=== PATIENT | male | born 1950 | race Caucasian/White ===

== ENCOUNTER 2016-07-16 18:17 | Inpatient (IN) | payer MEDICAID, MEDICARE ==
[2016-07-16] MEDS ORDERED: ACETAMINOPHEN TAB 500 MG TAB PO STA (19:22)
[2016-07-16] MEDS ORDERED: IPRATROPIUM-ALBUTEROL 3 ML NEB INHALATION STA ×2 (19:23→22:41)
--- NOTE | 2016-07-16 19:26 | ED ---
General Adult HPI - General Chief complaint: Shortness of Breath Stated complaint: Difficulty Breathing Time Seen by Provider: 07/16/16 19:00 Source: patient, family, RN notes reviewed Mode of arrival: ambulatory Limitations: no limitations - History of Present Illness Initial comments: Patient is a pleasant 65-year-old male presenting to the emergency Department with complaints of cough and difficulty breathing. Onset of symptoms was this morning. Cough is somewhat mild. Patient has palpitations. Patient feels warm. Cough is dry nonproductive. Patient does feel short of breath that has worsened throughout the day. Patient believes he does have a fever. Patient has not taken medication for that. Patient states there may be some swelling of his left leg. Patient does have a history of blood clot and is not currently on any anticoagulation. - Related Data Home Medications Medication Instructions Recorded Confirmed Ipratropium/Albuterol Sulfate 1 puff INHALATION RT-QID PRN 02/26/15 07/16/16 [Combivent Respimat Inhaler] Metoprolol Succinate [Toprol XL] 25 mg PO DAILY 11/12/15 07/16/16 Atorvastatin [Lipitor] 40 tab PO HS 11/17/15 07/16/16 ALPRAZolam [Xanax] 2 mg PO TID 07/16/16 07/16/16 Guaifenesin/Dextromethorphan 10 ml PO BID PRN 07/16/16 07/16/16 [guaiFENesin DM] Ibuprofen [Motrin] 800 mg PO TID PRN 07/16/16 07/16/16 Allergies Allergy/AdvReac Type Severity Reaction Status Date / Time orphenadrine Allergy Unknown Verified 07/16/16 18:47 pregabalin [From Lyrica] Allergy Unknown Verified 07/16/16 18:47 simvastatin Allergy Unknown Verified 07/16/16 18:47 cimetidine [From Tagamet] AdvReac Nausea & Verified 07/16/16 18:47 Vomiting & Diarrhea Sulfa (Sulfonamide AdvReac Nausea & Verified 07/16/16 19:31 Antibiotics) Vomiting Review of Systems ROS Statement: Those systems with pertinent positive or pertinent negative responses have been documented in the HPI. ROS Other: All systems not noted in ROS Statement are negative. Constitutional: Reports: fever, chills Eyes: Denies: eye pain ENT: Reports: congestion. Denies: ear pain, throat pain Respiratory: Reports: cough, dyspnea Cardiovascular: Reports: chest pain (Burning), palpitations Endocrine: Reports: fatigue Gastrointestinal: Denies: abdominal pain Genitourinary: Denies: dysuria Musculoskeletal: Denies: back pain Skin: Denies: rash Neurological: Denies: weakness Past Medical History Past Medical History: Chest Pain / Angina, COPD, Hyperlipidemia, Hypertension History of Any Multi-Drug Resistant Organisms: None Reported Past Surgical History: Back Surgery Past Psychological History: Anxiety, Panic Disorder Smoking Status: Former smoker Past Alcohol Use History: None Reported Past Drug Use History: None Reported General Exam Limitations: no limitations General appearance: alert, in no apparent distress Head exam: Present: atraumatic Eye exam: Present: normal appearance, PERRL ENT exam: Present: normal oropharynx Neck exam: Present: normal inspection Respiratory exam: Present: wheezes Cardiovascular Exam: Present: tachycardia GI/Abdominal exam: Present: soft. Absent: tenderness Extremities exam: Present: calf tenderness (Left-sided, mild) Back exam: Present: normal inspection Neurological exam: Present: alert Psychiatric exam: Present: normal affect, normal mood Skin exam: Absent: rash Course Vital Signs 07/16/16 07/16/16 07/16/16 18:44 19:31 19:44 Temperature 100.0 F H Pulse Rate 118 H 122 H 116 H Respiratory 22 Rate Blood Pressure 150/85 O2 Sat by Pulse 95 Oximetry 07/16/16 07/16/16 20:47 22:29 Temperature 100.7 F H 99.4 F Pulse Rate 118 H 115 H Respiratory 18 20 Rate Blood Pressure 156/76 176/88 O2 Sat by Pulse 94 L 96 Oximetry EKG Findings - EKG Comments: EKG Findings:: Sinus tachycardia 117. Normal intervals. Normal axis. Normal QRS. No acute ST change. Medical Decision Making - Medical Decision Making Patient reexamined and still feels somewhat short of breath. Case was discussed in detail with practitioner Can, who will admit for Dr. Mirtha Fritz. Patient and family updated on results and plan. - Lab Data Result diagrams: 07/16/16 19:15 07/16/16 19:15 Lab Results 07/16/16 07/16/16 07/16/16 Range/Units 19:15 19:15 19:15 WBC 12.9 H (3.8-10.6) k/uL RBC 4.77 (4.30-5.90) m/uL Hgb 14.5 (13.0-17.5) gm/dL Hct 44.4 (39.0-53.0) % MCV 93.2 (80.0-100.0) fL MCH 30.4 (25.0-35.0) pg MCHC 32.7 (31.0-37.0) g/dL RDW 12.6 (11.5-15.5) % Plt Count 284 (150-450) k/uL Neutrophils % 91 % Lymphocytes % 4 % Monocytes % 4 % Eosinophils % 1 % Basophils % 0 % Neutrophils # 11.7 H (1.3-7.7) k/uL Lymphocytes # 0.5 L (1.0-4.8) k/uL Monocytes # 0.5 (0-1.0) k/uL Eosinophils # 0.1 (0-0.7) k/uL Basophils # 0.0 (0-0.2) k/uL PT (9.0-12.0) sec INR (<1.1) APTT (22.0-30.0) sec D-Dimer (<0.60) mg/L FEU Sodium 144 (137-145) mmol/L Potassium 4.6 (3.5-5.1) mmol/L Chloride 106 (98-107) mmol/L Carbon Dioxide 25 (22-30) mmol/L Anion Gap 13 mmol/L BUN 10 (9-20) mg/dL Creatinine 1.00 (0.66-1.25) mg/dL Est GFR (MDRD) Af Amer >60 (>60 ml/min/1.73 sqM) Est GFR (MDRD) Non-Af >60 (>60 ml/min/1.73 sqM) Glucose 106 H (74-99) mg/dL Plasma Lactic Acid Joseph (0.7-2.0) mmol/L Calcium 9.5 (8.4-10.2) mg/dL Total Bilirubin 0.8 (0.2-1.3) mg/dL AST 25 (17-59) U/L ALT 51 (21-72) U/L Alkaline Phosphatase 112 (38-126) U/L Total Creatine Kinase 108 (55-170) U/L CK-MB (CK-2) 1.2 (0.0-2.4) ng/mL CK-MB (CK-2) Rel Index 1.1 Troponin I <0.012 (0.000-0.034) ng/mL Total Protein 7.8 (6.3-8.2) g/dL Albumin 4.5 (3.5-5.0) g/dL Cortisol 25 ug/dL Urine Color Urine Appearance (Clear) Urine pH (5.0-8.0) Ur Specific Anthony (1.001-1.035) Urine Protein (Negative) Urine Glucose (UA) (Negative) Urine Ketones (Negative) Urine Blood (Negative) Urine Nitrate (Negative) Urine Bilirubin (Negative) Urine Urobilinogen (<2.0) mg/dL Ur Leukocyte Esterase (Negative) Influenza Type A RNA (Not Detectd) Influenza Type B (PCR) (Not Detectd) 07/16/16 07/16/16 07/16/16 Range/Units 19:15 19:15 19:15 WBC (3.8-10.6) k/uL RBC (4.30-5.90) m/uL Hgb (13.0-17.5) gm/dL Hct (39.0-53.0) % MCV (80.0-100.0) fL MCH (25.0-35.0) pg MCHC (31.0-37.0) g/dL RDW (11.5-15.5) % Plt Count (150-450) k/uL Neutrophils % % Lymphocytes % % Monocytes % % Eosinophils % % Basophils % % Neutrophils # (1.3-7.7) k/uL Lymphocytes # (1.0-4.8) k/uL Monocytes # (0-1.0) k/uL Eosinophils # (0-0.7) k/uL Basophils # (0-0.2) k/uL PT 10.5 (9.0-12.0) sec INR 1.0 (<1.1) APTT 24.0 (22.0-30.0) sec D-Dimer 0.93 H (<0.60) mg/L FEU Sodium (137-145) mmol/L Potassium (3.5-5.1) mmol/L Chloride (98-107) mmol/L Carbon Dioxide (22-30) mmol/L Anion Gap mmol/L BUN (9-20) mg/dL Creatinine (0.66-1.25) mg/dL Est GFR (MDRD) Af Amer (>60 ml/min/1.73 sqM) Est GFR (MDRD) Non-Af (>60 ml/min/1.73 sqM) Glucose (74-99) mg/dL Plasma Lactic Acid Joseph 1.3 (0.7-2.0) mmol/L Calcium (8.4-10.2) mg/dL Total Bilirubin (0.2-1.3) mg/dL AST (17-59) U/L ALT (21-72) U/L Alkaline Phosphatase (38-126) U/L Total Creatine Kinase (55-170) U/L CK-MB (CK-2) (0.0-2.4) ng/mL CK-MB (CK-2) Rel Index Troponin I (0.000-0.034) ng/mL Total Protein (6.3-8.2) g/dL Albumin (3.5-5.0) g/dL Cortisol ug/dL Urine Color Urine Appearance (Clear) Urine pH (5.0-8.0) Ur Specific Anthony (1.001-1.035) Urine Protein (Negative) Urine Glucose (UA) (Negative) Urine Ketones (Negative) Urine Blood (Negative) Urine Nitrate (Negative) Urine Bilirubin (Negative) Urine Urobilinogen (<2.0) mg/dL Ur Leukocyte Esterase (Negative) Influenza Type A RNA Not Detected (Not Detectd) Influenza Type B (PCR) Not Detected (Not Detectd) 07/16/16 Range/Units 20:43 WBC (3.8-10.6) k/uL RBC (4.30-5.90) m/uL Hgb (13.0-17.5) gm/dL Hct (39.0-53.0) % MCV (80.0-100.0) fL MCH (25.0-35.0) pg MCHC (31.0-37.0) g/dL RDW (11.5-15.5) % Plt Count (150-450) k/uL Neutrophils % % Lymphocytes % % Monocytes % % Eosinophils % % Basophils % % Neutrophils # (1.3-7.7) k/uL Lymphocytes # (1.0-4.8) k/uL Monocytes # (0-1.0) k/uL Eosinophils # (0-0.7) k/uL Basophils # (0-0.2) k/uL PT (9.0-12.0) sec INR (<1.1) APTT (22.0-30.0) sec D-Dimer (<0.60) mg/L FEU Sodium (137-145) mmol/L Potassium (3.5-5.1) mmol/L Chloride (98-107) mmol/L Carbon Dioxide (22-30) mmol/L Anion Gap mmol/L BUN (9-20) mg/dL Creatinine (0.66-1.25) mg/dL Est GFR (MDRD) Af Amer (>60 ml/min/1.73 sqM) Est GFR (MDRD) Non-Af (>60 ml/min/1.73 sqM) Glucose (74-99) mg/dL Plasma Lactic Acid Joseph (0.7-2.0) mmol/L Calcium (8.4-10.2) mg/dL Total Bilirubin (0.2-1.3) mg/dL AST (17-59) U/L ALT (21-72) U/L Alkaline Phosphatase (38-126) U/L Total Creatine Kinase (55-170) U/L CK-MB (CK-2) (0.0-2.4) ng/mL CK-MB (CK-2) Rel Index Troponin I (0.000-0.034) ng/mL Total Protein (6.3-8.2) g/dL Albumin (3.5-5.0) g/dL Cortisol ug/dL Urine Color Yellow Urine Appearance Clear (Clear) Urine pH 5.5 (5.0-8.0) Ur Specific Anthony 1.020 (1.001-1.035) Urine Protein Negative (Negative) Urine Glucose (UA) Negative (Negative) Urine Ketones Negative (Negative) Urine Blood Negative (Negative) Urine Nitrate Negative (Negative) Urine Bilirubin Negative (Negative) Urine Urobilinogen <2.0 (<2.0) mg/dL Ur Leukocyte Esterase Negative (Negative) Influenza Type A RNA (Not Detectd) Influenza Type B (PCR) (Not Detectd) - Radiology Data Radiology results: report reviewed (Ultrasound left leg negative for DVT. CT of the chest shows no definite pulmonary embolism.), image reviewed (Chest x- ray shows no acute process.) Disposition Clinical Impression: Acute exacerbation of chronic obstructive airways disease Disposition: ADMITTED IP TO THIS HOSP
[2016-07-16 19:37] LABS: Basophils % (A) 0 %; CH 31.3; CHCM 33.8; Eosinophils # (A) 0.1 k/uL (0-0.7); Eosinophils % (A) 1 %; HCT 44.4 % (39.0-53.0); HDW 2.57; HGB 14.5 gm/dL (13.0-17.5); Luc # (Auto) 0.09; Luc % (Auto) 1; Lymphocytes # (A) 0.5 k/uL (1.0-4.8); Lymphocytes % (A) 4 %; MCH 30.4 pg (25.0-35.0); MCHC 32.7 g/dL (31.0-37.0); MCV 93.2 fL (80.0-100.0); Monocytes # (A) 0.5 k/uL (0-1.0); Monocytes % (A) 4 %; Neutrophils # (A) 11.7 k/uL (1.3-7.7); Neutrophils % (A) 91 %; RBC 4.77 m/uL (4.30-5.90); RDW 12.6 % (11.5-15.5); WBC 12.9 k/uL (3.8-10.6)
[2016-07-16 19:51] LABS: ALT 51 U/L (21-72); AST 25 U/L (17-59); Alkaline Phosphatase 112 U/L (38-126); Anion Gap 13 mmol/L; Blood Urea Nitrogen 10 mg/dL (9-20); Calcium 9.5 mg/dL (8.4-10.2); Carbon Dioxide 25 mmol/L (22-30); Chloride 106 mmol/L (98-107); Glucose 106 mg/dL (74-99); Non-African American GFR(MDRD) >60 (>60 ml/min/1.73 sqM); Potassium 4.6 mmol/L (3.5-5.1); Sodium 144 mmol/L (137-145); Total Bilirubin 0.8 mg/dL (0.2-1.3); Total Protein 7.8 g/dL (6.3-8.2)
[2016-07-16 20:04] LABS: Creatine Kinase 108 U/L (55-170)
[2016-07-16 20:17] LABS: Creatine Kinase MB 1.2 ng/mL (0.0-2.4); Troponin I <0.012 ng/mL (0.000-0.034)
[2016-07-16 20:19] LABS: Prothrombin Time 10.5 sec (9.0-12.0)
--- NOTE | 2016-07-16 20:41 | US ---
EXAMINATION TYPE: US VENOUS DOPPLER DUPLEX LE LT DATE OF EXAM: 07/16/2016 8:29 PM COMPARISON: Prior in PACS CLINICAL HISTORY: Pain. SOB SIDE PERFORMED: LEFT VESSELS IMAGED: External Iliac Vein (EIV) Common Femoral Vein Deep Femoral Vein Greater Saphenous Vein * Femoral Vein Popliteal Vein Small Saphenous Vein * Proximal Calf Veins (* superficial vessels) IMPRESSION: NEGATIVE FOR DEEP VENOUS THROMBOSIS, LEFT LOWER EXTREMITY.
[2016-07-16 20:53] LABS: Appearance,Urine Clear (Clear); Bilirubin,Urine Negative (Negative); Glucose,Urine (UA) Negative (Negative); Ketones,Urine Negative (Negative); Leukocyte Esterase,Urine Negative (Negative); Nitrite,Urine Negative (Negative); PH, Urine 5.5 (5.0-8.0); Protein,Urine Negative (Negative); UA Billing (MACRO vs. MICRO) CHEM; Urobilinogen,Urine <2.0 mg/dL (<2.0)
[2016-07-16] MEDS ORDERED: RX INFO: IV CONTRAST WAS GIVEN 1 EACH MISC MISCELLANE PRN (21:39)
--- NOTE | 2016-07-16 21:54 | XR ---
EXAMINATION TYPE: XR chest 2V DATE OF EXAM: 07/16/2016 9:34 PM HISTORY: Pain and cough and wheezing with fever TECHNIQUE: Frontal and lateral views of the chest are obtained. FINDINGS: There is no focal air space opacity, pleural effusion, or pneumothorax seen. The cardiac silhouette size is within normal limits. The osseous structures are intact. IMPRESSION: No acute cardiopulmonary process.
--- NOTE | 2016-07-16 22:25 | CT ---
EXAMINATION TYPE: CT angio chest DATE OF EXAM: 07/16/2016 10:09 PM COMPARISON: 08/21/2012 HISTORY: Pt states of chest pain and SOB. Hx of PE. CT DLP: 352.5 mGycm Automated exposure control for dose reduction was used. CONTRAST: CTA scan of the thorax is performed with IV Contrast, patient injected with 80 mL of Omnipaque 350, p ulmonary embolism protocol. . FINDINGS: PULMONARY ARTERIES: There is somewhat limited evaluation of pulmonary arteries and branches due to la ck of adequate contrast bolus. No significant filling defects are noted in the opacified main pulmona ry arteries and central branches to represent acute pulmonary embolism. LUNGS: There is stable 4 mm noncalcified nodule in the right middle lobe of lung anteriorly in the ax ial image 127. There are no active lung infiltrates. Emphysematous changes are present bilaterally. T here is no pleural effusion or pneumothorax seen. The tracheobronchial tree is patent. MEDIASTINUM: The ascending aorta measures 3.2 cm in greatest AP diameter without significant aneurysm or dissection.. Mild atheromatous changes are suggested in the visualized thoracic aorta. There are no greater than 1 cm hilar or mediastinal lymph nodes. No pericardial effusion is seen. OTHER: Multilevel degenerative changes are present in the thoracic spine with mild old compression d eformities in lower thoracic and the upper lumbar vertebrae. Mild fatty infiltration changes of liver are noted in the visualized abdomen. Visualized adrenal glands appear unremarkable. IMPRESSION: 1. NO DEFINITE ACUTE PULMONARY EMBOLISM IS NOTED IN THIS LIMITED EVALUATION. 2. STABLE RIGHT MIDDLE LOBE 4 MM PULMONARY NODULE. 3. EMPHYSEMATOUS CHANGES IN BOTH LUNGS. NO FOCAL LUNG CONSOLIDATION.
[2016-07-16] MEDS ORDERED: IBUPROFEN 600 MG TAB PO STA (22:26)
[2016-07-16] MEDS ORDERED: IBUPROFEN 800 MG TAB PO PRN (22:41)
[2016-07-16] MEDS ORDERED: guaiFENesin-DM 100-10MG/5ML 10 ML CUP PO PRN (22:41)
[2016-07-16] MEDS ORDERED: methylPREDNISolone SOD SUCCI 125 MG/2 ML VIAL IV STA (22:42)
[2016-07-16] MEDS ORDERED: IPRATROPIUM-ALBUTEROL 3 ML NEB INHALATION PRN (22:42)
[2016-07-16] MEDS: CEFDINIR 300 MG CAP PO SCH (23:21)
[2016-07-17] MEDS: ALPRAZolam 0.5 MG TAB PO SCH ×4 (00:11→21:10)
[2016-07-17 02:15] LABS: Creatine Kinase 105 U/L (55-170)
[2016-07-17 02:28] LABS: Creatine Kinase MB 1.6 ng/mL (0.0-2.4); Troponin I <0.012 ng/mL (0.000-0.034)
[2016-07-17] MEDS: methylPREDNISolone SOD SUCCI 125 MG/2 ML VIAL IV SCH ×4 (06:22→23:31)
[2016-07-17 07:51] LABS: Creatine Kinase 102 U/L (55-170)
[2016-07-17 08:03] LABS: Creatine Kinase MB 2.1 ng/mL (0.0-2.4); Troponin I <0.012 ng/mL (0.000-0.034)
[2016-07-17] MEDS: METOPROLOL SUCCINATE (ER) 25 MG TAB.ER.24H PO SCH (08:13)
[2016-07-17] MEDS ORDERED: ALPRAZolam 0.5 MG TAB PO SCH (09:00)
[2016-07-17] MEDS: IPRATROPIUM-ALBUTEROL 3 ML NEB INHALATION SCH ×4 (11:41→20:15)
--- NOTE | 2016-07-17 13:57 | P.CNPUL ---
History of Present Illness Consult date: 07/17/16 Reason for consult: dyspnea, cough, COPD Chief complaint: Shortness of breath History of present illness: Note dated 07/17/2016 This is a 65-year-old unpleasant man who complains of cough and difficulty breathing. Had a bit of an attitude today. Was apparently seen by one of the other lung doctors in the past when he was not happy with. Difficult to get a history from this patient. On trying to change the subject. He comes in with complaints of shortness of breath cough. Not bringing up much phlegm. No fever no chills. Has been feeling well for a couple of days. Very difficult to get the history from him. He continually talks about all the wrong doctors that he's picked in the past. Nonetheless, it appears that his primary problem is a COPD exacerbation and he is heavy smoker. I had Dr. Mckeon call our office and we have not seen him in the office so it must be either Dr. Paz or S/P alfredo that he is referring to. Review of Systems A 12 point review of system is positive for shortness breath chest tightness wheezing cough minimal phlegm production. It appears that he's probably having a COPD exacerbation. Past Medical History Past Medical History: Chest Pain / Angina, COPD, Hyperlipidemia, Hypertension History of Any Multi-Drug Resistant Organisms: None Reported Past Surgical History: Back Surgery Past Anesthesia/Blood Transfusion Reactions: Previous Problems w/ Anesthesia Additional Past Anesthesia/Blood Transfusion Reaction / Comment(s): pt states "trouble coming out of" Past Psychological History: Anxiety, Panic Disorder Smoking Status: Former smoker Past Alcohol Use History: None Reported Past Drug Use History: None Reported - Past Family History Father Family Medical History: CVA/TIA, Deep Vein Thrombosis (DVT) Medications and Allergies Home Medications Medication Instructions Recorded Confirmed Type Ipratropium/Albuterol Sulfate 1 puff INHALATION RT-QID PRN 02/26/15 07/16/16 History [Combivent Respimat Inhaler] Metoprolol Succinate [Toprol XL] 25 mg PO DAILY 11/12/15 07/16/16 History Atorvastatin [Lipitor] 40 tab PO HS 11/17/15 07/16/16 History ALPRAZolam [Xanax] 2 mg PO TID 07/16/16 07/16/16 History Guaifenesin/Dextromethorphan 10 ml PO BID PRN 07/16/16 07/16/16 History [guaiFENesin DM] Ibuprofen [Motrin] 800 mg PO TID PRN 07/16/16 07/16/16 History Allergies Allergy/AdvReac Type Severity Reaction Status Date / Time orphenadrine Allergy Unknown Verified 07/16/16 18:47 pregabalin [From Lyrica] Allergy Unknown Verified 07/16/16 18:47 simvastatin Allergy Unknown Verified 07/16/16 18:47 cimetidine [From Tagamet] AdvReac Nausea & Verified 07/16/16 18:47 Vomiting & Diarrhea Sulfa (Sulfonamide AdvReac Nausea & Verified 07/16/16 19:31 Antibiotics) Vomiting Physical Exam Osteopathic Statement: *. No significant issues noted on an osteopathic structural exam other than those noted in the History and Physical/Consult. Vitals: Vital Signs Temp Pulse Pulse Resp BP BP Pulse Ox 07/17/16 11:59 100 07/17/16 11:42 104 H 07/17/16 07:00 96.5 F L 99 16 159/80 92 L 07/16/16 23:45 98.2 F 121 H 20 120/76 96 07/16/16 23:09 98.1 F 125 H 20 162/89 97 07/16/16 23:00 126/76 07/16/16 22:54 115 H Intake and Output 07/16/16 07/17/16 07/17/16 22:59 06:59 14:59 Intake Total 300 Output Total 500 Balance -200 Intake: Oral 300 Output: Urine 500 Other: Voiding Method Toilet Urinal Weight 69.5 kg No acute distress, oriented 3. The patient has a big attitude. HEENT examination is grossly unremarkable. Mucous membranes are moist. No oral lesions. Neck supple. Full range of motion. No adenopathy. Cardiovascular examination reveals regular rhythm rate. S1-S2 normal. No S3- S4 or murmur. Lungs reveal diminished breath sounds. A few scattered wheezes and rhonchi. Not really impressive examination. No crackles. Abdomen soft Extremities are intact. No edema. Results - Laboratory Findings CBC and BMP: 07/16/16 19:15 07/16/16 19:15 PT/INR, D-dimer PT 10.5 sec (9.0-12.0) 07/16/16 19:15 INR 1.0 (<1.1) 07/16/16 19:15 D-Dimer 0.93 mg/L FEU (<0.60) H 07/16/16 19:15 - Diagnostic Findings Chest x-ray: image reviewed CT scan - chest: image reviewed (X-rays labs and medications are all reviewed.) Assessment and Plan (1) Acute exacerbation of chronic obstructive airways disease Status: Acute Plan: Plan dated 07/17/2016 This is a patient who has a history of heavy tobacco use. The patient likely has underlying COPD. Apparently saw either Dr. Paz or Dr. Huff in the past. Never saw anybody and our office. Anyway we'll make sure the patient's on appropriate medications including short acting beta agonist short acting muscarinic antagonist long-acting beta agonist inhaled corticosteroid systemic corticosteroids and antibiotics. Computed tomography scan showed no evidence of PE. No pneumonia. Additional recommendations suggestions are forthcoming. Time with Patient: Greater than 30
[2016-07-17] MEDS ORDERED: TEMAZEPAM 15 MG CAP PO PRN (14:02)
[2016-07-17] MEDS ORDERED: LORazepam 2 MG/ML SYRINGE IV PRN (14:02)
[2016-07-17] MEDS ORDERED: HYDROcodone/APAP 5-325MG 1 EACH TAB PO PRN (14:02)
--- NOTE | 2016-07-17 16:20 | HP ---
DATE OF ADMISSION: CHIEF COMPLAINT: Shortness of breath. HISTORY OF PRESENT ILLNESS: This 65-year-old gentleman with a past history of chronic obstructive pulmonary disease, hypertension, hyperlipidemia, history of back surgery, history of anxiety, panic disorder being followed by Dr. Shakila Langston in the outpatient setting is complaining of shortness of breath and cough and sputum for the past several days. The patient also complains of cough and fever also. Cough is nonproductive. The patient admitted to [facility]. D-dimer is slightly elevated. Patient had a CAT scan of the chest which showed stable right middle lobe 4 mm pulmonary nodule and emphysematous changes. There is no evidence of any pneumonia. There is no history of any headache, loss of consciousness, seizures, no hemoptysis, hematochezia or melena. PAST MEDICAL HISTORY: Chronic obstructive pulmonary disease, angina, history of hypertension, hyperlipidemia, history of back surgery, history of anxiety, panic disorder. Medications prior to admission include: 1. Toprol-XL 25 mg p.o. daily. 2. Combivent 1 puff q.i.d. p.r.n. 3. Motrin 800 mg t.i.d. p.r.n. 4. Guaifenesin DM 10 mg b.i.d. p.r.n. 5. Lipitor 40 mg q.h.s. 6. Xanax 2 mg p.o. t.i.d. ALLERGIES: LYRICA, SIMVASTATIN TAGAMET, SULFA. FAMILY HISTORY: History of TIA DVT in the family. SOCIAL HISTORY: Previous history of smoking. No history of current smoking or alcohol intake. REVIEW OF SYSTEMS: ENT: No diminished vision. No diminished hearing. CARDIOVASCULAR: No angina. RESPIRATORY: As mentioned earlier. GI: No nausea. : No dysuria. NERVOUS SYSTEM: No numbness or weakness. ALLERGY/IMMUNOLOGY: No asthma or hayfever. MUSCULOSKELETAL: As mentioned earlier. HEMATOLOGY/ONCOLOGY: No history of anemia. ENDOCRINE: No history of diabetes or hypothyroidism. CONSTITUTIONAL: As mentioned earlier. DERMATOLOGY: Negative. RHEUMATOLOGY: Negative. PSYCHIATRY: As mentioned earlier. PHYSICAL EXAMINATION: Alert and oriented x3. Pulse is 99, blood pressure 159/80, respirations 16, temperature 96.5, pulse ox 92% on 2 liters. HEENT: Conjunctivae normal. NECK: No jugular venous distention. CARDIOVASCULAR: S1 and S2. RESPIRATORY: Breath sounds diminished at the bases. A few scattered rhonchi, no crackles. Expiratory wheezing also present. ABDOMEN: Soft, nontender. No mass palpable. LEGS: No edema, no swelling. NERVOUS SYSTEM: Higher function as mentioned. Moves all four limbs. No focal motor deficits. LYMPHATIC: No lymphadenopathy in the neck, axillae or groin. SKIN: No ulcer, rash or bleeding. JOINTS: No active deformity. LABS: WBC 12, hemoglobin is 14.5. D-dimer is 0.93, glucose 106. UA noted. ASSESSMENT: 1. Chronic obstructive pulmonary disease, acute exacerbation, with acute purulent tracheobronchitis. 2. Increased WBC. 3. Increased d-dimer without any evidence of acute pulmonary embolism. 4. Stable right middle lobe 4 mm pulmonary nodule. 5. History of nicotine dependence. 6. History of chronic obstructive pulmonary disease. 7. Hypertension. 8. Hyperlipidemia. 9. History of back surgery. 10. Degenerative joint disease. 11. History of anxiety, panic disorder. 12. FULL CODE. RECOMMENDATIONS AND DISCUSSION: In this 65-year-old gentleman who presented with multiple complex medical issues, we will monitor the patient closely. Will optimize the bronchodilator treatment, empiric antibiotics. Consult Dr. Melgoza. DVT prophylaxis, steroids. Monitor blood sugars closely. Guarded prognosis because of multiple complex medical issues. Further recommendations to follow. See orders for details. Copy of dictation forwarded to Dr. Shakila Langston, who is the primary physician. ANTHONY
[2016-07-17 17:08] LABS: Glucose,Whole Blood 156 mg/dL (75-99)
[2016-07-17] MEDS: INSULIN LISPRO (humaLOG) 300 UNIT/3 ML VIAL SQ SCH ×2 (18:38→21:10)
[2016-07-17] MEDS: SYMBICORT 160-4.5 MCG INHALER INHALATION SCH (20:15)
[2016-07-17] MEDS: ATORVASTATIN 40 MG TAB PO SCH (20:42)
[2016-07-17] MEDS: HEPARIN SODIUM,PORCINE 5,000 UNIT/ML 1 ML VIAL SQ SCH (20:42)
[2016-07-17] MEDS: CEFDINIR 300 MG CAP PO SCH (20:42)
[2016-07-17 21:02] LABS: Glucose,Whole Blood 184 mg/dL (75-99)
[2016-07-18] MEDS: methylPREDNISolone SOD SUCCI 125 MG/2 ML VIAL IV SCH ×2 (06:46→12:20)
[2016-07-18] MEDS: IPRATROPIUM-ALBUTEROL 3 ML NEB INHALATION SCH ×4 (07:12→19:51)
[2016-07-18] MEDS: SYMBICORT 160-4.5 MCG INHALER INHALATION SCH ×2 (07:12→19:51)
[2016-07-18 07:14] LABS: Glucose,Whole Blood 141 mg/dL (75-99)
[2016-07-18] MEDS: ALPRAZolam 0.5 MG TAB PO SCH ×3 (08:33→21:37)
[2016-07-18] MEDS: METOPROLOL SUCCINATE (ER) 25 MG TAB.ER.24H PO SCH (08:33)
[2016-07-18] MEDS: INSULIN LISPRO (humaLOG) 300 UNIT/3 ML VIAL SQ SCH ×4 (08:33→21:37)
[2016-07-18] MEDS: PANTOPRAZOLE 40 MG TABLET PO SCH (08:33)
[2016-07-18] MEDS: HEPARIN SODIUM,PORCINE 5,000 UNIT/ML 1 ML VIAL SQ SCH ×2 (08:33→20:49)
[2016-07-18] MEDS: CEFDINIR 300 MG CAP PO SCH ×2 (08:33→20:49)
[2016-07-18 08:53] LABS: Basophils # (A) 0.1 k/uL (0-0.2); Basophils % (A) 0 %; CH 30.9; CHCM 33.6; Eosinophils % (A) 0 %; HCT 42.3 % (39.0-53.0); HDW 2.54; HGB 13.8 gm/dL (13.0-17.5); Luc # (Auto) 0.14; Luc % (Auto) 1; Lymphocytes # (A) 0.9 k/uL (1.0-4.8); Lymphocytes % (A) 4 %; MCH 30.2 pg (25.0-35.0); MCHC 32.8 g/dL (31.0-37.0); MCV 92.3 fL (80.0-100.0); Mean Platelet Volume 6.9; Monocytes # (A) 0.9 k/uL (0-1.0); Monocytes % (A) 4 %; Neutrophils # (A) 21.6 k/uL (1.3-7.7); Neutrophils % (A) 91 %; RBC 4.58 m/uL (4.30-5.90); RDW 12.8 % (11.5-15.5); WBC 23.6 k/uL (3.8-10.6)
[2016-07-18 09:00] LABS: Anion Gap 15 mmol/L; Blood Urea Nitrogen 23 mg/dL (9-20); Calcium 9.7 mg/dL (8.4-10.2); Carbon Dioxide 25 mmol/L (22-30); Chloride 104 mmol/L (98-107); Glucose 144 mg/dL (74-99); Non-African American GFR(MDRD) >60 (>60 ml/min/1.73 sqM); Sodium 144 mmol/L (137-145)
[2016-07-18 09:08] LABS: Potassium 4.1 mmol/L (3.5-5.1)
[2016-07-18 10:55] LABS: Hemoglobin A1C 5.3 % (4.2-6.1)
[2016-07-18 11:46] LABS: Glucose,Whole Blood 138 mg/dL (75-99)
--- NOTE | 2016-07-18 12:53 | P.PN ---
Subjective Progress note dated 07/18/2016 next This is a 65-year-old male who came in complaining of cough and difficulty breathing. The patient was admitted with a diagnosis of COPD exacerbation secondary to heavy tobacco use. He is feeling better today. Less shortness of breath. The patient is not a particularly good historian. Apparently has seen Dr. Sebastián fuentes in the past. Feeling better. Less short of breath. Less cough. No phlegm production. Objective - Vital Signs Vital signs: Vital Signs Temp 96.7 F L 07/18/16 07:00 Pulse 104 H 07/18/16 11:17 Resp 18 07/18/16 07:00 BP 132/65 07/18/16 07:00 Pulse Ox 94 L 07/18/16 07:00 Intake & Output 07/17/16 07/18/16 07/18/16 18:59 06:59 18:59 Other: Voiding Method Toilet # Voids 3 1 - Exam No acute distress, oriented 3. Not wearing any supplemental oxygen. HEENT examination is grossly unremarkable. Mucous membranes are moist. Supple. Full range of motion. No adenopathy or thyromegaly. Cardiovascular examination reveals regular rhythm rate. S1 and S2 normal. Lungs reveal few scattered mild rhonchi. No wheezes. No significant crackles. Breath sounds are diminished. Abdomen soft bowel sounds are heard. Extremities are intact. - Labs CBC & Chem 7: 07/18/16 07:55 07/18/16 07:55 Labs: Abnormal Lab Results - Last 24 Hours (Table) 07/17/16 07/17/16 07/18/16 Range/Units 17:05 21:00 07:12 WBC (3.8-10.6) k/uL Neutrophils # (1.3-7.7) k/uL Lymphocytes # (1.0-4.8) k/uL BUN (9-20) mg/dL Glucose (74-99) mg/dL POC Glucose (mg/dL) 156 H 184 H 141 H (75-99) mg/dL 07/18/16 07/18/16 07/18/16 Range/Units 07:55 07:55 11:45 WBC 23.6 H (3.8-10.6) k/uL Neutrophils # 21.6 H (1.3-7.7) k/uL Lymphocytes # 0.9 L (1.0-4.8) k/uL BUN 23 H (9-20) mg/dL Glucose 144 H (74-99) mg/dL POC Glucose (mg/dL) 138 H (75-99) mg/dL Assessment and Plan (1) Acute exacerbation of chronic obstructive airways disease Status: Acute Plan: Plan dated 07/17/2016 This is a patient who has a history of heavy tobacco use. The patient likely has underlying COPD. Apparently saw either Dr. Paz or Dr. Huff in the past. Never saw anybody and our office. Anyway we'll make sure the patient's on appropriate medications including short acting beta agonist short acting muscarinic antagonist long-acting beta agonist inhaled corticosteroid systemic corticosteroids and antibiotics. Computed tomography scan showed no evidence of PE. No pneumonia. Additional recommendations suggestions are forthcoming. Plan dated 07/18/2016 The patient will continue on the current regimen of short acting beta agonist, short acting muscarinic antagonist, and inhaled corticosteroids, long-acting long-acting beta agonist, systemic corticosteroids, and antibiotics. Hopefully discharge soon. No discharge conditions are made. We'll continue to follow. Probably should follow-up with Dr. Mckeon and our office. Time with Patient: Less than 30
[2016-07-18] MEDS: methylPREDNISolone SOD SUCCI 40 MG/ML 1 ML VIAL IV SCH ×2 (16:37→23:30)
--- NOTE | 2016-07-18 16:59 | PN ---
DATE OF SERVICE: 07/18/2016 This 65-year-old gentleman who was admitted with COPD acute exacerbation and as well as acute purulent tracheobronchitis improving significantly. No chest pain or palpitations. No fever. Pulmonary is following the patient closely. On exam, alert and oriented x3. Pulse is 111, blood pressure 132/65, respirations 18, temperature 96.7, pulse ox 94% on room. HEENT: Conjunctivae normal. NECK: No jugular venous distention. CARDIOVASCULAR: S1 and S2, muffled. RESPIRATORY: Breath sounds diminished at the bases. Scattered rhonchi and crackles. Expiratory wheezing also present. ABDOMEN: Soft, nontender. LEGS: No edema, no swelling. NERVOUS SYSTEM: No focal deficits. LABS: WBC 23.6 and glucose 144. ASSESSMENT: 1. Chronic obstructive pulmonary disease acute exacerbation with acute purulent tracheobronchitis. 2. Sinus tachycardia. 3. Increased WBC. 4. Increased D-dimer without any evidence of active pulmonary embolism. 5. Stable right middle lobe 4 mm pulmonary nodule. 6. History of nicotine dependence. 7. Chronic obstructive pulmonary disease. 8. Hypertension. 9. Hyperlipidemia. 10. History of back surgery. 11. History of degenerative joint disease. 12. History of anxiety, panic disorder. 13. FULL CODE. RECOMMENDATIONS AND DISCUSSION: This 65-year-old gentleman who presented with multiple medical issues, at this time I recommend to continue current medications, continue symptomatic treatment. Continue with bronchodilators, taper the steroids. Closely follow with Pulmonary. Further recommendations to follow.
[2016-07-18 17:23] LABS: Glucose,Whole Blood 196 mg/dL (75-99)
[2016-07-18] MEDS: ATORVASTATIN 40 MG TAB PO SCH (20:49)
[2016-07-18 20:58] LABS: Glucose,Whole Blood 216 mg/dL (75-99)
[2016-07-19] MEDS: SYMBICORT 160-4.5 MCG INHALER INHALATION SCH (07:10)
[2016-07-19] MEDS: IPRATROPIUM-ALBUTEROL 3 ML NEB INHALATION SCH ×3 (07:10→16:02)
[2016-07-19 07:19] LABS: Glucose,Whole Blood 116 mg/dL (75-99)
[2016-07-19] MEDS: INSULIN LISPRO (humaLOG) 300 UNIT/3 ML VIAL SQ SCH ×2 (07:23→11:52)
[2016-07-19 08:16] LABS: Basophils % (A) 0 %; CH 30.8; CHCM 33.4; Eosinophils % (A) 0 %; HCT 41.2 % (39.0-53.0); HDW 2.58; HGB 13.5 gm/dL (13.0-17.5); Luc # (Auto) 0.17; Luc % (Auto) 1; Lymphocytes # (A) 1.3 k/uL (1.0-4.8); Lymphocytes % (A) 6 %; MCH 30.2 pg (25.0-35.0); MCHC 32.7 g/dL (31.0-37.0); MCV 92.5 fL (80.0-100.0); Monocytes # (A) 0.8 k/uL (0-1.0); Monocytes % (A) 4 %; Neutrophils # (A) 19.6 k/uL (1.3-7.7); Neutrophils % (A) 90 %; RBC 4.45 m/uL (4.30-5.90); RDW 12.8 % (11.5-15.5); WBC 21.9 k/uL (3.8-10.6); WBC (Perox) 22.36
[2016-07-19] MEDS: ALPRAZolam 0.5 MG TAB PO SCH (08:20)
[2016-07-19] MEDS: PANTOPRAZOLE 40 MG TABLET PO SCH (08:20)
[2016-07-19] MEDS: METOPROLOL SUCCINATE (ER) 25 MG TAB.ER.24H PO SCH (08:20)
[2016-07-19] MEDS: methylPREDNISolone SOD SUCCI 40 MG/ML 1 ML VIAL IV SCH (08:20)
[2016-07-19] MEDS: HEPARIN SODIUM,PORCINE 5,000 UNIT/ML 1 ML VIAL SQ SCH (08:20)
[2016-07-19] MEDS: CEFDINIR 300 MG CAP PO SCH (08:20)
[2016-07-19] MEDS ORDERED: INFLUENZA VACCINE (3YR+) 60 MCG/0.5 ML SYRINGE IM ONE (08:21)
[2016-07-19 08:28] LABS: Anion Gap 13 mmol/L; Blood Urea Nitrogen 23 mg/dL (9-20); Calcium 9.5 mg/dL (8.4-10.2); Carbon Dioxide 25 mmol/L (22-30); Chloride 105 mmol/L (98-107); Glucose 116 mg/dL (74-99); Non-African American GFR(MDRD) >60 (>60 ml/min/1.73 sqM); Potassium 4.5 mmol/L (3.5-5.1); Sodium 143 mmol/L (137-145)
[2016-07-19 11:41] LABS: Glucose,Whole Blood 179 mg/dL (75-99)
--- NOTE | 2016-07-19 14:54 | P.PN ---
Subjective Progress note dated 07/18/2016 next This is a 65-year-old male who came in complaining of cough and difficulty breathing. The patient was admitted with a diagnosis of COPD exacerbation secondary to heavy tobacco use. He is feeling better today. Less shortness of breath. The patient is not a particularly good historian. Apparently has seen Dr. Sebastián fuentes in the past. Feeling better. Less short of breath. Less cough. No phlegm production. Progress note dated 07/19/2016 This is a 65-year-old male who came with complaints of shortness of breath difficulty breathing chest tightness and chest congestion. The patient was admitted with a COPD exacerbation. The patient's feeling much better. Would like to be able to be discharged home. Will depend on Dr. Fritz. Used to see Dr. Sebastián fuentes but doesn't want to return. We'll see me in the office. The patient should be discharged on a short course of antibiotics and a prednisone burst and taper as outlined yesterday. He is feeling much better. Objective - Vital Signs Vital signs: Vital Signs Temp 97 F L 07/19/16 07:00 Pulse 96 07/19/16 11:20 Resp 18 07/19/16 07:00 BP 146/81 07/19/16 07:00 Pulse Ox 94 L 07/19/16 07:00 Intake & Output 07/18/16 07/19/16 07/19/16 18:59 06:59 18:59 Intake Total 1750 Balance 1750 Intake: Oral 1750 Other: Voiding Method Toilet # Voids 3 3 3 - Exam No acute distress, oriented 3. Not wearing any supplemental oxygen. HEENT examination is grossly unremarkable. Mucous membranes are moist. Supple. Full range of motion. No adenopathy or thyromegaly. Cardiovascular examination reveals regular rhythm rate. S1 and S2 normal. Lungs reveal few scattered mild rhonchi. No wheezes. No significant crackles. Breath sounds are diminished. Abdomen soft bowel sounds are heard. Extremities are intact. - Labs CBC & Chem 7: 07/19/16 07:30 07/19/16 07:30 Labs: Abnormal Lab Results - Last 24 Hours (Table) 07/18/16 07/18/16 07/19/16 Range/Units 17:21 20:57 07:16 WBC (3.8-10.6) k/uL Neutrophils # (1.3-7.7) k/uL BUN (9-20) mg/dL Glucose (74-99) mg/dL POC Glucose (mg/dL) 196 H 216 H 116 H (75-99) mg/dL 07/19/16 07/19/16 07/19/16 Range/Units 07:30 07:30 11:39 WBC 21.9 H (3.8-10.6) k/uL Neutrophils # 19.6 H (1.3-7.7) k/uL BUN 23 H (9-20) mg/dL Glucose 116 H (74-99) mg/dL POC Glucose (mg/dL) 179 H (75-99) mg/dL Assessment and Plan (1) Acute exacerbation of chronic obstructive airways disease Status: Acute Plan: Plan dated 07/17/2016 This is a patient who has a history of heavy tobacco use. The patient likely has underlying COPD. Apparently saw either Dr. Paz or Dr. Huff in the past. Never saw anybody and our office. Anyway we'll make sure the patient's on appropriate medications including short acting beta agonist short acting muscarinic antagonist long-acting beta agonist inhaled corticosteroid systemic corticosteroids and antibiotics. Computed tomography scan showed no evidence of PE. No pneumonia. Additional recommendations suggestions are forthcoming. Plan dated 07/18/2016 The patient will continue on the current regimen of short acting beta agonist, short acting muscarinic antagonist, and inhaled corticosteroids, long-acting long-acting beta agonist, systemic corticosteroids, and antibiotics. Hopefully discharge soon. No discharge conditions are made. We'll continue to follow. Probably should follow-up with Dr. Mckeon and our office. Plan dated 07/19/2016 The patient's doing well. The patient has my card. We'll make an appointment to see me in the office. The patient will need a 6 minute walk distance and a PFT. Additional recommendations suggestions are forthcoming. I also told the patient to make sure he brings into the office all his medications so we can see what he was on. Time with Patient: Less than 30
[2016-07-19 15:51] VITALS: BP 129/57; RESP 16; TEMP 96.8
[2016-07-19 16:05] VITALS: PULSE 86
--- NOTE | 2016-07-20 13:15 | DS ---
DATE OF ADMISSION: 07/16/2016 DATE OF DISCHARGE: 07/19/2016 FINAL DIAGNOSES: 1. Chronic obstructive pulmonary disease, acute exacerbation, with acute purulent tracheobronchitis. 2. Sinus tachycardia. 3. Increased WBC. 4. Increased d-dimer without any evidence of active pulmonary embolism. 5. Stable right middle lobe 4 mm pulmonary nodule. 6. History of nicotine dependence. 7. Chronic obstructive pulmonary disease. 8. Hypertension. 9. Hyperlipidemia. 10. History of back surgery. 11. History of degenerative joint disease. 12. Anxiety, panic disorder. 13. FULL CODE. DISCHARGE DISPOSITION: Patient will be discharged in stable condition with guarded prognosis. Discharge cleared by Dr. Melgoza. HISTORY OF PRESENT ILLNESS: This 65-year-old gentleman with past medical history of multiple medical problems, is being followed by Dr. Shakila Langston in the outpatient setting, was admitted with COPD acute exacerbation as well as acute purulent tracheobronchitis, treated with bronchodilators and antibiotics. The patient improved significantly. Chest CT was negative for pulmonary embolus. On exam, are stable. CARDIOVASCULAR SYSTEM: S1, S2 normal. Breath sounds diminished in the bases. A few scattered rhonchi and crackles. ABDOMEN: Soft. Nervous system: No focal deficits. DISCHARGE ADVICE AND MEDICATIONS: 1. Diet is cardiac. 2. Activity limited until follow-up. 3. Follow up with Dr. Shakila Langston in 2 to 3 days. 4. Follow with Dr. Melgoza in 2 weeks. 5. Xanax 2 mg p.o. t.i.d. 6. Lipitor 40 mg q.h.s. 7. Symbicort 160/4.5, 2 puffs b.i.d. 8. Omnicef 300 mg p.o. b.i.d. for 4 days. 9. Guaifenesin 10 mL b.i.d. p.r.n. 10. Motrin 800 mg t.i.d. p.r.n. 11. Albuterol Atrovent updrafts q.i.d. and p.r.n. 12. Toprol-XL 25 mg p.o. daily. 13. Prednisone taper that is 40 mg daily for 3 days, 30 for 3 days, 20 for 3 days and 10 for 3 days.
== END 2016-07-19 16:15 | disposition home or self-care (01) | DRG 192 ==
LOC: EC 18:17 → 4MS4W 22:42
PROVIDERS: ADMIT Internal Medicine; ATTEND Internal Medicine
PROC: 3E0234Z Introduction of Serum, Toxoid and Vaccine into Muscle, Percutaneous Approach (ICD-10-PCS; principal; 2016-07-19)
DX: J44.1 Chronic obstructive pulmonary disease with (acute) exacerbation (principal); I10 Essential (primary) hypertension; J20.9 Acute bronchitis, unspecified; J44.0 Chronic obstructive pulmonary disease with (acute) lower respiratory infection; R00.0 Tachycardia, unspecified; D72.829 Elevated white blood cell count, unspecified; R91.1 Solitary pulmonary nodule; R00.2 Palpitations; E78.5 Hyperlipidemia, unspecified; M19.90 Unspecified osteoarthritis, unspecified site; F41.0 Panic disorder [episodic paroxysmal anxiety]; F41.9 Anxiety disorder, unspecified; Z82.3 Family history of stroke; Z82.49 Family history of ischemic heart disease and other diseases of the circulatory system; Z79.1 Long term (current) use of non-steroidal anti-inflammatories (NSAID); Z87.891 Personal history of nicotine dependence; Z23 Encounter for immunization; Z79.899 Other long term (current) drug therapy; Z88.2 Allergy status to sulfonamides; Z88.8 Allergy status to other drugs, medicaments and biological substances
CPT/HCPCS: 36415; 71020; 71275; 80048; 80053; 81003; 82533; 82550; 82553; 83036; 83605; 84484; 85025; 85379; 85610; 85730; 87040; 87086; 87502; 90686; 93005; 94640; 96374; 99285

== ENCOUNTER → 2016-07-23 | Outpatient (CLI) | payer MEDICAID, MEDICARE ==
[2016-07-23 09:44] LABS: Basophils # (A) 0.1 k/uL (0-0.2); Basophils % (A) 0 %; CH 30.4; CHCM 33.6; Eosinophils % (A) 0 %; HCT 43.5 % (39.0-53.0); HDW 2.65; HGB 14.6 gm/dL (13.0-17.5); Luc # (Auto) 0.22; Luc % (Auto) 1; Lymphocytes # (A) 2.2 k/uL (1.0-4.8); Lymphocytes % (A) 13 %; MCH 30.4 pg (25.0-35.0); MCHC 33.5 g/dL (31.0-37.0); MCV 90.8 fL (80.0-100.0); Mean Platelet Volume 7.2; Monocytes # (A) 0.5 k/uL (0-1.0); Monocytes % (A) 3 %; Neutrophils # (A) 13.4 k/uL (1.3-7.7); Neutrophils % (A) 82 %; RBC 4.79 m/uL (4.30-5.90); RDW 12.7 % (11.5-15.5); WBC 16.4 k/uL (3.8-10.6); WBC (Perox) 17.03
[2016-07-23 09:59] LABS: Anion Gap 11 mmol/L; Blood Urea Nitrogen 18 mg/dL (9-20); Calcium 9.7 mg/dL (8.4-10.2); Carbon Dioxide 26 mmol/L (22-30); Chloride 105 mmol/L (98-107); Glucose 145 mg/dL (74-99); Non-African American GFR(MDRD) >60 (>60 ml/min/1.73 sqM); Potassium 3.8 mmol/L (3.5-5.1); Sodium 142 mmol/L (137-145)
== END | disposition home or self-care (01) ==
LOC: LABWHC1 09:11
PROVIDERS: ATTEND Hospitalist
DX: J44.9 Chronic obstructive pulmonary disease, unspecified (principal)
CPT/HCPCS: 36415; 80048; 85025

== ENCOUNTER 2016-10-01 12:30 | Emergency (ER) | payer MEDICAID, MEDICARE ==
[2016-10-01 13:10] VITALS: TEMP 98.7
--- NOTE | 2016-10-01 14:10 | US ---
EXAMINATION TYPE: US venous doppler duplex LE LT DATE OF EXAM: 10/01/2016 1:46 PM COMPARISON: US CLINICAL HISTORY: Pain. Left leg pain x 3 days SIDE PERFORMED: Left TECHNIQUE: The lower extremity deep venous system is examined utilizing real time linear array sonog ismael with graded compression, doppler sonography and color-flow sonography. VESSELS IMAGED: External Iliac Vein (EIV) Common Femoral Vein Deep Femoral Vein Greater Saphenous Vein * Femoral Vein Popliteal Vein Small Saphenous Vein * Proximal Calf Veins (* superficial vessels) Left Leg: Negative for DVT IMPRESSION: No evidence of DVT.
--- NOTE | 2016-10-01 14:12 | ED ---
Extremity Problem HPI - General Chief complaint: Extremity Problem,Nontraumatic Stated complaint: Leg pain-poss blood clot Time Seen by Provider: 10/01/16 13:25 Source: patient, RN notes reviewed Mode of arrival: ambulatory Limitations: no limitations - History of Present Illness Initial comments: 66-year-old male presents emergency Department chief complaint left leg pain. Patient's concerned about possible DVT. Patient states she's had one in the past. He has noticed some discomfort in his leg over the last few days and some mild swelling. Denies any chest pain or shortness of breath. Patient states he has pain that seems to be radiating down his leg. Denies any increase in back pain he has chronic back problems. Patient denies any bowel bladder incontinence or retention. - Related Data Home Medications Medication Instructions Recorded Confirmed Ipratropium/Albuterol Sulfate 1 puff INHALATION RT-QID PRN 02/26/15 10/01/16 [Combivent Respimat Inhaler] Metoprolol Succinate [Toprol XL] 25 mg PO DAILY 11/12/15 10/01/16 Atorvastatin [Lipitor] 40 tab PO HS 11/17/15 10/01/16 ALPRAZolam [Xanax] 2 mg PO TID PRN 07/16/16 10/01/16 Fluocinonide 0.05% Solution 1 applic TOPICAL HS 10/01/16 10/01/16 Ipratropium-Albuterol Nebulize 3 ml INHALATION RT-QID 10/01/16 10/01/16 [Duoneb 0.5 mg-3 mg/3 ml Soln] Loratadine [Claritin] 10 mg PO DAILY 10/01/16 10/01/16 Ranitidine HCl [Zantac] 150 mg PO HS 10/01/16 10/01/16 Previous Rx's Medication Instructions Recorded Budesonide-Formot 160-4.5 Mcg 2 puff INHALATION RT-BID #1 puff 07/19/16 [Symbicort 160-4.5 Mcg Inhaler] Allergies Allergy/AdvReac Type Severity Reaction Status Date / Time orphenadrine Allergy Unknown Verified 07/16/16 18:47 pregabalin [From Lyrica] Allergy Unknown Verified 07/16/16 18:47 simvastatin Allergy Unknown Verified 07/16/16 18:47 cimetidine [From Tagamet] AdvReac Nausea & Verified 07/16/16 18:47 Vomiting & Diarrhea Sulfa (Sulfonamide AdvReac Nausea & Verified 07/16/16 19:31 Antibiotics) Vomiting Review of Systems ROS Statement: Those systems with pertinent positive or pertinent negative responses have been documented in the HPI. ROS Other: All systems not noted in ROS Statement are negative. Past Medical History Past Medical History: Chest Pain / Angina, COPD, Hyperlipidemia, Hypertension History of Any Multi-Drug Resistant Organisms: None Reported Past Surgical History: Back Surgery Past Anesthesia/Blood Transfusion Reactions: Previous Problems w/ Anesthesia Additional Past Anesthesia/Blood Transfusion Reaction / Comment(s): pt states "trouble coming out of" Past Psychological History: Anxiety, Panic Disorder Smoking Status: Former smoker Past Alcohol Use History: None Reported Past Drug Use History: None Reported - Past Family History Father Family Medical History: CVA/TIA, Deep Vein Thrombosis (DVT) General Exam Limitations: no limitations General appearance: alert, in no apparent distress Respiratory exam: Present: normal lung sounds bilaterally. Absent: respiratory distress, wheezes, rales, rhonchi, stridor Cardiovascular Exam: Present: regular rate, normal rhythm, normal heart sounds. Absent: systolic murmur, diastolic murmur, rubs, gallop, clicks Extremities exam: Present: other (Pedal pulses equal bilaterally, minimal swelling +1 on the left tenderness no discoloration) Neurological exam: Present: alert Skin exam: Present: warm, dry Course Vital Signs 10/01/16 13:07 Temperature 98.7 F Pulse Rate 79 Respiratory 20 Rate Blood Pressure 151/80 O2 Sat by Pulse 97 Oximetry Medical Decision Making - Medical Decision Making 66-year-old male presented for left leg swelling, pain. Patient's ultrasound shows no acute DVT. Patient will be discharged this time return parameters were discussed Disposition Clinical Impression: Left leg pain, Left leg swelling Disposition: HOME SELF-CARE Condition: Stable Instructions: Leg Pain (ED) Additional Instructions: Please return to the Emergency Department if symptoms worsen or any other concerns. Time of Disposition: 14:16
[2016-10-01 14:41] VITALS: BP 145/71; PULSE 73; RESP 16
== END 2016-10-01 14:21 | disposition home or self-care (01) ==
LOC: EC 12:30
DX: M79.605 Pain in left leg (principal); M79.89 Other specified soft tissue disorders; I10 Essential (primary) hypertension; E78.5 Hyperlipidemia, unspecified; J44.9 Chronic obstructive pulmonary disease, unspecified; Z87.891 Personal history of nicotine dependence; Z79.52 Long term (current) use of systemic steroids; Z79.899 Other long term (current) drug therapy; Z88.2 Allergy status to sulfonamides; Z88.8 Allergy status to other drugs, medicaments and biological substances; Z86.79 Personal history of other diseases of the circulatory system
CPT/HCPCS: 99283

== ENCOUNTER → 2017-01-15 | Outpatient (CLI) | payer MEDICAID, MEDICARE ==
--- NOTE | 2017-01-16 07:59 | US ---
EXAMINATION TYPE: US soft tissue neck DATE OF EXAM: 01/15/2017 COMPARISON: MRI today CLINICAL HISTORY: R22.1 NECK SWELLING. Right neck swelling at base of neck/shoulder area x years whic h increases and decreases in size and noted after 1994 accident where patient stated fell multiple fl ights of stairs; patient then had neck surgery from injury and c/o right shoulder and neck pain; MRI today At patient's c/o palpable at base of right neck and shoulder an oval non discreet area is measured = 3.5 x 2.7 x 1.3cm. Lymph node is noted medially to area of concern. Lymph node = 0.6 x 0.6 x 0.4cm. IMPRESSION: There is an oval-shaped area that is solid at the base of the neck on the right side that could be an enlarged lymph node. This measures 3.5 x 1.3 cm. No fluid collection seen.
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
== END ==
LOC: RADMRIMAIN 14:49
PROVIDERS: ATTEND Nurse Practitioner Family
DX: M75.101 Unspecified rotator cuff tear or rupture of right shoulder, not specified as traumatic (principal); M65.811 Other synovitis and tenosynovitis, right shoulder; R22.1 Localized swelling, mass and lump, neck
CPT/HCPCS: 76536

== ENCOUNTER 2017-10-14 18:59 | Emergency (ER) | payer MEDICAID, MEDICARE ==
--- NOTE | 2017-10-14 19:10 | ED ---
General Adult HPI - General Stated complaint: fall Time Seen by Provider: 10/14/17 19:02 Source: patient, EMS, RN notes reviewed, old records reviewed - History of Present Illness Initial comments: 67-year-old male presents status post fall from ladder. Patient states he slipped falling onto his right side. He is brought in by EMS who reports approximately 15 foot fall. Patient called EMS himself. He was ambulatory after the fall. He is complaining of neck pain and right hip pain, as well as some right lower abdominal pain. No chest pain or shortness of breath. Patient is not on blood thinners. He does have history of cervical fusion status post fall in the past. No head trauma or loss consciousness. - Related Data Home Medications Medication Instructions Recorded Confirmed Ipratropium/Albuterol Sulfate 1 puff INHALATION RT-QID PRN 02/26/15 10/01/16 [Combivent Respimat Inhaler] Metoprolol Succinate [Toprol XL] 25 mg PO DAILY 11/12/15 10/01/16 Atorvastatin [Lipitor] 40 tab PO HS 11/17/15 10/01/16 ALPRAZolam [Xanax] 2 mg PO TID PRN 07/16/16 10/01/16 Fluocinonide 0.05% Solution 1 applic TOPICAL HS 10/01/16 10/01/16 Ipratropium-Albuterol Nebulize 3 ml INHALATION RT-QID 10/01/16 10/01/16 [Duoneb 0.5 mg-3 mg/3 ml Soln] Loratadine [Claritin] 10 mg PO DAILY 10/01/16 10/01/16 Ranitidine HCl [Zantac] 150 mg PO HS 10/01/16 10/01/16 Previous Rx's Medication Instructions Recorded Budesonide-Formot 160-4.5 Mcg 2 puff INHALATION RT-BID #1 puff 07/19/16 [Symbicort 160-4.5 Mcg Inhaler] HYDROcodone/APAP 5-325MG [Carlyle 1 tab PO Q6HR PRN #12 tab 10/14/17 5-325] Allergies Allergy/AdvReac Type Severity Reaction Status Date / Time orphenadrine Allergy Unknown Verified 07/16/16 18:47 pregabalin [From Lyrica] Allergy Unknown Verified 07/16/16 18:47 simvastatin Allergy Unknown Verified 07/16/16 18:47 cimetidine [From Tagamet] AdvReac Nausea & Verified 07/16/16 18:47 Vomiting & Diarrhea Sulfa (Sulfonamide AdvReac Nausea & Verified 07/16/16 19:31 Antibiotics) Vomiting Review of Systems ROS Statement: Those systems with pertinent positive or pertinent negative responses have been documented in the HPI. ROS Other: All systems not noted in ROS Statement are negative. Past Medical History Past Medical History: Chest Pain / Angina, COPD, Hyperlipidemia, Hypertension History of Any Multi-Drug Resistant Organisms: None Reported Past Surgical History: Back Surgery Past Anesthesia/Blood Transfusion Reactions: Previous Problems w/ Anesthesia Additional Past Anesthesia/Blood Transfusion Reaction / Comment(s): pt states "trouble coming out of" Past Psychological History: Anxiety, Panic Disorder Smoking Status: Former smoker Past Alcohol Use History: None Reported Past Drug Use History: None Reported - Past Family History Father Family Medical History: CVA/TIA, Deep Vein Thrombosis (DVT) General Exam General appearance: alert, in no apparent distress Head exam: Present: atraumatic, normocephalic Eye exam: Present: normal appearance, PERRL, EOMI Neck exam: Present: other (C-collar) Respiratory exam: Present: normal lung sounds bilaterally. Absent: respiratory distress, wheezes Cardiovascular Exam: Present: regular rate, normal rhythm GI/Abdominal exam: Present: soft, tenderness (Tender right lower quadrant). Absent: distended Extremities exam: Present: normal inspection, normal capillary refill. Absent: tenderness, pedal edema, joint swelling, calf tenderness Back exam: Present: CVA tenderness (R). Absent: vertebral tenderness Neurological exam: Present: alert, oriented X3, CN II-XII intact. Absent: motor sensory deficit Psychiatric exam: Present: normal affect, normal mood Skin exam: Present: warm, dry, intact. Absent: cyanosis, diaphoretic Course Vital Signs 10/14/17 19:12 Temperature 98 F Pulse Rate 87 Respiratory 16 Rate Blood Pressure 152/87 O2 Sat by Pulse 98 Oximetry EKG Findings - EKG Comments: EKG Findings:: EKG: Normal sinus rhythm, rate of 76, TX interval 116, QRS duration 80, QTC 425 Medical Decision Making - Medical Decision Making 67-year-old male presents status post fall, off ladder. No external signs of trauma. Full workup is obtained in emergency department including CT the brain which is negative for intracranial hemorrhage, CT cervical spine which is negative for fracture subluxation. CT chest and pelvis negative for any acute intrathoracic or intra-abdominal injuries. Chest x-ray and pelvis x-ray are unremarkable. Laboratory studies reveal normal hemoglobin and are grossly normal overall. Patient is given Toradol in emergency department. He will be prescribed pain medication and will follow-up with his primary care physician. - Lab Data Result diagrams: 10/14/17 19:20 10/14/17 19:20 Lab Results 10/14/17 10/14/17 10/14/17 Range/Units 19:20 19:20 19:20 WBC 11.7 H (3.8-10.6) k/uL RBC 4.66 (4.30-5.90) m/uL Hgb 14.3 (13.0-17.5) gm/dL Hct 42.6 (39.0-53.0) % MCV 91.4 (80.0-100.0) fL MCH 30.7 (25.0-35.0) pg MCHC 33.6 (31.0-37.0) g/dL RDW 13.2 (11.5-15.5) % Plt Count 273 (150-450) k/uL Neutrophils % 65 % Lymphocytes % 22 % Monocytes % 7 % Eosinophils % 2 % Basophils % 1 % Neutrophils # 7.6 (1.3-7.7) k/uL Lymphocytes # 2.6 (1.0-4.8) k/uL Monocytes # 0.8 (0-1.0) k/uL Eosinophils # 0.3 (0-0.7) k/uL Basophils # 0.1 (0-0.2) k/uL PT (9.0-12.0) sec INR (<1.2) APTT (22.0-30.0) sec Sodium 142 (137-145) mmol/L Potassium 4.1 (3.5-5.1) mmol/L Chloride 106 (98-107) mmol/L Carbon Dioxide 23 (22-30) mmol/L Anion Gap 13 mmol/L BUN 15 (9-20) mg/dL Creatinine 0.84 (0.66-1.25) mg/dL Est GFR (CKD-EPI)AfAm >90 (>60 ml/min/1.73 sqM) Est GFR (CKD-EPI)NonAf >90 (>60 ml/min/1.73 sqM) Glucose 101 H (74-99) mg/dL Calcium 9.4 (8.4-10.2) mg/dL Total Bilirubin 0.6 (0.2-1.3) mg/dL AST 28 (17-59) U/L ALT 48 (21-72) U/L Alkaline Phosphatase 102 (38-126) U/L Total Creatine Kinase 103 (55-170) U/L CK-MB (CK-2) 1.0 (0.0-2.4) ng/mL CK-MB (CK-2) Rel Index 1.0 Troponin I <0.012 (0.000-0.034) ng/mL Total Protein 6.8 (6.3-8.2) g/dL Albumin 4.1 (3.5-5.0) g/dL Serum Alcohol <10 mg/dL 10/14/17 Range/Units 19:20 WBC (3.8-10.6) k/uL RBC (4.30-5.90) m/uL Hgb (13.0-17.5) gm/dL Hct (39.0-53.0) % MCV (80.0-100.0) fL MCH (25.0-35.0) pg MCHC (31.0-37.0) g/dL RDW (11.5-15.5) % Plt Count (150-450) k/uL Neutrophils % % Lymphocytes % % Monocytes % % Eosinophils % % Basophils % % Neutrophils # (1.3-7.7) k/uL Lymphocytes # (1.0-4.8) k/uL Monocytes # (0-1.0) k/uL Eosinophils # (0-0.7) k/uL Basophils # (0-0.2) k/uL PT 10.4 (9.0-12.0) sec INR 1.1 (<1.2) APTT 22.8 (22.0-30.0) sec Sodium (137-145) mmol/L Potassium (3.5-5.1) mmol/L Chloride (98-107) mmol/L Carbon Dioxide (22-30) mmol/L Anion Gap mmol/L BUN (9-20) mg/dL Creatinine (0.66-1.25) mg/dL Est GFR (CKD-EPI)AfAm (>60 ml/min/1.73 sqM) Est GFR (CKD-EPI)NonAf (>60 ml/min/1.73 sqM) Glucose (74-99) mg/dL Calcium (8.4-10.2) mg/dL Total Bilirubin (0.2-1.3) mg/dL AST (17-59) U/L ALT (21-72) U/L Alkaline Phosphatase (38-126) U/L Total Creatine Kinase (55-170) U/L CK-MB (CK-2) (0.0-2.4) ng/mL CK-MB (CK-2) Rel Index Troponin I (0.000-0.034) ng/mL Total Protein (6.3-8.2) g/dL Albumin (3.5-5.0) g/dL Serum Alcohol mg/dL Disposition Clinical Impression: Fall Disposition: HOME SELF-CARE Condition: Fair Instructions: Contusion in Adults (ED) Prescriptions: HYDROcodone/APAP 5-325MG [Carlyle 5-325] 1 tab PO Q6HR PRN #12 tab PRN Reason: Pain Is patient prescribed a controlled substance at d/c from ED?: Yes If prescribed controlled substance>3 days was MAPS reviewed?: Yes When asked, does pt state using other controlled substances?: No Referrals: Shakila Langston MD [Primary Care Provider] - 1-2 days Time of Disposition: 20:50
[2017-10-14] MEDS ORDERED: RX INFO: IV CONTRAST WAS GIVEN 1 EACH MISC MISCELLANE PRN (19:16)
[2017-10-14 19:17] VITALS: BP 152/87; PULSE 87; RESP 16; TEMP 98
[2017-10-14 19:35] LABS: Basophils # (A) 0.1 k/uL (0-0.2); Basophils % (A) 1 %; Eosinophils # (A) 0.3 k/uL (0-0.7); Eosinophils % (A) 2 %; HCT 42.6 % (39.0-53.0); HGB 14.3 gm/dL (13.0-17.5); Lymphocytes # (A) 2.6 k/uL (1.0-4.8); Lymphocytes % (A) 22 %; MCH 30.7 pg (25.0-35.0); MCHC 33.6 g/dL (31.0-37.0); MCV 91.4 fL (80.0-100.0); Mean Platelet Volume 6.5; Monocytes # (A) 0.8 k/uL (0-1.0); Monocytes % (A) 7 %; Neutrophils # (A) 7.6 k/uL (1.3-7.7); Neutrophils % (A) 65 %; Platelet Count 273 k/uL (150-450); RBC 4.66 m/uL (4.30-5.90); RDW 13.2 % (11.5-15.5); WBC 11.7 k/uL (3.8-10.6)
[2017-10-14 19:45] LABS: INR 1.1 (<1.2); Partial Thromboplastin Time 22.8 sec (22.0-30.0); Prothrombin Time 10.4 sec (9.0-12.0)
[2017-10-14 19:50] LABS: ALT 48 U/L (21-72); AST 28 U/L (17-59); Albumin 4.1 g/dL (3.5-5.0); Alcohol <10 mg/dL; Alkaline Phosphatase 102 U/L (38-126); Anion Gap 13 mmol/L; Blood Urea Nitrogen 15 mg/dL (9-20); Calcium 9.4 mg/dL (8.4-10.2); Carbon Dioxide 23 mmol/L (22-30); Chloride 106 mmol/L (98-107); Glucose 101 mg/dL (74-99); Potassium 4.1 mmol/L (3.5-5.1); Sodium 142 mmol/L (137-145); Total Bilirubin 0.6 mg/dL (0.2-1.3); Total Protein 6.8 g/dL (6.3-8.2)
[2017-10-14 19:58] LABS: Creatine Kinase 103 U/L (55-170)
--- NOTE | 2017-10-14 20:06 | XR ---
EXAMINATION: XR chest 1V portable DATE AND TIME: 10/14/2017 7:35 PM ORDERING PROVIDER: Rajiv Lynch MD CLINICAL INDICATION: trauma TECHNIQUE: AP portable upright COMPARISON: 07/16/2016 DESCRIPTION: The lungs are clear. The pleural spaces are negative. The cardiac silhouette is not enlarged. The mediastinal and pleural silhouettes are unremarkable. The skeletal structures are intact without focal findings. The soft tissues are unremarkable. IMPRESSION: NO ACUTE PROCESS.
--- NOTE | 2017-10-14 20:08 | XR ---
PROCEDURE: XR pelvis AP view DATE AND TIME: 10/14/2017 7:35 PM REFERRING PHYSICIAN: Rajiv Lynch MD CLINICAL INDICATION: Pain, Trauma TECHNIQUE: Department protocol. 1 view. COMPARISON: None FINDINGS: There is no fracture or malalignment. The soft tissues are unremarkable. IMPRESSION: NO ACUTE PROCESS.
[2017-10-14 20:12] LABS: Troponin I <0.012 ng/mL (0.000-0.034)
--- NOTE | 2017-10-14 20:14 | CT ---
EXAMINATION TYPE: CT brain blaise wo con DATE OF EXAM: 10/14/2017 COMPARISON: 11/12/2015 HISTORY: Fall 15-20 feet from roof. Right sided abdominal pain. No LOC. CT DLP: 1558.1 mGycm Automated exposure control for dose reduction was used. TECHNIQUE: CT scan of the head and cervical spine are performed without contrast. FINDINGS: There is no acute intracranial hemorrhage, mass effect, or midline shift identified. The ventricles and sulci are within normal limits in size. The globes are intact and the visualized sin uses are clear. Cervical spine is visualized in its entirety from C1 through upper thoracic levels and demonstrates s atisfactory alignment without evidence of acute fracture or dislocation. Prevertebral soft tissue ap pears within normal limits. The C1-C2 articulation is unremarkable. IMPRESSION: 1. There is no acute fracture or dislocation evident in the cervical spine. 2. No acute intracranial hemorrhage, mass effect, or midline shift is seen.
--- NOTE | 2017-10-14 20:26 | CT ---
EXAMINATION TYPE: CT ChestAbdPelvis w con DATE OF EXAM: 10/14/2017 COMPARISON: 07/16/2016 HISTORY: Fall 15-20 feet from roof. Right sided abdominal pain. No LOC. CT DLP: 1068 mGycm Automated exposure control for dose reduction was used. CONTRAST: CT scan of the chest, abdomen and pelvis is performed without Oral Contrast and with IV Contrast, pat ient injected with 100 mL of Isovue 300. FINDINGS: AIRWAYS: There is a 1 cm filling defect,likely adherent phlegm. The tracheobronchial tree is otherwis e patent. LUNGS: The lungs are grossly clear, there is no concerning parenchymal mass or nodule identified. T here is no pleural effusion or pneumothorax seen. MEDIASTINUM: There are no greater than 1 cm hilar or mediastinal lymph nodes. No pericardial effusi on is seen. OTHER: No additional significant abnormality is seen. LIVER/GB: No significant abnormality is appreciated. PANCREAS: No significant abnormality is seen. SPLEEN: No significant abnormality is seen. ADRENALS: No significant abnormality is seen. KIDNEYS: No significant abnormality is seen. BOWEL: No significant abnormality is seen. REPRODUCTIVE ORGANS: No gross abnormality seen. LYMPH NODES: No greater than 1 cm abdominal or pelvic lymph nodes are appreciated. OSSEOUS STRUCTURES: No significant abnormality is seen. OTHER: Vasculature is unremarkable. IMPRESSION: No acute osseous fracture, abnormal fluid collection, or evidence of solid organ injury i n the thorax, abdomen, or pelvis.
[2017-10-14] MEDS ORDERED: KETOROLAC 30 MG/ML 1 ML VIAL IVP STA (20:34)
== END 2017-10-14 21:00 | disposition home or self-care (01) ==
LOC: EC 18:59
DX: M54.2 Cervicalgia (principal); R10.30 Lower abdominal pain, unspecified; M25.552 Pain in left hip; J44.9 Chronic obstructive pulmonary disease, unspecified; E78.5 Hyperlipidemia, unspecified; I10 Essential (primary) hypertension; I20.9 Angina pectoris, unspecified; F41.9 Anxiety disorder, unspecified; Z98.1 Arthrodesis status; Z87.891 Personal history of nicotine dependence; Z79.899 Other long term (current) drug therapy; Z88.2 Allergy status to sulfonamides; Z88.8 Allergy status to other drugs, medicaments and biological substances; W11.XXXA Fall on and from ladder, initial encounter; Y93.89 Activity, other specified
CPT/HCPCS: 36415; 93005; 80053; 82550; 82553; 84484; 85025; 85610; 85730; 80320; 72170; 71045; 72125; 70450; 71260; 74177; 99285; 96374; J1885; Q9967

== ENCOUNTER 2017-11-17 18:26 | Emergency (ER) | payer MEDICAID, MEDICARE ==
--- NOTE | 2017-11-17 20:13 | ED ---
General Adult HPI - General Source: patient, RN notes reviewed Mode of arrival: wheelchair Limitations: no limitations <Gary Pugh - Last Filed: 11/17/17 20:53> <Gary Coy - Last Filed: 11/17/17 21:58> - General Chief complaint: Extremity Problem,Nontraumatic Stated complaint: Poss Blood Clot Time Seen by Provider: 11/17/17 20:00 - History of Present Illness Initial comments: This is a 67-year-old male who presents to the emergency department complaining of left calf swelling and tenderness. 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 Patient denies any difficulty breathing shortness of breath or chest pain. Patient stated he notices for the last day or so but the tenderness in the calf is similar to when he had a DVT in the past. Patient denies any recent fever chills. Patient denies any significant erythema. (Gary Pugh) - Related Data Home Medications Medication Instructions Recorded Confirmed Ipratropium/Albuterol Sulfate 1 puff INHALATION RT-QID PRN 02/26/15 10/14/17 [Combivent Respimat Inhaler] Metoprolol Succinate [Toprol XL] 25 mg PO DAILY 11/12/15 10/14/17 Atorvastatin [Lipitor] 40 tab PO HS 11/17/15 10/14/17 ALPRAZolam [Xanax] 2 mg PO TID PRN 07/16/16 10/14/17 Ranitidine HCl [Zantac] 150 mg PO TID PRN 10/01/16 10/14/17 Previous Rx's Medication Instructions Recorded HYDROcodone/APAP 5-325MG [[place] 1 tab PO Q6HR PRN #12 tab 10/14/17 5-325] Allergies Allergy/AdvReac Type Severity Reaction Status Date / Time orphenadrine Allergy Unknown Verified 11/17/17 18:59 pregabalin [From Lyrica] Allergy Unknown Verified 11/17/17 18:59 simvastatin Allergy Unknown Verified 11/17/17 18:59 cimetidine [From Tagamet] AdvReac Nausea & Verified 11/17/17 18:59 Vomiting & Diarrhea Sulfa (Sulfonamide AdvReac Nausea & Verified 11/17/17 18:59 Antibiotics) Vomiting Review of Systems ROS Other: All systems not noted in ROS Statement are negative. <Gary Pguh - Last Filed: 11/17/17 20:53> ROS Other: All systems not noted in ROS Statement are negative. <Gary Coy - Last Filed: 11/17/17 21:58> ROS Statement: Those systems with pertinent positive or pertinent negative responses have been documented in the HPI. Past Medical History Past Medical History: Chest Pain / Angina, COPD, Hyperlipidemia, Hypertension History of Any Multi-Drug Resistant Organisms: None Reported Past Surgical History: Back Surgery Past Anesthesia/Blood Transfusion Reactions: Previous Problems w/ Anesthesia Additional Past Anesthesia/Blood Transfusion Reaction / Comment(s): pt states "trouble coming out of" Past Psychological History: Anxiety, Panic Disorder Smoking Status: Former smoker Past Alcohol Use History: None Reported Past Drug Use History: None Reported - Past Family History Father Family Medical History: CVA/TIA, Deep Vein Thrombosis (DVT) <Gary Pugh - Last Filed: 11/17/17 20:53> General Exam Limitations: no limitations <Gary Pugh - Last Filed: 11/17/17 20:53> <Gary Coy - Last Filed: 11/17/17 21:58> - General Exam Comments Initial Comments: GENERAL: Patient is well-developed and well-nourished. Patient is nontoxic and well- hydrated and is in mild distress. ENT: Neck is soft and supple. No significant lymphadenopathy is noted. Oropharynx is clear. Moist mucous membranes. Neck has full range of motion without eliciting any pain. EYES: The sclera were anicteric and conjunctiva were pink and moist. Extraocular movements were intact and pupils were equal round and reactive to light. Eyelids were unremarkable. SKIN: Skin is clear with no lesions or rashes and otherwise unremarkable. NEUROLOGIC: Patient is alert and oriented x3. Cranial nerves II through XII are grossly intact. Motor and sensory are also intact. Normal speech, volume and content. Symmetrical smile. MUSCULOSKELETAL: Normal extremities with adequate strength and full range of motion. Patient's left calf tenderness LYMPHATICS: No significant lymphadenopathy is noted PSYCHIATRIC: Normal psychiatric evaluation. (Gary Pugh) Course <Gary Pugh - Last Filed: 11/17/17 20:53> <Gary Coy - Last Filed: 11/17/17 21:58> Vital Signs 11/17/17 11/17/17 18:57 21:29 Temperature 97.9 F 98.3 F Pulse Rate 89 88 Respiratory 16 16 Rate Blood Pressure 133/86 131/71 O2 Sat by Pulse 95 97 Oximetry - Reevaluation(s) Reevaluation #1: 11/17/17 21:58 Spoke with patient regarding results, questions answered (Gary Coy) Medical Decision Making - Lab Data Result diagrams: 11/17/17 20:27 11/17/17 20:27 <Gary Pugh - Last Filed: 11/17/17 20:53> - Lab Data Result diagrams: 11/17/17 20:27 11/17/17 20:27 - Radiology Data Radiology results: report reviewed (Ultrasound left lower extremity negative for DVT), image reviewed <Gary Coy - Last Filed: 11/17/17 21:58> - Medical Decision Making Dr. Dr. Coy will be taking over the care of this patient at 9 PM (Gary Pugh) 67-year-old male the ER for evaluation of leg pain and some negative for DVT. Patient can be discharged home (Gary Coy) - Lab Data Lab Results 11/17/17 11/17/17 11/17/17 Range/Units 20:27 20:27 20:27 WBC 13.2 H (3.8-10.6) k/uL RBC 4.62 (4.30-5.90) m/uL Hgb 14.2 (13.0-17.5) gm/dL Hct 41.9 (39.0-53.0) % MCV 90.8 (80.0-100.0) fL MCH 30.8 (25.0-35.0) pg MCHC 33.9 (31.0-37.0) g/dL RDW 13.3 (11.5-15.5) % Plt Count 327 (150-450) k/uL Neutrophils % 68 % Lymphocytes % 22 % Monocytes % 6 % Eosinophils % 2 % Basophils % 0 % Neutrophils # 9.0 H (1.3-7.7) k/uL Lymphocytes # 2.9 (1.0-4.8) k/uL Monocytes # 0.8 (0-1.0) k/uL Eosinophils # 0.2 (0-0.7) k/uL Basophils # 0.0 (0-0.2) k/uL PT 10.2 (9.0-12.0) sec INR 1.0 (<1.2) APTT 22.8 (22.0-30.0) sec Sodium 142 (137-145) mmol/L Potassium 4.0 (3.5-5.1) mmol/L Chloride 104 (98-107) mmol/L Carbon Dioxide 26 (22-30) mmol/L Anion Gap 12 mmol/L BUN 12 (9-20) mg/dL Creatinine 0.90 (0.66-1.25) mg/dL Est GFR (CKD-EPI)AfAm >90 (>60 ml/min/1.73 sqM) Est GFR (CKD-EPI)NonAf 88 (>60 ml/min/1.73 sqM) Glucose 89 (74-99) mg/dL Calcium 9.5 (8.4-10.2) mg/dL Total Bilirubin 0.4 (0.2-1.3) mg/dL AST 20 (17-59) U/L ALT 40 (21-72) U/L Alkaline Phosphatase 97 (38-126) U/L Total Protein 6.9 (6.3-8.2) g/dL Albumin 4.2 (3.5-5.0) g/dL Disposition <Gary Pugh - Last Filed: 11/17/17 20:53> Is patient prescribed a controlled substance at d/c from ED?: No <Gary Coy - Last Filed: 11/17/17 21:58> Clinical Impression: Acute anxiety, Left leg pain, Leg edema Disposition: HOME SELF-CARE Condition: Good Instructions: Leg Edema (ED) Referrals: Shakila Langston MD [Primary Care Provider] - 1-2 days
[2017-11-17 20:40] LABS: Basophils % (A) 0 %; Eosinophils # (A) 0.2 k/uL (0-0.7); Eosinophils % (A) 2 %; HCT 41.9 % (39.0-53.0); HGB 14.2 gm/dL (13.0-17.5); Lymphocytes # (A) 2.9 k/uL (1.0-4.8); Lymphocytes % (A) 22 %; MCH 30.8 pg (25.0-35.0); MCHC 33.9 g/dL (31.0-37.0); MCV 90.8 fL (80.0-100.0); Mean Platelet Volume 6.2; Monocytes # (A) 0.8 k/uL (0-1.0); Monocytes % (A) 6 %; Neutrophils % (A) 68 %; Platelet Count 327 k/uL (150-450); RBC 4.62 m/uL (4.30-5.90); RDW 13.3 % (11.5-15.5); WBC 13.2 k/uL (3.8-10.6)
[2017-11-17 20:49] LABS: ALT 40 U/L (21-72); AST 20 U/L (17-59); Albumin 4.2 g/dL (3.5-5.0); Alkaline Phosphatase 97 U/L (38-126); Anion Gap 12 mmol/L; Blood Urea Nitrogen 12 mg/dL (9-20); Calcium 9.5 mg/dL (8.4-10.2); Carbon Dioxide 26 mmol/L (22-30); Chloride 104 mmol/L (98-107); Glucose 89 mg/dL (74-99); Sodium 142 mmol/L (137-145); Total Bilirubin 0.4 mg/dL (0.2-1.3); Total Protein 6.9 g/dL (6.3-8.2)
[2017-11-17 21:02] LABS: Partial Thromboplastin Time 22.8 sec (22.0-30.0); Prothrombin Time 10.2 sec (9.0-12.0)
[2017-11-17 21:30] VITALS: TEMP 98.3
--- NOTE | 2017-11-17 21:47 | US ---
EXAMINATION TYPE: US venous doppler duplex LE LT DATE OF EXAM: 11/17/2017 9:31 PM COMPARISON: NONE CLINICAL HISTORY: Pain. Lt leg pain SIDE PERFORMED: Left TECHNIQUE: The lower extremity deep venous system is examined utilizing real time linear array sonog ismael with graded compression, doppler sonography and color-flow sonography. VESSELS IMAGED: External Iliac Vein (EIV) Common Femoral Vein Deep Femoral Vein Greater Saphenous Vein * Femoral Vein Popliteal Vein Small Saphenous Vein * Proximal Calf Veins (* superficial vessels) Left Leg: Negative for DVT No evidence of DVT left leg. IMPRESSION: No evidence of deep venous thrombosis in the left leg.
[2017-11-17 22:19] VITALS: BP 139/79; PULSE 87; RESP 18
== END 2017-11-17 22:19 | disposition home or self-care (01) ==
LOC: EC 18:26
DX: F41.9 Anxiety disorder, unspecified (principal); M79.605 Pain in left leg; R60.0 Localized edema; J44.9 Chronic obstructive pulmonary disease, unspecified; E78.5 Hyperlipidemia, unspecified; I10 Essential (primary) hypertension; Z86.718 Personal history of other venous thrombosis and embolism; Z87.891 Personal history of nicotine dependence; Z79.899 Other long term (current) drug therapy; Z88.8 Allergy status to other drugs, medicaments and biological substances; Z88.2 Allergy status to sulfonamides
CPT/HCPCS: 36415; 80053; 85025; 85610; 85730; 99283

== ENCOUNTER 2018-02-08 03:50 | Inpatient (IN) | payer MEDICAID, MEDICARE ==
--- NOTE | 2018-02-08 04:04 | ED ---
General Adult HPI - General Chief complaint: Chest Pain Stated complaint: Chest Pain Time Seen by Provider: 02/08/18 04:00 Source: patient, RN notes reviewed, old records reviewed Mode of arrival: ambulatory Limitations: no limitations - History of Present Illness Initial comments: This is a 67-year-old male the ER for evaluation. Presents today for evaluation regards to chest pain. History of high blood pressure history of anxiety. Patient states she's had pretty severe chest pain started just prior to arrival in the lower large prior to arrival. Increasing anxiety. No diaphoresis no shortness of breath. No modifying factors for symptoms. Chest pain feels like he drank something poisonous. He feels a burning in his throat and burning in his chest, he states the pain is very severe - Related Data Home Medications Medication Instructions Recorded Confirmed Ipratropium/Albuterol Sulfate 1 puff INHALATION RT-QID PRN 02/26/15 10/14/17 [Combivent Respimat Inhaler] Metoprolol Succinate [Toprol XL] 25 mg PO DAILY 11/12/15 10/14/17 Atorvastatin [Lipitor] 40 tab PO HS 11/17/15 10/14/17 ALPRAZolam [Xanax] 2 mg PO TID PRN 07/16/16 10/14/17 Ranitidine HCl [Zantac] 150 mg PO TID PRN 10/01/16 10/14/17 Previous Rx's Medication Instructions Recorded HYDROcodone/APAP 5-325MG [[place] 1 tab PO Q6HR PRN #12 tab 10/14/17 5-325] Allergies Allergy/AdvReac Type Severity Reaction Status Date / Time orphenadrine Allergy Unknown Verified 02/08/18 03:58 pregabalin [From Lyrica] Allergy Unknown Verified 02/08/18 03:58 simvastatin Allergy Unknown Verified 02/08/18 03:58 cimetidine [From Tagamet] AdvReac Nausea & Verified 02/08/18 03:58 Vomiting & Diarrhea Sulfa (Sulfonamide AdvReac Nausea & Verified 02/08/18 03:58 Antibiotics) Vomiting Review of Systems ROS Statement: Those systems with pertinent positive or pertinent negative responses have been documented in the HPI. ROS Other: All systems not noted in ROS Statement are negative. Past Medical History Past Medical History: Chest Pain / Angina, COPD, Hyperlipidemia, Hypertension History of Any Multi-Drug Resistant Organisms: None Reported Past Surgical History: Back Surgery Past Anesthesia/Blood Transfusion Reactions: Previous Problems w/ Anesthesia Additional Past Anesthesia/Blood Transfusion Reaction / Comment(s): pt states "trouble coming out of" Past Psychological History: Anxiety, Panic Disorder Smoking Status: Former smoker Past Alcohol Use History: None Reported Past Drug Use History: None Reported - Past Family History Father Family Medical History: CVA/TIA, Deep Vein Thrombosis (DVT) General Exam Limitations: no limitations General appearance: alert, in no apparent distress Head exam: Present: atraumatic, normocephalic, normal inspection Eye exam: Present: normal appearance, PERRL, EOMI. Absent: scleral icterus, conjunctival injection, periorbital swelling ENT exam: Present: normal exam, mucous membranes moist Neck exam: Present: normal inspection. Absent: tenderness, meningismus, lymphadenopathy Respiratory exam: Present: normal lung sounds bilaterally. Absent: respiratory distress, wheezes, rales, rhonchi, stridor Cardiovascular Exam: Present: regular rate, normal rhythm, normal heart sounds. Absent: systolic murmur, diastolic murmur, rubs, gallop, clicks GI/Abdominal exam: Present: soft, normal bowel sounds. Absent: distended, tenderness, guarding, rebound, rigid Extremities exam: Present: normal inspection, full ROM, normal capillary refill. Absent: tenderness, pedal edema, joint swelling, calf tenderness Back exam: Present: normal inspection Neurological exam: Present: alert, oriented X3, CN II-XII intact Psychiatric exam: Present: normal affect, normal mood Skin exam: Present: warm, dry, intact, normal color. Absent: rash Course Vital Signs 02/08/18 02/08/18 02/08/18 03:54 04:14 04:52 Temperature 98.5 F Pulse Rate 81 75 77 Respiratory 20 20 18 Rate Blood Pressure 199/92 220/105 O2 Sat by Pulse 100 99 Oximetry 02/08/18 02/08/18 05:12 05:25 Temperature Pulse Rate 67 68 Respiratory 18 18 Rate Blood Pressure 193/91 187/95 O2 Sat by Pulse 98 99 Oximetry - Reevaluation(s) Reevaluation #1: 02/08/18 06:08 Patient's blood pressure difficult to control, continuing to give blood pressure medication. Chest pain is improved Reevaluation #2: 02/08/18 06:09 Medical record is reviewed Reevaluation #3: 02/08/18 06:09 Patient spoke with again, CT does have some remote history of heart infection or fluid around his heart EKG Findings - EKG Comments: EKG Findings:: EKG shows sinus rhythm rate of 84, [place] 126, QRS 80, QTC 446. EKG shows normal sinus rhythm rate of 67, [place] 157, QRS 74, QTC 441 Medical Decision Making - Medical Decision Making 67 male the ER for evaluation positive chest pain, hypertensive emergency, elevated troponin, EKG repeated twice with no significant ST elevation. Patient has elevated troponin will be started on heparin anticoagulation will be admitted for cardiology to see - Lab Data Result diagrams: 02/08/18 04:00 02/08/18 04:00 Lab Results 02/08/18 02/08/18 02/08/18 Range/Units 04:00 04:00 04:00 WBC 12.8 H (3.8-10.6) k/uL RBC 4.86 (4.30-5.90) m/uL Hgb 14.2 (13.0-17.5) gm/dL Hct 44.5 (39.0-53.0) % MCV 91.7 (80.0-100.0) fL MCH 29.3 (25.0-35.0) pg MCHC 32.0 (31.0-37.0) g/dL RDW 12.6 (11.5-15.5) % Plt Count 343 (150-450) k/uL Neutrophils % 66 % Lymphocytes % 24 % Monocytes % 6 % Eosinophils % 2 % Basophils % 1 % Neutrophils # 8.4 H (1.3-7.7) k/uL Lymphocytes # 3.1 (1.0-4.8) k/uL Monocytes # 0.8 (0-1.0) k/uL Eosinophils # 0.2 (0-0.7) k/uL Basophils # 0.1 (0-0.2) k/uL PT (9.0-12.0) sec INR (<1.2) APTT (22.0-30.0) sec Sodium 138 (137-145) mmol/L Potassium 4.3 (3.5-5.1) mmol/L Chloride 108 H (98-107) mmol/L Carbon Dioxide 20 L (22-30) mmol/L Anion Gap 10 mmol/L BUN 16 (9-20) mg/dL Creatinine 0.81 (0.66-1.25) mg/dL Est GFR (CKD-EPI)AfAm >90 (>60 ml/min/1.73 sqM) Est GFR (CKD-EPI)NonAf >90 (>60 ml/min/1.73 sqM) Glucose 101 H (74-99) mg/dL Calcium 9.8 (8.4-10.2) mg/dL Magnesium 2.1 (1.6-2.3) mg/dL Total Bilirubin 0.7 (0.2-1.3) mg/dL AST 35 (17-59) U/L ALT 46 (21-72) U/L Alkaline Phosphatase 94 (38-126) U/L Total Creatine Kinase 143 (55-170) U/L CK-MB (CK-2) 7.8 H (0.0-2.4) ng/mL CK-MB (CK-2) Rel Index 5.5 Troponin I 1.020 H* (0.000-0.034) ng/mL Total Protein 7.3 (6.3-8.2) g/dL Albumin 4.2 (3.5-5.0) g/dL Lipase 101 (23-300) U/L Serum Alcohol <10 mg/dL 02/08/18 Range/Units 04:00 WBC (3.8-10.6) k/uL RBC (4.30-5.90) m/uL Hgb (13.0-17.5) gm/dL Hct (39.0-53.0) % MCV (80.0-100.0) fL MCH (25.0-35.0) pg MCHC (31.0-37.0) g/dL RDW (11.5-15.5) % Plt Count (150-450) k/uL Neutrophils % % Lymphocytes % % Monocytes % % Eosinophils % % Basophils % % Neutrophils # (1.3-7.7) k/uL Lymphocytes # (1.0-4.8) k/uL Monocytes # (0-1.0) k/uL Eosinophils # (0-0.7) k/uL Basophils # (0-0.2) k/uL PT 10.4 (9.0-12.0) sec INR 1.1 (<1.2) APTT 24.0 (22.0-30.0) sec Sodium (137-145) mmol/L Potassium (3.5-5.1) mmol/L Chloride (98-107) mmol/L Carbon Dioxide (22-30) mmol/L Anion Gap mmol/L BUN (9-20) mg/dL Creatinine (0.66-1.25) mg/dL Est GFR (CKD-EPI)AfAm (>60 ml/min/1.73 sqM) Est GFR (CKD-EPI)NonAf (>60 ml/min/1.73 sqM) Glucose (74-99) mg/dL Calcium (8.4-10.2) mg/dL Magnesium (1.6-2.3) mg/dL Total Bilirubin (0.2-1.3) mg/dL AST (17-59) U/L ALT (21-72) U/L Alkaline Phosphatase (38-126) U/L Total Creatine Kinase (55-170) U/L CK-MB (CK-2) (0.0-2.4) ng/mL CK-MB (CK-2) Rel Index Troponin I (0.000-0.034) ng/mL Total Protein (6.3-8.2) g/dL Albumin (3.5-5.0) g/dL Lipase (23-300) U/L Serum Alcohol mg/dL - Radiology Data Radiology results: report reviewed (CTA chest abdomen pelvis negative for acute disease), image reviewed Critical Care Time Critical Care Time: Yes Total Critical Care Time: 31 Disposition Clinical Impression: NSTEMI (non-ST elevated myocardial infarction), Chest pain, Hypertensive emergency Disposition: ADMITTED IP TO THIS HOSP Condition: Serious Is patient prescribed a controlled substance at d/c from ED?: No Referrals: Shakila Langston MD [Primary Care Provider] - 1-2 days
[2018-02-08] MEDS ORDERED: LABETALOL 5 MG/ML VIAL MDV IVP STA ×3 (04:13→06:17)
[2018-02-08] MEDS ORDERED: MORPHINE SULFATE 4 MG/ML SYRINGE IVP STA (04:18)
[2018-02-08 04:57] LABS: Basophils # (A) 0.1 k/uL (0-0.2); Basophils % (A) 1 %; Eosinophils # (A) 0.2 k/uL (0-0.7); Eosinophils % (A) 2 %; HCT 44.5 % (39.0-53.0); HGB 14.2 gm/dL (13.0-17.5); Lymphocytes # (A) 3.1 k/uL (1.0-4.8); Lymphocytes % (A) 24 %; MCH 29.3 pg (25.0-35.0); MCV 91.7 fL (80.0-100.0); Mean Platelet Volume 6.6; Monocytes # (A) 0.8 k/uL (0-1.0); Monocytes % (A) 6 %; Neutrophils # (A) 8.4 k/uL (1.3-7.7); Neutrophils % (A) 66 %; Platelet Count 343 k/uL (150-450); RBC 4.86 m/uL (4.30-5.90); RDW 12.6 % (11.5-15.5); WBC 12.8 k/uL (3.8-10.6)
[2018-02-08 05:02] LABS: INR 1.1 (<1.2); Prothrombin Time 10.4 sec (9.0-12.0)
--- NOTE | 2018-02-08 05:06 | CT ---
EXAMINATION TYPE: CT angio chest DATE OF EXAM: 02/08/2018 4:56 AM COMPARISON: 07/16/2016 HISTORY: Chest pain CT DLP: 396.00 mGycm Automated exposure control for dose reduction was used. CONTRAST: CTA scan of the thorax is performed with IV Contrast, patient injected with 100 mL mL of Isovue 370, pulmonary embolism protocol. There are 3-D post processed images.. FINDINGS: There is bullous emphysema at the lung apices. There is no evidence of a pulmonary mass. There is min imal interstitial density at the posterior lung bases. Heart size is normal. There is no pericardial effusion. I see no filling defects in the pulmonary arteries. There is no mediastinal adenopathy. Thoracic aort a is intact without evidence of aneurysm or dissection. There is spurring in the thoracic spine. Ther e is a stable 4 mm noncalcified nodule in the right middle lobe. IMPRESSION: NO EVIDENCE OF PULMONARY EMBOLISM. EMPHYSEMA. NO CHANGE COMPARED TO OLD EXAM.
--- NOTE | 2018-02-08 05:09 | CT ---
EXAMINATION TYPE: CT abdomen pelvis w con DATE OF EXAM: 02/08/2018 COMPARISON: 10/14/2017 HISTORY: Chest pain CT DLP: 1343.40 mGycm Automated exposure control for dose reduction was used. TECHNIQUE: Helical acquisition of images was performed from the lung bases through the pelvis. CONTRAST: Performed without Oral Contrast and with IV Contrast, patient injected with 100 mL mL of Isovue 370. FINDINGS: Lung bases are clear. There is no pleural effusion. Heart size is normal. Liver spleen pancreas gallb ladder appear normal. Bile ducts are not dilated. There is no adrenal mass. Kidneys show satisfactory contrast opacification. There is no hydronephrosi s. There is no retroperitoneal adenopathy. There is no ascites. Bladder distends smoothly. There is n o pelvic mass. I see no intestinal wall thickening. There are no dilated loops. Appendix appears norm al. There is no sign of pneumoperitoneum. Lumbar spine is intact. IMPRESSION: NEGATIVE CT SCAN OF THE ABDOMEN AND PELVIS. NO ADVERSE CHANGE COMPARED TO OLD EXAM.
[2018-02-08 05:23] LABS: ALT 46 U/L (21-72); AST 35 U/L (17-59); Albumin 4.2 g/dL (3.5-5.0); Alcohol <10 mg/dL; Alkaline Phosphatase 94 U/L (38-126); Anion Gap 10 mmol/L; Blood Urea Nitrogen 16 mg/dL (9-20); Calcium 9.8 mg/dL (8.4-10.2); Carbon Dioxide 20 mmol/L (22-30); Chloride 108 mmol/L (98-107); Glucose 101 mg/dL (74-99); Lipase 101 U/L (23-300); Magnesium 2.1 mg/dL (1.6-2.3); Potassium 4.3 mmol/L (3.5-5.1); Sodium 138 mmol/L (137-145); Total Bilirubin 0.7 mg/dL (0.2-1.3); Total Protein 7.3 g/dL (6.3-8.2)
[2018-02-08 05:48] LABS: Creatine Kinase MB 7.8 ng/mL (0.0-2.4)
[2018-02-08 05:53] LABS: Troponin I 1.02 ng/mL (0.000-0.034)
[2018-02-08] MEDS ORDERED: ASPIRIN 81 MG PO STA (06:03)
[2018-02-08] MEDS ORDERED: HEPARIN SODIUM,PORCINE 5,000 UNIT/ML 1 ML VIAL IV PRN (06:03)
[2018-02-08] MEDS ORDERED: MORPHINE SULFATE 4 MG/ML SYRINGE IV PRN (06:03)
[2018-02-08] MEDS ORDERED: HEPARIN SODIUM,PORCINE 5,000 UNIT/ML 1 ML VIAL IV ONE (06:03)
[2018-02-08] MEDS ORDERED: HEPARIN SOD,PORK IN 0.45% NACL 25,000 UNIT in 0.45% NACL 1 500ML.BAG IV SCH (06:15)
[2018-02-08] MEDS: NITROGLYCERIN SL TABS 0.4 MG TAB SUBLINGUAL PRN ×2 (06:41→06:47)
[2018-02-08] MEDS: NITROGLYCERIN-D5W PMX 50 MG in DEXTROSE/WATER 1 250ML.BAG IV SCH (06:43)
[2018-02-08] MEDS ORDERED: fentaNYL (PF) 50 MCG/ML 2 ML AMP ONE (07:17)
[2018-02-08] MEDS ORDERED: MIDAZOLAM 2 MG/2 ML VIAL ONE (07:17)
[2018-02-08] MEDS ORDERED: LIDOCAINE 1% INJ 10MG/ML (20 ML MDV) ONE ×2 (07:19→08:05)
[2018-02-08] MEDS ORDERED: MIDAZOLAM 2 MG/2 ML VIAL IVP ONE (07:20)
[2018-02-08] MEDS ORDERED: LIDOCAINE 1% INJ 10MG/ML (20 ML MDV) SQ ONE (07:20)
[2018-02-08] MEDS ORDERED: fentaNYL (PF) 50 MCG/ML 2 ML AMP IVP ONE (07:25)
[2018-02-08] MEDS ORDERED: IV FLUID CONTINUATION 1,000 ML IV ONE (07:27)
[2018-02-08] MEDS ORDERED: IOPAMIDOL-370 50ML BTL INJ ONE (07:38)
[2018-02-08] MEDS ORDERED: HEPARIN SODIUM 1,000 UN/ML (10ML VL) ONE (07:58)
[2018-02-08] MEDS ORDERED: HEPARIN SODIUM 1,000 UN/ML (10ML VL) IV ONE ×2 (08:07→09:02)
[2018-02-08] MEDS ORDERED: IOPAMIDOL-370 125ML BTL INJ ONE (08:13)
[2018-02-08] MEDS ORDERED: SODIUM CHLORIDE 0.9% 500 ML IV ONE (08:14)
[2018-02-08] MEDS ORDERED: NITROGLYCERIN 1000MCG/10ML SYRINGE INTRAARTER ONE ×3 (08:17→08:51)
--- NOTE | 2018-02-08 08:51 | CC ---
CARDIAC CATHETERIZATION REPORT Mr. Duarte is a 67-year-old gentleman came to the emergency room with a complaint of moderate to severe chest discomfort. The pain was in the substernal area. Pain was associated with some nausea and also diarrhea. EKG showed some J-point elevation in the lateral leads. The patient's initial blood pressure was elevated. He underwent a CT scan of the chest. There was no evidence of pulmonary embolism or dissection. The patient's initial troponin then came back to 1.0. We were called to see the patient in the emergency room. Because of the persistent chest pain and abnormal troponin, the patient was taken to the cardiac catheterization lab urgently. PROCEDURE: The right groin was prepped and draped in the usual manner and the skin was infiltrated with 2% Xylocaine. The right femoral artery was entered using Seldinger technique and #6-Swiss sheath was placed in. Selective coronary angiography was then performed in multiple projections and the left ventricular pressures were obtained. HEMODYNAMICS: Left ventricular end-diastolic pressure is 8 to 10 mmHg prior to angiography. Left ventriculography was performed in 30-degree MARTIN projection which shows evidence of apical hypokinesia. SELECTIVE CORONARY ANGIOGRAPHY: Left main coronary artery is normal and patent. LAD is a good caliber blood vessel and mid LAD has about 50% stenosis, which is smooth and narrowing. Circumflex coronary artery gives rise to good-sized obtuse marginal branch is normal. Right coronary artery has minimal irregularity in its distal portion. FINAL IMPRESSION: This study shows a 50% stenosis in the mid left anterior descending artery. Right coronary artery has minimal irregularity. RECOMMENDATIONS: The films were reviewed with Dr. Lea Huff. We will proceed with the FFR to assess hemodynamic significance. MMODL / IJN: [id number] /
[2018-02-08] MEDS ORDERED: TICAGRELOR 90 MG TAB ONE ×2 (08:52)
[2018-02-08] MEDS ORDERED: TICAGRELOR 90 MG TAB PO ONE (08:53)
[2018-02-08] MEDS ORDERED: IOPAMIDOL-370 100ML BTL INJ ONE (08:53)
[2018-02-08] MEDS ORDERED: ADENOSINE 90 MG in SODIUM CHLORIDE 0.9% 60 ML IVP ONE (08:54)
[2018-02-08] MEDS ORDERED: METOPROLOL TARTRATE 50 MG TAB PO SCH (09:00)
[2018-02-08] MEDS ORDERED: NITROGLYCERIN SL TABS 0.4 MG TAB SUBLINGUAL PRN (09:14)
[2018-02-08] MEDS ORDERED: ATROPINE SULFATE 0.1 MG/ML 10ML SYRINGE IV PRN (09:14)
[2018-02-08] MEDS ORDERED: RX INFO: IV CONTRAST WAS GIVEN 1 EACH MISC MISCELLANE PRN (09:14)
[2018-02-08] MEDS ORDERED: ZOLPIDEM 5 MG TAB PO PRN (09:14)
[2018-02-08 09:24] LABS: Glucose,Whole Blood 99 mg/dL (75-99)
--- NOTE | 2018-02-08 09:45 | PTCA ---
PERCUTANEOUSTRANS CORORONARY ANGIOGRAPHY DATE OF SERVICE: 02/08/2018. PROCEDURES: 1. Fractional flow reserve assessment of mid LAD 60% lesion. 2. PTCA and stenting of mid LAD with a drug-eluting stent. PERFORMED BY: Dr. Kaela Huff. Moderate conscious sedation time was 54 minutes. Patient was administered Versed and Benadryl and his oxygen saturation, hemodynamics and EKG were monitored closely. CLINICAL INFORMATION: Mr. Christian Duarte presented to the hospital with chest pain, had borderline EKG changes and mild troponin elevation. Dr. Judy Lucas evaluated the patient, performed coronary angiography which revealed a 60% mid LAD lesion in a calcified segment after a tortuous area. He was advised FFR and PCI if indicated and I proceeded to perform the procedure expeditiously. PROCEDURE NOTE: The existing 6-Iranian introducer in the right femoral artery was used to perform the procedure. I used a standard left Zain guide catheter to cannulate left coronary artery. A Verratta FFR wire was advanced and positioned distally after checking the pressures in the aorta and normalizing the pressures in the aorta. I performed an IFR which was 0.89. I then performed a FFR with _Adenosine infusion as per protocol and the FFR was 0.78. Based on this, he was advised intervention of the complex mid LAD lesion which was in a calcified segment and tortuous. Patient was administered 5000 units of heparin and his ACT was about 285. Repeat ACT at the end of the procedure also was in the same 285 range. Patient received 180 mg of Brilinta. I used the same wire and tried to advance a 2.5 caliber 12 mm balloon , but I had difficulty because of tortuosity. I then left the FFR wire and alongside it , advanced a long Whisper wire. With the two-wire combination, I was able to pre- dilate the lesion with a 2.5 caliber 12 mm Trek balloon at 8 atmospheres and I then went back and advanced with some difficulty an 18 mm long 2.75 caliber Xience stent and this was deployed at 12 atmospheres. Patient had chest pain and precordial ST-segment elevation. Excellent angiographic result was achieved. Post procedure, I took multiple angiograms and noted that there was an area of questionable haziness beyond the stented segment, but in multiple views, it looked very stable and therefore I did not pursue any additional intervention. Technically, this was difficult to rewire the area also. Both wires were taken out. After appropriate wait, angiograms revealed that the result was excellent. The patient was asymptomatic. EKG was normal. The sheath was then taken out and an Angio-Seal device was placed for hemostasis. He was sent to the room in a stable condition. Results were discussed with the patient and I spoke to the by telephone. Excellent angiographic result without complication was achieved. MARY / RUSSELL: [id number] / ANTHONY
[2018-02-08 09:52] VITALS: BMI 28.4
[2018-02-08 10:44] LABS: Creatine Kinase MB 32.2 ng/mL (0.0-2.4)
[2018-02-08] MEDS: ATORVASTATIN 80 MG TAB PO SCH (10:45)
[2018-02-08] MEDS: SODIUM CHLORIDE 0.9% 1,000 ML IV SCH ×2 (10:45→19:53)
[2018-02-08] MEDS: MAG HYDROX/AL HYDROX/SIMETH 30 ML CUP PO PRN (10:45)
[2018-02-08 10:52] LABS: Troponin I 4.13 ng/mL (0.000-0.034)
--- NOTE | 2018-02-08 12:18 | ECHOF ---
Referral Reason:Ant NSTEMI MEASUREMENTS -------- HEIGHT: 180.3 cm WEIGHT: 86.2 kg BP: 119/74 IVSd: 0.9 cm (0.6 - 1.1) LVIDd: 4.0 cm (3.9 - 5.3) LVPWd: 0.9 cm (0.6 - 1.1) IVSs: 1.2 cm LVIDs: 2.4 cm LVPWs: 1.2 cm LAESV Index (A-L): 12.92 ml/m Ao Diam: 3.6 cm (2.0 - 3.7) AV Cusp: 1.4 cm (1.5 - 2.6) LA Diam: 2.4 cm (2.7 - 3.8) MV E Zhang: 0.62 m/s MV DecT: 427 ms MV A Zhang: 0.89 m/s MV E/A Ratio: 0.70 RAP: 5.00 mmHg RVSP: 20.19 mmHg FINDINGS -------- Sinus rhythm. This was a technically difficult study with suboptimal views. The left ventricular size is normal. Left ventricular wall thickness is normal. Overall left vent ricular systolic function is low-normal with, an EF between 50 - 55 %. The right ventricle is normal in size and function. Normal LA size by volume 22+/-6 ml/m2. The right atrium is normal in size. 3 ml of Lumason was utilized for enhancement of images. Aortic valve is trileaflet and is mildly thickened. There is no evidence of aortic regurgitation. There is no evidence of aortic stenosis. The mitral valve leaflets are mildly thickened. There is trace to mild mitral regurgitation. Trace tricuspid regurgitation present. Right ventricular systolic pressure is normal at < 35 mmHg. There is no evidence of pulmonary hypertension. The pulmonic valve was not well visualized. The aortic root size is normal. IVC Not well visulized. There is no pericardial effusion. CONCLUSIONS -------- 1. Sinus rhythm. 2. This was a technically difficult study with suboptimal views. 3. The left ventricular size is normal. 4. Left ventricular wall thickness is normal. 5. Overall left ventricular systolic function is low-normal with, an EF between 50 - 55 %. 6. Normal LA size by volume 22+/-6 ml/m2. 7. 3 ml of Lumason was utilized for enhancement of images. 8. Aortic valve is trileaflet and is mildly thickened. 9. The mitral valve leaflets are mildly thickened. 10. There is trace to mild mitral regurgitation. 11. Trace tricuspid regurgitation present. 12. Right ventricular systolic pressure is normal at < 35 mmHg. 13. There is no evidence of pulmonary hypertension. 14. The pulmonic valve was not well visualized. 15. The aortic root size is normal. 16. IVC Not well visulized. 17. There is no pericardial effusion. [place]: Davian Cummins RDCS
[2018-02-08] MEDS ORDERED: ALPRAZolam 0.5 MG TAB PO PRN (14:39)
[2018-02-08] MEDS ORDERED: ALPRAZolam 0.5 MG TAB PO STA (15:22)
[2018-02-08] MEDS ORDERED: LISINOPRIL 10 MG TAB PO STA (15:45)
--- NOTE | 2018-02-08 15:54 | CONS ---
CONSULTATION Mr. Duarte is a 67-year-old gentleman who was seen in the emergency room for the complaint of chest pain. The patient's medical records as well as old charts reviewed. The patient came to the emergency room around 4 o'clock in the morning with a persistent moderate to severe chest discomfort. Patient gives that it was a burning in character, did not radiate to the arm, neck or jaw. It was not associated with any shortness of breath. The patient's blood pressure was elevated. Initial EKG showed some J-point elevation in the lateral leads. The patient had a CT scan of the chest which was done which was negative for PE or dissection. The 1st troponin was 1.0 and so we were requested to see the patient in consultation. The patient continued to have good chest discomfort. Because of the abnormal troponin and persistent chest pain suggestive of non ST-segment elevation myocardial infarction, patient was recommended to have urgent cardiac catheterization. The patient gives a history that he has BP. He has been seen in the emergency room several times and has a multiple times chest CT and venous duplex study were done, but no definite evidence of pulmonary embolism. The patient has a history of hyperlipidemia. Patient also has a history of anxiety and panic disorder. HOME MEDICATIONS: Include Toprol-XL once a day, Lipitor 40 mg daily, Zantac 150 mg daily, and [place]. PAST MEDICAL HISTORY: Includes history of back surgery, history of cervical neck surgery from the fall, multiple CT scan in the past which does not show any definite evidence of pulmonary embolism. SOCIAL HISTORY: Patient is a former smoker. Patient also has used marijuana in the past. PHYSICAL EXAMINATION: At present reveals a 67-year-old gentleman. In the emergency room, patient initial blood pressure was 220/105 mmHg. Blood pressure now is 110/80 mmHg. Head and HEENT examination is negative. Neck is supple. There is no increase in jugular venous pressure. Both the carotid pulses are felt. There is no bruit. Chest is symmetrical. Heart the PMI is not felt. First and second heart sounds are heard. There is no evidence of any murmur. Lungs are clinically clear to auscultation and percussion. Abdomen is soft. Liver and spleen are not enlarged. Bowel sounds are heard. Extremities: Peripheral pulses are 1+. EKG shows a is J-point elevation in the anterior lateral leads. First troponin is 1.0. Creatinine is normal. FINAL IMPRESSION: This patient has presented with severe chest pain. The patient has an elevated troponin. The CT scan is negative for PE or dissection. In view of the persistent chest discomfort, patient is advised urgent cardiac catheterization. The patient was fully explained the procedure, risk, and he understands well and he wants to proceed with it. Thank you for the consultation. MARY / RUSSELL: [id number] /
[2018-02-08] MEDS ORDERED: LEVOFLOXACIN 750MG-D5W PMX 750 MG in DEXTROSE/WATER 1 150ML.BAG IVPB SCH (16:15)
[2018-02-08 17:23] LABS: Troponin I 10.8 ng/mL (0.000-0.034)
[2018-02-08] MEDS ORDERED: METOPROLOL TARTRATE 50 MG TAB PO STA (18:24)
--- NOTE | 2018-02-08 20:53 | P.HPIM ---
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 pt she pain was sever , central , non radiationg ,feeling like heaviness and achy . pt with elevated corey , CT of the chest is negative for PE. pt was found to have STEMI, pt has been evaluated by oil well service operator helper by the time a saw him in the ICU, s /p stenting of mid LAD . pt also states he has h/o of right shoulder pain , and that he is been evaluated by his pcp with x-ray showing bone spurs and that he is been transfered to orthopedic office anyway as per pt. pt is with non dyspnea , no change in urine or bowel habits , and no fever. Review of Systems REVIEW OF SYSTEMS: CONSTITUTIONAL: No fever, no malaise, no fatigue. HEENT: No recent visual problems or hearing problems. Denied any sore throat. CARDIOVASCULAR: No orthopnea, PND, no palpitations, no syncope. PULMONARY: No shortness of breath, no cough, no hemoptysis. GASTROINTESTINAL: No diarrhea, no nausea, no vomiting, no abdominal pain. Normoactive bowel sounds. NEUROLOGICAL: No headaches, no weakness, no numbness. HEMATOLOGICAL: Denies any bleeding or petechiae. GENITOURINARY: Denies any burning micturition, frequency, or urgency. MUSCULOSKELETAL/RHEUMATOLOGICAL: Denies any joint pain, swelling, or any muscle pain. ENDOCRINE: Denies any polyuria or polydipsia. 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 History of Any Multi-Drug Resistant Organisms: None Reported Past Surgical History: Back Surgery Additional Past Surgical History / Comment(s): neck, double hernia repair Past Anesthesia/Blood Transfusion Reactions: Previous Problems w/ Anesthesia Additional Past Anesthesia/Blood Transfusion Reaction / Comment(s): pt states "trouble coming out of" Past Psychological History: Anxiety, Panic Disorder Smoking Status: Former smoker Past Alcohol Use History: None Reported Additional Past Alcohol Use History / Comment(s): last drink 12-14 years ago Past Drug Use History: Marijuana Additional Drug Use History / Comment(s): last used marijuana >30 years ago - Past Family History Father Family Medical History: CVA/TIA, Deep Vein Thrombosis (DVT) Additional Family Medical History / Comment(s): DVT wrist Mother Family Medical History: Dementia Additional Family Medical History / Comment(s): dementia when she was 90 Sister(s) Family Medical History: Cancer Additional Family Medical History / Comment(s): 1) Breast CA passed at 58 years old. 2) passed when she was 59 years old with questinable CA Brother(s) Additional Family Medical History / Comment(s): passed when he was 60 years old due to heart issues Medications and Allergies Home Medications Medication Instructions Recorded Confirmed Type Ipratropium/Albuterol Sulfate 1 puff INHALATION RT-QID PRN 02/26/15 02/08/18 History [Combivent Respimat Inhaler] Metoprolol Succinate [Toprol XL] 25 mg PO DAILY 11/12/15 02/08/18 History Atorvastatin [Lipitor] 40 tab PO HS 11/17/15 02/08/18 History ALPRAZolam [Xanax] 2 mg PO TID PRN 07/16/16 02/08/18 History Ranitidine HCl [Zantac] 150 mg PO TID PRN 10/01/16 02/08/18 History Albuterol Nebulized [Ventolin 2.5 mg INHALATION RT-Q4H PRN 02/08/18 02/08/18 History Nebulized] Ibuprofen [Motrin] 800 mg PO TID PRN 02/08/18 02/08/18 History Allergies Allergy/AdvReac Type Severity Reaction Status Date / Time orphenadrine Allergy Unknown Verified 02/08/18 07:14 pregabalin [From Lyrica] Allergy Unknown Verified 02/08/18 07:14 simvastatin Allergy Unknown Verified 02/08/18 07:14 cimetidine [From Tagamet] AdvReac Nausea & Verified 02/08/18 07:14 Vomiting & Diarrhea Sulfa (Sulfonamide AdvReac Nausea & Verified 02/08/18 07:14 Antibiotics) Vomiting Physical Exam Vitals: Vital Signs Temp Pulse Resp BP Pulse Ox 02/08/18 20:00 98.5 F 79 17 156/77 96 02/08/18 19:00 82 13 158/73 96 02/08/18 18:15 87 18 183/86 98 02/08/18 18:00 85 18 180/86 98 02/08/18 17:45 83 16 167/81 98 02/08/18 17:30 77 18 172/86 97 02/08/18 17:15 76 31 H 162/91 98 02/08/18 17:00 74 18 164/87 98 02/08/18 16:30 73 18 168/86 96 02/08/18 16:15 69 11 L 154/87 98 02/08/18 16:00 97.8 F 83 15 172/81 98 02/08/18 15:45 73 16 168/77 97 02/08/18 15:30 72 16 183/79 98 02/08/18 15:15 74 19 168/82 97 02/08/18 15:00 72 15 168/80 97 02/08/18 14:45 76 23 168/87 98 02/08/18 14:30 70 11 L 145/81 98 02/08/18 14:00 77 16 166/71 98 02/08/18 13:30 78 16 146/83 96 02/08/18 13:15 78 16 141/81 97 02/08/18 13:00 71 10 L 151/76 98 02/08/18 12:30 76 24 143/72 97 02/08/18 12:15 67 26 H 129/71 98 02/08/18 12:00 74 15 130/74 96 02/08/18 11:45 70 17 136/74 95 02/08/18 11:30 68 12 139/79 97 02/08/18 11:15 78 16 123/69 97 02/08/18 11:00 70 15 133/65 96 02/08/18 10:45 72 21 138/71 96 02/08/18 10:30 78 19 121/72 97 02/08/18 10:15 78 20 126/73 97 02/08/18 10:00 75 22 119/74 97 02/08/18 09:45 77 13 140/70 97 02/08/18 09:30 97.6 F 75 25 H 133/72 96 02/08/18 09:22 83 02/08/18 06:53 65 18 107/58 98 09/11/18 06:48 66 18 115/62 100 02/08/18 06:44 68 18 144/90 97 02/08/18 06:42 65 18 153/87 98 02/08/18 06:28 98.4 F 70 18 155/81 98 02/08/18 05:25 68 18 187/95 99 02/08/18 05:12 67 18 193/91 98 02/08/18 04:52 77 18 220/105 99 02/08/18 04:14 75 20 02/08/18 03:54 98.5 F 81 20 199/92 100 Intake and Output 02/08/18 02/08/18 02/08/18 06:59 14:59 22:59 Intake Total 745.5 525 Output Total 300 200 Balance 445.5 325 Intake: IV 420.5 Intake, IV Titration 225 525 Amount Sodium Chloride 0.9% 1, 225 525 000 ml @ 75 mls/hr IV . [id number] REKHA Rx#:[id number] Oral 100 Output: Urine 300 200 Other: # Voids 1 1 Weight 92.6 kg 92.6 kg Physical exam GENERAL: The patient is alert and oriented x3, not in any acute distress. Well developed, well nourished. HEENT: Pupils are round and equally reacting to light. EOMI. No scleral icterus. No conjunctival pallor. Normocephalic, atraumatic. No pharyngeal erythema. No thyromegaly. CARDIOVASCULAR: S1 and S2 present. No murmurs, rubs, or gallops. PULMONARY: Chest is clear to auscultation, no wheezing or crackles. ABDOMEN: Soft, nontender, nondistended, normoactive bowel sounds. No palpable organomegaly. MUSCULOSKELETAL: No joint swelling or deformity. EXTREMITIES: No cyanosis, clubbing, or pedal edema. NEUROLOGICAL: Gross neurological examination did not reveal any focal deficits. SKIN: No rashes. Results CBC & Chem 7: 02/08/18 04:00 02/08/18 04:00 Labs: Abnormal Lab Results - Last 24 Hours (Table) 02/08/18 02/08/18 02/08/18 Range/Units 04:00 04:00 04:00 WBC 12.8 H (3.8-10.6) k/uL Neutrophils # 8.4 H (1.3-7.7) k/uL Chloride 108 H (98-107) mmol/L Carbon Dioxide 20 L (22-30) mmol/L Glucose 101 H (74-99) mg/dL Total Creatine Kinase (55-170) U/L CK-MB (CK-2) 7.8 H (0.0-2.4) ng/mL Troponin I 1.020 H* (0.000-0.034) ng/mL 02/08/18 02/08/18 Range/Units 09:48 15:59 WBC (3.8-10.6) k/uL Neutrophils # (1.3-7.7) k/uL Chloride (98-107) mmol/L Carbon Dioxide (22-30) mmol/L Glucose (74-99) mg/dL Total Creatine Kinase 433 H 578 H (55-170) U/L CK-MB (CK-2) 32.2 H 39.0 H (0.0-2.4) ng/mL Troponin I 4.130 H* 10.800 H* (0.000-0.034) ng/mL Thrombosis Risk Factor Assmnt - Choose All That Apply Each Factor Represents 1 point: Obesity (BMI >25) Each Risk Factor Represents 2 Points: Age 61-74 years Each Risk Factor Represents 3 Points: History of DVT/PE Thrombosis Risk Factor Assessment Total Risk Factor Score: 6 Thrombosis Risk Factor Assessment Level: High Risk Assessment and Plan Assessment: STEMI status post cardiac cath wih LAD stenting with drug eluding stent mild leukocytosis , mostly reactive chronic right shoulder pain Plan: pt is presting with myocardial infarction , pt is status post mid LAD stent placement. continue with same treatmetn , continue with symptotmatic treatment. resume home medication. pain managment . cardiology team are following the patient closely. c.w aspirin and brilinta , DVT and GI prophylaxis. further recommendation is based upon clinical progress of the patient. DVT prophylaxis : subcutaneous heparin GI prophylaxis: protonix PT/OT:pending prognosis is guarded
[2018-02-08] MEDS ORDERED: METOPROLOL TARTRATE 25 MG TAB PO SCH (21:00)
[2018-02-08] MEDS: ALPRAZolam 1 MG TAB PO PRN (21:53)
[2018-02-08] MEDS: HEPARIN SODIUM,PORCINE 5,000 UNIT/ML 1 ML VIAL SQ SCH (21:55)
[2018-02-09] MEDS: NITROGLYCERIN-D5W PMX 50 MG in DEXTROSE/WATER 1 250ML.BAG IV SCH (05:09)
[2018-02-09 05:12] LABS: Basophils % (A) 0 %; Eosinophils # (A) 0.2 k/uL (0-0.7); Eosinophils % (A) 2 %; HCT 41.2 % (39.0-53.0); HGB 13.2 gm/dL (13.0-17.5); Lymphocytes % (A) 19 %; MCH 29.9 pg (25.0-35.0); MCV 93.6 fL (80.0-100.0); Mean Platelet Volume 5.9; Monocytes # (A) 0.8 k/uL (0-1.0); Monocytes % (A) 7 %; Neutrophils # (A) 7.5 k/uL (1.3-7.7); Neutrophils % (A) 70 %; Platelet Count 285 k/uL (150-450); RDW 12.7 % (11.5-15.5); WBC 10.8 k/uL (3.8-10.6)
[2018-02-09 05:30] LABS: Anion Gap 6 mmol/L; Blood Urea Nitrogen 8 mg/dL (9-20); Carbon Dioxide 25 mmol/L (22-30); Chloride 108 mmol/L (98-107); Cholesterol 106 mg/dL (<200); Glucose 106 mg/dL (74-99); HDL Cholesterol 39 mg/dL (40-60); LDL Cholesterol,Calculated 49 mg/dL (0-99); Potassium 3.8 mmol/L (3.5-5.1); Sodium 139 mmol/L (137-145); Triglycerides 90 mg/dL (<150)
[2018-02-09] MEDS: METOPROLOL TARTRATE 50 MG TAB PO SCH ×2 (08:07→20:04)
[2018-02-09] MEDS: LISINOPRIL 20 MG TAB PO SCH (08:08)
[2018-02-09] MEDS: PANTOPRAZOLE 40 MG TABLET PO SCH (08:08)
[2018-02-09] MEDS: ALPRAZolam 1 MG TAB PO PRN ×2 (08:08→20:04)
[2018-02-09] MEDS: TICAGRELOR 90 MG TAB PO SCH ×2 (08:08→20:04)
[2018-02-09] MEDS: ASPIRIN 81 MG PO SCH (08:08)
[2018-02-09] MEDS: HEPARIN SODIUM,PORCINE 5,000 UNIT/ML 1 ML VIAL SQ SCH ×2 (08:08→20:03)
[2018-02-09] MEDS: ATORVASTATIN 80 MG TAB PO SCH (08:08)
[2018-02-09] MEDS ORDERED: ASPIRIN 325 MG TAB PO SCH (09:00)
[2018-02-09] MEDS ORDERED: LISINOPRIL 10 MG TAB PO SCH (09:00)
[2018-02-09 11:29] LABS: Glucose,Whole Blood 107 mg/dL (75-99)
--- NOTE | 2018-02-09 12:06 | P.PN ---
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 pt she pain was sever , central , non radiationg ,feeling like heaviness and achy . pt with elevated corey , CT of the chest is negative for PE. pt was found to have STEMI, pt has been evaluated by translator deaf by the time a saw him in the ICU, s /p stenting of mid LAD . pt also states he has h/o of right shoulder pain , and that he is been evaluated by his pcp with x-ray showing bone spurs and that he is been transfered to orthopedic office anyway as per pt. pt is with non dyspnea , no change in urine or bowel habits , and no fever. 02/09/2018 Patient is feeling better as patient denies chest pain or dyspnea. No dizziness. Patient was found walking in the hallway using his cane. Vitas looks stable. Leukocytosis is improving and his WBC is 10.8 K currently. Objective - Vital Signs Vital signs: Vital Signs Temp 98.2 F 02/09/18 08:00 Pulse 85 02/09/18 07:00 Resp 18 02/09/18 08:00 BP 156/75 02/09/18 08:30 Pulse Ox 96 02/09/18 08:30 Intake & Output 02/08/18 02/09/18 02/09/18 18:59 06:59 18:59 Intake Total 1195.5 825 705 Output Total 300 1080 Balance 895.5 -255 705 Weight 92.6 kg 90 kg Intake: IV 420.5 750 225 Sodium Chloride 0.9% 1, 750 225 000 ml @ 75 mls/hr IV . [id number] REKHA Rx#:[id number] Intake, IV Titration 675 75 Amount Sodium Chloride 0.9% 1, 675 75 000 ml @ 75 mls/hr IV . [id number] REKHA Rx#:[id number] Oral 100 480 Output: Urine 300 1080 Other: Voiding Method Toilet Urinal # Voids 1 1 1 # Bowel Movements 1 - Exam GENERAL: The patient is alert and oriented x3, not in any acute distress. Well developed, well nourished. HEENT: Pupils are round and equally reacting to light. EOMI. No scleral icterus. No conjunctival pallor. Normocephalic, atraumatic. No pharyngeal erythema. No thyromegaly. CARDIOVASCULAR: S1 and S2 present. No murmurs, rubs, or gallops. PULMONARY: Chest is clear to auscultation, no wheezing or crackles. ABDOMEN: Soft, nontender, nondistended, normoactive bowel sounds. No palpable organomegaly. MUSCULOSKELETAL: No joint swelling or deformity. EXTREMITIES: No cyanosis, clubbing, or pedal edema. NEUROLOGICAL: Gross neurological examination did not reveal any focal deficits. SKIN: No rashes. - Labs CBC & Chem 7: 02/09/18 04:27 02/09/18 04:27 Labs: Abnormal Lab Results - Last 24 Hours (Table) 02/08/18 02/09/18 02/09/18 Range/Units 15:59 04:27 04:27 WBC 10.8 H (3.8-10.6) k/uL Chloride 108 H (98-107) mmol/L BUN 8 L (9-20) mg/dL Glucose 106 H (74-99) mg/dL POC Glucose (mg/dL) (75-99) mg/dL Total Creatine Kinase 578 H (55-170) U/L CK-MB (CK-2) 39.0 H (0.0-2.4) ng/mL Troponin I 10.800 H* (0.000-0.034) ng/mL HDL Cholesterol 39 L (40-60) mg/dL 02/09/18 Range/Units 11:15 WBC (3.8-10.6) k/uL Chloride (98-107) mmol/L BUN (9-20) mg/dL Glucose (74-99) mg/dL POC Glucose (mg/dL) 107 H (75-99) mg/dL Total Creatine Kinase (55-170) U/L CK-MB (CK-2) (0.0-2.4) ng/mL Troponin I (0.000-0.034) ng/mL HDL Cholesterol (40-60) mg/dL Assessment and Plan Assessment: STEMI status post cardiac cath wih LAD stenting with drug eluding stent mild leukocytosis , mostly reactive chronic right shoulder pain Plan: pt is presting with myocardial infarction , pt is status post mid LAD stent placement. continue with same treatmetn , continue with symptotmatic treatment. resume home medication. pain managment . cardiology team are following the patient closely. c.w aspirin and brilinta , DVT and GI prophylaxis. further recommendation is based upon clinical progress of the patient. DVT prophylaxis : subcutaneous heparin GI prophylaxis: protonix PT/OT:pending prognosis is guarded
--- NOTE | 2018-02-09 12:55 | PN ---
PROGRESS NOTE This patient underwent stenting of LAD performed by me yesterday, had a non-ST elevation TX. He is doing better this morning. Right groin is clean and dry. Vitals are stable. S1, S2 heard normally. Lungs are clear. Abdomen and lower extremity exam unchanged. Plan is to continue current medications, increase activity and move him to telemetry and then make further recommendations. MMODL / IJN: [id number] /
[2018-02-09] MEDS ORDERED: MORPHINE ORAL SOLN 10 MG/5 ML CUP PO PRN (15:35)
[2018-02-09 16:35] LABS: Glucose,Whole Blood 105 mg/dL (75-99)
[2018-02-09 20:35] LABS: Glucose,Whole Blood 115 mg/dL (75-99)
[2018-02-10] MEDS: MAG HYDROX/AL HYDROX/SIMETH 30 ML CUP PO PRN (05:22)
[2018-02-10] MEDS: ALPRAZolam 1 MG TAB PO PRN (05:22)
[2018-02-10 05:29] VITALS: RESP 18
[2018-02-10 06:01] LABS: Glucose,Whole Blood 106 mg/dL (75-99)
[2018-02-10] MEDS: NITROGLYCERIN-D5W PMX 50 MG in DEXTROSE/WATER 1 250ML.BAG IV SCH (06:26)
[2018-02-10] MEDS: PANTOPRAZOLE 40 MG TABLET PO SCH (06:37)
[2018-02-10 06:55] LABS: Basophils % (A) 0 %; Eosinophils # (A) 0.2 k/uL (0-0.7); Eosinophils % (A) 2 %; HGB 13.2 gm/dL (13.0-17.5); Lymphocytes # (A) 1.6 k/uL (1.0-4.8); Lymphocytes % (A) 14 %; MCH 29.2 pg (25.0-35.0); MCHC 31.5 g/dL (31.0-37.0); MCV 92.8 fL (80.0-100.0); Mean Platelet Volume 5.9; Monocytes # (A) 0.7 k/uL (0-1.0); Monocytes % (A) 6 %; Neutrophils % (A) 77 %; Platelet Count 298 k/uL (150-450); RBC 4.52 m/uL (4.30-5.90); RDW 12.7 % (11.5-15.5); WBC 11.7 k/uL (3.8-10.6)
[2018-02-10] MEDS: HEPARIN SODIUM,PORCINE 5,000 UNIT/ML 1 ML VIAL SQ SCH (08:08)
[2018-02-10] MEDS: METOPROLOL TARTRATE 50 MG TAB PO SCH (08:09)
[2018-02-10] MEDS: ASPIRIN 81 MG PO SCH (08:09)
[2018-02-10] MEDS: LISINOPRIL 20 MG TAB PO SCH (08:10)
[2018-02-10] MEDS: TICAGRELOR 90 MG TAB PO SCH (08:10)
[2018-02-10] MEDS: ATORVASTATIN 80 MG TAB PO SCH (08:10)
[2018-02-10 11:24] LABS: Glucose,Whole Blood 98 mg/dL (75-99)
[2018-02-10 13:05] VITALS: BP 167/79; PULSE 80; TEMP 98.1
--- NOTE | 2018-02-10 18:38 | PN ---
PROGRESS NOTE This is a 67-year-old gentleman with [id number] GA. He underwent stenting of mid LAD after positive FFR. He is doing well. His right groin is clean and dry. He has no chest pain, shortness of breath or palpitation. EKG and labs are good. Plan is to increase activity and discharge him on dual antiplatelet therapy and his other medications. He will see Dr. Judy Lucas in one week. Discharge instructions regarding activity, diet and medications were given. MMODL / IJN: [id number] /
--- NOTE | 2018-02-10 20:30 | P.DS ---
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 pt comes with chest pain which was severe , central , non radiationg ,feeling like heaviness and achy . pt with elevated corey , CT of the chest is negative for PE. pt was found to have STEMI, pt underwent cardiac cath , s/p stenting of mid LAD. pt showed interval improvement, he feels better and on the day of discharge pt denies chest pain or dyspnea. pt still has mild leukocytosis which was stable and is mostly reactive (WBC: 12.8k,10.8k,11.7k), pt is with no fever , no resp or urinary s/s or complaints. no rash , no change in bowel and urine habits. pt informed and instructed to f/u with his pcp to recheck labs, and he verbalized understanding and acceptance. pt has 4 mm pul nodules which is stable from previous CT scans. I discused the case with the cardiology team and they cleared the pt for discharge pt also states he has h/o of right shoulder pain , and that he is been evaluated by his pcp with x-ray showing bone spurs and that he is been referred to orthopedic office by his pcp, and that he is going to have surgery as outpt Pt was instructed about the problems and management plan and Pt verbalized understanding and acceptance Pt is found stable and can be discharged to the community but needs follow up as outpt pt agreed with all appointments and their timing and state is going to f/u with them GENERAL: The patient is alert and oriented x3, not in any acute distress. Well developed, well nourished. HEENT: Pupils are round and equally reacting to light. EOMI. No scleral icterus. No conjunctival pallor. Normocephalic, atraumatic. No pharyngeal erythema. No thyromegaly. CARDIOVASCULAR: S1 and S2 present. No murmurs, rubs, or gallops. PULMONARY: Chest is clear to auscultation, no wheezing or crackles. ABDOMEN: Soft, nontender, nondistended, normoactive bowel sounds. No palpable organomegaly. MUSCULOSKELETAL: No joint swelling or deformity. EXTREMITIES: No cyanosis, clubbing, or pedal edema. NEUROLOGICAL: Gross neurological examination did not reveal any focal deficits. SKIN: No rashes. time spent more than 35 min Patient Condition at Discharge: Serious Plan - Discharge Summary Discharge Rx Participant: No New Discharge Prescriptions: New Aspirin 81 mg PO DAILY #30 chew Atorvastatin [Lipitor] 80 mg PO DAILY #30 tab Lisinopril [Zestril] 20 mg PO BID #60 tab Metoprolol Tartrate [Lopressor] 50 mg PO BID #60 tab Nitroglycerin Sl Tabs [Nitrostat] 0.4 mg SUBLINGUAL Q5M PRN #25 tab PRN Reason: Chest Pain Ticagrelor [Brilinta] 90 mg PO BID #60 tab Continue Ipratropium/Albuterol Sulfate [Combivent Respimat Inhaler] 1 puff INHALATION RT-QID PRN PRN Reason: Shortness Of Breath ALPRAZolam [Xanax] 2 mg PO TID PRN PRN Reason: Anxiety Ranitidine HCl [Zantac] 150 mg PO TID PRN PRN Reason: Heartburn Albuterol Nebulized [Ventolin Nebulized] 2.5 mg INHALATION RT-Q4H PRN PRN Reason: Shortness Of Breath Discontinued Metoprolol Succinate [Toprol XL] 25 mg PO DAILY Atorvastatin [Lipitor] 40 tab PO HS Ibuprofen [Motrin] 800 mg PO TID PRN PRN Reason: Pain Discharge Medication List Ipratropium/Albuterol Sulfate [Combivent Respimat Inhaler] 1 puff INHALATION RT- QID PRN 02/26/15 [History] ALPRAZolam [Xanax] 2 mg PO TID PRN 07/16/16 [History] Ranitidine HCl [Zantac] 150 mg PO TID PRN 10/01/16 [History] Albuterol Nebulized [Ventolin Nebulized] 2.5 mg INHALATION RT-Q4H PRN 02/08/18 [ History] Aspirin 81 mg PO DAILY #30 chew 02/10/18 [Rx] Atorvastatin [Lipitor] 80 mg PO DAILY #30 tab 02/10/18 [Rx] Lisinopril [Zestril] 20 mg PO BID #60 tab 02/10/18 [Rx] Metoprolol Tartrate [Lopressor] 50 mg PO BID #60 tab 02/10/18 [Rx] Nitroglycerin Sl Tabs [Nitrostat] 0.4 mg SUBLINGUAL Q5M PRN #25 tab 02/10/18 [Rx ] Ticagrelor [Brilinta] 90 mg PO BID #60 tab 02/10/18 [Rx] Follow up Appointment(s)/Referral(s): Shakila Langston MD [Primary Care Provider] - 1-2 days (we recommend to check your blood test with your doctor including your CBC (complete blood count ) abd BMP (basic metabolic panel)) Deepika Lucas MD [STAFF PHYSICIAN] - 02/17/18 4:45 pm () Patient Instructions/Handouts: *Surgery [facility] - After Heart Catheterization - [place] Instructions, Left Heart Catheterization (DC), Heart Healthy Diet (DC) Activity/Diet/Wound Care/Special Instructions: Cardiac diet Activity is limited till you see your doctor Discharge Disposition: HOME SELF-CARE
[2018-02-10] MEDS ORDERED: INSULIN DETEMIR 100 UNIT/ML 10 ML VIAL SQ SCH (21:00)
[2018-02-10] MEDS ORDERED: LISINOPRIL 20 MG TAB PO SCH (21:00)
== END 2018-02-10 14:48 | disposition home or self-care (01) | DRG 247 ==
LOC: EC 03:50 → 6ICU 06:07 → 6SEL 02-09 08:58
PROVIDERS: ADMIT Hospitalist; ATTEND Hospitalist
PROC: B2151ZZ Fluoroscopy of Left Heart using Low Osmolar Contrast (ICD-10-PCS; principal; 2018-02-08 07:15)
PROC: 4A023N7 Measurement of Cardiac Sampling and Pressure, Left Heart, Percutaneous Approach (ICD-10-PCS; principal; 2018-02-08 07:15)
PROC: B2111ZZ Fluoroscopy of Multiple Coronary Arteries using Low Osmolar Contrast (ICD-10-PCS; principal; 2018-02-08 07:15)
PROC: 027034Z Dilation of Coronary Artery, One Artery with Drug-eluting Intraluminal Device, Percutaneous Approach (ICD-10-PCS; 2018-02-08 07:15)
DX: I21.4 Non-ST elevation (NSTEMI) myocardial infarction (principal); I16.1 Hypertensive emergency; D72.829 Elevated white blood cell count, unspecified; E78.5 Hyperlipidemia, unspecified; F41.0 Panic disorder [episodic paroxysmal anxiety]; G89.29 Other chronic pain; M25.511 Pain in right shoulder; I10 Essential (primary) hypertension; I25.10 Atherosclerotic heart disease of native coronary artery without angina pectoris; J44.9 Chronic obstructive pulmonary disease, unspecified; Z79.899 Other long term (current) drug therapy; Z80.3 Family history of malignant neoplasm of breast; Z86.711 Personal history of pulmonary embolism; Z87.891 Personal history of nicotine dependence; Z95.5 Presence of coronary angioplasty implant and graft; Z88.2 Allergy status to sulfonamides; Z88.8 Allergy status to other drugs, medicaments and biological substances
CPT/HCPCS: 36415; 71275; 74177; 80048; 80053; 80061; 80320; 82550; 82553; 83690; 83735; 84484; 85025; 85610; 85730; 93005; 93306; 93458; 93571; 96374; 96375; 96376; 99291

== ENCOUNTER 2018-03-05 09:31 | Emergency (ER) | payer MEDICAID, MEDICARE ==
[2018-03-05 09:36] VITALS: BP 131/63; PULSE 82; RESP 20; TEMP 98.1
--- NOTE | 2018-03-05 10:13 | ED ---
General Adult HPI - General Chief complaint: Recheck/Abnormal Lab/Rx Stated complaint: Bruises all over body Time Seen by Provider: 03/05/18 09:47 Source: patient, RN notes reviewed, old records reviewed Mode of arrival: ambulatory Limitations: no limitations - History of Present Illness Initial comments: Patient 67-year-old male presents emergency room today with a chief complaint of bruising. Patient states that he was recently admitted to the hospital had a cardiac cath. He states he was on heparin shots. He states the bruises to his abdomen have cleared up. He does have some bruises to his forearms and back with right arm there is noticed. Patient states that he does not remember doing anything to cause these bruising but was concerned thought he should have it checked. He states is currently not on a blood thinner other than a baby aspirin. Patient denies any other complaints or symptoms. Patient denies any recent fever, chills, shortness of breath, chest pain, back pain, abdominal pain , nausea or vomiting, numbness or tingling, headaches or visual changes, or any other complaints. - Related Data Home Medications Medication Instructions Recorded Confirmed Ipratropium/Albuterol Sulfate 1 puff INHALATION RT-QID PRN 02/26/15 02/08/18 [Combivent Respimat Inhaler] ALPRAZolam [Xanax] 2 mg PO TID PRN 07/16/16 02/08/18 Ranitidine HCl [Zantac] 150 mg PO TID PRN 10/01/16 02/08/18 Albuterol Nebulized [Ventolin 2.5 mg INHALATION RT-Q4H PRN 02/08/18 02/08/18 Nebulized] Previous Rx's Medication Instructions Recorded Aspirin 81 mg PO DAILY #30 chew 02/10/18 Atorvastatin [Lipitor] 80 mg PO DAILY #30 tab 02/10/18 Lisinopril [Zestril] 20 mg PO BID #60 tab 02/10/18 Metoprolol Tartrate [Lopressor] 50 mg PO BID #60 tab 02/10/18 Nitroglycerin Sl Tabs [Nitrostat] 0.4 mg SUBLINGUAL Q5M PRN #25 tab 02/10/18 Ticagrelor [Brilinta] 90 mg PO BID #60 tab 02/10/18 Allergies Allergy/AdvReac Type Severity Reaction Status Date / Time orphenadrine Allergy Unknown Verified 03/05/18 09:35 pregabalin [From Lyrica] Allergy Unknown Verified 03/05/18 09:35 simvastatin Allergy Unknown Verified 03/05/18 09:35 cimetidine [From Tagamet] AdvReac Nausea & Verified 03/05/18 09:35 Vomiting & Diarrhea Sulfa (Sulfonamide AdvReac Nausea & Verified 03/05/18 09:35 Antibiotics) Vomiting Review of Systems ROS Statement: Those systems with pertinent positive or pertinent negative responses have been documented in the HPI. ROS Other: All systems not noted in ROS Statement are negative. 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 History of Any Multi-Drug Resistant Organisms: None Reported Past Surgical History: Back Surgery Additional Past Surgical History / Comment(s): neck, double hernia repair Past Anesthesia/Blood Transfusion Reactions: Previous Problems w/ Anesthesia Additional Past Anesthesia/Blood Transfusion Reaction / Comment(s): pt states "trouble coming out of" Past Psychological History: Anxiety, Panic Disorder Smoking Status: Former smoker Past Alcohol Use History: None Reported Past Drug Use History: Marijuana - Past Family History Father Family Medical History: CVA/TIA, Deep Vein Thrombosis (DVT) Additional Family Medical History / Comment(s): DVT wrist Mother Family Medical History: Dementia Additional Family Medical History / Comment(s): dementia when she was 90 Sister(s) Family Medical History: Cancer Additional Family Medical History / Comment(s): 1) Breast CA passed at 58 years old. 2) passed when she was 59 years old with questinable CA Brother(s) Additional Family Medical History / Comment(s): passed when he was 60 years old due to heart issues General Exam - General Exam Comments Initial Comments: General: The patient is awake and alert, in no distress, and does not appear acutely ill. Eye: Pupils are equal, round and reactive to light. Extra-ocular movements are intact. No nystagmus. There is normal conjunctiva bilaterally. No signs of icterus. Ears, nose, mouth and throat: There are moist mucous membranes and no oral lesions. Neck: The neck is supple, there is no tenderness or JVD. Cardiovascular: There is a regular rate and rhythm. No murmur, rub or gallop is appreciated. Respiratory: Lungs are clear to auscultation, respirations are non-labored, breath sounds are equal. No wheezes, stridor, rales, or rhonchi. Musculoskeletal: Normal ROM, no tenderness. Sensation intact. Strength 5/5. Pulses equal bilaterally 2+. Neurological: A&O x 3. CN II-XII intact, There are no obvious motor or sensory deficits. Coordination appears grossly intact. Speech is normal. Skin: Patient does have some old bruises to the forearms that are brown in color. He does have a purple bruise to the back of the right forearm bruise to the right lateral rib area that is also performed. Psychiatric: Cooperative, appropriate mood & affect, normal judgment. Limitations: no limitations Course Vital Signs 03/05/18 09:34 Temperature 98.1 F Pulse Rate 82 Respiratory 20 Rate Blood Pressure 131/63 O2 Sat by Pulse 96 Oximetry Medical Decision Making - Medical Decision Making Patient reexamined at this time shows no signs of distress he is resting comfortably. Patient's labs been reviewed are unremarkable. He currently is on Bilinta. 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 Advised return for any other concerns. - Lab Data Result diagrams: 03/05/18 10:00 03/05/18 10:00 Lab Results 03/05/18 03/05/18 03/05/18 Range/Units 10:00 10:00 10:00 WBC 7.8 (3.8-10.6) k/uL RBC 4.22 L (4.30-5.90) m/uL Hgb 12.6 L (13.0-17.5) gm/dL Hct 38.4 L (39.0-53.0) % MCV 91.0 (80.0-100.0) fL MCH 29.9 (25.0-35.0) pg MCHC 32.9 (31.0-37.0) g/dL RDW 12.7 (11.5-15.5) % Plt Count 295 (150-450) k/uL Neutrophils % 66 % Lymphocytes % 22 % Monocytes % 6 % Eosinophils % 3 % Basophils % 1 % Neutrophils # 5.2 (1.3-7.7) k/uL Lymphocytes # 1.7 (1.0-4.8) k/uL Monocytes # 0.5 (0-1.0) k/uL Eosinophils # 0.2 (0-0.7) k/uL Basophils # 0.0 (0-0.2) k/uL PT 10.3 (9.0-12.0) sec INR 1.1 (<1.2) APTT 22.8 (22.0-30.0) sec Sodium 142 (137-145) mmol/L Potassium 4.2 (3.5-5.1) mmol/L Chloride 110 H (98-107) mmol/L Carbon Dioxide 25 (22-30) mmol/L Anion Gap 7 mmol/L BUN 13 (9-20) mg/dL Creatinine 0.91 (0.66-1.25) mg/dL Est GFR (CKD-EPI)AfAm >90 (>60 ml/min/1.73 sqM) Est GFR (CKD-EPI)NonAf 87 (>60 ml/min/1.73 sqM) Glucose 99 (74-99) mg/dL Calcium 9.2 (8.4-10.2) mg/dL Total Bilirubin 0.4 (0.2-1.3) mg/dL AST 24 (17-59) U/L ALT 37 (21-72) U/L Alkaline Phosphatase 72 (38-126) U/L Total Protein 6.4 (6.3-8.2) g/dL Albumin 3.6 (3.5-5.0) g/dL Disposition Clinical Impression: Bruises easily Disposition: HOME SELF-CARE Condition: Good Instructions: Contusion in Adults (ED) Additional Instructions: Please continue prescribed medications. Please follow-up with production line worker/ family doctor in the next 2 days of symptoms have not improved. Please return to emergency room if the symptoms increase or worsen or for any other concerns. Is patient prescribed a controlled substance at d/c from ED?: No Referrals: None,Stated [Primary Care Provider] - 1-2 days Time of Disposition: 11:00
[2018-03-05 10:20] LABS: Basophils % (A) 1 %; Eosinophils # (A) 0.2 k/uL (0-0.7); Eosinophils % (A) 3 %; HCT 38.4 % (39.0-53.0); HGB 12.6 gm/dL (13.0-17.5); Lymphocytes # (A) 1.7 k/uL (1.0-4.8); Lymphocytes % (A) 22 %; MCH 29.9 pg (25.0-35.0); MCHC 32.9 g/dL (31.0-37.0); Mean Platelet Volume 6.4; Monocytes # (A) 0.5 k/uL (0-1.0); Monocytes % (A) 6 %; Neutrophils # (A) 5.2 k/uL (1.3-7.7); Neutrophils % (A) 66 %; Platelet Count 295 k/uL (150-450); RBC 4.22 m/uL (4.30-5.90); RDW 12.7 % (11.5-15.5); WBC 7.8 k/uL (3.8-10.6)
[2018-03-05 10:31] LABS: ALT 37 U/L (21-72); AST 24 U/L (17-59); Albumin 3.6 g/dL (3.5-5.0); Alkaline Phosphatase 72 U/L (38-126); Anion Gap 7 mmol/L; Blood Urea Nitrogen 13 mg/dL (9-20); Calcium 9.2 mg/dL (8.4-10.2); Carbon Dioxide 25 mmol/L (22-30); Chloride 110 mmol/L (98-107); Glucose 99 mg/dL (74-99); Potassium 4.2 mmol/L (3.5-5.1); Sodium 142 mmol/L (137-145); Total Bilirubin 0.4 mg/dL (0.2-1.3); Total Protein 6.4 g/dL (6.3-8.2)
[2018-03-05 10:37] LABS: INR 1.1 (<1.2); Partial Thromboplastin Time 22.8 sec (22.0-30.0); Prothrombin Time 10.3 sec (9.0-12.0)
== END 2018-03-05 11:10 | disposition home or self-care (01) ==
LOC: EC 09:31
DX: R23.8 Other skin changes (principal); F41.0 Panic disorder [episodic paroxysmal anxiety]; J44.9 Chronic obstructive pulmonary disease, unspecified; I10 Essential (primary) hypertension; Z79.51 Long term (current) use of inhaled steroids; Z79.899 Other long term (current) drug therapy; Z88.2 Allergy status to sulfonamides; Z88.8 Allergy status to other drugs, medicaments and biological substances; Z87.891 Personal history of nicotine dependence; Z86.718 Personal history of other venous thrombosis and embolism; Z86.711 Personal history of pulmonary embolism; Z95.5 Presence of coronary angioplasty implant and graft
CPT/HCPCS: 36415; 80053; 85025; 85610; 85730; 99283

== ENCOUNTER → 2018-04-08 | Outpatient (CLI) | payer MEDICAID, MEDICARE ==
[2018-04-08 12:11] LABS: Basophils % (A) 0 %; Eosinophils # (A) 0.1 k/uL (0-0.7); Eosinophils % (A) 2 %; HCT 40.5 % (39.0-53.0); HGB 13.6 gm/dL (13.0-17.5); Lymphocytes # (A) 1.6 k/uL (1.0-4.8); Lymphocytes % (A) 19 %; MCH 30.8 pg (25.0-35.0); MCHC 33.5 g/dL (31.0-37.0); MCV 91.9 fL (80.0-100.0); Mean Platelet Volume 6.2; Monocytes # (A) 0.5 k/uL (0-1.0); Monocytes % (A) 6 %; Neutrophils % (A) 71 %; Platelet Count 303 k/uL (150-450); RBC 4.41 m/uL (4.30-5.90); WBC 8.5 k/uL (3.8-10.6)
[2018-04-08 19:08] LABS: Albumin 4.1 g/dL (3.80-4.90); Albumin/Globulin Ratio 1.95 (1.20-2.10); Globulin 2.1 g/dL (2.1-3.7); LDL Cholesterol,Calculated 71.4 mg/dL (0.0-131.0); Potassium 4.2 mmol/L (3.5-5.5); Total Bilirubin 0.8 mg/dL (0.2-1.2); Total Protein 6.2 g/dL (6.2-8.2); VLDL Calculation 15.6 mg/dL (5.00-40.00)
[2018-04-08 22:43] LABS: Hemoglobin A1C 5.4 % (4.0-6.0)
== END ==
LOC: LABWHC1 11:00
PROVIDERS: ATTEND Family Medicine
DX: E78.5 Hyperlipidemia, unspecified (principal); Z11.59 Encounter for screening for other viral diseases
CPT/HCPCS: 36415; 80053; 80061; 82550; 83036; 85025; 86803

== ENCOUNTER 2018-04-22 02:18 | Emergency (ER) | payer MEDICAID, MEDICARE ==
--- NOTE | 2018-04-22 03:08 | ED ---
General Adult HPI - General Chief complaint: Recheck/Abnormal Lab/Rx Stated complaint: Confusion, Vision Changes Time Seen by Provider: 04/22/18 02:51 Source: patient, family Mode of arrival: ambulatory Limitations: no limitations - History of Present Illness Initial comments: Patient's a 67-year-old man here with his to be evaluated for a number symptoms that have been occurring over the past week, since he was taken off of Xanax which is been on for years now. The patient had complained of seeing occasional flashing lights. He also had described hearing voices in the house and his states that he would occasionally be attempting to talk people who were not there. He has not had fevers or chills. No chest pain or dyspnea. No vomiting or diarrhea. The symptoms seem to be more severe when medications were stopped may have improved over the past day or 2. -: days(s) Location: eyes Consistency: intermittent Improves with: none Worsens with: none Associated Symptoms: confusion, other Treatments Prior to Arrival: none - Related Data Home Medications Medication Instructions Recorded Confirmed Ipratropium/Albuterol Sulfate 1 puff INHALATION RT-QID PRN 02/26/15 04/22/18 [Combivent Respimat Inhaler] Ranitidine HCl [Zantac] 150 mg PO TID PRN 10/01/16 04/22/18 Albuterol Nebulized [Ventolin 2.5 mg INHALATION RT-Q4H PRN 02/08/18 04/22/18 Nebulized] Previous Rx's Medication Instructions Recorded Aspirin 81 mg PO DAILY #30 chew 02/10/18 Atorvastatin [Lipitor] 80 mg PO DAILY #30 tab 02/10/18 Lisinopril [Zestril] 20 mg PO BID #60 tab 02/10/18 Metoprolol Tartrate [Lopressor] 50 mg PO BID #60 tab 02/10/18 Nitroglycerin Sl Tabs [Nitrostat] 0.4 mg SUBLINGUAL Q5M PRN #25 tab 02/10/18 Ticagrelor [Brilinta] 90 mg PO BID #60 tab 02/10/18 Allergies Allergy/AdvReac Type Severity Reaction Status Date / Time orphenadrine Allergy Unknown Verified 04/22/18 02:37 pregabalin [From Lyrica] Allergy Unknown Verified 04/22/18 02:37 simvastatin Allergy Unknown Verified 04/22/18 02:37 cimetidine [From Tagamet] AdvReac Nausea & Verified 04/22/18 02:37 Vomiting & Diarrhea Sulfa (Sulfonamide AdvReac Nausea & Verified 04/22/18 02:37 Antibiotics) Vomiting Review of Systems ROS Statement: Those systems with pertinent positive or pertinent negative responses have been documented in the HPI. ROS Other: All systems not noted in ROS Statement are negative. Constitutional: Denies: fever, chills, weakness Eyes: Reports: vision change Respiratory: Denies: cough, dyspnea Cardiovascular: Denies: chest pain, palpitations Gastrointestinal: Denies: abdominal pain, nausea, vomiting Genitourinary: Denies: dysuria, hematuria Skin: Denies: rash Neurological: Denies: headache, weakness, numbness Psychiatric: Reports: anxiety, auditory hallucinations, visual hallucinations. 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 History of Any Multi-Drug Resistant Organisms: None Reported Past Surgical History: Back Surgery Additional Past Surgical History / Comment(s): neck, double hernia repair Past Anesthesia/Blood Transfusion Reactions: Previous Problems w/ Anesthesia Additional Past Anesthesia/Blood Transfusion Reaction / Comment(s): pt states "trouble coming out of" Past Psychological History: Anxiety, Panic Disorder Smoking Status: Former smoker Past Alcohol Use History: None Reported Past Drug Use History: Marijuana - Past Family History Father Family Medical History: CVA/TIA, Deep Vein Thrombosis (DVT) Additional Family Medical History / Comment(s): DVT wrist Mother Family Medical History: Dementia Additional Family Medical History / Comment(s): dementia when she was 90 Sister(s) Family Medical History: Cancer Additional Family Medical History / Comment(s): 1) Breast CA passed at 58 years old. 2) passed when she was 59 years old with questinable CA Brother(s) Additional Family Medical History / Comment(s): passed when he was 60 years old due to heart issues General Exam Limitations: no limitations General appearance: alert, in no apparent distress Head exam: Present: atraumatic, normocephalic Eye exam: Present: normal appearance. Absent: scleral icterus, conjunctival injection ENT exam: Present: normal oropharynx Neck exam: Present: normal inspection, full ROM Respiratory exam: Present: normal lung sounds bilaterally. Absent: respiratory distress, wheezes, rales, rhonchi, stridor Cardiovascular Exam: Present: regular rate, normal rhythm, normal heart sounds. Absent: systolic murmur, diastolic murmur, rubs, gallop GI/Abdominal exam: Present: soft. Absent: distended, tenderness, guarding, rebound Extremities exam: Present: normal inspection, normal capillary refill Neurological exam: Present: alert, oriented X3, CN II-XII intact. Absent: motor sensory deficit Psychiatric exam: Present: normal affect, anxious. Absent: homicidal ideation, suicidal ideation Skin exam: Present: warm, dry, intact, normal color. Absent: rash Course Vital Signs 04/22/18 04/22/18 04/22/18 02:31 03:30 04:00 Temperature 98.7 F 98.4 F Pulse Rate 88 76 73 Respiratory 20 23 16 Rate Blood Pressure 156/77 160/87 160/87 O2 Sat by Pulse 97 99 99 Oximetry EKG Findings - EKG Results: EKG: interpreted by ERMD, sinus rhythm (Rate approximate 74 bpm), normal axis, normal QRS, normal ST/T, no acute changes Medical Decision Making - Medical Decision Making Patient is 67-year-old man with a constellation of symptoms after stopping long- term Xanax use. Discussed that some of these symptoms are probably related to withdrawal, and some may be underlying anxiety. I at this point the patient is not suicidal or homicidal and is not require a psychiatric admission. The symptoms have somewhat improved and recommended further cessation. I addition there may be a component of dementia developing. All these discussed with the patient's partner and they will follow-up for further care - Lab Data Result diagrams: 04/22/18 02:50 04/22/18 02:50 Lab Results 04/22/18 04/22/18 04/22/18 Range/Units 02:50 02:50 02:50 WBC 13.9 H (3.8-10.6) k/uL RBC 4.66 (4.30-5.90) m/uL Hgb 13.9 (13.0-17.5) gm/dL Hct 42.9 (39.0-53.0) % MCV 92.1 (80.0-100.0) fL MCH 29.9 (25.0-35.0) pg MCHC 32.5 (31.0-37.0) g/dL RDW 13.3 (11.5-15.5) % Plt Count 378 (150-450) k/uL Neutrophils % 68 % Lymphocytes % 22 % Monocytes % 7 % Eosinophils % 0 % Basophils % 1 % Neutrophils # 9.4 H (1.3-7.7) k/uL Lymphocytes # 3.1 (1.0-4.8) k/uL Monocytes # 0.9 (0-1.0) k/uL Eosinophils # 0.1 (0-0.7) k/uL Basophils # 0.1 (0-0.2) k/uL PT (9.0-12.0) sec INR (<1.2) APTT (22.0-30.0) sec Sodium 142 (137-145) mmol/L Potassium 3.2 L (3.5-5.1) mmol/L Chloride 109 H (98-107) mmol/L Carbon Dioxide 21 L (22-30) mmol/L Anion Gap 12 mmol/L BUN 25 H (9-20) mg/dL Creatinine 1.22 (0.66-1.25) mg/dL Est GFR (CKD-EPI)AfAm 71 (>60 ml/min/1.73 sqM) Est GFR (CKD-EPI)NonAf 61 (>60 ml/min/1.73 sqM) Glucose 123 H (74-99) mg/dL Calcium 10.1 (8.4-10.2) mg/dL Magnesium 2.0 (1.6-2.3) mg/dL Total Bilirubin 1.2 (0.2-1.3) mg/dL AST 25 (17-59) U/L ALT 51 (21-72) U/L Alkaline Phosphatase 99 (38-126) U/L Total Creatine Kinase 173 H (55-170) U/L CK-MB (CK-2) 1.2 (0.0-2.4) ng/mL CK-MB (CK-2) Rel Index 0.7 Troponin I <0.012 (0.000-0.034) ng/mL Total Protein 7.4 (6.3-8.2) g/dL Albumin 4.2 (3.5-5.0) g/dL 04/22/18 Range/Units 02:50 WBC (3.8-10.6) k/uL RBC (4.30-5.90) m/uL Hgb (13.0-17.5) gm/dL Hct (39.0-53.0) % MCV (80.0-100.0) fL MCH (25.0-35.0) pg MCHC (31.0-37.0) g/dL RDW (11.5-15.5) % Plt Count (150-450) k/uL Neutrophils % % Lymphocytes % % Monocytes % % Eosinophils % % Basophils % % Neutrophils # (1.3-7.7) k/uL Lymphocytes # (1.0-4.8) k/uL Monocytes # (0-1.0) k/uL Eosinophils # (0-0.7) k/uL Basophils # (0-0.2) k/uL PT 11.3 (9.0-12.0) sec INR 1.2 H (<1.2) APTT 22.0 (22.0-30.0) sec Sodium (137-145) mmol/L Potassium (3.5-5.1) mmol/L Chloride (98-107) mmol/L Carbon Dioxide (22-30) mmol/L Anion Gap mmol/L BUN (9-20) mg/dL Creatinine (0.66-1.25) mg/dL Est GFR (CKD-EPI)AfAm (>60 ml/min/1.73 sqM) Est GFR (CKD-EPI)NonAf (>60 ml/min/1.73 sqM) Glucose (74-99) mg/dL Calcium (8.4-10.2) mg/dL Magnesium (1.6-2.3) mg/dL Total Bilirubin (0.2-1.3) mg/dL AST (17-59) U/L ALT (21-72) U/L Alkaline Phosphatase (38-126) U/L Total Creatine Kinase (55-170) U/L CK-MB (CK-2) (0.0-2.4) ng/mL CK-MB (CK-2) Rel Index Troponin I (0.000-0.034) ng/mL Total Protein (6.3-8.2) g/dL Albumin (3.5-5.0) g/dL Disposition Clinical Impression: Chest pain, Hypokalemia, Mental status alteration Disposition: HOME SELF-CARE Condition: Good Instructions: Chest Pain (ED), Altered Mental Status (ED) Is patient prescribed a controlled substance at d/c from ED?: No Referrals: Ron Mcfarlane MD [Primary Care Provider] - 1-2 days
[2018-04-22 03:16] LABS: Basophils # (A) 0.1 k/uL (0-0.2); Basophils % (A) 1 %; Eosinophils # (A) 0.1 k/uL (0-0.7); Eosinophils % (A) 0 %; HCT 42.9 % (39.0-53.0); HGB 13.9 gm/dL (13.0-17.5); Lymphocytes # (A) 3.1 k/uL (1.0-4.8); Lymphocytes % (A) 22 %; MCH 29.9 pg (25.0-35.0); MCHC 32.5 g/dL (31.0-37.0); MCV 92.1 fL (80.0-100.0); Mean Platelet Volume 6.1; Monocytes # (A) 0.9 k/uL (0-1.0); Monocytes % (A) 7 %; Neutrophils # (A) 9.4 k/uL (1.3-7.7); Neutrophils % (A) 68 %; Platelet Count 378 k/uL (150-450); RBC 4.66 m/uL (4.30-5.90); RDW 13.3 % (11.5-15.5); WBC 13.9 k/uL (3.8-10.6)
[2018-04-22 03:27] LABS: Albumin 4.2 g/dL (3.5-5.0); Calcium 10.1 mg/dL (8.4-10.2); Potassium 3.2 mmol/L (3.5-5.1); Total Bilirubin 1.2 mg/dL (0.2-1.3); Total Protein 7.4 g/dL (6.3-8.2)
[2018-04-22 03:33] LABS: INR 1.2 (<1.2); Prothrombin Time 11.3 sec (9.0-12.0)
[2018-04-22 03:41] VITALS: BP 160/87
[2018-04-22 03:41] LABS: Creatine Kinase 173 U/L (55-170)
--- NOTE | 2018-04-22 03:48 | XR ---
EXAMINATION TYPE: XR chest 1V portable DATE OF EXAM: 04/22/2018 COMPARISON: 10/14/2017 HISTORY: Confusion TECHNIQUE: Single frontal view of the chest is obtained. FINDINGS: There is no heart failure nor confluent pneumonic infiltrate. Costophrenic angles are erica r. Bony thorax is intact. There are no hilar masses. Heart size is normal. IMPRESSION: No active cardiopulmonary disease. Normal heart. No change.
[2018-04-22 03:54] LABS: Creatine Kinase MB 1.2 ng/mL (0.0-2.4); Troponin I <0.012 ng/mL (0.000-0.034)
[2018-04-22 04:28] VITALS: PULSE 73; RESP 16; TEMP 98.4
--- NOTE | 2018-04-25 00:21 | CDI ---
Documentation Clarification OP Dear Dr. Minesh Ken Please do addendum to ED report for missing HPI and Physical examination. Thank you, [facility] A[facility] If you have any questions, please contact [employer] at [phone] [facility]
== END 2018-04-22 04:34 | disposition home or self-care (01) ==
LOC: EC 02:18
DX: E87.6 Hypokalemia (principal); R41.82 Altered mental status, unspecified; R07.9 Chest pain, unspecified; J44.9 Chronic obstructive pulmonary disease, unspecified; Z87.891 Personal history of nicotine dependence; Z88.8 Allergy status to other drugs, medicaments and biological substances; Z88.2 Allergy status to sulfonamides
CPT/HCPCS: 36415; 71045; 80053; 82550; 82553; 83735; 84484; 85025; 85610; 85730; 93005; 99285

== ENCOUNTER 2018-11-09 14:35 | Emergency (ER) | payer MEDICAID, MEDICARE ==
[2018-11-09 14:54] VITALS: RESP 18; TEMP 98.2
[2018-11-09] MEDS ORDERED: SODIUM CHLORIDE 0.9% 500 ML 500 ML IV STA (15:40)
[2018-11-09] MEDS ORDERED: HYDROmorphone 1 MG/ML 1 ML SYRINGE IVP STA (15:40)
--- NOTE | 2018-11-09 15:54 | ED ---
General Adult HPI - General Chief complaint: Abdominal Pain Stated complaint: blood in urine Time Seen by Provider: 11/09/18 14:50 Source: patient, RN notes reviewed Mode of arrival: ambulatory Limitations: no limitations - History of Present Illness Initial comments: This is a 68-year-old male with past history significant for an FL back in January. Patient states since that time when they put a stent in place he has had groin pain radiating to his back abdominal pain and hematuria ever since then. Patient states he couldn't take the pain anymore so he finally came into the emergency department. Patient states he has been in this kind of pain ever since the procedure. Patient is under the impression he had a stent placed in his groin. Patient states she did not have a stent put in his heart. Patient denies any vomiting or diarrhea. Patient denies any fever chills. Patient denies any chest pain palpitations difficulty breathing or shortness of breath per patient denies any lightheadedness or dizziness. Patient denies any headach e patient denies any numbness or weakness. - Related Data Home Medications Medication Instructions Recorded Confirmed Ipratropium/Albuterol Sulfate 1 puff INHALATION RT-QID PRN 02/26/15 11/09/18 [Combivent Respimat Inhaler] Albuterol Nebulized [Ventolin 2.5 mg INHALATION RT-Q4H PRN 02/08/18 11/09/18 Nebulized] Previous Rx's Medication Instructions Recorded Aspirin 81 mg PO DAILY #30 chew 02/10/18 Ketorolac [Toradol] 10 mg PO Q6HR #15 tab 11/09/18 Allergies Allergy/AdvReac Type Severity Reaction Status Date / Time orphenadrine Allergy Unknown Verified 11/09/18 16:12 pregabalin [From Lyrica] Allergy Unknown Verified 11/09/18 16:12 simvastatin Allergy Unknown Verified 11/09/18 16:12 cimetidine [From Tagamet] AdvReac Nausea & Verified 11/09/18 16:12 Vomiting & Diarrhea Sulfa (Sulfonamide AdvReac Nausea & Verified 11/09/18 16:12 Antibiotics) Vomiting Review of Systems ROS Statement: Those systems with pertinent positive or pertinent negative responses have been documented in the HPI. ROS Other: All systems not noted in ROS Statement are negative. 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 History of Any Multi-Drug Resistant Organisms: None Reported Past Surgical History: Back Surgery Additional Past Surgical History / Comment(s): neck, double hernia repair Past Anesthesia/Blood Transfusion Reactions: Previous Problems w/ Anesthesia Additional Past Anesthesia/Blood Transfusion Reaction / Comment(s): pt states "trouble coming out of" Past Psychological History: Anxiety, Panic Disorder Smoking Status: Former smoker Past Alcohol Use History: None Reported Past Drug Use History: None Reported, Marijuana - Past Family History Father Family Medical History: CVA/TIA, Deep Vein Thrombosis (DVT) Additional Family Medical History / Comment(s): DVT wrist Mother Family Medical History: Dementia Additional Family Medical History / Comment(s): dementia when she was 90 Sister(s) Family Medical History: Cancer Additional Family Medical History / Comment(s): 1) Breast CA passed at 58 years old. 2) passed when she was 59 years old with questinable CA Brother(s) Additional Family Medical History / Comment(s): passed when he was 60 years old due to heart issues General Exam - General Exam Comments Initial Comments: GENERAL: Patient is well-developed and well-nourished. Patient is nontoxic and well- hydrated and is in moderate distress. ENT: Neck is soft and supple. No significant lymphadenopathy is noted. Oropharynx is clear. Moist mucous membranes. EYES: The sclera were anicteric and conjunctiva were pink and moist. Extraocular movements were intact and pupils were equal round and reactive to light. Eyelids were unremarkable. PULMONARY: Unlabored respirations. Good breath sounds bilaterally. No audible rales rhonchi or wheezing was noted. CARDIOVASCULAR: There is a regular rate and rhythm without any murmurs gallops or rubs. GENITALIA Patient's testicles are not swollen or tender to palpation. Patient's scrotum is normal. ABDOMEN: Patient has rebound tenderness right lower quadrant. Patient also has tenderness in the right inguinal canal however he does have good femoral pulses. SKIN: Skin is clear with no lesions or rashes and otherwise unremarkable. NEUROLOGIC: Patient is alert and oriented x3. Cranial nerves II through XII are grossly intact. Motor and sensory are also intact. Normal speech, volume and content. Symmetrical smile. MUSCULOSKELETAL: Normal extremities with adequate strength and full range of motion. LYMPHATICS: No significant lymphadenopathy is noted PSYCHIATRIC: Normal psychiatric evaluation. Limitations: no limitations Course Vital Signs 11/09/18 11/09/18 11/09/18 14:50 16:30 18:23 Temperature 98.2 F Pulse Rate 51 L 91 80 Respiratory 18 18 18 Rate Blood Pressure 160/92 195/98 175/72 O2 Sat by Pulse 97 92 L 100 Oximetry Medical Decision Making - Medical Decision Making EKG shows normal sinus rhythm at 88 bpm TX interval is on a 2378 QT interval 380 QTC is 459 per patient's EKG shows no ST segment elevation or depression no T-wa ve abnormalities are noted Computed tomography scan of the abdomen and pelvis shows a 1.4 x 0.6 centimeters stone at the uteropelvic junction on the right. There is some mild hydronephrosis. I spoke with Dr. Magnus Agudelo wanted to call the office tomorrow to make an appointment. Patient's pain is much improved since the Dilaudid. - Lab Data Result diagrams: 11/09/18 15:47 11/09/18 15:47 Lab Results 11/09/18 11/09/18 11/09/18 Range/Units 15:47 15:47 15:47 WBC 13.5 H (3.8-10.6) k/uL RBC 5.07 (4.30-5.90) m/uL Hgb 14.9 (13.0-17.5) gm/dL Hct 45.7 (39.0-53.0) % MCV 90.1 (80.0-100.0) fL MCH 29.4 (25.0-35.0) pg MCHC 32.6 (31.0-37.0) g/dL RDW 12.3 (11.5-15.5) % Plt Count 404 (150-450) k/uL Neutrophils % 69 % Lymphocytes % 20 % Monocytes % 6 % Eosinophils % 1 % Basophils % 0 % Neutrophils # 9.3 H (1.3-7.7) k/uL Lymphocytes # 2.8 (1.0-4.8) k/uL Monocytes # 0.8 (0-1.0) k/uL Eosinophils # 0.2 (0-0.7) k/uL Basophils # 0.1 (0-0.2) k/uL Sodium 140 (137-145) mmol/L Potassium 4.1 (3.5-5.1) mmol/L Chloride 107 (98-107) mmol/L Carbon Dioxide 24 (22-30) mmol/L Anion Gap 9 mmol/L BUN 17 (9-20) mg/dL Creatinine 1.08 (0.66-1.25) mg/dL Est GFR (CKD-EPI)AfAm 81 (>60 ml/min/1.73 sqM) Est GFR (CKD-EPI)NonAf 70 (>60 ml/min/1.73 sqM) Glucose 98 (74-99) mg/dL Plasma Lactic Acid Joseph 1.4 (0.7-2.0) mmol/L Calcium 9.8 (8.4-10.2) mg/dL Total Bilirubin 0.7 (0.2-1.3) mg/dL AST 27 (17-59) U/L ALT 37 (21-72) U/L Alkaline Phosphatase 119 (38-126) U/L Total Protein 7.9 (6.3-8.2) g/dL Albumin 4.7 (3.5-5.0) g/dL Amylase 56 (30-110) U/L Lipase 97 (23-300) U/L Urine Color Urine Appearance (Clear) Urine pH (5.0-8.0) Ur Specific [place] (1.001-1.035) Urine Protein (Negative) Urine Glucose (UA) (Negative) Urine Ketones (Negative) Urine Blood (Negative) Urine Nitrite (Negative) Urine Bilirubin (Negative) Urine Urobilinogen (<2.0) mg/dL Ur Leukocyte Esterase (Negative) Urine RBC (0-5) /hpf Ur Squamous Epith Cells (0-4) /hpf Calcium Oxalate Crystal (None) /hpf Urine Mucus (None) /hpf Urine Yeast (Budding) (None) /hpf 11/09/18 Range/Units 15:47 WBC (3.8-10.6) k/uL RBC (4.30-5.90) m/uL Hgb (13.0-17.5) gm/dL Hct (39.0-53.0) % MCV (80.0-100.0) fL MCH (25.0-35.0) pg MCHC (31.0-37.0) g/dL RDW (11.5-15.5) % Plt Count (150-450) k/uL Neutrophils % % Lymphocytes % % Monocytes % % Eosinophils % % Basophils % % Neutrophils # (1.3-7.7) k/uL Lymphocytes # (1.0-4.8) k/uL Monocytes # (0-1.0) k/uL Eosinophils # (0-0.7) k/uL Basophils # (0-0.2) k/uL Sodium (137-145) mmol/L Potassium (3.5-5.1) mmol/L Chloride (98-107) mmol/L Carbon Dioxide (22-30) mmol/L Anion Gap mmol/L BUN (9-20) mg/dL Creatinine (0.66-1.25) mg/dL Est GFR (CKD-EPI)AfAm (>60 ml/min/1.73 sqM) Est GFR (CKD-EPI)NonAf (>60 ml/min/1.73 sqM) Glucose (74-99) mg/dL Plasma Lactic Acid Joseph (0.7-2.0) mmol/L Calcium (8.4-10.2) mg/dL Total Bilirubin (0.2-1.3) mg/dL AST (17-59) U/L ALT (21-72) U/L Alkaline Phosphatase (38-126) U/L Total Protein (6.3-8.2) g/dL Albumin (3.5-5.0) g/dL Amylase (30-110) U/L Lipase (23-300) U/L Urine Color Red Urine Appearance Cloudy (Clear) Urine pH 5.5 (5.0-8.0) Ur Specific [place] 1.027 (1.001-1.035) Urine Protein 2+ H (Negative) Urine Glucose (UA) Negative (Negative) Urine Ketones Trace H (Negative) Urine Blood Large H (Negative) Urine Nitrite Negative (Negative) Urine Bilirubin Negative (Negative) Urine Urobilinogen <2.0 (<2.0) mg/dL Ur Leukocyte Esterase Trace H (Negative) Urine RBC >182 H (0-5) /hpf Ur Squamous Epith Cells 2 (0-4) /hpf Calcium Oxalate Crystal Many H (None) /hpf Urine Mucus Many H (None) /hpf Urine Yeast (Budding) Many H (None) /hpf Disposition Clinical Impression: Kidney stone Disposition: HOME SELF-CARE Condition: Good Prescriptions: Ketorolac [Toradol] 10 mg PO Q6HR #15 tab Is patient prescribed a controlled substance at d/c from ED?: No Referrals: Po Agudelo MD [STAFF PHYSICIAN] - 1-2 days Time of Disposition: 18:35
[2018-11-09 16:03] LABS: Basophils # (A) 0.1 k/uL (0-0.2); Basophils % (A) 0 %; Eosinophils # (A) 0.2 k/uL (0-0.7); Eosinophils % (A) 1 %; HCT 45.7 % (39.0-53.0); HGB 14.9 gm/dL (13.0-17.5); Lymphocytes # (A) 2.8 k/uL (1.0-4.8); Lymphocytes % (A) 20 %; MCH 29.4 pg (25.0-35.0); MCHC 32.6 g/dL (31.0-37.0); MCV 90.1 fL (80.0-100.0); Mean Platelet Volume 6.1; Monocytes # (A) 0.8 k/uL (0-1.0); Monocytes % (A) 6 %; Neutrophils # (A) 9.3 k/uL (1.3-7.7); Neutrophils % (A) 69 %; Platelet Count 404 k/uL (150-450); RBC 5.07 m/uL (4.30-5.90); RDW 12.3 % (11.5-15.5); WBC 13.5 k/uL (3.8-10.6)
[2018-11-09 16:09] LABS: Albumin 4.7 g/dL (3.5-5.0); Calcium 9.8 mg/dL (8.4-10.2); Potassium 4.1 mmol/L (3.5-5.1); Total Bilirubin 0.7 mg/dL (0.2-1.3); Total Protein 7.9 g/dL (6.3-8.2)
--- NOTE | 2018-11-09 16:44 | CT ---
EXAMINATION TYPE: CT abdomen pelvis wo con DATE OF EXAM: 11/09/2018 COMPARISON: CT 02/08/2018 HISTORY: Hematuria and right groin pain. CT DLP: 515.6 mGycm Automated exposure control for dose reduction was used. TECHNIQUE: Helical acquisition of images was performed from the lung bases through the pelvis. FINDINGS: Within the limitations of noncontrast CT the following observations are made. LUNG BASES: No significant abnormality is appreciated. LIVER/GB: No significant abnormality is appreciated. PANCREAS: No significant abnormality is seen. SPLEEN: No significant abnormality is seen. ADRENALS: No significant abnormality is seen. KIDNEYS, URETERS AND BLADDER: There is right-sided mild hydronephrosis down to the right ureteropelvi c junction where there is a 12 x 6 mm calcification. There is also mild perirenal space edematous ret iculation surrounding the extrarenal pelvis, as well as the proximal right ureter. No ureteral calcif ications. The urinary bladder is collapsed at the time of CT imaging and unremarkable otherwise. The left ureter has normal appearance as is the left upper collecting system and left kidney. FREE AIR: No free air is visualized RETROPERITONEAL ADENOPATHY: None visualized REPRODUCTIVE ORGANS: No significant abnormality is seen URINARY BLADDER: No significant abnormality is seen. PELVIC ADENOPATHY: None visualized. OSSEOUS STRUCTURES: No significant abnormality is seen. BOWEL: No significant abnormality is seen. 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 The appendix has normal appearance. IMPRESSION: MILD OBSTRUCTIVE UROPATHY ON THE RIGHT, SECONDARY TO RIGHT UPJ CALCIFICATION.
[2018-11-09 17:10] LABS: Appearance,Urine Cloudy (Clear); Bilirubin,Urine Negative (Negative); Blood,Urine Large (Negative); Budding Yeast,Urine Many /hpf; Calcium Oxalate Crystals,Urine Many /hpf; Color,Urine Red; Glucose,Urine (UA) Negative (Negative); Ketones,Urine Trace (Negative); Leukocyte Esterase,Urine Trace (Negative); Mucus,Urine Many /hpf; Nitrite,Urine Negative (Negative); PH, Urine 5.5 (5.0-8.0); Protein,Urine 2+ (Negative); RBC,Urine >182 /hpf (0-5); Specific Gravity,Urine 1.027 (1.001-1.035); Squamous Epithelial Cell,Urine 2 /hpf (0-4); Urobilinogen,Urine <2.0 mg/dL (<2.0)
[2018-11-09] MEDS ORDERED: KETOROLAC 60 MG/2 ML VIAL IVP STA (18:35)
[2018-11-09] MEDS ORDERED: LORazepam 2 MG/ML INJ IV STA (18:46)
[2018-11-09 19:21] VITALS: BP 168/70; PULSE 78
== END 2018-11-09 19:20 | disposition home or self-care (01) ==
LOC: EC 14:35
DX: N13.2 Hydronephrosis with renal and ureteral calculous obstruction (principal); J44.9 Chronic obstructive pulmonary disease, unspecified; Z86.718 Personal history of other venous thrombosis and embolism; Z87.891 Personal history of nicotine dependence; Z88.2 Allergy status to sulfonamides; Z88.8 Allergy status to other drugs, medicaments and biological substances
CPT/HCPCS: 36415; 93005; 80053; 82150; 83605; 83690; 85025; 81001; 74176; 99284; 96374; 96375 ×2; 96361 ×2; J2060; J1885; J1170

== ENCOUNTER → 2018-11-10 | Outpatient (CLI) | payer MEDICAID, MEDICARE ==
--- NOTE | 2018-11-10 15:58 | XR ---
EXAMINATION TYPE: XR KUB DATE OF EXAM: 11/10/2018 3:50 PM CLINICAL HISTORY: Right flank pain and gross hematuria TECHNIQUE: Two Upright KUB images of the abdomen are obtained. COMPARISON: CT from yesterday. FINDINGS: There is likely stable 6 mm calculus right UPJ at superior L4 level less well seen on x-ray versus CT due to patient's body habitus and overlying fecal debris. Overall nonobstructive bowel gas pattern. Lung bases are clear. Left-sided pelvic phleboliths are red emonstrated. IMPRESSION: As above.
== END | disposition home or self-care (01) ==
LOC: RADXRMAIN 15:31
PROVIDERS: ATTEND Urology
DX: N20.0 Calculus of kidney (principal)
CPT/HCPCS: 74018

== ENCOUNTER 2018-11-14 09:00 | Day surgery (SDC) | payer MEDICAID, MEDICARE ==
[2018-11-11 11:37] VITALS: BMI 25.7
--- NOTE | 2018-11-11 12:55 | P.GSHP ---
History of Present Illness H&P Date: 11/11/18 Chief Complaint: Right renal calculus The patient is a 68-year-old male with a history of calcium oxalate urolithiasis who originally developed gross hematuria several months ago. He was seen by me on 10/28/2018 and a urinalysis at that time continued to show microscopic hemat uria. CT scan of the abdomen and pelvis with IV contrast on 02/08/2018 was reported as showing no abnormality of the kidneys or ureters. Cystoscopy was scheduled for further evaluation. The patient developed severe right flank and right lower quadrant pain on 11/09/2018. He was seen in the [facility] ER and a CT scan of the abdomen and pelvis without IV contrast identified 6 x 8 mm calculus in the region of the right ureteropelvic junction with secondary right hydronephrosis. In retrospect a 2-3 mm calculus was noted in the mid to lower pole of the right kidney on the CT scan performed in 01/2018. The patient continues to have right flank pain. Treatment options the patient has elected to proceed with ESWL. The patient has a history of urolithiasis which dates back over 25 years. He had previously undergone left ESWL in 2007. He does not have a history of recurrent urinary tract infections and has no significant symptoms of bladder outlet obstruction. 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 closed head injury, not currently on BP med., no recent chest pain or discomfort, kidney stones Last Myocardial Infarction Date:: unknown History of Any Multi-Drug Resistant Organisms: None Reported Past Surgical History: Back Surgery, Heart Catheterization With Stent, Hernia R epair Additional Past Surgical History / Comment(s): neck surg., double hernia repair Past Anesthesia/Blood Transfusion Reactions: No Reported Reaction Additional Past Anesthesia/Blood Transfusion Reaction / Comment(s): reports no issues waking from anesthesia Date of Last Stent Placement:: 2017 Smoking Status: Former smoker - Past Family History Father Family Medical History: CVA/TIA, Deep Vein Thrombosis (DVT) Additional Family Medical History / Comment(s): DVT wrist Mother Family Medical History: Dementia Additional Family Medical History / Comment(s): dementia when she was 90 Sister(s) Family Medical History: Cancer Additional Family Medical History / Comment(s): 1) Breast CA passed at 58 years old. 2) passed when she was 59 years old with questinable CA Brother(s) Additional Family Medical History / Comment(s): passed when he was 60 years old due to heart issues Medications and Allergies Home Medications Medication Instructions Recorded Confirmed Type Ipratropium/Albuterol Sulfate 1 puff INHALATION RT-QID PRN 02/26/15 11/11/18 History [Combivent Respimat Inhaler] Aspirin 81 mg PO DAILY #30 chew 02/10/18 11/11/18 Rx Ketorolac [Toradol] 10 mg PO Q6HR PRN 11/11/18 11/11/18 History Allergies Allergy/AdvReac Type Severity Reaction Status Date / Time orphenadrine Allergy Unknown Verified 11/11/18 10:14 pregabalin [From Lyrica] Allergy Unknown Verified 11/11/18 10:14 simvastatin Allergy Unknown Verified 11/11/18 10:14 cimetidine [From Tagamet] AdvReac Nausea & Verified 11/11/18 10:14 Vomiting & Diarrhea Sulfa (Sulfonamide AdvReac Nausea & Verified 11/11/18 10:14 Antibiotics) Vomiting Surgical - Exam - General well developed, well nourished, moderate pain - ENT no hearing loss - Neck no masses, no bruits, no lymphadectomy - Respiratory normal respiratory effort, clear to auscultation - Cardiovascular Rhythm: regular Abnormal Heart Sounds: no systolic murmur, no diastolic murmur - Abdomen Abdomen: tender (RUQ and right flank) Hernia: none - Genitourinary normal penis with no external lesions, testicles non-tender Assessment and Plan Assessment: The patient will go ESWL under intravenous sedation performed by . He is aware of the risks which include anesthesia, hematuria, perinephric or intrarenal bleeding which could require transfusion, inability to fragment the calculus and ureteral obstruction secondary to a calculus fragment.,The patient will go ESWL under intravenous sedation performed by . He is aware of the risks which include anesthesia, hematuria, perinephric or intrarenal bleeding which could require transfusion, inability to fragment the calculus and ureteral obstruction secondary to a calculus fragment., (1) Renal calculus, right Status: Acute Code(s): N20.0 - CALCULUS OF KIDNEY SNOMED Code(s): 71999896
[~2018-11-14 09:00] MED LIST: LACTATED RINGERS 1,000 ML IV SCH; Pre Op ABX Message 1 EACH MISC MISCELLANE ONE
--- NOTE | 2018-11-14 09:27 | XR ---
EXAMINATION TYPE: XR KUB DATE OF EXAM: 11/14/2018 CLINICAL DATA: 68-year-old male right-sided kidney stones, [facility] COMPARISON: 11/10/2018 FINDINGS: Nonobstructive bowel gas pattern. No significant stool burden. Phleboliths in the left pelvis. An elongated 1.5 x 0.5 cm calculus mid right abdomen as seen previously. IMPRESSION: A 1.5 x 0.5 cm right UPJ calculus remains.
[2018-11-14] MEDS ORDERED: LIDOCAINE 1% INJ 10MG/ML (20 ML MDV) ONE (10:56)
[2018-11-14] MEDS ORDERED: FUROSEMIDE 10 MG/ML 2 ML VIAL ONE (10:56)
[2018-11-14] MEDS ORDERED: AMINO ACID 5%-D25W 1,000 ML BAG IV ONE (10:56)
[2018-11-14] MEDS ORDERED: MIDAZOLAM 2 MG/2 ML VIAL ONE (10:56)
[2018-11-14] MEDS ORDERED: ONDANSETRON 4 MG/2 ML VIAL ONE (10:56)
[2018-11-14] MEDS ORDERED: PROPOFOL 10 MG/ML 20 ML VIAL IV ONE (10:56)
[2018-11-14] MEDS ORDERED: SUCCINYLCHOLINE CHLORIDE 100 MG/5 ML SYR IV ONE (10:56)
--- NOTE | 2018-11-14 11:46 | P.OP ---
Date of Procedure: 11/14/18 Preoperative Diagnosis: Right UPJ calculus Postoperative Diagnosis: Same Procedure(s) Performed: Right extracorporal shockwave lithotripsy (ESWL) Anesthesia: ALISA Surgeon: Keon eVlarde Estimated Blood Loss (ml): 0 IV fluids (ml): 600 Pathology: none sent Condition: stable Disposition: PACU Indications for Procedure: The patient is a 68-year-old male with a history of calcium oxalate urolithiasis who originally developed gross hematuria several months ago. He was seen on 10/28/2018 and a urinalysis at that time continued to show microscopic hematuria. CT scan of the abdomen and pelvis with IV contrast on 02/08/2018 was reported as showing no abnormality of the kidneys or ureters. Cystoscopy was scheduled for further evaluation. The patient developed severe right flank and right lower quadrant pain on 11/09/2018. He was seen in the [facility] ER and a CT scan of the abdomen and pelvis without IV contrast identified a 6 x 8 mm calculus in the region of the right ureteropelvic junction with secondary right hydronephrosis. He continues to experience right flank pain and has elected to undergo ESWL. Operative Findings: No obvious fragmentation. Description of Procedure: The patient was taken to the operating room and placed on the Dornier Compact Delta II lithotripter in the supine position. The calculus was seen on biplanar fluoroscopy. Lasix 10 mg was given intravenously. Once the patient was properly positioned and sedated, lithotripsy was performed. The energy level was gradually increased per protocol, to an energy level of 5. After 200 shocks were administered, a 2 minute pause was instituted per protocol. A total of 2500 shocks were given at a rate of 80 shocks per minute. Fluoroscopy was utilized at a minimum to ensure proper positioning and determine the treatment status. The appearance of the calculus failed to change, suggesting fragmentation had not occurred. The patient tolerated the procedure well was taken to the recovery room in stable condition. Instructions were given to strain the urine, and the patient will follow-up within one week.
[2018-11-14 12:05] VITALS: TEMP 97
[2018-11-14 12:27] VITALS: RESP 16
[2018-11-14] MEDS ORDERED: HYDROcodone/APAP 7.5-325MG 1 EACH TAB PO ONE (12:48)
[2018-11-14 12:52] VITALS: BP 162/88; PULSE 82
== END 2018-11-14 13:18 | disposition home or self-care (01) ==
LOC: ORWHC2ENDO 09:00
PROVIDERS: ATTEND Urology
DX: N13.2 Hydronephrosis with renal and ureteral calculous obstruction (principal); I25.10 Atherosclerotic heart disease of native coronary artery without angina pectoris; E78.5 Hyperlipidemia, unspecified; J44.9 Chronic obstructive pulmonary disease, unspecified; F41.0 Panic disorder [episodic paroxysmal anxiety]; Z95.5 Presence of coronary angioplasty implant and graft; Z79.82 Long term (current) use of aspirin; Z79.899 Other long term (current) drug therapy; Z98.1 Arthrodesis status; Z98.890 Other specified postprocedural states; Z87.442 Personal history of urinary calculi; Z87.891 Personal history of nicotine dependence; Z86.711 Personal history of pulmonary embolism; Z86.718 Personal history of other venous thrombosis and embolism; I25.2 Old myocardial infarction; Z80.3 Family history of malignant neoplasm of breast; Z83.2 Family history of diseases of the blood and blood-forming organs and certain disorders involving the immune mechanism; Z82.3 Family history of stroke; Z81.8 Family history of other mental and behavioral disorders; Z82.49 Family history of ischemic heart disease and other diseases of the circulatory system; Z88.2 Allergy status to sulfonamides; Z88.8 Allergy status to other drugs, medicaments and biological substances
CPT/HCPCS: 74018; 50590; J2250; J1940; J2405; J2001; J0330; J2704

== ENCOUNTER → 2018-11-19 | Outpatient (CLI) | payer MEDICAID, MEDICARE ==
--- NOTE | 2018-11-19 07:42 | XR ---
EXAMINATION TYPE: XR abdomen 1V , 2 VIEWS DATE OF EXAM ORDERED: 11/19/2018 HISTORY: RIGHT RENAL CALCULUS. COMPARISON: Previous study dated 11/14/2018. FINDINGS: The lung bases are clear. Within the abdomen, the abdominal gas pattern is within normal limits. There is no evidence of obstru ction or free air. Questionable calculus at the level of the transverse process at L4 remains in plac e, unchanged in appearance. No other unusual calcifications are seen. IMPRESSION: STABLE RIGHT-SIDED CALCULUS SHOWN ON RECENT CT SCAN TO REPRESENT A RIGHT URETERIC CALCULUS HAS NOT SH OWN SIGNIFICANT PROGRESSION SINCE THE PREVIOUS STUDY.
== END | disposition home or self-care (01) ==
LOC: RADXRMAIN 06:52
PROVIDERS: ATTEND Urology
DX: N20.0 Calculus of kidney (principal)
CPT/HCPCS: 74018

== ENCOUNTER 2018-12-05 23:21 | Emergency (ER) | payer MEDICAID, MEDICARE ==
[2018-12-05 23:26] VITALS: BP 192/77; PULSE 80; RESP 18; TEMP 98.1
--- NOTE | 2018-12-06 00:36 | ED ---
Chest Pain HPI - General Chief Complaint: Chest Pain Stated Complaint: Chest Pain Time Seen by Provider: 12/06/18 00:31 Source: patient Mode of arrival: ambulatory Limitations: no limitations - History of Present Illness MD Complaint: chest pain -: hour(s) Onset: during rest Pain Location: substernal Pain Radiation: none Quality: tightness Consistency: now resolved Improves With: nothing Worsens With: nothing Treatments Prior to Arrival: none - Related Data Home Medications Medication Instructions Recorded Confirmed Ipratropium/Albuterol Sulfate 1 puff INHALATION RT-QID PRN 02/26/15 11/14/18 [Combivent Respimat Inhaler] Ketorolac [Toradol] 10 mg PO Q6HR PRN 11/11/18 11/14/18 Previous Rx's Medication Instructions Recorded Aspirin 81 mg PO DAILY #30 chew 02/10/18 Hydrocodone/Acetaminophen [[place] 1 - 2 each PO Q4HR PRN #10 tab 11/14/18 5-325] Allergies Allergy/AdvReac Type Severity Reaction Status Date / Time orphenadrine Allergy Unknown Verified 11/14/18 09:42 pregabalin [From Lyrica] Allergy Unknown Verified 11/14/18 09:42 simvastatin Allergy Unknown Verified 11/14/18 09:42 cimetidine [From Tagamet] AdvReac Nausea & Verified 11/14/18 09:42 Vomiting & Diarrhea Sulfa (Sulfonamide AdvReac Nausea & Verified 11/14/18 09:42 Antibiotics) Vomiting Review of Systems ROS Statement: Those systems with pertinent positive or pertinent negative responses have been documented in the HPI. ROS Other: All systems not noted in ROS Statement are negative. Constitutional: Denies: fever, chills Respiratory: Denies: cough, dyspnea Cardiovascular: Reports: chest pain. Denies: palpitations, orthopnea, edema, syncope Gastrointestinal: Denies: abdominal pain, nausea, vomiting Genitourinary: Denies: dysuria, hematuria Musculoskeletal: Denies: back pain Skin: Denies: rash Neurological: Denies: headache, weakness, numbness EKG Findings - EKG Results: EKG: interpreted by LAUREN REEDER, sinus rhythm (Rate 80 bpm), normal axis, normal QRS, normal ST/T, no acute changes Past Medical History Past Medical History: Chest Pain / Angina, COPD, Deep Vein Thrombosis (DVT), Hyperlipidemia, Hypertension, Myocardial Infarction ([place]), Pulmonary Embolus ([place]) Additional Past Medical History / Comment(s): left knee DVT; 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 closed head injury, not currently on BP med., no recent chest pain or discomfort, kidney stones Last Myocardial Infarction Date:: unknown History of Any Multi-Drug Resistant Organisms: None Reported Past Surgical History: Back Surgery, Heart Catheterization With Stent, Hernia Repair Additional Past Surgical History / Comment(s): neck surg., double hernia repair Past Anesthesia/Blood Transfusion Reactions: No Reported Reaction Additional Past Anesthesia/Blood Transfusion Reaction / Comment(s): reports no issues waking from anesthesia Date of Last Stent Placement:: 2017 Past Psychological History: Anxiety, Panic Disorder, PTSD Smoking Status: Former smoker Past Alcohol Use History: None Reported Past Drug Use History: None Reported - Past Family History Father Family Medical History: CVA/TIA, Deep Vein Thrombosis (DVT) Additional Family Medical History / Comment(s): DVT wrist Mother Family Medical History: Dementia Additional Family Medical History / Comment(s): dementia when she was 90 Sister(s) Family Medical History: Cancer Additional Family Medical History / Comment(s): 1) Breast CA passed at 58 years old. 2) passed when she was 59 years old with questinable CA Brother(s) Additional Family Medical History / Comment(s): passed when he was 60 years old due to heart issues General Exam Limitations: no limitations General appearance: alert, in no apparent distress Head exam: Present: atraumatic, normocephalic Eye exam: Present: normal appearance. Absent: scleral icterus, conjunctival injection ENT exam: Present: normal oropharynx Neck exam: Present: normal inspection Respiratory exam: Present: normal lung sounds bilaterally. Absent: respiratory distress, wheezes, rales, rhonchi, stridor, chest wall tenderness Cardiovascular Exam: Present: regular rate, normal rhythm, normal heart sounds. Absent: systolic murmur, diastolic murmur, rubs, gallop GI/Abdominal exam: Present: soft. Absent: distended, tenderness, guarding, rebound, mass Extremities exam: Present: normal inspection, normal capillary refill. Absent: pedal edema, calf tenderness Back exam: Present: normal inspection. Absent: CVA tenderness (R), CVA tenderness (L) Neurological exam: Present: alert Skin exam: Present: warm, dry, intact, normal color. Absent: rash Course Vital Signs 12/05/18 23:22 Temperature 98.1 F Pulse Rate 80 Respiratory 18 Rate Blood Pressure 192/77 O2 Sat by Pulse 99 Oximetry Chest Pain MDM - [facility] Patient's 68-year-old man with chest pain. His initial workup is negative and I had explained that I wanted to keep him in the hospital for serial cardiac enzymes, telemetry monitoring and cardiology evaluation, the patient states that he is feeling much better and wants to go. He does agree to follow-up with his physician and also the data systems analyst. He will return should any symptoms recur. He understands that it is not possible to rule out a cardiac etiology and that disability or may result from leaving early. Disposition Clinical Impression: Chest pain Disposition: Left Against Medical Advice Condition: Undetermined Is patient prescribed a controlled substance at d/c from ED?: No Referrals: Shakila Langston MD [Primary Care Provider] - 1-2 days
[2018-12-06 01:07] LABS: Basophils # (A) 0.1 k/uL (0-0.2); Basophils % (A) 1 %; Eosinophils # (A) 0.3 k/uL (0-0.7); Eosinophils % (A) 3 %; HCT 42.3 % (39.0-53.0); HGB 13.7 gm/dL (13.0-17.5); Lymphocytes # (A) 3.6 k/uL (1.0-4.8); Lymphocytes % (A) 36 %; MCHC 32.3 g/dL (31.0-37.0); MCV 89.7 fL (80.0-100.0); Mean Platelet Volume 6.3; Monocytes # (A) 0.7 k/uL (0-1.0); Monocytes % (A) 7 %; Neutrophils # (A) 4.9 k/uL (1.3-7.7); Neutrophils % (A) 49 %; Platelet Count 325 k/uL (150-450); RBC 4.72 m/uL (4.30-5.90); RDW 12.5 % (11.5-15.5); WBC 9.9 k/uL (3.8-10.6)
--- NOTE | 2018-12-06 01:18 | XR ---
EXAM: XR Chest, 2 Views CLINICAL HISTORY: Chest Pain TECHNIQUE: Frontal and lateral views of the chest. COMPARISON: 04/22/2018 FINDINGS: Lungs: Stable bilateral pulmonary hyperinflation. No consolidation. Pleural space: Unremarkable. No pneumothorax. Heart: Unremarkable. No cardiomegaly. Mediastinum: Unremarkable. Bones/joints: No acute osseous abnormality. IMPRESSION: No acute cardiopulmonary process.
[2018-12-06 01:20] LABS: Partial Thromboplastin Time 26.9 sec (22.0-30.0); Prothrombin Time 10.6 sec (9.0-12.0)
[2018-12-06 01:21] LABS: ALT 26 U/L (21-72); AST 22 U/L (17-59); African American GFR (CKD) >90 (>60 ml/min/1.73 sqM); Alkaline Phosphatase 82 U/L (38-126); Amylase 56 U/L (30-110); Anion Gap 8 mmol/L; Blood Urea Nitrogen 18 mg/dL (9-20); Calcium 9.4 mg/dL (8.4-10.2); Carbon Dioxide 25 mmol/L (22-30); Chloride 107 mmol/L (98-107); Glucose 118 mg/dL (74-99); Lipase 147 U/L (23-300); Magnesium 2.1 mg/dL (1.6-2.3); Sodium 140 mmol/L (137-145); Total Bilirubin 0.3 mg/dL (0.2-1.3); Total Protein 6.9 g/dL (6.3-8.2)
[2018-12-06 01:25] LABS: D-Dimer 0.62 mg/L FEU (<0.60)
== END 2018-12-06 04:30 | disposition left against medical advice (07) ==
LOC: EC 23:21
DX: R07.2 Precordial pain (principal); I25.2 Old myocardial infarction; J44.9 Chronic obstructive pulmonary disease, unspecified; Z95.5 Presence of coronary angioplasty implant and graft; Z87.891 Personal history of nicotine dependence; Z86.711 Personal history of pulmonary embolism; Z82.49 Family history of ischemic heart disease and other diseases of the circulatory system; Z88.8 Allergy status to other drugs, medicaments and biological substances; Z88.2 Allergy status to sulfonamides
CPT/HCPCS: 36415; 71046; 80053; 82150; 83690; 83735; 83880; 84484; 85025; 85379; 85610; 85730; 93005; 99285

== ENCOUNTER → 2018-12-29 | Outpatient (CLI) | payer MEDICAID, MEDICARE ==
--- NOTE | 2018-12-29 08:39 | XR ---
EXAMINATION TYPE: XR abdomen 1V DATE OF EXAM: 12/29/2018 7:44 AM CLINICAL HISTORY: Right ureteral calculus, ureteral calculus TECHNIQUE: Single supine KUB image of the abdomen is obtained. COMPARISON: 11/19/2018. FINDINGS: The previously seen right ureteral calculus measuring 9 mm is unchanged in position althoug h appears obliquely oriented now projecting to measure 1.2 cm. No additional abnormal calculi in the abdomen. Phleboliths within the left hemipelvis. Mottled stool within the nondilated bowel on the abd omen. No gross evidence of pneumoperitoneum. Mild to moderate degenerative changes of the spine and h ips. Lung bases are well aerated.. IMPRESSION: Stable position of a right proximal ureteral calculus now projecting obliquely measuring up to 1.2 cm .
--- NOTE | 2018-12-29 08:41 | CT ---
EXAMINATION TYPE: CT angio chest DATE OF EXAM: 12/29/2018 8:30 AM COMPARISON: 10/14/2017, 02/08 18 HISTORY: Personal hx other specified conditions CT DLP: 423 mGycm Automated exposure control for dose reduction was used. CONTRAST: CTA scan of the thorax is performed without and with IV Contrast, patient injected with 100 ml mL of Isovue 370, pulmonary embolism protocol. . FINDINGS: LUNGS: The lungs are grossly clear. There is a stable nodule right upper lobe anterior segment measur ing 3 mm. Emphysematous changes are stable. There is no pleural effusion or pneumothorax seen. The t racheobronchial tree is patent. MEDIASTINUM: Coronary artery calcification noted. Artifact mildly limits assessment of the right pulm onary system. Grossly no filling defect identified. Aorta of normal caliber no evidence of aneurysm o r dissection. Mild atherosclerotic changes OTHER: Hypertrophic and degenerative change of the spine IMPRESSION: 1. COPD with stable appearing right upper lobe pulmonary nodule. 2. Coronary artery atherosclerotic changes correlate clinically.
== END | disposition home or self-care (01) ==
LOC: RADCTMAIN 07:02
PROVIDERS: ATTEND Nurse Practitioner Family
DX: Z01.818 Encounter for other preprocedural examination (principal); N20.1 Calculus of ureter; Z87.898 Personal history of other specified conditions
CPT/HCPCS: 82565; 84520; 74018; 71275; 36415; Q9967

== ENCOUNTER → 2019-01-18 | Outpatient (CLI) | payer MEDICAID, MEDICARE ==
--- NOTE | 2019-01-18 16:01 | US ---
EXAMINATION TYPE: US kidneys/renal and bladder DATE OF EXAM: 01/18/2019 COMPARISON: CT 2019 CLINICAL HISTORY: N20.1 Calculus of ureter, R93.4 hx of hydonephrosi. EXAM MEASUREMENTS: Right Kidney: 11.3x 4.6 x 5.6 cm Left Kidney: 11.0 x 5.0 x 4.4 cm Post Void Residual Volume: 15 mL Right Kidney: small cysts 0.6 x 0.6 x0.8 cm 0.9 x 0.5 x 0.8 cm prominent renal pelvis Left Kidney: lower pole calculi 0.6 x 0.5 x 0.5 cm no hydro seen Bladder: wnl Bilateral Jets seen: Yes Normal Post Void Residual: Yes IMPRESSION: 1. Left renal stone without hydronephrosis. 2. Cysts on the right kidney
== END | disposition home or self-care (01) ==
LOC: RADUSWWP 15:00
PROVIDERS: ATTEND Urology
DX: N20.0 Calculus of kidney (principal); N28.1 Cyst of kidney, acquired; Z88.8 Allergy status to other drugs, medicaments and biological substances; Z88.2 Allergy status to sulfonamides
CPT/HCPCS: 76770

== ENCOUNTER 2019-09-07 16:46 | Inpatient (IN) | payer MEDICAID, MEDICARE ==
[2019-09-07] MEDS ORDERED: SODIUM CHLORIDE 0.9% 500 ML 500 ML IV STA (17:23)
[2019-09-07] MEDS ORDERED: LABETALOL 5 MG/ML VIAL MDV IVP STA ×2 (17:26→18:46)
[2019-09-07 17:42] LABS: Basophils # (A) 0.1 k/uL (0-0.2); Basophils % (A) 0 %; Eosinophils # (A) 0.2 k/uL (0-0.7); Eosinophils % (A) 1 %; HCT 44.4 % (39.0-53.0); HGB 15.1 gm/dL (13.0-17.5); Lymphocytes % (A) 12 %; MCV 88.2 fL (80.0-100.0); Mean Platelet Volume 6.6; Monocytes # (A) 0.7 k/uL (0-1.0); Monocytes % (A) 4 %; Neutrophils # (A) 13.4 k/uL (1.3-7.7); Neutrophils % (A) 80 %; Platelet Count 398 k/uL (150-450); RBC 5.03 m/uL (4.30-5.90); RDW 12.1 % (11.5-15.5); WBC 16.6 k/uL (3.8-10.6)
[2019-09-07 17:56] LABS: ALT 50 U/L (4-49); AST 123 U/L (17-59); African American GFR (CKD) >90 (>60 ml/min/1.73 sqM); Albumin 4.5 g/dL (3.5-5.0); Alkaline Phosphatase 107 U/L (38-126); Anion Gap 5 mmol/L; Blood Urea Nitrogen 13 mg/dL (9-20); Calcium 9.6 mg/dL (8.4-10.2); Carbon Dioxide 23 mmol/L (22-30); Chloride 106 mmol/L (98-107); Glucose 114 mg/dL (74-99); Magnesium 2.1 mg/dL (1.6-2.3); Non-African American GFR(CKD) 82 (>60 ml/min/1.73 sqM); Potassium 4.5 mmol/L (3.5-5.1); Sodium 134 mmol/L (137-145); Total Bilirubin 0.6 mg/dL (0.2-1.3)
[2019-09-07 18:01] LABS: INR 0.9 (<1.2); Partial Thromboplastin Time 24.5 sec (22.0-30.0); Prothrombin Time 9.7 sec (9.0-12.0)
[2019-09-07] MEDS ORDERED: MORPHINE SULFATE 4 MG/ML SYRINGE IV STA (18:26)
[2019-09-07] MEDS ORDERED: NITROGLYCERIN SL TABS 0.4 MG TAB SUBLINGUAL STA ×2 (18:27→19:48)
--- NOTE | 2019-09-07 18:38 | XR ---
EXAMINATION TYPE: XR chest 2V DATE OF EXAM: 09/07/2019 COMPARISON: 12/06/2018 HISTORY: Sternal chest pain radiating to the patient's back and jaw as well as shoulders with intermi ttent shortness of breath TECHNIQUE: Frontal and lateral views of the chest are obtained. FINDINGS: Interstitial lung markings are slightly more pronounced in comparison to the prior. Cardio mediastinal silhouette is similar in size. No new focal consolidation, pleural effusion or pneumothor ax. Slight flattening of the diaphragms on the lateral view suggests underlying COPD. Mild multilevel degenerative change of the thoracic spine. IMPRESSION: Interstitial lung markings are slightly more pronounced on the current exam than the gino or. Considerations are from bronchitis, reactive airway disease or atypical pneumonia. Interstitial f luid overload is less likely.
--- NOTE | 2019-09-07 19:00 | CT ---
EXAMINATION TYPE: CT angio thor/abd pel aorta DATE OF EXAM: 09/07/2019 COMPARISON: 11/09/2018 HISTORY: Mid chest pain. CT DLP: 1646.4 mGycm. Automated Exposure Control for Dose Reduction was Utilized. CONTRAST: CT scan of the thorax, abdomen and pelvis is performed with IV Contrast, patient injected with 100 mL of Isovue 370. 3-D imaging of the vasculature of the chest, abdomen, and pelvis was performed at a [employer] workstation and submitted for review. No oral contrast was utilized during the examination li miting evaluation of the hollow viscera. FINDINGS: LUNGS: Mild to moderate emphysematous changes of the lung apices. The lungs are grossly clear, there is no concerning parenchymal mass or nodule identified. There is no pleural effusion or pneumothora x seen. The tracheobronchial tree is patent. MEDIASTINUM: There are no greater than 1 cm hilar or mediastinal lymph nodes. No pericardial effusi on is seen. At least moderate coronary artery calcifications are present. Aneurysmal root is upper l imits of normal size measuring 3.8 cm. Ascending thoracic aorta is within normal limits measuring 3.2 cm and descending thoracic aorta is also within normal limits of size. OTHER: Unenhanced images demonstrate no evidence of intramural hematoma. Enhanced images demonstrate no evidence of thoracic or abdominal aortic dissection nor aneurysm. Celiac axis, SMA, renal ostia, a nd MIGDALIA are patent. LIVER/GB: Hepatic parenchyma is diffusely hypoattenuated in comparison to that of the spleen, most co mmonly seen in hepatic steatosis. This finding limits evaluation for hepatic masses. Arterial phase e nhancement also limits evaluation for hepatic masses. No intrahepatic biliary ductal dilatation. No c holelithiasis. PANCREAS: No significant abnormality is seen. SPLEEN: No significant abnormality is seen. ADRENALS: No significant abnormality is seen. KIDNEYS: There is a punctate left renal calculus that is nonobstructing in the left superior pole z[place] suring approximately 2 mm. There is severe right hydronephrosis secondary to 2 adjacent right distal ureteral calculi together measuring 0.6 x 1.1 cm located approximately 4 cm from the right ureteroves icular junction. BOWEL: Appendix is within normal limits of size, retrocecal, and air-filled. LYMPH NODES: No greater than 1cm abdominal or pelvic lymph nodes are appreciated. OSSEOUS STRUCTURES: Multilevel degenerative disc disease is seen of the spine with very mild compress ion deformities of T12 and L1 that are age stable from 11/09/2018. IMPRESSION: 1. Obstructing right distal ureteral calculi located approximately 4 cm from the ureterovesicular norris ction creating severe right hydroureteronephrosis. Together these calculi measures 0.6 x 1.1 cm. Nathaniel tional nonobstructing punctate left renal calculus. 2. Moderate coronary artery calcifications, marker of coronary artery disease. 3. No evidence of abdominal or thoracic intramural hematoma or dissection. Upper limits of normal siz e of the aortic root approaching criteria for aneurysmal dilatation. 4. Hepatic steatosis. 5. Emphysematous changes of the lungs.
[2019-09-07] MEDS ORDERED: ASPIRIN 81 MG PO STA (19:02)
[2019-09-07] MEDS ORDERED: HEPARIN SODIUM,PORCINE 5,000 UNIT/ML 1 ML VIAL IV PRN (19:06)
[2019-09-07] MEDS ORDERED: HEPARIN SODIUM,PORCINE 5,000 UNIT/ML 1 ML VIAL IV ONE (19:06)
[2019-09-07] MEDS ORDERED: HEPARIN SOD,PORK IN 0.45% NACL 25,000 UNIT in 0.45% NACL 1 250ML.BAG IV SCH (19:15)
--- NOTE | 2019-09-07 19:57 | ED ---
General Adult HPI - General Chief complaint: Recheck/Abnormal Lab/Rx Stated complaint: Chest and back pain Time Seen by Provider: 09/07/19 16:57 Source: patient, RN notes reviewed, old records reviewed Mode of arrival: wheelchair Limitations: physical limitation - History of Present Illness Initial comments: 69-year-old male patient past history significant for NSTEMI with stent placement in 2007, recurrent renal calculi, prior provoked DVT and PE presents to ED for chief complaint of chest pain as well as back pain. Patient reports that yesterday he had approximately one hour of substernal chest pain which resolved. He reports he went to sleep at approximately 1 AM and woke up at 3 PM. Patient states that he was woken up at 3 PM shortly after he began to experience a sharp tearing chest pain radiating to the back. Patient also complains of pain in his lower back. Patient reports that he has had nausea. Denies any diaphoresis. Systemic: Pt denies fatigue, fever/chills, rash. Pt denies weakness, night sweats, weight loss. Neuro: Pt denies headache, visual disturbances, syncope or pre-syncope. HEENT: Pt denies ocular discharge or irritation, otalgia, rhinorrhea, pharyngitis or notable lymphadenopathy. Cardiopulmonary: Pt denies SOB, heart palpitations, dyspnea on exertion. Abdominal/GI: Pt denies abdominal pain, n/v/d. : Pt denies dysuria, burning w/ urination, frequency/urgency. Denies new onset urinary or bowel incontinence. MSK: Pt denies myalgia, loss of strength or function in extremities. Neuro: Pt denies new onset weakness, paresthesias. - Related Data Home Medications Medication Instructions Recorded Confirmed Ipratropium/Albuterol Sulfate 1 puff INHALATION RT-TID PRN 02/26/15 09/07/19 [Combivent Respimat Inhaler] Albuterol Nebulized [Ventolin 2.5 mg INHALATION RT-TID PRN 09/07/19 09/07/19 Nebulized] Aspirin 81 mg PO DAILY@0700 09/07/19 09/07/19 Carvedilol [Coreg] 3.125 mg PO BID@0700,1900 09/07/19 09/07/19 Nitroglycerin Sl Tabs [Nitrostat] 0.4 mg SUBLINGUAL Q5M PRN 09/07/19 09/07/19 Prazosin [Minipress] 1 mg PO HS PRN 09/07/19 09/07/19 Allergies Allergy/AdvReac Type Severity Reaction Status Date / Time orphenadrine Allergy Unknown Verified 09/07/19 17:57 pregabalin [From Lyrica] Allergy Unknown Verified 09/07/19 17:57 simvastatin Allergy Unknown Verified 09/07/19 17:57 cimetidine [From Tagamet] AdvReac Nausea & Verified 09/07/19 17:57 Vomiting & Diarrhea clonazepam [From Klonopin] AdvReac Hallucinati Verified 09/07/19 19:30 ons Sulfa (Sulfonamide AdvReac Nausea & Verified 09/07/19 17:57 Antibiotics) Vomiting Review of Systems ROS Statement: Those systems with pertinent positive or pertinent negative responses have been documented in the HPI. ROS Other: All systems not noted in ROS Statement are negative. 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 closed head injury, kidney stones Last Myocardial Infarction Date:: unknown History of Any Multi-Drug Resistant Organisms: None Reported Past Surgical History: Back Surgery, Heart Catheterization With Stent, Hernia Repair Additional Past Surgical History / Comment(s): neck surg., double hernia repair Past Anesthesia/Blood Transfusion Reactions: No Reported Reaction Additional Past Anesthesia/Blood Transfusion Reaction / Comment(s): reports no issues waking from anesthesia Date of Last Stent Placement:: 2017 Past Psychological History: Anxiety, Panic Disorder, PTSD Smoking Status: Former smoker Past Alcohol Use History: None Reported Past Drug Use History: None Reported - Past Family History Father Family Medical History: CVA/TIA, Deep Vein Thrombosis (DVT) Additional Family Medical History / Comment(s): DVT wrist Mother Family Medical History: Dementia Additional Family Medical History / Comment(s): dementia when she was 90 Sister(s) Family Medical History: Cancer Additional Family Medical History / Comment(s): 1) Breast CA passed at 58 years old. 2) passed when she was 59 years old with questinable CA Brother(s) Additional Family Medical History / Comment(s): passed when he was 60 years old due to heart issues General Exam - General Exam Comments Initial Comments: Constitutional: NAD, AOX3, Pt has pleasant affect. HEENT: NC/AT, trachea midline, neck supple, no lymphadenopathy. Posterior pharynx non erythematous, without exudates. External ears appear normal, without discharge. Mucous membranes moist. Eyes PERRLA, EOM intact. There is no scleral icterus. No pallor noted. Cardiopulmonary: RRR, no murmurs, rubs or gallops, no JVD noted. Lungs CTAB in anterior and posterior dejesus. No peripheral edema. Abdominal exam: Abdomen soft and non-distended. Abdomen non-tender to palpation in all 4 quadrants. Bowel sounds active in LLQ. No hepatosplenomegaly. No ecchymosis Neuro: CN II-XII grossly intact. No nuchal rigidity. No raccon eyes, no higuera sign, no hemotympanum. No cervical spinal tenderness. MSK: No posterior calf tenderness bilaterally, homans sign negative bilaterally. Posterior tibialis and radial pulse +2 bilaterally. Sensation intact in upper and lower extremities. Full active ROM in upper and lower extremities, 5/5 stregnth. Limitations: physical limitation Course Vital Signs 09/07/19 09/07/19 09/07/19 16:52 17:14 17:30 Temperature 98.7 F Pulse Rate 94 83 Respiratory 18 18 20 Rate Blood Pressure 220/120 196/98 O2 Sat by Pulse 95 Oximetry 09/07/19 09/07/19 19:01 19:45 Temperature 98.2 F Pulse Rate 85 Respiratory 20 18 Rate Blood Pressure 187/105 184/104 O2 Sat by Pulse 97 Oximetry Medical Decision Making - Medical Decision Making 69-year-old male patient past history significant for NSTEMI with stent placement in 2007, recurrent renal calculi, prior provoked DVT and PE presents to ED for chief complaint of chest pain as well as back pain. Patient reports that yesterday he had approximately one hour of substernal chest pain which resolved. He reports he went to sleep at approximately 1 AM and woke up at 3 PM. Patient states that he was woken up at 3 PM shortly after he began to experience a sharp tearing chest pain radiating to the back. Patient also complains of pain in his lower back. Patient reports that he has had nausea. Denies any diaphoresis. Patient's vital signs did display hypertension. Patient was initiated on antihypertensives. There was significant clinical concern for aortic pathology therefore patient was sent for CTA, heparin and aspirin were held. EKG did display borderline ST depressions in V2, V3 however no acute ST elevations. Serial EKGs were performed which did not display any significant change. Laboratory investigations were significant for a troponin elevation at 7.9. CTA displayed obstruction right distal ureteral calculi creating severe right hydroureteronephrosis. Coronary artery calcifications. No evidence of abdominal or thoracic hematoma or dissection. Emphysematous changes of the lungs. Mild compression fractures noted. Patient was heparinized after results from CTA. Denies any CI to anticoagulation. Will be admitted for cardiac evaluation, serial troponins, urology evaluation. A CK was added, this was elevated, she denies any recent significant physical exertion, prolonged periods of immobilization. Dr. Andrade Mcwilliams accepts case, multiple attempts to page cardiology were not returned. Case discussed in depth and pt seen by Dr. Quinn. - Lab Data Result diagrams: 09/07/19 17:25 09/07/19 17:25 Lab Results 09/07/19 09/07/19 09/07/19 Range/Units 17:25 17:25 17:25 WBC 16.6 H (3.8-10.6) k/uL RBC 5.03 (4.30-5.90) m/uL Hgb 15.1 (13.0-17.5) gm/dL Hct 44.4 (39.0-53.0) % MCV 88.2 (80.0-100.0) fL MCH 30.0 (25.0-35.0) pg MCHC 34.0 (31.0-37.0) g/dL RDW 12.1 (11.5-15.5) % Plt Count 398 (150-450) k/uL Neutrophils % 80 % Lymphocytes % 12 % Monocytes % 4 % Eosinophils % 1 % Basophils % 0 % Neutrophils # 13.4 H (1.3-7.7) k/uL Lymphocytes # 2.0 (1.0-4.8) k/uL Monocytes # 0.7 (0-1.0) k/uL Eosinophils # 0.2 (0-0.7) k/uL Basophils # 0.1 (0-0.2) k/uL PT 9.7 (9.0-12.0) sec INR 0.9 (<1.2) APTT 24.5 (22.0-30.0) sec Sodium 134 L (137-145) mmol/L Potassium 4.5 (3.5-5.1) mmol/L Chloride 106 (98-107) mmol/L Carbon Dioxide 23 (22-30) mmol/L Anion Gap 5 mmol/L BUN 13 (9-20) mg/dL Creatinine 0.95 (0.66-1.25) mg/dL Est GFR (CKD-EPI)AfAm >90 (>60 ml/min/1.73 sqM) Est GFR (CKD-EPI)NonAf 82 (>60 ml/min/1.73 sqM) Glucose 114 H (74-99) mg/dL Calcium 9.6 (8.4-10.2) mg/dL Magnesium 2.1 (1.6-2.3) mg/dL Total Bilirubin 0.6 (0.2-1.3) mg/dL AST 123 H (17-59) U/L ALT 50 H (4-49) U/L Alkaline Phosphatase 107 (38-126) U/L Creatine Kinase (55-170) U/L Troponin I (0.000-0.034) ng/mL NT-Pro-B Natriuret Pep pg/mL Total Protein 8.0 (6.3-8.2) g/dL Albumin 4.5 (3.5-5.0) g/dL Urine Color Urine Appearance (Clear) Urine pH (5.0-8.0) Ur Specific [place] (1.001-1.035) Urine Protein (Negative) Urine Glucose (UA) (Negative) Urine Ketones (Negative) Urine Blood (Negative) Urine Nitrite (Negative) Urine Bilirubin (Negative) Urine Urobilinogen (<2.0) mg/dL Ur Leukocyte Esterase (Negative) Urine RBC (0-5) /hpf Urine WBC (0-5) /hpf Urine Mucus (None) /hpf 09/07/19 09/07/19 09/07/19 Range/Units 17:25 17:25 17:25 WBC (3.8-10.6) k/uL RBC (4.30-5.90) m/uL Hgb (13.0-17.5) gm/dL Hct (39.0-53.0) % MCV (80.0-100.0) fL MCH (25.0-35.0) pg MCHC (31.0-37.0) g/dL RDW (11.5-15.5) % Plt Count (150-450) k/uL Neutrophils % % Lymphocytes % % Monocytes % % Eosinophils % % Basophils % % Neutrophils # (1.3-7.7) k/uL Lymphocytes # (1.0-4.8) k/uL Monocytes # (0-1.0) k/uL Eosinophils # (0-0.7) k/uL Basophils # (0-0.2) k/uL PT (9.0-12.0) sec INR (<1.2) APTT (22.0-30.0) sec Sodium (137-145) mmol/L Potassium (3.5-5.1) mmol/L Chloride (98-107) mmol/L Carbon Dioxide (22-30) mmol/L Anion Gap mmol/L BUN (9-20) mg/dL Creatinine (0.66-1.25) mg/dL Est GFR (CKD-EPI)AfAm (>60 ml/min/1.73 sqM) Est GFR (CKD-EPI)NonAf (>60 ml/min/1.73 sqM) Glucose (74-99) mg/dL Calcium (8.4-10.2) mg/dL Magnesium (1.6-2.3) mg/dL Total Bilirubin (0.2-1.3) mg/dL AST (17-59) U/L ALT (4-49) U/L Alkaline Phosphatase (38-126) U/L Creatine Kinase 1133 H* (55-170) U/L Troponin I 7.900 H* (0.000-0.034) ng/mL NT-Pro-B Natriuret Pep 806 pg/mL Total Protein (6.3-8.2) g/dL Albumin (3.5-5.0) g/dL Urine Color Urine Appearance (Clear) Urine pH (5.0-8.0) Ur Specific [place] (1.001-1.035) Urine Protein (Negative) Urine Glucose (UA) (Negative) Urine Ketones (Negative) Urine Blood (Negative) Urine Nitrite (Negative) Urine Bilirubin (Negative) Urine Urobilinogen (<2.0) mg/dL Ur Leukocyte Esterase (Negative) Urine RBC (0-5) /hpf Urine WBC (0-5) /hpf Urine Mucus (None) /hpf 09/07/19 Range/Units 19:30 WBC (3.8-10.6) k/uL RBC (4.30-5.90) m/uL Hgb (13.0-17.5) gm/dL Hct (39.0-53.0) % MCV (80.0-100.0) fL MCH (25.0-35.0) pg MCHC (31.0-37.0) g/dL RDW (11.5-15.5) % Plt Count (150-450) k/uL Neutrophils % % Lymphocytes % % Monocytes % % Eosinophils % % Basophils % % Neutrophils # (1.3-7.7) k/uL Lymphocytes # (1.0-4.8) k/uL Monocytes # (0-1.0) k/uL Eosinophils # (0-0.7) k/uL Basophils # (0-0.2) k/uL PT (9.0-12.0) sec INR (<1.2) APTT (22.0-30.0) sec Sodium (137-145) mmol/L Potassium (3.5-5.1) mmol/L Chloride (98-107) mmol/L Carbon Dioxide (22-30) mmol/L Anion Gap mmol/L BUN (9-20) mg/dL Creatinine (0.66-1.25) mg/dL Est GFR (CKD-EPI)AfAm (>60 ml/min/1.73 sqM) Est GFR (CKD-EPI)NonAf (>60 ml/min/1.73 sqM) Glucose (74-99) mg/dL Calcium (8.4-10.2) mg/dL Magnesium (1.6-2.3) mg/dL Total Bilirubin (0.2-1.3) mg/dL AST (17-59) U/L ALT (4-49) U/L Alkaline Phosphatase (38-126) U/L Creatine Kinase (55-170) U/L Troponin I (0.000-0.034) ng/mL NT-Pro-B Natriuret Pep pg/mL Total Protein (6.3-8.2) g/dL Albumin (3.5-5.0) g/dL Urine Color Light Yellow Urine Appearance Clear (Clear) Urine pH 6.5 (5.0-8.0) Ur Specific [place] 1.035 (1.001-1.035) Urine Protein Negative (Negative) Urine Glucose (UA) Negative (Negative) Urine Ketones Negative (Negative) Urine Blood Trace H (Negative) Urine Nitrite Negative (Negative) Urine Bilirubin Negative (Negative) Urine Urobilinogen <2.0 (<2.0) mg/dL Ur Leukocyte Esterase Negative (Negative) Urine RBC 2 (0-5) /hpf Urine WBC 3 (0-5) /hpf Urine Mucus Rare H (None) /hpf - EKG Data -: EKG Interpreted by Me (and Dr. Quinn. ) EKG Comments: 1) Ventricular rate 89, Pr interval 120, QRS 88, QT/QTC 360/440. Normal sensory rhythm, ST abnormality. Borderline ST depressions noted in V2 V3. No other ischemic changes are noted. 2) ventricular rate 85,. And for 128, QRS 78, QT/QTC 354/421. On sensory normal, possible anteroseptal infarct age undetermined. No STelevations or depressions noted.This was a posterior EKG. 3) ventricular rate 80, pO2 1:30, QRS 92, QT/QTC 384/442. Normal strength rhythm, no significant ST elevations or depressions are noted. Prior borderline ST depressions in V2 V3 now Improved. Disposition Clinical Impression: NSTEMI (non-ST elevated myocardial infarction), Ureteral calculi, Hydronephrosis, Rhabdomyolysis Disposition: ADMITTED IP TO THIS HOSP Condition: Serious Is patient prescribed a controlled substance at d/c from ED?: No Referrals: Shakila Langston MD [Primary Care Provider] - 1-2 days
[2019-09-07 20:08] LABS: Appearance,Urine Clear (Clear); Bilirubin,Urine Negative (Negative); Blood,Urine Trace (Negative); Color,Urine Light Yellow; Glucose,Urine (UA) Negative (Negative); Ketones,Urine Negative (Negative); Leukocyte Esterase,Urine Negative (Negative); Mucus,Urine Rare /hpf; Nitrite,Urine Negative (Negative); PH, Urine 6.5 (5.0-8.0); Protein,Urine Negative (Negative); RBC,Urine 2 /hpf (0-5); Specific Gravity,Urine 1.035 (1.001-1.035); Urobilinogen,Urine <2.0 mg/dL (<2.0); WBC,Urine 3 /hpf (0-5)
[2019-09-07] MEDS ORDERED: SODIUM CHLORIDE 0.9% 2,000 ML IV ONE (20:08)
[2019-09-07] MEDS ORDERED: SODIUM CHLORIDE 0.9% 1,000 ML IV ONE (20:17)
[2019-09-07] MEDS ORDERED: HYDROmorphone 1 MG/ML 1 ML SYRINGE IM PRN (20:22)
[2019-09-07] MEDS: SODIUM CHLORIDE 0.9% 1,000 ML IV SCH (23:28)
[2019-09-08] MEDS: NITROGLYCERIN SL TABS 0.4 MG TAB SUBLINGUAL PRN ×2 (04:10→04:29)
[2019-09-08] MEDS ORDERED: MORPHINE SULFATE 4 MG/ML SYRINGE ONE (04:22)
[2019-09-08 04:34] LABS: Glucose,Whole Blood 127 mg/dL (75-99)
[2019-09-08] MEDS ORDERED: MORPHINE SULFATE 2 MG/ML SYRINGE IM STA (04:40)
[2019-09-08] MEDS: SODIUM CHLORIDE 0.9% 1,000 ML IV SCH ×4 (04:42→21:23)
[2019-09-08 04:57] LABS: Basophils # (A) 0.1 k/uL (0-0.2); Basophils % (A) 0 %; Eosinophils % (A) 0 %; HCT 38.8 % (39.0-53.0); HGB 12.5 gm/dL (13.0-17.5); Lymphocytes # (A) 1.8 k/uL (1.0-4.8); Lymphocytes % (A) 11 %; MCH 29.3 pg (25.0-35.0); MCHC 32.3 g/dL (31.0-37.0); MCV 90.9 fL (80.0-100.0); Mean Platelet Volume 6.7; Monocytes % (A) 7 %; Neutrophils # (A) 12.7 k/uL (1.3-7.7); Neutrophils % (A) 80 %; Platelet Count 310 k/uL (150-450); RBC 4.26 m/uL (4.30-5.90); RDW 12.4 % (11.5-15.5); WBC 15.9 k/uL (3.8-10.6)
[2019-09-08] MEDS ORDERED: LIDOCAINE 1% INJ 10MG/ML (20 ML MDV) ONE (05:01)
[2019-09-08 05:06] LABS: Cholesterol 195 mg/dL (<200); HDL Cholesterol 45 mg/dL (40-60); LDL Cholesterol,Calculated 130 mg/dL (0-99); Triglycerides 101 mg/dL (<150)
[2019-09-08 05:10] LABS: Creatine Kinase 1430 U/L (55-170)
[2019-09-08] MEDS ORDERED: IV FLUID CONTINUATION 900 ML IV ONE ×2 (05:15)
[2019-09-08] MEDS ORDERED: MIDAZOLAM 2 MG/2 ML VIAL IVP ONE (05:26)
[2019-09-08] MEDS ORDERED: LIDOCAINE 1% INJ 10MG/ML (20 ML MDV) SQ ONE (05:27)
[2019-09-08] MEDS ORDERED: fentaNYL (PF) 50 MCG/ML 2 ML AMP ONE (05:29)
[2019-09-08] MEDS ORDERED: fentaNYL (PF) 50 MCG/ML 2 ML AMP IVP ONE (05:30)
[2019-09-08] MEDS ORDERED: BIVALIRUDIN BOLUS 250 MG/50 ML IV ONE (05:37)
[2019-09-08] MEDS ORDERED: CLOPIDOGREL 75 MG TAB PO ONE ×2 (05:38→05:43)
[2019-09-08] MEDS ORDERED: BIVALIRUDIN 250 MG in SODIUM CHLORIDE 0.9% 50 ML IV ONE (05:38)
[2019-09-08] MEDS ORDERED: CLOPIDOGREL 75 MG TAB ONE (05:40)
[2019-09-08] MEDS: NITROGLYCERIN 1000MCG/10ML SYRINGE INTRACORON ONE ×2 (05:46→05:59)
[2019-09-08] MEDS ORDERED: niCARdipine 25 MG/10 ML VIAL ONE (05:46)
[2019-09-08] MEDS ORDERED: HYDROmorphone 1 MG/ML 1 ML SYRINGE ONE (06:02)
[2019-09-08] MEDS ORDERED: HYDROmorphone 1 MG/ML 1 ML SYRINGE IVP ONE (06:03)
[2019-09-08] MEDS ORDERED: ONDANSETRON 4 MG/2 ML VIAL ONE (06:03)
[2019-09-08] MEDS ORDERED: ONDANSETRON 4 MG/2 ML VIAL IVP ONE (06:05)
[2019-09-08] MEDS ORDERED: IOPAMIDOL-370 125ML BTL INJ ONE (06:07)
[2019-09-08] MEDS ORDERED: ATROPINE SULFATE 0.1 MG/ML 10ML SYRINGE IV PRN (06:17)
[2019-09-08] MEDS ORDERED: NITROGLYCERIN SL TABS 0.4 MG TAB SUBLINGUAL PRN (06:17)
[2019-09-08] MEDS ORDERED: RX INFO: IV CONTRAST WAS GIVEN 1 EACH MISC MISCELLANE PRN (06:17)
[2019-09-08] MEDS ORDERED: ZOLPIDEM 5 MG TAB PO PRN (06:17)
[2019-09-08] MEDS ORDERED: MAG HYDROX/AL HYDROX/SIMETH 30 ML CUP PO PRN (06:17)
--- NOTE | 2019-09-08 06:23 | P.CRDCN ---
History of Present Illness Consult date: 09/08/19 Chief complaint: Chest pain History of present illness: This is a very pleasant 69-year-old gentleman who is not sure if he is following up with any flatcar whacker at this point, with known coronary artery disease and prior stenting of the LAD in 2007, hypertension, and dyslipidemia, presented to the emergency room complaining of chest discomfort. He was in his usual state of health yesterday when he woke up from sleep last night around 3:00 in the morning complaining of chest discomfort. He described the discomfort as a pressure across the chest without any radiation to the arms or neck or shoulders and without any associated symptoms. The first set of troponin came in to be abnormal consistent was acute non-ST patient myocardial infarction. The EKG did not show any significant ST or T-wave abnormalities. Because he continues to have ongoing chest discomfort with decided to pursue with a heart catheterization. The patient underwent a heart catheterization which revealed patent stent in the mid LAD was occluded first obtuse marginal branch of the left circumflex. He underwent successful stenting of the first obtuse marginal branch using a drug-eluting stent with an excellent angiographic results and without any complications from a right groin approach. By the end of the procedure he was chest pain-free. 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 closed head injury, kidney stones Last Myocardial Infarction Date:: unknown History of Any Multi-Drug Resistant Organisms: None Reported Past Surgical History: Back Surgery, Heart Catheterization With Stent, Hernia Repair Additional Past Surgical History / Comment(s): neck surg., double hernia repair Past Anesthesia/Blood Transfusion Reactions: No Reported Reaction Additional Past Anesthesia/Blood Transfusion Reaction / Comment(s): reports no issues waking from anesthesia Date of Last Stent Placement:: 2017 Past Psychological History: Anxiety, Panic Disorder, PTSD Smoking Status: Former smoker Past Alcohol Use History: None Reported Past Drug Use History: None Reported - Past Family History Father Family Medical History: CVA/TIA, Deep Vein Thrombosis (DVT) Additional Family Medical History / Comment(s): DVT wrist Mother Family Medical History: Dementia Additional Family Medical History / Comment(s): dementia when she was 90 Sister(s) Family Medical History: Cancer Additional Family Medical History / Comment(s): 1) Breast CA passed at 58 years old. 2) passed when she was 59 years old with questinable CA Brother(s) Additional Family Medical History / Comment(s): passed when he was 60 years old due to heart issues Medications and Allergies Home Medications Medication Instructions Recorded Confirmed Type Ipratropium/Albuterol Sulfate 1 puff INHALATION RT-TID PRN 02/26/15 09/07/19 History [Combivent Respimat Inhaler] Albuterol Nebulized [Ventolin 2.5 mg INHALATION RT-TID PRN 09/07/19 09/07/19 History Nebulized] Aspirin 81 mg PO DAILY@0700 09/07/19 09/07/19 History Carvedilol [Coreg] 3.125 mg PO BID@0700,1900 09/07/19 09/07/19 History Nitroglycerin Sl Tabs [Nitrostat] 0.4 mg SUBLINGUAL Q5M PRN 09/07/19 09/07/19 History Prazosin [Minipress] 1 mg PO HS PRN 09/07/19 09/07/19 History Allergies Allergy/AdvReac Type Severity Reaction Status Date / Time orphenadrine Allergy Unknown Verified 09/07/19 17:57 pregabalin [From Lyrica] Allergy Unknown Verified 09/07/19 17:57 simvastatin Allergy Unknown Verified 09/07/19 17:57 cimetidine [From Tagamet] AdvReac Nausea & Verified 09/07/19 17:57 Vomiting & Diarrhea clonazepam [From Klonopin] AdvReac Hallucinati Verified 09/07/19 19:30 ons Sulfa (Sulfonamide AdvReac Nausea & Verified 09/07/19 17:57 Antibiotics) Vomiting Physical Exam Vitals: Vital Signs Temp Pulse Resp BP BP Pulse Ox 09/08/19 04:00 18 156/80 98 09/08/19 00:00 18 142/86 94 L 09/07/19 21:07 98.1 F 61 18 144/72 96 09/07/19 20:50 98.2 F 18 135/88 97 09/07/19 20:20 98.6 F 76 18 132/85 96 09/07/19 20:18 97 09/07/19 19:45 98.2 F 85 18 184/104 97 09/07/19 19:01 20 187/105 09/07/19 17:30 83 20 196/98 09/07/19 17:14 18 09/07/19 16:52 98.7 F 94 18 220/120 95 Intake and Output 09/07/19 09/07/19 09/08/19 14:59 22:59 06:59 Intake Total 2800 406.7 Output Total 800 Balance 2800 -393.3 Intake: IV 406.7 Amount of Fluid Infused ( 800 ml) Intake, IV Titration 2000 Amount Sodium Chloride 0.9% 2, 2000 000 ml @ 999 mls/hr IV . Q2H1M ONE Rx#:[id number] Output: Urine 800 Other: # Voids 2 2 Weight 91.626 kg - Constitutional General appearance: no acute distress - Respiratory Respiratory: bilateral: CTA - Cardiovascular Rhythm: regular Heart sounds: normal: S1, S2 Abnormal Heart Sounds: systolic murmur Results 09/08/19 04:30 09/07/19 17:25 Cardiac Enzymes 09/07/19 09/07/19 09/07/19 Range/Units 17:25 17:25 23:08 AST 123 H (17-59) U/L Troponin I 7.900 H* 14.900 H* (0.000-0.034) ng/mL 09/08/19 Range/Units 04:37 AST (17-59) U/L Troponin I 19.900 H* (0.000-0.034) ng/mL Coagulation 09/07/19 09/08/19 Range/Units 17:25 01:02 PT 9.7 (9.0-12.0) sec APTT 24.5 53.6 H (22.0-30.0) sec Lipids 09/08/19 Range/Units 04:39 Triglycerides 101 (<150) mg/dL Cholesterol 195 (<200) mg/dL HDL Cholesterol 45 (40-60) mg/dL CBC 09/07/19 09/08/19 Range/Units 17:25 04:30 WBC 16.6 H 15.9 H (3.8-10.6) k/uL RBC 5.03 4.26 L (4.30-5.90) m/uL Hgb 15.1 12.5 L (13.0-17.5) gm/dL Hct 44.4 38.8 L (39.0-53.0) % Plt Count 398 310 (150-450) k/uL Comprehensive Metabolic Panel 09/07/19 Range/Units 17:25 Sodium 134 L (137-145) mmol/L Potassium 4.5 (3.5-5.1) mmol/L Chloride 106 (98-107) mmol/L Carbon Dioxide 23 (22-30) mmol/L BUN 13 (9-20) mg/dL Creatinine 0.95 (0.66-1.25) mg/dL Glucose 114 H (74-99) mg/dL Calcium 9.6 (8.4-10.2) mg/dL AST 123 H (17-59) U/L ALT 50 H (4-49) U/L Alkaline Phosphatase 107 (38-126) U/L Total Protein 8.0 (6.3-8.2) g/dL Albumin 4.5 (3.5-5.0) g/dL Current Medications Generic Name Dose Route Start Last Admin Trade Name Freq PRN Reason Stop Dose Admin Aspirin 325 mg 09/08/19 09:00 Aspirin PO DAILY [facility] Heparin Sodium (Porcine) 0 unit 09/07/19 19:06 Heparin IV PER PROTOCOL PRN Low PTT Protocol Hydromorphone HCl 1 mg 09/07/19 20:22 09/07/19 22:54 Dilaudid IM 1 mg Q4HR PRN Administration Pain Heparin Sodium/Sodium Chloride 250 mls @ 9.987 mls/hr 09/07/19 19:15 09/07/19 20:18 25,000 unit/ Sodium Chloride IV 10.9 units/kg/hr .Q24H REKHA 9.987 mls/hr Administration Protocol 10.9 UNITS/KG/HR Sodium Chloride 1,000 mls @ 150 mls/hr 09/07/19 20:15 09/08/19 04:42 Saline 0.9% IV 150 mls/hr .Q6H40M REKHA Administration Nitroglycerin 0.4 mg 09/07/19 20:18 09/08/19 04:29 Nitrostat SUBLINGUAL 0.4 mg Q5M PRN Administration Chest Pain Intake and Output 09/07/19 09/07/19 09/08/19 14:59 22:59 06:59 Intake Total 2800 406.7 Output Total 800 Balance 2800 -393.3 Intake: IV 406.7 Amount of Fluid Infused ( 800 ml) Intake, IV Titration 2000 Amount Sodium Chloride 0.9% 2, 2000 000 ml @ 999 mls/hr IV . Q2H1M ONE Rx#:[id number] Output: Urine 800 Other: # Voids 2 2 Weight 91.626 kg Patient Weight 09/08/19 06:59 Weight 91.626 kg 09/08/19 04:30 09/07/19 17:25 Assessment and Plan Assessment: Assessment #1 acute non-ST deviation myocardial infarction #2 known CAD and prior stenting of the LAD #3 hypertension #4 dyslipidemia Plan #1 dual antiplatelet therapy along with high intensity statin #2 anti-ischemic medication including beta solo as well as ABISAI inhibitor #3 an echocardiogram to establish LV function #4 follow-up with the patient Thank you for allowing us participate in his care
[2019-09-08] MEDS ORDERED: SODIUM CHLORIDE 0.9% 1,000 ML IV SCH (06:30)
--- NOTE | 2019-09-08 06:31 | P.PCN ---
Date of Procedure: 09/08/19 Operative Findings: CARDIAC CATHETERIZATION AND PERCUTANEOUS CORONARY INTERVENTION PERFORMING PHYSICIAN: Wicho العراقي MD, [facility] PROCEDURE PERFORMED: 1. Selective right and left coronary angiogram 2. Successful stenting of OM1 of the LCx using 2.0 x 15 mm Wimberley DELISA which was postdilated using 2.75 mm balloon with an excellent angiographic results and reduction of stenosis from 100% to 0%. 3. Left heart catheterization INDICATION: This is a very pleasant 69-year-old gentleman with CAD and prior stenting of the LAD in 2007 as well as hypertension and dyslipidemia presented to the emergency room complaining of chest discomfort and ruled in for acute non-ST deviation myocardial infarction. Because of ongoing chest discomfort, the decision was made to work percutaneous coronary intervention COMPLICATION: None APPROACH: Right common femoral artery LEVEL OF SEDATION: Moderate with sedation length of 42 minutes PROCEDURE DESCRIPTION: After obtaining an informed consent, the patient was brought to cardiac cheesemaking laborer. Local anesthesia was performed using lidocaine subcutaneously. The right common femoral artery was cannulated using Seldinger technique, the guidewire passed easily, following that we advanced a 6 Tristanian sheath dilator assembly, the wire and dilator were removed and sheath was flushed. Selective right and left coronary angiogram using a 6-Tristanian JR4 and JL catheters. After that I did intervene on the LCx. Following that we did left heart catheterization using 6-Tristanian pigtail catheter. The procedure was completed there was no complication. SELECTIVE CORONARY ANGIOGRAM: The right coronary artery: Large-caliber vessel and dominant vessel. The proximal RCA appeared to be angiographically normal. The mid RCA has intermediate lesion appeared to be in the range of 50%. The RCA distally is angiographically normal and bifurcates into PDA and PLV branches both appeared to be angiographically normal Left main: Angiographically normal. Bifurcates into LCx and LAD The left circumflex: Large caliber vessel and nondominant vessel. The proximal LCx appeared to have mild disease only. The mid LCx is angiographically normal and gives rises into the first OM branch which is a large caliber vessel which seems to be 100% o ccluded. Second OM branch is a medium caliber vessel was mild disease only. The circumflex continue as a small-caliber vessel in the AV groove The left anterior descending artery: Is a large caliber vessel. The proximal LAD appeared to have mild disease only. The mid LAD is a stented and the stent is patent. The LAD distally appears to be angiographically normal. The LAD does reach the apex. The LAD gives rises into the first and second diagonal branches. The first diagonal branch appeared to be angiographically normal and the second diagonal branch which is small caliber vessel has ostial disease appears to be in the range of 60-70%. HEMODYNAMICS: The LVEDP was 22 mmHg without significant gradient across aortic valve PCI OF THE LCX: Anticoagulation was initiated using Angiomax. Subsequently I did engage the left main using an XB 35 guide. I did across acute total occlusion of OM1 using a whisper wire. After that I did PTCA below- knee using 20 by 12 mm balloon. I attempted advancing 2.75 x 18 mm Xience DELISA but the stent won't cross the proximal LCx. The stent won't cross in spite of using fortino wire which was a run-through wire. I attempted advancing the stent over the fortino wire and that was unsuccessful. At that point I decided to use Wimberley stent where I was able to advance 20 by 15 mm stent where the stent was positioned under fluoroscopy guidance and deployed under 20 roseanna for 20 seconds. I postdilated the stent using 2.75 x 15 mm balloon which was inflated under 18 roseanna for 20 seconds. The final angiogram showed an excellent angiographic results. The procedure was completed without any complication CONCLUSION: 1. Intermediate disease involving the mid RCA 2. Occluded OM1 of the left circumflex. I performed successful stenting of OM1. 3. Patent stent in the mid LAD 4. Elevated LVEDP POSTPROCEDURE MANAGEMENT: 1. Dual antiplatelet therapy 2. Risk factors modifications 3. Follow-up with the patient
[2019-09-08] MEDS ORDERED: LISINOPRIL 10 MG TAB PO SCH ×2 (09:00→21:00)
[2019-09-08] MEDS ORDERED: ASPIRIN 325 MG TAB PO SCH ×2 (09:00)
--- NOTE | 2019-09-08 09:02 | PN ---
PROGRESS NOTE Mr. Duarte is a 69-year-old gentleman came in with a non-ST elevation [place]. Continued to have chest pain. Early this morning, he was taken to the prosthetics lab technician, underwent stenting of circumflex marginal. His LAD that was stented in 2018 appears to be widely patent. He is doing well post procedure. Right groin is clean and dry. Vitals are stable. No JVD. S1, S2 heard normally. Lungs are clear. Abdomen and lower extremity exam unchanged. Plan is to decrease the aspirin to 81 mg daily. Obtain echocardiogram today and if he does well, hopefully discharge in the next 48 hours. MMODL / IJN: [id number] /
[2019-09-08] MEDS: ASPIRIN 81 MG PO SCH (09:07)
[2019-09-08] MEDS: METOPROLOL TARTRATE 25 MG TAB PO SCH ×2 (09:07→21:23)
--- NOTE | 2019-09-08 10:00 | ECHOF ---
Referral Reason:nstemi MEASUREMENTS -------- HEIGHT: 180.3 cm WEIGHT: 91.6 kg BP: 125/69 RVIDd: 2.6 cm (< 3.3) IVSd: 1.3 cm (0.6 - 1.1) LVIDd: 4.3 cm (3.9 - 5.3) LVPWd: 1.2 cm (0.6 - 1.1) IVSs: 2.0 cm LVIDs: 3.0 cm LVPWs: 1.9 cm LA Diam: 3.5 cm (2.7 - 3.8) LAESV Index (A-L): 23.17 ml/m Ao Diam: 3.9 cm (2.0 - 3.7) AV Cusp: 2.4 cm (1.5 - 2.6) MV EXCURSION: 21.171 mm (> 18.000) MV EF SLOPE: 97 mm/s (70 - 150) EPSS: 0.7 cm MV E Zhang: 0.90 m/s MV DecT: 204 ms MV A Zhang: 1.02 m/s MV E/A Ratio: 0.88 RAP: 5.00 mmHg RVSP: 33.58 mmHg FINDINGS -------- Sinus rhythm. This was a technically difficult study with suboptimal views. The left ventricular size is normal. There is mild concentric left ventricular hypertrophy. Overa ll left ventricular systolic function is low-normal with, an EF between 50 - 55 %. Basal lateral LV wall motion is hypokinetic. Mid lateral LV wall motion is hypokinetic. Apical anterior LV wall motion is hypokinetic. The right ventricle is normal in size. Normal LA size by volume 22+/-6 ml/m2. The right atrial size is normal. 5.0mg of Lumason was utilized for enhancement of images Interatrial and interventricular septum intact. The aortic valve is trileaflet, and appears structurally normal. No aortic stenosis or regurgitation. The mitral valve is normal. There is trace to mild mitral regurgitation. Mild tricuspid regurgitation present. Right ventricular systolic pressure is normal at < 35 mmHg. The right ventricular systolic pressure, as measured by Doppler, is 33.58mmHg. There is no pulmonic regurgitation present. The aortic root is dilated measuring 3.9cm. Normal inferior vena cava with normal inspiratory collapse consistent with estimated right atrial pre ssure of 5 mmHg. There is no pericardial effusion. CONCLUSIONS -------- 1. This was a technically difficult study with suboptimal views. 2. There is mild concentric left ventricular hypertrophy. 3. Overall left ventricular systolic function is low-normal with, an EF between 50 - 55 %. 4. Basal lateral LV wall motion is hypokinetic. 5. Mid lateral LV wall motion is hypokinetic. 6. Apical anterior LV wall motion is hypokinetic. 7. Normal LA size by volume 22+/-6 ml/m2. 8. 5.0mg of Lumason was utilized for enhancement of images 9. The aortic valve is trileaflet, and appears structurally normal. No aortic stenosis or regurgitati on. 10. There is trace to mild mitral regurgitation. 11. Mild tricuspid regurgitation present. 12. The aortic root is dilated measuring 3.9cm. [employer]: Corinne Boyd RDCS
[2019-09-08 11:02] VITALS: BMI 27.9
--- NOTE | 2019-09-08 11:46 | P.HPIM ---
History of Present Illness Patient was a 69-year-old the male with known history of coronary artery disease with stenting to LAD in 2007 came in with complaints of chest discomfort woke up from the sleep patient that discomfort as pressure-like sensation radiating to the left arm and neck with associated diaphoresis and denied any shortness of breath nonpleuritic in nature. Patient is found to have highly elevated troponin without any significant ST-T wave changes patient underwent cardiac catheterization and stenting of obtuse marginal branch of LEFT circumflex. Patient denied any fever chills nausea vomiting abdominal pain. Patient is found to have nephrolithiasis with nonobstructive stone on the right side with significant hydronephrosis I reviewed the previous charts patient appears to have this finding in the previous CAT scan. Urology was consulted. Patient appears to have some pulmonary edema on the x- ray although patient had normal ejection fraction computed tomography scan is not the showing any pulmonary edema. Patient had mild hematuria no signs or symptoms of urinary tract infection patient doesn't have any fever patient den ied any cough at this time. Review of Systems I REVIEW OF SYSTEMS: CONSTITUTIONAL: No fever, no malaise, no fatigue. HEENT: No recent visual problems or hearing problems. Denied any sore throat. CARDIOVASCULAR: As mentioned in HPI PULMONARY: No shortness of breath, no cough, no hemoptysis. GASTROINTESTINAL: No diarrhea, no nausea, no vomiting, no abdominal pain. NEUROLOGICAL: No headaches, no weakness, no numbness. HEMATOLOGICAL: Denies any bleeding or petechiae. GENITOURINARY: Denies any burning micturition, frequency, or urgency. MUSCULOSKELETAL/RHEUMATOLOGICAL: Denies any joint pain, swelling, or any muscle pain. ENDOCRINE: Denies any polyuria or polydipsia. The rest of the 14-point review of systems is negative. 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 closed head injury, kidney stones Last Myocardial Infarction Date:: unknown History of Any Multi-Drug Resistant Organisms: None Reported Past Surgical History: Back Surgery, Heart Catheterization With Stent, Hernia Repair Additional Past Surgical History / Comment(s): neck surg., double hernia repair Past Anesthesia/Blood Transfusion Reactions: No Reported Reaction Additional Past Anesthesia/Blood Transfusion Reaction / Comment(s): reports no issues waking from anesthesia Date of Last Stent Placement:: 2017 Past Psychological History: Anxiety, Panic Disorder, PTSD Smoking Status: Former smoker Past Alcohol Use History: None Reported Past Drug Use History: None Reported - Past Family History Father Family Medical History: CVA/TIA, Deep Vein Thrombosis (DVT) Additional Family Medical History / Comment(s): DVT wrist Mother Family Medical History: Dementia Additional Family Medical History / Comment(s): dementia when she was 90 Sister(s) Family Medical History: Cancer Additional Family Medical History / Comment(s): 1) Breast CA passed at 58 years old. 2) passed when she was 59 years old with questinable CA Brother(s) Additional Family Medical History / Comment(s): passed when he was 60 years old due to heart issues Medications and Allergies Home Medications Medication Instructions Recorded Confirmed Type Ipratropium/Albuterol Sulfate 1 puff INHALATION RT-TID PRN 02/26/15 09/07/19 History [Combivent Respimat Inhaler] Albuterol Nebulized [Ventolin 2.5 mg INHALATION RT-TID PRN 09/07/19 09/07/19 History Nebulized] Aspirin 81 mg PO DAILY@0700 09/07/19 09/07/19 History Carvedilol [Coreg] 3.125 mg PO BID@0700,1900 09/07/19 09/07/19 History Nitroglycerin Sl Tabs [Nitrostat] 0.4 mg SUBLINGUAL Q5M PRN 09/07/19 09/07/19 History Prazosin [Minipress] 1 mg PO HS PRN 09/07/19 09/07/19 History Allergies Allergy/AdvReac Type Severity Reaction Status Date / Time orphenadrine Allergy Unknown Verified 09/07/19 17:57 pregabalin [From Lyrica] Allergy Unknown Verified 09/07/19 17:57 simvastatin Allergy Unknown Verified 09/07/19 17:57 cimetidine [From Tagamet] AdvReac Nausea & Verified 09/07/19 17:57 Vomiting & Diarrhea clonazepam [From Klonopin] AdvReac Hallucinati Verified 09/07/19 19:30 ons Sulfa (Sulfonamide AdvReac Nausea & Verified 09/07/19 17:57 Antibiotics) Vomiting Physical Exam Vitals: Vital Signs Temp Pulse Resp BP BP Pulse Ox 09/08/19 06:46 16 125/69 97 09/08/19 06:32 98.1 F 16 136/69 95 09/08/19 04:00 18 156/80 98 09/08/19 00:00 18 142/86 94 L 09/07/19 21:07 98.1 F 61 18 144/72 96 09/07/19 20:50 98.2 F 18 135/88 97 09/07/19 20:20 98.6 F 76 18 132/85 96 09/07/19 20:18 97 09/07/19 19:45 98.2 F 85 18 184/104 97 09/07/19 19:01 20 187/105 09/07/19 17:30 83 20 196/98 09/07/19 17:14 18 09/07/19 16:52 98.7 F 94 18 220/120 95 Intake and Output 09/07/19 09/08/19 09/08/19 22:59 06:59 14:59 Intake Total 2800 406.7 Output Total 800 Balance 2800 -393.3 Intake: IV 406.7 Amount of Fluid Infused ( 800 ml) Intake, IV Titration 2000 Amount Sodium Chloride 0.9% 2, 2000 000 ml @ 999 mls/hr IV . Q2H1M ONE Rx#:[id number] Output: Urine 800 Other: # Voids 2 2 Weight 91.626 kg 91 kg 91 kg PHYSICAL EXAMINATION: GENERAL: The patient is alert and oriented x3, not in any acute distress. Well developed, well nourished. HEENT: Pupils are round and equally reacting to light. EOMI. No scleral icterus. No conjunctival pallor. Normocephalic, atraumatic. No pharyngeal erythema. No thyromegaly. CARDIOVASCULAR: S1 and S2 present. No murmurs, rubs, or gallops. PULMONARY: Chest is clear to auscultation, no wheezing or crackles. ABDOMEN: Soft, nontender, nondistended, normoactive bowel sounds. No palpable organomegaly. MUSCULOSKELETAL: No joint swelling or deformity. EXTREMITIES: No cyanosis, clubbing, or pedal edema. NEUROLOGICAL: Gross neurological examination did not reveal any focal deficits. SKIN: No rashes. Results CBC & Chem 7: 09/08/19 04:30 09/07/19 17:25 Labs: Abnormal Lab Results - Last 24 Hours (Table) 09/07/19 09/07/19 09/07/19 Range/Units 17:25 17:25 17:25 WBC 16.6 H (3.8-10.6) k/uL RBC (4.30-5.90) m/uL Hgb (13.0-17.5) gm/dL Hct (39.0-53.0) % Neutrophils # 13.4 H (1.3-7.7) k/uL APTT (22.0-30.0) sec Sodium 134 L (137-145) mmol/L Glucose 114 H (74-99) mg/dL POC Glucose (mg/dL) (75-99) mg/dL AST 123 H (17-59) U/L ALT 50 H (4-49) U/L Creatine Kinase (55-170) U/L Troponin I 7.900 H* (0.000-0.034) ng/mL LDL Cholesterol, Calc (0-99) mg/dL Urine Blood (Negative) Urine Mucus (None) /hpf 09/07/19 09/07/19 09/07/19 Range/Units 17:25 19:30 23:08 WBC (3.8-10.6) k/uL RBC (4.30-5.90) m/uL Hgb (13.0-17.5) gm/dL Hct (39.0-53.0) % Neutrophils # (1.3-7.7) k/uL APTT (22.0-30.0) sec Sodium (137-145) mmol/L Glucose (74-99) mg/dL POC Glucose (mg/dL) (75-99) mg/dL AST (17-59) U/L ALT (4-49) U/L Creatine Kinase 1133 H* (55-170) U/L Troponin I 14.900 H* (0.000-0.034) ng/mL LDL Cholesterol, Calc (0-99) mg/dL Urine Blood Trace H (Negative) Urine Mucus Rare H (None) /hpf 09/08/19 09/08/19 09/08/19 Range/Units 01:02 04:30 04:33 WBC 15.9 H (3.8-10.6) k/uL RBC 4.26 L (4.30-5.90) m/uL Hgb 12.5 L (13.0-17.5) gm/dL Hct 38.8 L (39.0-53.0) % Neutrophils # 12.7 H (1.3-7.7) k/uL APTT 53.6 H (22.0-30.0) sec Sodium (137-145) mmol/L Glucose (74-99) mg/dL POC Glucose (mg/dL) 127 H (75-99) mg/dL AST (17-59) U/L ALT (4-49) U/L Creatine Kinase (55-170) U/L Troponin I (0.000-0.034) ng/mL LDL Cholesterol, Calc (0-99) mg/dL Urine Blood (Negative) Urine Mucus (None) /hpf 09/08/19 09/08/19 Range/Units 04:37 04:39 WBC (3.8-10.6) k/uL RBC (4.30-5.90) m/uL Hgb (13.0-17.5) gm/dL Hct (39.0-53.0) % Neutrophils # (1.3-7.7) k/uL APTT (22.0-30.0) sec Sodium (137-145) mmol/L Glucose (74-99) mg/dL POC Glucose (mg/dL) (75-99) mg/dL AST (17-59) U/L ALT (4-49) U/L Creatine Kinase 1430 H* (55-170) U/L Troponin I 19.900 H* (0.000-0.034) ng/mL LDL Cholesterol, Calc 130 H (0-99) mg/dL Urine Blood (Negative) Urine Mucus (None) /hpf Thrombosis Risk Factor Assmnt - Choose All That Apply Each Factor Represents 1 point: Acute [place] Other Risk Factors: Yes Each Risk Factor Represents 2 Points: Age 61-74 years Each Risk Factor Represents 3 Points: History of DVT/PE Other congenital or acquired thrombophilia - If yes, enter type in comment: No Thrombosis Risk Factor Assessment Total Risk Factor Score: 6 Thrombosis Risk Factor Assessment Level: High Risk Assessment and Plan Plan: -Acute non-ST elevation myocardial infarction: Patient encouraged Physician and stenting as mentioned above and patient is a Antiplatelet therapy beta solo and the lisinopril along with statin. Patient had normal ejection fraction no clinical evidence of heart failure. -Hyponatremia appears to have hypovolemic hyponatremia, patient is on IV fluids post cardiac catheterization Will repeat basic metabolic profile of expecting sodium did improve by tomorrow -Incidental finding of right-sided hydronephrosis which appears to be chronic with the obstructive nephrolithiasis patient had nephrolithiasis in the past as well requesting this obstruction which is severe I'm consulting the urology. -Hyperlipidemia -History of DVT and PE in the past: Presently not on any anticoagulation -Hypertension -COPD without any acute exacerbation patient quit smoking in 2029 -PTSD and anxiety disorder patient will be resumed on his home regimen
--- NOTE | 2019-09-08 13:26 | P.GSCN ---
History of Present Illness Consult date: 09/08/19 Reason for Consult: Right hydronephrosis from ureteral calculi. History of present illness: The patient is a 69-year-old male admitted through the emergency room yesterday evening for evaluation of chest pain related to an acute myocardial infarction. The pain had started in the afternoon and was also associated with some back pain. There was concern in regard to the potential of a ruptured aneurysm and for that reason a CT scan of the chest, abdomen and pelvis was obtained. No aneurysm was seen but there was evidence of moderate right hydroureteronephrosis secondary to distal right ureteral calculi. Since the patient was admitted he has undergone emergency cardiac catheterization with angioplasty and placement of a drug eluting stent. He denies any abdominal pain. Prior to being admitted he denied any gross hematuria but late this morning noted some rust-colored urine. The patient is well known to me and had undergone ESWL treatment of a 6 x 8 mm calculus located at the right ureteropelvic junction performed by Dr. Velarde on 11/14/2018. Following the procedure the patient passed sand but nothing larger. KUB on 11/20/2019 identified an area of calculus fragments in the right ureter at the L3-L4 region. A follow-up KUB on 12/29 showed no significant change. Renal ultrasound on 01/18 showed no right hydronephrosis and the patient elected for further observation. He says that he never actually passed any calculus fr agments. He denied any abdominal or flank pain since his ESWL procedure. The patient has a history of calcium oxalate urolithiasis and had previously undergone ESWL treatment of a left renal calculus in 2007. He does not have a history of recurrent urinary tract infections or gross hematuria. 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 closed head injury, kidney stones Last Myocardial Infarction Date:: unknown History of Any Multi-Drug Resistant Organisms: None Reported Past Surgical History: Back Surgery, Heart Catheterization With Stent, Hernia Repair Additional Past Surgical History / Comment(s): neck surg., double hernia repair, Left and right ESWL Past Anesthesia/Blood Transfusion Reactions: No Reported Reaction Additional Past Anesthesia/Blood Transfusion Reaction / Comm: reports no issues waking from anesthesia Date of Last Stent Placement:: 2017 Past Psychological History: Anxiety, Panic Disorder, PTSD Smoking Status: Former smoker Past Alcohol Use History: None Reported Past Drug Use History: None Reported - Past Family History Father Family Medical History: CVA/TIA, Deep Vein Thrombosis (DVT) Additional Family Medical History / Comment(s): DVT wrist Mother Family Medical History: Dementia Additional Family Medical History / Comment(s): dementia when she was 90 Sister(s) Family Medical History: Cancer Additional Family Medical History / Comment(s): 1) Breast CA passed at 58 years old. 2) passed when she was 59 years old with questinable CA Brother(s) Additional Family Medical History / Comment(s): passed when he was 60 years old due to heart issues Medications and Allergies Home Medications Medication Instructions Recorded Confirmed Type Ipratropium/Albuterol Sulfate 1 puff INHALATION RT-TID PRN 02/26/15 09/07/19 History [Combivent Respimat Inhaler] Albuterol Nebulized [Ventolin 2.5 mg INHALATION RT-TID PRN 09/07/19 09/07/19 History Nebulized] Aspirin 81 mg PO DAILY@0700 09/07/19 09/07/19 History Carvedilol [Coreg] 3.125 mg PO BID@0700,1900 09/07/19 09/07/19 History Nitroglycerin Sl Tabs [Nitrostat] 0.4 mg SUBLINGUAL Q5M PRN 09/07/19 09/07/19 History Prazosin [Minipress] 1 mg PO HS PRN 09/07/19 09/07/19 History Allergies Allergy/AdvReac Type Severity Reaction Status Date / Time orphenadrine Allergy Unknown Verified 09/07/19 17:57 pregabalin [From Lyrica] Allergy Unknown Verified 09/07/19 17:57 simvastatin Allergy Unknown Verified 09/07/19 17:57 cimetidine [From Tagamet] AdvReac Nausea & Verified 09/07/19 17:57 Vomiting & Diarrhea clonazepam [From Klonopin] AdvReac Hallucinati Verified 09/07/19 19:30 ons Sulfa (Sulfonamide AdvReac Nausea & Verified 09/07/19 17:57 Antibiotics) Vomiting Surgical - Exam Vital Signs Temp Pulse Resp BP Pulse Ox 98.7 F 94 18 220/120 95 09/07/19 16:52 09/07/19 16:52 09/07/19 16:52 09/07/19 16:52 09/07/19 16:52 - General well developed, well nourished, no distress, obese - ENT no hearing loss - Neck no masses, no lymphadectomy - Respiratory normal respiratory effort - Abdomen Abdomen: soft, non tender, no organomegaly Hernia: none - Genitourinary normal penis with no external lesions, testicles non-tender Results - Labs 09/08/19 04:30 09/07/19 17:25 Abnormal Lab Results - Last 24 Hours (Table) 09/07/19 09/07/19 09/07/19 Range/Units 17:25 17:25 17:25 WBC 16.6 H (3.8-10.6) k/uL RBC (4.30-5.90) m/uL Hgb (13.0-17.5) gm/dL Hct (39.0-53.0) % Neutrophils # 13.4 H (1.3-7.7) k/uL APTT (22.0-30.0) sec Sodium 134 L (137-145) mmol/L Glucose 114 H (74-99) mg/dL POC Glucose (mg/dL) (75-99) mg/dL AST 123 H (17-59) U/L ALT 50 H (4-49) U/L Creatine Kinase (55-170) U/L Troponin I 7.900 H* (0.000-0.034) ng/mL LDL Cholesterol, Calc (0-99) mg/dL Urine Blood (Negative) Urine Mucus (None) /hpf 09/07/19 09/07/19 09/07/19 Range/Units 17:25 19:30 23:08 WBC (3.8-10.6) k/uL RBC (4.30-5.90) m/uL Hgb (13.0-17.5) gm/dL Hct (39.0-53.0) % Neutrophils # (1.3-7.7) k/uL APTT (22.0-30.0) sec Sodium (137-145) mmol/L Glucose (74-99) mg/dL POC Glucose (mg/dL) (75-99) mg/dL AST (17-59) U/L ALT (4-49) U/L Creatine Kinase 1133 H* (55-170) U/L Troponin I 14.900 H* (0.000-0.034) ng/mL LDL Cholesterol, Calc (0-99) mg/dL Urine Blood Trace H (Negative) Urine Mucus Rare H (None) /hpf 09/08/19 09/08/19 09/08/19 Range/Units 01:02 04:30 04:33 WBC 15.9 H (3.8-10.6) k/uL RBC 4.26 L (4.30-5.90) m/uL Hgb 12.5 L (13.0-17.5) gm/dL Hct 38.8 L (39.0-53.0) % Neutrophils # 12.7 H (1.3-7.7) k/uL APTT 53.6 H (22.0-30.0) sec Sodium (137-145) mmol/L Glucose (74-99) mg/dL POC Glucose (mg/dL) 127 H (75-99) mg/dL AST (17-59) U/L ALT (4-49) U/L Creatine Kinase (55-170) U/L Troponin I (0.000-0.034) ng/mL LDL Cholesterol, Calc (0-99) mg/dL Urine Blood (Negative) Urine Mucus (None) /hpf 09/08/19 09/08/19 Range/Units 04:37 04:39 WBC (3.8-10.6) k/uL RBC (4.30-5.90) m/uL Hgb (13.0-17.5) gm/dL Hct (39.0-53.0) % Neutrophils # (1.3-7.7) k/uL APTT (22.0-30.0) sec Sodium (137-145) mmol/L Glucose (74-99) mg/dL POC Glucose (mg/dL) (75-99) mg/dL AST (17-59) U/L ALT (4-49) U/L Creatine Kinase 1430 H* (55-170) U/L Troponin I 19.900 H* (0.000-0.034) ng/mL LDL Cholesterol, Calc 130 H (0-99) mg/dL Urine Blood (Negative) Urine Mucus (None) /hpf Diabetes panel 09/07/19 09/08/19 Range/Units 17:25 04:39 Sodium 134 L (137-145) mmol/L Potassium 4.5 (3.5-5.1) mmol/L Chloride 106 (98-107) mmol/L Carbon Dioxide 23 (22-30) mmol/L BUN 13 (9-20) mg/dL Creatinine 0.95 (0.66-1.25) mg/dL Glucose 114 H (74-99) mg/dL Calcium 9.6 (8.4-10.2) mg/dL AST 123 H (17-59) U/L ALT 50 H (4-49) U/L Alkaline Phosphatase 107 (38-126) U/L Total Protein 8.0 (6.3-8.2) g/dL Albumin 4.5 (3.5-5.0) g/dL Triglycerides 101 (<150) mg/dL HDL Cholesterol 45 (40-60) mg/dL Calcium panel 09/07/19 Range/Units 17:25 Calcium 9.6 (8.4-10.2) mg/dL Albumin 4.5 (3.5-5.0) g/dL Pituitary panel 09/07/19 Range/Units 17:25 Sodium 134 L (137-145) mmol/L Potassium 4.5 (3.5-5.1) mmol/L Chloride 106 (98-107) mmol/L Carbon Dioxide 23 (22-30) mmol/L BUN 13 (9-20) mg/dL Creatinine 0.95 (0.66-1.25) mg/dL Glucose 114 H (74-99) mg/dL Calcium 9.6 (8.4-10.2) mg/dL Adrenal panel 09/07/19 Range/Units 17:25 Sodium 134 L (137-145) mmol/L Potassium 4.5 (3.5-5.1) mmol/L Chloride 106 (98-107) mmol/L Carbon Dioxide 23 (22-30) mmol/L BUN 13 (9-20) mg/dL Creatinine 0.95 (0.66-1.25) mg/dL Glucose 114 H (74-99) mg/dL Calcium 9.6 (8.4-10.2) mg/dL Total Bilirubin 0.6 (0.2-1.3) mg/dL AST 123 H (17-59) U/L ALT 50 H (4-49) U/L Alkaline Phosphatase 107 (38-126) U/L Total Protein 8.0 (6.3-8.2) g/dL Albumin 4.5 (3.5-5.0) g/dL Assessment and Plan (1) Hydronephrosis with obstructing calculus Narrative/Plan: I personally reviewed the patient's CT scan. He appears to have moderate right hydroureteronephrosis secondary to a group of calculus fragments 3-4 mm in helena meter located at approximately the level of the sacrococcygeal junction. His renal function is normal, he has no evidence of infection and is comfortable. In view of this, further observation is reasonable, especially in view of his recent myocardial infarct. Right ureteroscopy with lithotripsy will need to be considered if the calculus fragments have not passed within another month or two. At this time there is no need for any urgent urologic intervention. The patient can follow up with me in the office in 3 or 4 weeks. He has some minimal gross hematuria which is most likely related to his use of heparin and anti platelet agents. Current Visit: Yes Status: Acute Code(s): N13.2 - HYDRONEPHROSIS WITH RENAL AND URETERAL CALCULOUS OBSTRUCTION SNOMED Code(s): 57710094
[2019-09-08] MEDS ORDERED: ATORVASTATIN 80 MG TAB PO SCH ×2 (21:00)
[2019-09-08] MEDS ORDERED: ATORVASTATIN 40 MG TAB PO SCH (21:00)
[2019-09-09 02:21] VITALS: RESP 18
[2019-09-09] MEDS: CLOPIDOGREL 75 MG TAB PO SCH ×2 (05:15→05:56)
[2019-09-09 07:31] LABS: Basophils # (A) 0.1 k/uL (0-0.2); Basophils % (A) 0 %; Eosinophils # (A) 0.1 k/uL (0-0.7); Eosinophils % (A) 1 %; HCT 38.2 % (39.0-53.0); HGB 12.4 gm/dL (13.0-17.5); Lymphocytes # (A) 1.7 k/uL (1.0-4.8); Lymphocytes % (A) 12 %; MCH 29.6 pg (25.0-35.0); MCHC 32.4 g/dL (31.0-37.0); MCV 91.3 fL (80.0-100.0); Mean Platelet Volume 6.8; Monocytes # (A) 1.3 k/uL (0-1.0); Monocytes % (A) 9 %; Neutrophils # (A) 10.4 k/uL (1.3-7.7); Neutrophils % (A) 74 %; Platelet Count 278 k/uL (150-450); RBC 4.18 m/uL (4.30-5.90); RDW 12.2 % (11.5-15.5); WBC 14.2 k/uL (3.8-10.6)
[2019-09-09 07:46] LABS: African American GFR (CKD) >90 (>60 ml/min/1.73 sqM); Anion Gap 6 mmol/L; Blood Urea Nitrogen 11 mg/dL (9-20); Calcium 8.7 mg/dL (8.4-10.2); Carbon Dioxide 27 mmol/L (22-30); Chloride 103 mmol/L (98-107); Glucose 106 mg/dL (74-99); Non-African American GFR(CKD) 82 (>60 ml/min/1.73 sqM); Potassium 3.9 mmol/L (3.5-5.1); Sodium 136 mmol/L (137-145)
[2019-09-09] MEDS: SODIUM CHLORIDE 0.9% 1,000 ML IV SCH (08:38)
[2019-09-09] MEDS: ASPIRIN 81 MG PO SCH (08:43)
[2019-09-09] MEDS: METOPROLOL TARTRATE 25 MG TAB PO SCH (08:43)
[2019-09-09 09:21] VITALS: BP 150/89; PULSE 101; TEMP 98.5
--- NOTE | 2019-09-09 09:40 | P.PN ---
Subjective This is a pleasant 69-year-old male currently being treated for a non- ST elevated myocardial infarction status post successful PCI of the OM. He is seen and examined resting comfortably sitting up in bed in no acute distress. He has no symptoms of chest pain, shortness of breath, dizziness or palpitations. Blood pressure is 136/68 heart rate is 88 afebrile maintaining oxygen saturation on room air. Laboratory data reviewed, WBC 14.2, hemoglobin 12.4, platelets 278, sodium 136, potassium 3.9, creatinine 0.95. Currently maintained on aspirin 81 mg daily, atorvastatin 40 mg daily, Plavix 75 mg daily, lisinopril 10 mg daily, Lopressor 25 mg twice a day. GENERAL: Well-appearing, well-nourished and in no acute distress. NECK: Supple without JVD or thyromegaly. LUNGS: Breath sounds clear to auscultation bilaterally. Respiration equal and unlabored. No wheezes, rales or rhonchi. HEART: Regular rate and rhythm without murmurs, rubs or gallops. S1 and S2 heard. EXTREMITIES: Normal range of motion, no edema. No clubbing or cyanosis. Peripheral pulses intact. ASSESSMENT Non-ST elevated myocardial infarction status post successful PCI Rhabdomyolysis Leukocytosis Hypertension Dyslipidemia PLAN Stable on current medical regimen. No exertional chest discomfort. Advised to increase activity and possible discharge this afternoon is he is feeling good. Follow up with Dr. العراقي in the office and discharge medications sent to his pharmacy. Nurse Practitioner note has been reviewed, I agree with a documented findings and plan of care. Patient was seen and examined. Objective - Vital Signs Vital signs: Vital Signs Temp 98.5 F 09/09/19 09:17 Pulse 101 H 09/09/19 09:17 Resp 18 09/09/19 09:17 BP 150/89 09/09/19 09:17 Pulse Ox 98 09/09/19 09:17 Intake & Output 09/08/19 09/09/19 09/09/19 18:59 06:59 18:59 Intake Total 1150 1240 Output Total 1600 200 Balance -450 1040 Weight 91 kg 92.7 kg Intake: Intake, IV Titration 900 800 Amount Sodium Chloride 0.9% 1, 900 800 000 ml @ 75 mls/hr IV . [id number] [facility] Rx#:[id number] Oral 250 440 Output: Urine 1600 200 Other: # Voids 1 450 - Labs CBC & Chem 7: 09/09/19 06:35 09/09/19 06:35 Labs: Abnormal Lab Results - Last 24 Hours (Table) 09/09/19 09/09/19 Range/Units 06:35 06:35 WBC 14.2 H (3.8-10.6) k/uL RBC 4.18 L (4.30-5.90) m/uL Hgb 12.4 L (13.0-17.5) gm/dL Hct 38.2 L (39.0-53.0) % Neutrophils # 10.4 H (1.3-7.7) k/uL Monocytes # 1.3 H (0-1.0) k/uL Sodium 136 L (137-145) mmol/L Glucose 106 H (74-99) mg/dL
--- NOTE | 2019-09-09 21:34 | P.DS ---
Providers Date of admission: 09/07/19 20:37 Expected date of discharge: 09/09/19 Attending physician: Darius Fritz Consults: 09/07/19 20:18 Consult Physician Stat Consulting Provider: Po Agudelo Consult Reason/Comments: NSTEMI, rhabdomyolysis, obstructal calculi Do you want consulting provider notified?: Yes Consult Physician Urgent Consulting Provider: Zelalem Kern Consult Reason/Comments: NSTEMI, rhabdomyolysis, obstructal calculi Do you want consulting provider notified?: Yes 09/08/19 06:17 Consult Physician Routine Consulting Provider: [facility] Consult Reason/Comments: Post Interventional patient Do you want consulting provider notified?: Already Contacted Primary care physician: [facility] Course: Mr. Duarte is a 69-year-old male with a past medical history of COPD, DVT, hyperlipidemia, hypertension, coronary artery disease with stenting to LAD in 2007 came to the hospital with a chief complaint of chest discomfort. Patient was found to have elevated troponins without any ST or T wave changes. Cardiology was consulted and patient underwent cardiac catheterization and stenting of obtuse marginal branch of left circumflex. As the patient was found to have nephrolithiasis with nonobstructive stone on the right side with significant hydronephrosis urology has been consulted. Urology recommended outpatient follow-up for right ureteroscopy with lithotripsy, if the calculus fragments have not passed within another month or 2. So he has been cleared by urology. Cardiology evaluated the patient this morning and he was cleared for discharge today. Patient has been anxiously waiting to go home when I went to evaluate him this afternoon. He denies having any complaints and he said that he is eager to go home. Patient denied having any chest pain or difficulty in breathing. No cough or palpitations. No complaints of lower extremity swelling. GENERAL: Well-appearing, well-nourished and eager to go home and pacing in the room NECK: Supple without JVD or thyromegaly. LUNGS: Breath sounds clear to auscultation bilaterally. Respiration equal and unlabored. No wheezes, rales or rhonchi. HEART: Regular rate and rhythm without murmurs, rubs or gallops. S1 and S2 heard. EXTREMITIES: Normal range of motion, no edema. No clubbing or cyanosis. Peripheral pulses intact. DISCHARGE DIAGNOSIS Acute non-ST elevation IL Status post stenting of obtuse marginal branch of left circumflex Hyponatremia-probably hypovolemic-resolved Incidental finding of right-sided hydronephrosis due to chronic obstructive nephrolithiasis History of DVT and PE in the past presently not on anticoagulation Hypertension PTSD COPD without acute exacerbation Former smoker PLAN: Patient was extensively counseled on continuing his dual antiplatelet therapy. Also discussed with him the discharge medications in detail. He is advised to follow-up with his PCP Dr. Mckenzie Fritz in 1 to 2 weeks. He is given a follow-up appointment with cardiology Dr. Rucker. Patient is being discharged home in a stable condition. More than 35 minutes spent with the discharge of the patient. Patient Condition at Discharge: Fair Plan - Discharge Summary Discharge Rx Participant: Yes New Discharge Prescriptions: New Atorvastatin [Lipitor] 40 mg PO HS #90 tab Metoprolol Tartrate [Lopressor] 25 mg PO BID #180 tab Clopidogrel [Plavix] 75 mg PO DAILY #90 tab Lisinopril [Zestril] 10 mg PO HS #90 tab Continue Ipratropium/Albuterol Sulfate [Combivent Respimat Inhaler] 1 puff INHALATION RT-TID PRN PRN Reason: Shortness Of Breath Albuterol Nebulized [Ventolin Nebulized] 2.5 mg INHALATION RT-TID PRN PRN Reason: Shortness Of Breath Aspirin 81 mg PO DAILY@0700 Discontinued Nitroglycerin Sl Tabs [Nitrostat] 0.4 mg SUBLINGUAL Q5M PRN PRN Reason: Chest Pain Prazosin [Minipress] 1 mg PO HS PRN PRN Reason: SLEEP Carvedilol [Coreg] 3.125 mg PO BID@0700,1900 Discharge Medication List Ipratropium/Albuterol Sulfate [Combivent Respimat Inhaler] 1 puff INHALATION RT- TID PRN 02/26/15 [History] Albuterol Nebulized [Ventolin Nebulized] 2.5 mg INHALATION RT-TID PRN 09/07/19 [History] Aspirin 81 mg PO DAILY@0700 09/07/19 [History] Atorvastatin [Lipitor] 40 mg PO HS #90 tab 09/09/19 [Rx] Clopidogrel [Plavix] 75 mg PO DAILY #90 tab 09/09/19 [Rx] Lisinopril [Zestril] 10 mg PO HS #90 tab 09/09/19 [Rx] Metoprolol Tartrate [Lopressor] 25 mg PO BID #180 tab 09/09/19 [Rx] Follow up Appointment(s)/Referral(s): [facility]DI[facility],Cardiac [NON-STAFF] - Wicho العراقي MD [STAFF PHYSICIAN] - 09/15/19 2:15 pm Shakila Langston MD [Primary Care Provider] - 1-2 days Patient Instructions/Handouts: *Surgery [facility] - After Heart Catheterization - [employer] Instructions, Heart Healthy Diet (DC), Heart Catheterization (DC) Discharge Disposition: HOME SELF-CARE
== END 2019-09-09 15:17 | disposition home or self-care (01) | DRG 247 ==
LOC: EC 16:46 → 3SCARD 20:37
PROVIDERS: ADMIT Hospitalist; ATTEND Hospitalist
DX: I21.4 Non-ST elevation (NSTEMI) myocardial infarction (principal); E87.1 Hypo-osmolality and hyponatremia; J81.1 Chronic pulmonary edema; M62.82 Rhabdomyolysis; N13.2 Hydronephrosis with renal and ureteral calculous obstruction; D72.829 Elevated white blood cell count, unspecified; E78.5 Hyperlipidemia, unspecified; E86.1 Hypovolemia; F41.0 Panic disorder [episodic paroxysmal anxiety]; F43.10 Post-traumatic stress disorder, unspecified; I10 Essential (primary) hypertension; I25.10 Atherosclerotic heart disease of native coronary artery without angina pectoris; I25.2 Old myocardial infarction; J44.9 Chronic obstructive pulmonary disease, unspecified; Z79.02 Long term (current) use of antithrombotics/antiplatelets; Z79.82 Long term (current) use of aspirin; Z79.899 Other long term (current) drug therapy; Z80.3 Family history of malignant neoplasm of breast; Z86.711 Personal history of pulmonary embolism; Z86.718 Personal history of other venous thrombosis and embolism; Z87.442 Personal history of urinary calculi; Z87.891 Personal history of nicotine dependence; Z88.2 Allergy status to sulfonamides; Z88.8 Allergy status to other drugs, medicaments and biological substances; Z87.820 Personal history of traumatic brain injury; Z82.49 Family history of ischemic heart disease and other diseases of the circulatory system; Z82.0 Family history of epilepsy and other diseases of the nervous system
CPT/HCPCS: 36415; 71046; 71275; 74174; 80048; 80053; 80061; 81001; 82550; 83735; 83880; 84484; 85025; 85610; 85730; 93005; 93306; 93458; 96361; 96365; 96375; 96376; 99285

== ENCOUNTER 2019-11-16 15:02 | Inpatient (IN) | payer MEDICAID, MEDICARE ==
[2019-11-16] MEDS ORDERED: ASPIRIN 81 MG PO STA (15:43)
[2019-11-16] MEDS ORDERED: LORazepam 2 MG/ML INJ IV STA (15:43)
[2019-11-16] MEDS ORDERED: NITROGLYCERIN OINT 1 INCH/GM PACKET TOPICAL STA (15:43)
[2019-11-16] MEDS ORDERED: SODIUM CHLORIDE 0.9% 500 ML 500 ML IV STA (15:43)
[2019-11-16 15:55] LABS: Basophils # (A) 0.1 k/uL (0-0.2); Basophils % (A) 1 %; Eosinophils # (A) 0.2 k/uL (0-0.7); Eosinophils % (A) 1 %; HCT 40.9 % (39.0-53.0); HGB 13.3 gm/dL (13.0-17.5); Lymphocytes # (A) 2.5 k/uL (1.0-4.8); Lymphocytes % (A) 23 %; MCHC 32.5 g/dL (31.0-37.0); MCV 89.4 fL (80.0-100.0); Mean Platelet Volume 6.5; Monocytes # (A) 0.5 k/uL (0-1.0); Monocytes % (A) 5 %; Neutrophils # (A) 7.5 k/uL (1.3-7.7); Neutrophils % (A) 68 %; Platelet Count 288 k/uL (150-450); RBC 4.57 m/uL (4.30-5.90); RDW 13.2 % (11.5-15.5)
[2019-11-16 16:04] LABS: ALT 26 U/L (4-49); AST 26 U/L (17-59); African American GFR (CKD) >90 (>60 ml/min/1.73 sqM); Alkaline Phosphatase 106 U/L (38-126); Anion Gap 5 mmol/L; Blood Urea Nitrogen 15 mg/dL (9-20); Calcium 9.5 mg/dL (8.4-10.2); Carbon Dioxide 25 mmol/L (22-30); Chloride 108 mmol/L (98-107); Glucose 128 mg/dL (74-99); Non-African American GFR(CKD) 82 (>60 ml/min/1.73 sqM); Potassium 4.2 mmol/L (3.5-5.1); Sodium 138 mmol/L (137-145); Total Bilirubin 0.6 mg/dL (0.2-1.3); Total Protein 7.3 g/dL (6.3-8.2)
[2019-11-16 16:05] LABS: Partial Thromboplastin Time 23.6 sec (22.0-30.0); Prothrombin Time 10.3 sec (9.0-12.0)
--- NOTE | 2019-11-16 16:07 | XR ---
EXAMINATION TYPE: XR chest 2V DATE OF EXAM: 11/16/2019 COMPARISON: 09/07/2019 HISTORY: 69-year-old male with chest pain TECHNIQUE: AP and lateral views FINDINGS: Heart upper limits of normal in size. Aorta and pulmonary vasculature within normal limits. Mild inte rstitial prominence is unchanged. No consolidation or pleural effusion. IMPRESSION: Chronic changes, possible bronchitis or chronic asthma. Correlate for possible underlying COPD. Other ore[place], no acute cardiopulmonary process.
[2019-11-16] MEDS ORDERED: HEPARIN SOD,PORK IN 0.45% NACL 25,000 UNIT in 0.45% NACL 1 250ML.BAG IV SCH (16:30)
[2019-11-16] MEDS ORDERED: HEPARIN SODIUM,PORCINE 5,000 UNIT/ML 1 ML VIAL IV ONE (16:30)
[2019-11-16] MEDS ORDERED: NITROGLYCERIN SL TABS 0.4 MG TAB SUBLINGUAL PRN (16:58)
--- NOTE | 2019-11-16 16:58 | ED ---
General Adult HPI - General Chief complaint: Chest Pain Stated complaint: Chest pain Time Seen by Provider: 11/16/19 15:05 Source: patient, RN notes reviewed, old records reviewed Mode of arrival: wheelchair Limitations: no limitations - History of Present Illness Initial comments: This is a 69-year-old male who presents emergency Department with a past medical history significant for coronary artery disease with a stent. Patient comes in today because started racing chest pain last night he described it as pressure and it also made him short of breath today the symptoms are getting worse so he decided come the emergency department. Patient denies any radiation of pain. Patient states she was little bit nauseous at the time. Patient denies any abdominal pain. Patient denies any lightheadedness or dizziness. Patient states the chest pressure is a little less than it was earlier today but is still there. Patient denies any swelling to legs or calf tenderness. Patient denies any recent fever chills or cough - Related Data Home Medications Medication Instructions Recorded Confirmed Ipratropium/Albuterol Sulfate 1 puff INHALATION RT-TID PRN 02/26/15 09/07/19 [Combivent Respimat Inhaler] Albuterol Nebulized [Ventolin 2.5 mg INHALATION RT-TID PRN 09/07/19 09/07/19 Nebulized] Aspirin 81 mg PO DAILY@0700 09/07/19 09/07/19 Previous Rx's Medication Instructions Recorded Atorvastatin [Lipitor] 40 mg PO HS #90 tab 09/09/19 Clopidogrel [Plavix] 75 mg PO DAILY #90 tab 09/09/19 Lisinopril [Zestril] 10 mg PO HS #90 tab 09/09/19 Metoprolol Tartrate [Lopressor] 25 mg PO BID #180 tab 09/09/19 Allergies Allergy/AdvReac Type Severity Reaction Status Date / Time orphenadrine Allergy Unknown Verified 11/16/19 15:12 pregabalin [From Lyrica] Allergy Unknown Verified 11/16/19 15:12 simvastatin Allergy Unknown Verified 11/16/19 15:12 cimetidine [From Tagamet] AdvReac Nausea & Verified 11/16/19 15:12 Vomiting & Diarrhea clonazepam [From Klonopin] AdvReac Hallucinati Verified 11/16/19 15:12 ons Sulfa (Sulfonamide AdvReac Nausea & Verified 11/16/19 15:12 Antibiotics) Vomiting Review of Systems ROS Statement: Those systems with pertinent positive or pertinent negative responses have been documented in the HPI. ROS Other: All systems not noted in ROS Statement are negative. 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 closed head injury, kidney stones Last Myocardial Infarction Date:: unknown History of Any Multi-Drug Resistant Organisms: None Reported Past Surgical History: Back Surgery, Heart Catheterization With Stent, Hernia Repair Additional Past Surgical History / Comment(s): neck surg., double hernia repair, Left and right ESWL Past Anesthesia/Blood Transfusion Reactions: No Reported Reaction Additional Past Anesthesia/Blood Transfusion Reaction / Comment(s): reports no issues waking from anesthesia Date of Last Stent Placement:: 2017 Past Psychological History: Anxiety, Panic Disorder, PTSD Smoking Status: Former smoker Past Alcohol Use History: None Reported Past Drug Use History: None Reported - Past Family History Father Family Medical History: CVA/TIA, Deep Vein Thrombosis (DVT) Additional Family Medical History / Comment(s): DVT wrist Mother Family Medical History: Dementia Additional Family Medical History / Comment(s): dementia when she was 90 Sister(s) Family Medical History: Cancer Additional Family Medical History / Comment(s): 1) Breast CA passed at 58 years old. 2) passed when she was 59 years old with questinable CA Brother(s) Additional Family Medical History / Comment(s): passed when he was 60 years old due to heart issues General Exam - General Exam Comments Initial Comments: GENERAL: Patient is well-developed and well-nourished. Patient is nontoxic and well- hydrated and is in mild distress. ENT: Neck is soft and supple. No significant lymphadenopathy is noted. Oropharynx is clear. Moist mucous membranes. Neck has full range of motion without eliciting any pain. EYES: The sclera were anicteric and conjunctiva were pink and moist. Extraocular movements were intact and pupils were equal round and reactive to light. Eyelids were unremarkable. PULMONARY: Unlabored respirations. Good breath sounds bilaterally. No audible rales rhonchi or wheezing was noted. CARDIOVASCULAR: There is a regular rate and rhythm without any murmurs gallops or rubs. ABDOMEN: Soft and nontender with normal bowel sounds. SKIN: Skin is clear with no lesions or rashes and otherwise unremarkable. NEUROLOGIC: Patient is alert and oriented x3. Cranial nerves II through XII are grossly intact. Motor and sensory are also intact. Normal speech, volume and content. Symmetrical smile. MUSCULOSKELETAL: Normal extremities with adequate strength and full range of motion. No lower extremity swelling or edema. No calf tenderness. LYMPHATICS: No significant lymphadenopathy is noted PSYCHIATRIC: Normal psychiatric evaluation. Patient is mildly anxious Limitations: no limitations Course Vital Signs 11/16/19 11/16/19 15:07 16:55 Temperature 98.2 F Pulse Rate 87 92 Respiratory 18 18 Rate Blood Pressure 159/78 144/79 O2 Sat by Pulse 97 97 Oximetry Medical Decision Making - Medical Decision Making Chest x-ray shows no acute abnormality. EKG shows normal sinus rhythm at 83 bpm UT interval 124 QRS 86 QT interval 370 QTC is 444. Patient's EKG shows no ST segment elevation or depression. Patient had unstable angina/started the patient on heparin. I spoke with because he agreed to admit the patient admitted the patient wrote admitting orders. I continue the aspirin and Nitropaste and heparin on the floor - Lab Data Result diagrams: 11/16/19 15:33 11/16/19 15:33 Lab Results 11/16/19 11/16/19 11/16/19 Range/Units 15:33 15:33 15:33 WBC 11.0 H (3.8-10.6) k/uL RBC 4.57 (4.30-5.90) m/uL Hgb 13.3 (13.0-17.5) gm/dL Hct 40.9 (39.0-53.0) % MCV 89.4 (80.0-100.0) fL MCH 29.0 (25.0-35.0) pg MCHC 32.5 (31.0-37.0) g/dL RDW 13.2 (11.5-15.5) % Plt Count 288 (150-450) k/uL Neutrophils % 68 % Lymphocytes % 23 % Monocytes % 5 % Eosinophils % 1 % Basophils % 1 % Neutrophils # 7.5 (1.3-7.7) k/uL Lymphocytes # 2.5 (1.0-4.8) k/uL Monocytes # 0.5 (0-1.0) k/uL Eosinophils # 0.2 (0-0.7) k/uL Basophils # 0.1 (0-0.2) k/uL PT 10.3 (9.0-12.0) sec INR 1.0 (<1.2) APTT 23.6 (22.0-30.0) sec Sodium 138 (137-145) mmol/L Potassium 4.2 (3.5-5.1) mmol/L Chloride 108 H (98-107) mmol/L Carbon Dioxide 25 (22-30) mmol/L Anion Gap 5 mmol/L BUN 15 (9-20) mg/dL Creatinine 0.95 (0.66-1.25) mg/dL Est GFR (CKD-EPI)AfAm >90 (>60 ml/min/1.73 sqM) Est GFR (CKD-EPI)NonAf 82 (>60 ml/min/1.73 sqM) Glucose 128 H (74-99) mg/dL Calcium 9.5 (8.4-10.2) mg/dL Magnesium 2.0 (1.6-2.3) mg/dL Total Bilirubin 0.6 (0.2-1.3) mg/dL AST 26 (17-59) U/L ALT 26 (4-49) U/L Alkaline Phosphatase 106 (38-126) U/L Troponin I (0.000-0.034) ng/mL Total Protein 7.3 (6.3-8.2) g/dL Albumin 4.0 (3.5-5.0) g/dL 11/16/19 Range/Units 15:33 WBC (3.8-10.6) k/uL RBC (4.30-5.90) m/uL Hgb (13.0-17.5) gm/dL Hct (39.0-53.0) % MCV (80.0-100.0) fL MCH (25.0-35.0) pg MCHC (31.0-37.0) g/dL RDW (11.5-15.5) % Plt Count (150-450) k/uL Neutrophils % % Lymphocytes % % Monocytes % % Eosinophils % % Basophils % % Neutrophils # (1.3-7.7) k/uL Lymphocytes # (1.0-4.8) k/uL Monocytes # (0-1.0) k/uL Eosinophils # (0-0.7) k/uL Basophils # (0-0.2) k/uL PT (9.0-12.0) sec INR (<1.2) APTT (22.0-30.0) sec Sodium (137-145) mmol/L Potassium (3.5-5.1) mmol/L Chloride (98-107) mmol/L Carbon Dioxide (22-30) mmol/L Anion Gap mmol/L BUN (9-20) mg/dL Creatinine (0.66-1.25) mg/dL Est GFR (CKD-EPI)AfAm (>60 ml/min/1.73 sqM) Est GFR (CKD-EPI)NonAf (>60 ml/min/1.73 sqM) Glucose (74-99) mg/dL Calcium (8.4-10.2) mg/dL Magnesium (1.6-2.3) mg/dL Total Bilirubin (0.2-1.3) mg/dL AST (17-59) U/L ALT (4-49) U/L Alkaline Phosphatase (38-126) U/L Troponin I <0.012 (0.000-0.034) ng/mL Total Protein (6.3-8.2) g/dL Albumin (3.5-5.0) g/dL Critical Care Time Critical Care Time: Yes Total Critical Care Time: 35 Disposition Clinical Impression: Unstable angina pectoris Disposition: ADMITTED IP TO THIS HOSP Referrals: Shakila Langston MD [Primary Care Provider] - 1-2 days Time of Disposition: 16:58
[2019-11-17] MEDS ORDERED: HEPARIN SODIUM,PORCINE 5,000 UNIT/ML 1 ML VIAL IV STA (00:29)
[2019-11-17] MEDS: NITROGLYCERIN OINT 1 INCH/GM PACKET TOPICAL SCH ×3 (00:56→12:44)
[2019-11-17] MEDS ORDERED: LORazepam 2 MG/ML INJ IV STA (03:01)
[2019-11-17] MEDS ORDERED: ALBUTEROL NEBULIZED 2.5 MG/3 ML INHALATION PRN (08:31)
[2019-11-17] MEDS ORDERED: IPRATROPIUM-ALBUTEROL 3 ML NEB INHALATION PRN (08:31)
[2019-11-17] MEDS ORDERED: NITROGLYCERIN SL TABS 0.4 MG TAB SUBLINGUAL PRN (08:31)
[2019-11-17] MEDS ORDERED: PANTOPRAZOLE 40 MG/10 ML VIAL IVP SCH (09:00)
[2019-11-17] MEDS ORDERED: ASPIRIN 325 MG TAB PO SCH (09:00)
--- NOTE | 2019-11-17 09:16 | P.HPIM ---
History of Present Illness Patient presents 69-year-old of male with history of coronary artery disease and stent in the past came in with complaints chest pain pressure-like sensation lasted for a few minutes nonradiating and retrosternalas her nausea lighthe adedness or dizziness. He just pain is nonpleuritic not associated with food no cough. Chest x-ray did not show any significant abnormality. Patient believes his chest pain is secondary to anxiety from PTSD patient is a [place] . Review of Systems REVIEW OF SYSTEMS: CONSTITUTIONAL: No fever, no malaise, no fatigue. HEENT: No recent visual problems or hearing problems. Denied any sore throat. CARDIOVASCULAR: No orthopnea, PND, no palpitations, no syncope. PULMONARY: No shortness of breath, no cough, no hemoptysis. GASTROINTESTINAL: No diarrhea, no nausea, no vomiting, no abdominal pain. NEUROLOGICAL: No headaches, no weakness, no numbness. HEMATOLOGICAL: Denies any bleeding or petechiae. GENITOURINARY: Denies any burning micturition, frequency, or urgency. MUSCULOSKELETAL/RHEUMATOLOGICAL: Denies any joint pain, swelling, or any muscle pain. ENDOCRINE: Denies any polyuria or polydipsia. The rest of the 14-point review of systems is negative. 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 closed head injury, kidney stones Last Myocardial Infarction Date:: 2017 History of Any Multi-Drug Resistant Organisms: None Reported Past Surgical History: Back Surgery, Heart Catheterization With Stent, Hernia Repair Additional Past Surgical History / Comment(s): neck surg., double hernia repair, Left and right ESWL. first stent placed 2017 second stent placed 2019 Past Anesthesia/Blood Transfusion Reactions: No Reported Reaction Additional Past Anesthesia/Blood Transfusion Reaction / Comment(s): reports no issues waking from anesthesia Date of Last Stent Placement:: 2017 Past Psychological History: Anxiety, Panic Disorder, PTSD Additional Psychological History / Comment(s): frequent severe panic attacks, was in [place], PTSD Smoking Status: Former smoker Past Alcohol Use History: None Reported Additional Past Alcohol Use History / Comment(s): last drink 12-14 years ago, quit smoking years ago Past Drug Use History: Marijuana Additional Drug Use History / Comment(s): occassional medical marijuana use - Past Family History Father Family Medical History: CVA/TIA, Deep Vein Thrombosis (DVT) Additional Family Medical History / Comment(s): DVT wrist Mother Family Medical History: Dementia Additional Family Medical History / Comment(s): dementia when she was 90 Sister(s) Family Medical History: Cancer Additional Family Medical History / Comment(s): 1) Breast CA passed at 58 years old. 2) passed when she was 59 years old with questinable CA Brother(s) Additional Family Medical History / Comment(s): passed when he was 60 years old due to heart issues Medications and Allergies Home Medications Medication Instructions Recorded Confirmed Type Ipratropium/Albuterol Sulfate 1 puff INHALATION RT-TID PRN 02/26/15 11/16/19 History [Combivent Respimat Inhaler] Albuterol Nebulized [Ventolin 2.5 mg INHALATION RT-Q8H PRN 09/07/19 11/16/19 History Nebulized] Aspirin 81 mg PO DAILY@0700 09/07/19 11/16/19 History Atorvastatin [Lipitor] 40 mg PO DAILY@189911/16/19 11/16/19 History Clopidogrel [Plavix] 75 mg PO DAILY@0700 11/16/19 11/16/19 History Lisinopril [Zestril] 10 mg PO DAILY@189911/16/19 11/16/19 History Metoprolol Tartrate [Lopressor] 25 mg PO BID@0700,189911/16/19 11/16/19 History Nitroglycerin Sl Tabs [Nitrostat] 0.4 mg SUBLINGUAL Q5M PRN 11/16/19 11/16/19 History Omeprazole [PriLOSEC] 40 mg PO SULMA-JENNIFERFST #14 capsule. 11/17/19 Rx Allergies Allergy/AdvReac Type Severity Reaction Status Date / Time orphenadrine Allergy Unknown Verified 11/16/19 17:51 pregabalin [From Lyrica] Allergy Unknown Verified 11/16/19 17:51 simvastatin Allergy Unknown Verified 11/16/19 17:51 cimetidine [From Tagamet] AdvReac Nausea & Verified 11/16/19 17:51 Vomiting & Diarrhea clonazepam [From Klonopin] AdvReac Hallucinati Verified 11/16/19 17:51 ons Sulfa (Sulfonamide AdvReac Nausea & Verified 11/16/19 17:51 Antibiotics) Vomiting Physical Exam Vitals: Vital Signs Temp Pulse Pulse Resp BP BP Pulse Ox 11/17/19 05:10 98.4 F 83 95 H 111/77 96 11/17/19 03:38 97.6 F 94 16 106/53 81 L 11/17/19 00:00 16 11/16/19 19:54 98.4 F 93 16 149/87 97 11/16/19 18:35 96.6 F L 96 14 139/72 97 11/16/19 17:41 97.9 F 90 18 133/88 97 11/16/19 16:58 97 11/16/19 16:55 92 18 144/79 97 11/16/19 15:07 98.2 F 87 18 159/78 97 Intake and Output 11/16/19 11/17/19 11/17/19 22:59 06:59 14:59 Intake Total 76.667 Balance 76.667 Intake: Intake, IV Titration 76.667 Amount Heparin Sod,Pork in 0.45% 76.667 NaCl 25,000 unit In 0.45 % NaCl 1 250ml.bag @ 10. 754 UNITS/KG/HR 10 mls/hr IV .Q24H [facility] Rx#: [id number] Other: Voiding Method Toilet Toilet # Voids 1 # Bowel Movements 3 Weight 92.986 kg 92.2 kg PHYSICAL EXAMINATION: GENERAL: The patient is alert and oriented x3, not in any acute distress. Well developed, well nourished. HEENT: Pupils are round and equally reacting to light. EOMI. No scleral icterus. No conjunctival pallor. Normocephalic, atraumatic. No pharyngeal erythema. No thyromegaly. CARDIOVASCULAR: S1 and S2 present. No murmurs, rubs, or gallops. PULMONARY: Chest is clear to auscultation, no wheezing or crackles. ABDOMEN: Soft, nontender, nondistended, normoactive bowel sounds. No palpable organomegaly. MUSCULOSKELETAL: No joint swelling or deformity. EXTREMITIES: No cyanosis, clubbing, or pedal edema. NEUROLOGICAL: Gross neurological examination did not reveal any focal deficits. SKIN: No rashes. Results CBC & Chem 7: 11/16/19 15:33 11/16/19 15:33 Labs: Abnormal Lab Results - Last 24 Hours (Table) 11/16/19 11/16/19 11/16/19 Range/Units 15:33 15:33 23:14 WBC 11.0 H (3.8-10.6) k/uL APTT 39.6 H (22.0-30.0) sec Chloride 108 H (98-107) mmol/L Glucose 128 H (74-99) mg/dL 11/17/19 Range/Units 07:56 WBC (3.8-10.6) k/uL APTT 80.6 H (22.0-30.0) sec Chloride (98-107) mmol/L Glucose (74-99) mg/dL Thrombosis Risk Factor Assmnt - Choose All That Apply Any of the Below Risk Factors Present?: Yes Each Factor Represents 1 point: Swollen legs (current) Other Risk Factors: Yes Each Risk Factor Represents 2 Points: Age 61-74 years Each Risk Factor Represents 3 Points: History of DVT/PE Other congenital or acquired thrombophilia - If yes, enter type in comment: No Thrombosis Risk Factor Assessment Total Risk Factor Score: 6 Thrombosis Risk Factor Assessment Level: High Risk Assessment and Plan Plan: -Chest pain ruled out acute coronary syndromes patient just pain is atypical, November valid by cardiology and probably will have a stress test if that's negative and if cleared by cardiology will be discharged later in the day. -History of coronary artery disease with stents in the past. -Look acidosis reactive without any evidence of infection. -History of DVT in the past not on anti-correlation at this time Hyperlipidemia -COPD without any acute exacerbation patient presently is is not a smoker -PTSD and anxiety disorder.
[2019-11-17 09:38] LABS: Cholesterol 130 mg/dL (<200); HDL Cholesterol 40 mg/dL (40-60); LDL Cholesterol,Calculated 67 mg/dL (0-99); Triglycerides 116 mg/dL (<150)
[2019-11-17 13:04] VITALS: BP 147/78; PULSE 78; RESP 20; TEMP 97.7
--- NOTE | 2019-11-17 15:45 | P.CRDCN ---
History of Present Illness Consult date: 11/17/19 History of present illness: This is a 69-year-old gentleman with history of ischemic heart disease with stent placement of the LAD in 2007, and stent placement of the OM branch of circumflex , August of this year. Patient is now admitted to the hospital with complaints of some anxiety and chest discomfort. The pain was in the middle of the chest and nonpleuritic in nature. Last only a few minutes. Has been stable since admission. Cardiac enzymes and EKGs are negative. At this point patient seemed to be clinically stable. He is already scheduled to have stress test as an outpatient. Patient is advised to keep the appointment for stress test and follow up with Dr. Rucker. 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 closed head injury, kidney stones Last Myocardial Infarction Date:: 2017 History of Any Multi-Drug Resistant Organisms: None Reported Past Surgical History: Back Surgery, Heart Catheterization With Stent, Hernia Repair Additional Past Surgical History / Comment(s): neck surg., double hernia repair, Left and right ESWL. first stent placed 2017 second stent placed 2019 Past Anesthesia/Blood Transfusion Reactions: No Reported Reaction Additional Past Anesthesia/Blood Transfusion Reaction / Comment(s): reports no issues waking from anesthesia Date of Last Stent Placement:: 2017 Past Psychological History: Anxiety, Panic Disorder, PTSD Additional Psychological History / Comment(s): frequent severe panic attacks, was in [place], PTSD Smoking Status: Former smoker Past Alcohol Use History: None Reported Additional Past Alcohol Use History / Comment(s): last drink 12-14 years ago, quit smoking years ago Past Drug Use History: Marijuana Additional Drug Use History / Comment(s): occassional medical marijuana use - Past Family History Father Family Medical History: CVA/TIA, Deep Vein Thrombosis (DVT) Additional Family Medical History / Comment(s): DVT wrist Mother Family Medical History: Dementia Additional Family Medical History / Comment(s): dementia when she was 90 Sister(s) Family Medical History: Cancer Additional Family Medical History / Comment(s): 1) Breast CA passed at 58 years old. 2) passed when she was 59 years old with questinable CA Brother(s) Additional Family Medical History / Comment(s): passed when he was 60 years old due to heart issues Medications and Allergies Home Medications Medication Instructions Recorded Confirmed Type Ipratropium/Albuterol Sulfate 1 puff INHALATION RT-TID PRN 02/26/15 11/16/19 History [Combivent Respimat Inhaler] Albuterol Nebulized [Ventolin 2.5 mg INHALATION RT-Q8H PRN 09/07/19 11/16/19 History Nebulized] Aspirin 81 mg PO DAILY@0709/07/19 11/16/19 History Atorvastatin [Lipitor] 40 mg PO DAILY@189911/16/19 11/16/19 History Clopidogrel [Plavix] 75 mg PO DAILY@0711/16/19 11/16/19 History Lisinopril [Zestril] 10 mg PO DAILY@189911/16/19 11/16/19 History Metoprolol Tartrate [Lopressor] 25 mg PO BID@0700,189911/16/19 11/16/19 History Nitroglycerin Sl Tabs [Nitrostat] 0.4 mg SUBLINGUAL Q5M PRN 11/16/19 11/16/19 History Omeprazole [PriLOSEC] 40 mg PO AC-BRKFST #14 capsule. 11/17/19 Rx Allergies Allergy/AdvReac Type Severity Reaction Status Date / Time orphenadrine Allergy Unknown Verified 11/16/19 17:51 pregabalin [From Lyrica] Allergy Unknown Verified 11/16/19 17:51 simvastatin Allergy Unknown Verified 11/16/19 17:51 cimetidine [From Tagamet] AdvReac Nausea & Verified 11/16/19 17:51 Vomiting & Diarrhea clonazepam [From Klonopin] AdvReac Hallucinati Verified 11/16/19 17:51 ons Sulfa (Sulfonamide AdvReac Nausea & Verified 11/16/19 17:51 Antibiotics) Vomiting Physical Exam Vitals: Vital Signs Temp Pulse Pulse Resp BP BP Pulse Ox 11/17/19 12:00 97.7 F 78 20 147/78 98 11/17/19 08:00 98.1 F 67 18 129/69 11/17/19 05:10 98.4 F 83 95 H 111/77 96 11/17/19 03:38 97.6 F 94 16 106/53 81 L 11/17/19 00:00 16 11/16/19 19:54 98.4 F 93 16 149/87 97 11/16/19 18:35 96.6 F L 96 14 139/72 97 11/16/19 17:41 97.9 F 90 18 133/88 97 11/16/19 16:58 97 11/16/19 16:55 92 18 144/79 97 Intake and Output 11/17/19 11/17/19 11/17/19 06:59 14:59 22:59 Intake Total 76.667 Balance 76.667 Intake: Intake, IV Titration 76.667 Amount Heparin Sod,Pork in 0.45% 76.667 NaCl 25,000 unit In 0.45 % NaCl 1 250ml.bag @ 10. 754 UNITS/KG/HR 10 mls/hr IV .Q24H [facility] Rx#: [id number] Other: Voiding Method Toilet Toilet # Voids 1 Weight 92.2 kg GENERAL EXAM: Patient is alert and oriented and doesn't appear to be in any acute distress HEENT: Normocephalic. Normal reaction of pupils, equal size, normal range of extraocular motion. No erythema or exudates in the throat. NECK: No masses, no nuchal rigidity. CHEST: No chest wall deformity. LUNGS: Equal air entry with no crackles or wheeze. HEART: S1 and S2 normal with no audible mumurs or gallops. Regular rhythm, fe morals equal on both sides.. ABDOMEN: No hepatosplenomegaly, normal bowel sounds, no guarding or rigidity. SKIN: No rashes CENTRAL NERVOUS SYSTEM: No focal deficits. EXTREMITIES: No cyanosis, clubbing or edema. Results 11/16/19 15:33 11/16/19 15:33 Cardiac Enzymes 11/16/19 11/16/19 11/16/19 Range/Units 15:33 15:33 21:51 AST 26 (17-59) U/L Troponin I <0.012 0.019 (0.000-0.034) ng/mL 11/17/19 Range/Units 03:46 AST (17-59) U/L Troponin I 0.023 (0.000-0.034) ng/mL Coagulation 11/16/19 11/16/19 11/17/19 Range/Units 15:33 23:14 07:56 PT 10.3 (9.0-12.0) sec APTT 23.6 39.6 H 80.6 H (22.0-30.0) sec Lipids 11/17/19 Range/Units 07:56 Triglycerides 116 (<150) mg/dL Cholesterol 130 (<200) mg/dL HDL Cholesterol 40 (40-60) mg/dL CBC 11/16/19 Range/Units 15:33 WBC 11.0 H (3.8-10.6) k/uL RBC 4.57 (4.30-5.90) m/uL Hgb 13.3 (13.0-17.5) gm/dL Hct 40.9 (39.0-53.0) % Plt Count 288 (150-450) k/uL Comprehensive Metabolic Panel 11/16/19 Range/Units 15:33 Sodium 138 (137-145) mmol/L Potassium 4.2 (3.5-5.1) mmol/L Chloride 108 H (98-107) mmol/L Carbon Dioxide 25 (22-30) mmol/L BUN 15 (9-20) mg/dL Creatinine 0.95 (0.66-1.25) mg/dL Glucose 128 H (74-99) mg/dL Calcium 9.5 (8.4-10.2) mg/dL AST 26 (17-59) U/L ALT 26 (4-49) U/L Alkaline Phosphatase 106 (38-126) U/L Total Protein 7.3 (6.3-8.2) g/dL Albumin 4.0 (3.5-5.0) g/dL Intake and Output 11/17/19 11/17/19 11/17/19 06:59 14:59 22:59 Intake Total 76.667 Balance 76.667 Intake: Intake, IV Titration 76.667 Amount Heparin Sod,Pork in 0.45% 76.667 NaCl 25,000 unit In 0.45 % NaCl 1 250ml.bag @ 10. 754 UNITS/KG/HR 10 mls/hr IV .Q24H [facility] Rx#: [id number] Other: Voiding Method Toilet Toilet # Voids 1 Weight 92.2 kg Patient Weight 11/18/19 06:59 Weight 92.2 kg 11/16/19 15:33 11/16/19 15:33 EKG Interpretations (text) Sinus rhythm without acute changes Assessment and Plan (1) History of coronary artery disease Status: Acute Code(s): Z86.79 - PERSONAL HISTORY OF OTHER DISEASES OF THE CIRCULATORY SYSTEM SNOMED Code(s): 474782391 (2) Acute anxiety Status: Acute Code(s): F41.9 - ANXIETY DISORDER, UNSPECIFIED SNOMED Code(s): 61256307 (3) Chest pain Status: Acute Code(s): R07.9 - CHEST PAIN, UNSPECIFIED SNOMED Code(s): 80117323 Plan: Patient has been stable. His cardiac enzymes are negative. EKG did not reveal any acute changes. Patient is being discharged home. He is scheduled to have a stress test and follow up with Dr. Rucker
[2019-11-17] MEDS ORDERED: LISINOPRIL 10 MG TAB PO SCH (19:00)
[2019-11-17] MEDS ORDERED: METOPROLOL TARTRATE 25 MG TAB PO SCH (19:00)
[2019-11-17] MEDS ORDERED: ATORVASTATIN 40 MG TAB PO SCH (19:00)
[2019-11-18] MEDS ORDERED: ASPIRIN 81 MG PO SCH (07:00)
[2019-11-18] MEDS ORDERED: CLOPIDOGREL 75 MG TAB PO SCH (07:00)
== END 2019-11-17 14:44 | disposition home or self-care (01) | DRG 313 ==
LOC: EC 15:02 → 1SOBS 16:58 → OBSVTOIN 16:58
PROVIDERS: ADMIT Internal Medicine; ATTEND Internal Medicine
DX: R07.89 Other chest pain (principal); E87.2 Acidosis; J44.9 Chronic obstructive pulmonary disease, unspecified; F06.4 Anxiety disorder due to known physiological condition; F41.0 Panic disorder [episodic paroxysmal anxiety]; F43.10 Post-traumatic stress disorder, unspecified; I10 Essential (primary) hypertension; E78.5 Hyperlipidemia, unspecified; I25.10 Atherosclerotic heart disease of native coronary artery without angina pectoris; Z79.899 Other long term (current) drug therapy; Z79.82 Long term (current) use of aspirin; Z79.02 Long term (current) use of antithrombotics/antiplatelets; Z11.59 Encounter for screening for other viral diseases; Z88.2 Allergy status to sulfonamides; Z88.8 Allergy status to other drugs, medicaments and biological substances; Z95.5 Presence of coronary angioplasty implant and graft; Z98.890 Other specified postprocedural states; Z86.718 Personal history of other venous thrombosis and embolism; Z86.711 Personal history of pulmonary embolism; Z80.3 Family history of malignant neoplasm of breast; Z87.442 Personal history of urinary calculi; Z87.891 Personal history of nicotine dependence; I25.2 Old myocardial infarction; Z82.3 Family history of stroke; Z82.49 Family history of ischemic heart disease and other diseases of the circulatory system; Z81.8 Family history of other mental and behavioral disorders
CPT/HCPCS: 36415; 71046; 80053; 80061; 83735; 84484; 85025; 85610; 85730; 93005; 96361; 96365; 96375; 96376; 99291

== ENCOUNTER 2020-08-05 16:46 | Emergency (ER) | payer MEDICAID, MEDICARE ==
[2020-08-05] MEDS ORDERED: KETOROLAC 15 MG/ML 1 ML VIAL IVP STA ×2 (17:44→23:16)
[2020-08-05 18:29] LABS: Albumin 4.6 g/dL (3.5-5.0); Calcium 9.5 mg/dL (8.4-10.2); Total Bilirubin 1.2 mg/dL (0.2-1.3)
[2020-08-05 18:38] LABS: Potassium 5.3 mmol/L (3.5-5.1)
[2020-08-05 19:05] LABS: Basophils # (A) 0.1 k/uL (0-0.2); Basophils % (A) 0 %; Eosinophils # (A) 0.2 k/uL (0-0.7); Eosinophils % (A) 1 %; HGB 14.1 gm/dL (13.0-17.5); Lymphocytes # (A) 1.5 k/uL (1.0-4.8); Lymphocytes % (A) 11 %; MCH 30.1 pg (25.0-35.0); MCHC 33.4 g/dL (31.0-37.0); MCV 90.1 fL (80.0-100.0); Mean Platelet Volume 6.3; Monocytes # (A) 0.7 k/uL (0-1.0); Monocytes % (A) 5 %; Neutrophils # (A) 11.6 k/uL (1.3-7.7); Neutrophils % (A) 82 %; Platelet Count 311 k/uL (150-450); RBC 4.67 m/uL (4.30-5.90); RDW 12.6 % (11.5-15.5); WBC 14.1 k/uL (3.8-10.6)
--- NOTE | 2020-08-05 19:08 | CT ---
EXAMINATION TYPE: CT abdomen pelvis wo con DATE OF EXAM: 08/05/2020 COMPARISON: Correlation made with CT scan of the abdomen and pelvis from 09/07/2019. HISTORY: Right flank pain. History of stones. CT DLP: 766.2 mGycm Automated exposure control for dose reduction was used. TECHNIQUE: Helical acquisition of images was performed from the lung bases through the pelvis. FINDINGS: LUNG BASES: 5 mm nodule is seen in the right middle lobe and is unchanged compared to prior examinati on. LIVER/GB: No significant abnormality is appreciated. PANCREAS: No significant abnormality is seen. SPLEEN: No significant abnormality is seen. ADRENALS: No significant abnormality is seen. KIDNEYS: There is moderate right-sided hydronephrosis with presence of a obstructive stone in the dis georgina right ureter measuring 7 mm. No additional stones are seen in the kidneys on either side. No hydr onephrosis on the left. No stones are seen in the bladder. Pyelonephritis is in the differential. FREE AIR: No free air is visualized RETROPERITONEAL ADENOPATHY: None visualized REPRODUCTIVE ORGANS: No significant abnormality is seen URINARY BLADDER: No significant abnormality is seen. PELVIC ADENOPATHY: None visualized. OSSEOUS STRUCTURES: No significant abnormality is seen. BOWEL: No significant abnormality is seen. OTHER: There is no abdominal aortic aneurysm. Mild accessory calcification seen involving the large a rteries of the abdomen. IMPRESSION: 5 mm nodule seen in the right middle lobe and unchanged compared to CT scan from 09/07/2019 . Follow-up CT scan of the chest in 1 year is recommended. 7 mm obstructive stone in the distal right ureter causing moderate right-sided hydronephrosis and pos sible pyelonephritis.
[2020-08-05] MEDS ORDERED: HYDROmorphone 0.5 MG/0.5 ML SYRINGE IVP STA ×2 (19:30→21:04)
--- NOTE | 2020-08-05 19:30 | ED ---
Abdominal Pain HPI - General Chief Complaint: Abdominal Pain Stated Complaint: possible kidney stones Time Seen by Provider: 08/05/20 17:37 Source: patient Mode of arrival: ambulatory Limitations: no limitations - History of Present Illness Initial Comments: 69-year-old male presenting today for chief complaint of right flank pain. Patient states he has history of kidney stones and states that about 1 hour prior to arrival he had sudden onset of pain he states he knew was a kidney stone I could not tolerate it he states induced nausea as well as vomiting. Patient states that the pain was so severe he came to the ER right away. He denies fevers, denies upper abdominal pain, dyspnea, he denies redness or stools he denies constipation or diarrhea. Remaining review of systems negative upon arrival patient appears uncomfortable - Related Data Home Medications Medication Instructions Recorded Confirmed Ipratropium/Albuterol Sulfate 1 puff INHALATION RT-QID PRN 02/26/15 08/05/20 [Combivent Respimat Inhaler] Albuterol Nebulized [Ventolin 2.5 mg INHALATION RT-Q8H PRN 09/07/19 08/05/20 Nebulized] Atorvastatin [Lipitor] 40 mg PO DAILY@1700 11/16/19 08/05/20 Clopidogrel [Plavix] 75 mg PO DAILY@0700 11/16/19 08/05/20 Metoprolol Tartrate [Lopressor] 25 mg PO BID@0700,1900 11/16/19 08/05/20 lisinopriL [Zestril] 10 mg PO DAILY@1900 11/16/19 08/05/20 Cholecalciferol [Vitamin D3 (25 25 mcg PO DAILY 08/05/20 08/05/20 Mcg = 1000 Iu)] Ibuprofen [Motrin Ib] 400 mg PO Q8H 08/05/20 08/05/20 Multivitamins, Thera [Multivitamin 1 tab PO DAILY 08/05/20 08/05/20 (formulary)] Previous Rx's Medication Instructions Recorded Cephalexin [Keflex] 500 mg PO Q6HR 7 Days #28 cap 08/05/20 Allergies Allergy/AdvReac Type Severity Reaction Status Date / Time orphenadrine Allergy Unknown Verified 08/05/20 23:20 pregabalin [From Lyrica] Allergy Unknown Verified 03/08/21 23:20 simvastatin Allergy Unknown Verified 08/05/20 23:20 cimetidine [From Tagamet] AdvReac Nausea & Verified 08/05/20 23:20 Vomiting & Diarrhea clonazepam [From Klonopin] AdvReac Hallucinati Verified 08/05/20 23:20 ons Sulfa (Sulfonamide AdvReac Nausea & Verified 08/05/20 23:20 Antibiotics) Vomiting Review of Systems ROS Statement: Those systems with pertinent positive or pertinent negative responses have been documented in the HPI. ROS Other: All systems not noted in ROS Statement are negative. 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 closed head injury, kidney stones Last Myocardial Infarction Date:: 2017 History of Any Multi-Drug Resistant Organisms: None Reported Past Surgical History: Back Surgery, Heart Catheterization With Stent, Hernia Repair Additional Past Surgical History / Comment(s): neck surg., double hernia repair, Left and right ESWL. first stent placed 2017 second stent placed 2019 Past Anesthesia/Blood Transfusion Reactions: No Reported Reaction Additional Past Anesthesia/Blood Transfusion Reaction / Comment(s): reports no issues waking from anesthesia Date of Last Stent Placement:: 2017 Past Psychological History: Anxiety, Panic Disorder, PTSD Smoking Status: Never smoker Past Alcohol Use History: Occasional Past Drug Use History: Marijuana - Past Family History Father Family Medical History: CVA/TIA, Deep Vein Thrombosis (DVT) Additional Family Medical History / Comment(s): DVT wrist Mother Family Medical History: Dementia Additional Family Medical History / Comment(s): dementia when she was 90 Sister(s) Family Medical History: Cancer Additional Family Medical History / Comment(s): 1) Breast CA passed at 58 years old. 2) passed when she was 59 years old with questinable CA Brother(s) Additional Family Medical History / Comment(s): passed when he was 60 years old due to heart issues General Exam - General Exam Comments Initial Comments: General: The patient is awake and alert, in no distress, appear uncomfortable butjoking around and in good spirits. Eye: Pupils are equal, round and reactive to light, extra-ocular movements are intact. No nystagmus. There is normal conjunctiva bilaterally. No signs of icterus. Cardiovascular: There is a regular rate and rhythm. No murmur, rub or gallop is appreciated. Respiratory: Lungs are clear to auscultation, respirations are non-labored, breath sounds are equal. No wheezes, stridor, rales, or rhonchi. Gastrointestinal: Soft, non-distended, non-tender abdomen without masses or organomegaly noted. There is no rebound or guarding present. No CVA tenderness. Musculoskeletal: Normal ROM, no tenderness. Strength 5/5. Sensation intact. Radial and DP pulses equal bilaterally 2+. Neurological: A&O x 3. CN II-XII intact, There are no obvious motor or sensory deficits. Coordination appears grossly intact. Speech is normal. Skin: Skin is warm and dry and no rashes or lesions are noted. Psychiatric: Cooperative, appropriate mood & affect, normal judgment. Limitations: no limitations Course Vital Signs 08/05/20 08/05/20 16:47 23:33 Temperature 98.1 F 97.9 F Pulse Rate 83 78 Respiratory 18 16 Rate Blood Pressure 162/80 156/78 O2 Sat by Pulse 97 98 Oximetry Medical Decision Making - Medical Decision Making Mild leukocytosis felt to most likely reactive secondary to pain. Patient bridger es any fevers chills, malaise or constitutional symptoms symptoms began today. Patient has strong history of kidney stones. Patient throughout visit felt stone go into penis there was time where patient was retaingin and unable to urinate. Patient passed stone, urine grossly blood. patient states he has a slight ache in his back but feeling better. patient will be placed on abx and is to f/u with urology he is to return for fevers. Patient is agreeable to this car eplan and discharge-- as is attending Itz her who evaluated the patient. patient was passing urine at time of dc (large amount in bathroom after stone passed). - Lab Data Result diagrams: 08/05/20 18:57 08/05/20 18:04 Lab Results 08/05/20 08/05/20 Range/Units 18:04 18:57 WBC 14.1 H (3.8-10.6) k/uL RBC 4.67 (4.30-5.90) m/uL Hgb 14.1 (13.0-17.5) gm/dL Hct 42.0 (39.0-53.0) % MCV 90.1 (80.0-100.0) fL MCH 30.1 (25.0-35.0) pg MCHC 33.4 (31.0-37.0) g/dL RDW 12.6 (11.5-15.5) % Plt Count 311 (150-450) k/uL MPV 6.3 Neutrophils % 82 % Lymphocytes % 11 % Monocytes % 5 % Eosinophils % 1 % Basophils % 0 % Neutrophils # 11.6 H (1.3-7.7) k/uL Lymphocytes # 1.5 (1.0-4.8) k/uL Monocytes # 0.7 (0-1.0) k/uL Eosinophils # 0.2 (0-0.7) k/uL Basophils # 0.1 (0-0.2) k/uL Sodium 136 L (137-145) mmol/L Potassium 5.3 H (3.5-5.1) mmol/L Chloride 108 H (98-107) mmol/L Carbon Dioxide 20 L (22-30) mmol/L Anion Gap 8 mmol/L BUN 16 (9-20) mg/dL Creatinine 1.04 (0.66-1.25) mg/dL Est GFR (CKD-EPI)AfAm 85 (>60 ml/min/1.73 sqM) Est GFR (CKD-EPI)NonAf 73 (>60 ml/min/1.73 sqM) Glucose 117 H (74-99) mg/dL Calcium 9.5 (8.4-10.2) mg/dL Total Bilirubin 1.2 (0.2-1.3) mg/dL AST 51 (17-59) U/L ALT 54 H (4-49) U/L Alkaline Phosphatase 98 (38-126) U/L Total Protein 8.0 (6.3-8.2) g/dL Albumin 4.6 (3.5-5.0) g/dL Amylase 57 (30-110) U/L Lipase 116 (23-300) U/L Disposition Clinical Impression: Lung nodule, Urolithiasis Disposition: HOME SELF-CARE Condition: Good Instructions (If sedation given, give patient instructions): Kidney Stones (ED) Additional Instructions: Please use medication as discussed. Please follow-up with family doctor in the next 2 days. Follow-up with urology in next 1-2 days. return for urinary retention as discussed. Please return to emergency room if the symptoms increase or worsen or for any other concerns. Prescriptions: Cephalexin [Keflex] 500 mg PO Q6HR 7 Days #28 cap Is patient prescribed a controlled substance at d/c from ED?: No Referrals: Shakila Langston MD [Primary Care Provider] - 1-2 days Keon Velarde MD [STAFF PHYSICIAN] - 1-2 days Time of Disposition: 23:16
[2020-08-05] MEDS ORDERED: SODIUM CHLORIDE 0.9% 1,000 ML IV ONE (20:16)
[2020-08-05] MEDS ORDERED: SODIUM CHLORIDE 0.9% 1,000 ML IV SCH (20:30)
[2020-08-05] MEDS ORDERED: ACET/COD 300 MG/30 MG STARTER PACK 6 TAB BTL PO STA (23:16)
[2020-08-05] MEDS ORDERED: cefTRIAXone IN SWFI 1,000 MG/10 ML SYRINGE IVP STA (23:21)
[2020-08-05 23:43] VITALS: BP 156/78; PULSE 78; RESP 16; TEMP 97.9
== END 2020-08-05 23:33 | disposition home or self-care (01) ==
LOC: EC 16:46
DX: N20.9 Urinary calculus, unspecified (principal); R91.1 Solitary pulmonary nodule; E78.5 Hyperlipidemia, unspecified; I10 Essential (primary) hypertension; F41.9 Anxiety disorder, unspecified; I25.2 Old myocardial infarction; J44.9 Chronic obstructive pulmonary disease, unspecified; Z79.1 Long term (current) use of non-steroidal anti-inflammatories (NSAID); Z79.02 Long term (current) use of antithrombotics/antiplatelets; Z86.718 Personal history of other venous thrombosis and embolism
CPT/HCPCS: 36415; 80053; 82150; 83690; 85025; 74176; 99284; 96374; 96375; 96376; 96361; J0696; J1885; J1170

== ENCOUNTER → 2020-08-23 | Outpatient (CLI) | payer MEDICAID, MEDICARE ==
[2020-08-23 12:56] LABS: Appearance,Urine Clear (Clear); Bilirubin,Urine Negative (Negative); Blood,Urine Trace (Negative); Color,Urine Yellow; Glucose,Urine (UA) Negative (Negative); Ketones,Urine Negative (Negative); Leukocyte Esterase,Urine Small (Negative); Mucus,Urine Few /hpf; Nitrite,Urine Negative (Negative); PH, Urine 5.5 (5.0-8.0); Protein,Urine Trace (Negative); RBC,Urine 5 /hpf (0-5); Specific Gravity,Urine 1.023 (1.001-1.035); Squamous Epithelial Cell,Urine <1 /hpf (0-4); Urobilinogen,Urine <2.0 mg/dL (<2.0); WBC,Urine 23 /hpf (0-5)
== END | disposition home or self-care (01) ==
LOC: LABPAT 11:28
PROVIDERS: ATTEND Urology
DX: Z01.818 Encounter for other preprocedural examination (principal); N20.1 Calculus of ureter; R31.29 Other microscopic hematuria
CPT/HCPCS: 81001; 87086

== ENCOUNTER 2020-08-30 07:28 | Day surgery (SDC) | payer MEDICAID, MEDICARE ==
[2020-08-26 16:02] VITALS: BMI 28.4
--- NOTE | 2020-08-29 11:30 | P.HPIHPCON ---
History of Present Illness H&P Date: 08/30/20 Chief Complaint: Right sided ureteral stone This is a 70-year-old male with history of a 7 x 16 mm stone, along the distal ureter. Discussed with him given the size of the stone spontaneous passage is unlikely. Discussed with him surgical options which include ureteroscopy, and ESWL. He agreed to proceed with right-sided ureteroscopy, discussed the risk which includes but not limited to bleeding, infection, injury to the ureter. Discussed also risk from anesthesia with him. Discussed with him if the stone is impacted, that we might only be able to proceed with stent placement. He understood all the risk and agreed to proceed with right-sided ureteroscopy, with holmium laser lithotripsy, stone basketing and stent placement Consent for Procedure: I have explained the operation/procedure to the patient, including the risks, benefits, side effects, alternative therapies (including not receiving the proposed treatment or service), the likelihood of the patient achieving his/her goals, and potential recuperation problems for the procedure/sedation/analgesia, as well as any blood products, if indicated. I also explained to the patient the risks, benefits and side effects of the alternatives, as well as the risks related to not receiving the proposed procedure, care, treatment, or services. Past Medical History Past Medical History: Chest Pain / Angina, COPD, Deep Vein Thrombosis (DVT), GERD/Reflux, Hyperlipidemia, Hypertension, Myocardial Infarction (MT), Pulmonary Embolus (PE) Additional Past Medical History / Comment(s): left knee DVT; fell & crushed C5- C7 (1994) hx. closed head injury, kidney stones, stomach ulcer x3., Numbness in feet, dry right eye., vertigo. Last Myocardial Infarction Date:: 2017 History of Any Multi-Drug Resistant Organisms: None Reported Past Surgical History: Back Surgery, Heart Catheterization With Stent, Hernia Repair Additional Past Surgical History / Comment(s): neck surg., double hernia repair, Left and right ESWL. first stent placed 2017 second stent placed 2019. Past Anesthesia/Blood Transfusion Reactions: No Reported Reaction Additional Past Anesthesia/Blood Transfusion Reaction / Comment(s): vertigo Date of Last Stent Placement:: august 2019 Past Psychological History: Anxiety, Panic Disorder, PTSD Additional Psychological History / Comment(s): frequent severe panic attacks, was in [place] Smoking Status: Former smoker, Never smoker Past Alcohol Use History: Occasional Additional Past Alcohol Use History / Comment(s): quit smoking at 55 yrs old, started age 12. 3-4 beers /month Past Drug Use History: Marijuana Additional Drug Use History / Comment(s): occassional medical marijuana use - Past Family History Father Family Medical History: CVA/TIA, Deep Vein Thrombosis (DVT) Additional Family Medical History / Comment(s): DVT wrist Mother Family Medical History: Dementia Additional Family Medical History / Comment(s): dementia when she was 90 Sister(s) Family Medical History: Cancer Additional Family Medical History / Comment(s): 1) Breast CA passed at 58 years old. 2) passed when she was 59 years old with questinable CA Brother(s) Additional Family Medical History / Comment(s): passed when he was 60 years old due to heart issues Medications and Allergies Home Medications Medication Instructions Recorded Confirmed Type Ipratropium/Albuterol Sulfate 1 puff INHALATION RT-QID PRN 02/26/15 08/26/20 History [Combivent Respimat Inhaler] Albuterol Nebulized [Ventolin 2.5 mg INHALATION RT-Q8H PRN 09/07/19 08/26/20 History Nebulized] Atorvastatin [Lipitor] 40 mg PO HS 11/16/19 08/26/20 History Metoprolol Tartrate [Lopressor] 25 mg PO BID@0700,1900 11/16/19 08/26/20 History lisinopriL [Zestril] 10 mg PO DAILY@1900 11/16/19 08/26/20 History Cholecalciferol [Vitamin D3 (25 5,000 units PO DAILY 08/05/20 08/26/20 History Mcg = 1000 Iu)] Ibuprofen [Motrin Ib] 400 mg PO Q8H 08/05/20 08/26/20 History Multivitamins, Thera [Multivitamin 1 tab PO DAILY 08/05/20 08/26/20 History (formulary)] Aspirin [Adult Low Dose Aspirin EC] 81 mg PO DAILY 08/26/20 08/26/20 History Clopidogrel [Plavix] 75 mg PO DAILY@1900 08/26/20 08/26/20 History Omeprazole 20 mg PO DAILY PRN 08/26/20 08/26/20 History Allergies Allergy/AdvReac Type Severity Reaction Status Date / Time orphenadrine Allergy Anaphylaxis Verified 08/26/20 15:14 pregabalin [From Lyrica] Allergy Unknown Verified 08/26/20 15:14 simvastatin Allergy Unknown Verified 08/26/20 15:14 cimetidine [From Tagamet] AdvReac Nausea & Verified 08/26/20 15:14 Vomiting & Diarrhea clonazepam [From Klonopin] AdvReac Hallucinati Verified 08/26/20 15:14 ons Sulfa (Sulfonamide AdvReac Nausea & Verified 08/26/20 15:14 Antibiotics) Vomiting Surgical - Exam - General well developed, well nourished, no distress, moderate pain - Eyes PERRL, normal ocular movement - ENT normal nares, normal mucosa - Respiratory normal expansion, normal respiratory effort - Abdomen Abdomen: soft, non tender - Psychiatric oriented to time, oriented to person, oriented to place Assessment and Plan Assessment: 70-year-old male with history of right distal stone -OR for right-sided ureteroscopy, with holmium laser lithotripsy, stone basketing and stent placement
[~2020-08-30 07:28] MED LIST changes: +HYDROmorphone 0.5 MG/0.5 ML SYRINGE IVP PRN; +ONDANSETRON 4 MG/2 ML VIAL IVP ONE; -Pre Op ABX Message 1 EACH MISC MISCELLANE ONE; +fentaNYL (PF) 50 MCG/ML 2 ML AMP IV PRN
--- NOTE | 2020-08-30 07:49 | XR ---
EXAMINATION TYPE: XR KUB DATE OF EXAM: 08/30/2020 Comparison: None Clinical History: 70-year-old male lithotripsy scheduled with Dr. Johnson on 08/30/20 Findings: The patient's elongated 1.7 x 0.4 cm calcification is located more inferiorly now probably in the reg ion of the UVJ. Left-sided pelvic phleboliths are stable. Nonobstructive bowel gas pattern. Minimal s cattered stool. Lung bases are clear. Supine imaging limited for assessment of free air. Impression: The patient's elongated 1.7 x 0.4 cm right ureteral calcification is located more inferiorly now, pro bably in the region of the UVJ.
[2020-08-30 08:24] VITALS: TEMP 97.6
[2020-08-30] MEDS ORDERED: MIDAZOLAM 2 MG/2 ML VIAL ONE (09:28)
[2020-08-30] MEDS ORDERED: fentaNYL (PF) 50 MCG/ML 2 ML AMP ONE (09:28)
[2020-08-30] MEDS ORDERED: PROPOFOL 10 MG/ML 20 ML VIAL IV ONE (09:28)
[2020-08-30] MEDS ORDERED: HYDROmorphone (PF) 1 MG/ML ONE (09:28)
[2020-08-30] MEDS ORDERED: LIDOCAINE 1% INJ 10MG/ML (20 ML MDV) ONE (09:28)
[2020-08-30] MEDS ORDERED: IOPAMIDOL-370 50ML BTL MISCELLANE ONE (10:57)
[2020-08-30] MEDS ORDERED: LACTATED RINGERS 1,000 ML IV ONE (11:05)
--- NOTE | 2020-08-30 11:36 | P.OP ---
Date of Procedure: 08/30/20 Preoperative Diagnosis: Right ureteral stone Postoperative Diagnosis: Same Procedure(s) Performed: Cystoscopy, right retrograde pyelogram, ureteroscopy, holmium laser lithotripsy, stone basketing and stent placement Implants: 6-Cypriot by 26 cm stent Anesthesia: ALISON Surgeon: Luc Johnson Estimated Blood Loss (ml): 5 Pathology: other (Right ureteral stone) Condition: stable Disposition: PACU Indications for Procedure: This is a 70-year-old male with history of a 7 x 16 mm stone, along the distal ureter. Discussed with him given the size of the stone spontaneous passage is unlikely. Discussed with him surgical options which include ureteroscopy, and ESWL. He agreed to proceed with right-sided ureteroscopy, discussed the risk which includes but not limited to bleeding, infection, injury to the ureter. Discussed also risk from anesthesia with him. Discussed with him if the stone is impacted, that we might only be able to proceed with stent placement. He understood all the risk and agreed to proceed with right-sided ureteroscopy, with holmium laser lithotripsy, stone basketing and stent placement Operative Findings: Multiple large stone impacted within the distal ureter right at the UVJ, significant ureteral edema surrounding the stones Description of Procedure: Patient was brought to the operating room, general anesthesia was induced. He was prepped and draped in sterile fashion and placed in a dorsal lithotomy position. A cystoscopy fitted with a 21-Cypriot sheath was inserted per urethra, cystoscopy was performed which showed no abnormality within the bladder, of note there was significant ureteral edema. At this time the scope was withdrawn and a semirigid ureteroscope was inserted. A sensor wire was advanced through the ureteroscope up the right ureteral orifice. Next the ureteroscope was advanced to UVJ and the stones were encountered, of note there was significant ureteral edema surrounding the stones. Using the holmium laser the stones were fragmented cautiously avoiding any laser injuries to the ureter. Once the stones were fragmented, fragments were removed using the stone basket. At this time the ureteroscope was advanced past the distal ureter up into the mid ureter, there was no evidence of any fragments or any ureteral injury. Retrograde pyelogram was performed through the ureteroscope which showed no filling defect along the course of the ureter. pPullback ureteroscopy showed no injury to the ureter, but there was significant ureteral edema surrounding the site of stone impaction. At this time the ureteroscope was withdrawn and the cystoscope was inserted. A ureteral stent was passed over the wire, the proximal curl was visualized on fluoroscopy and the distal curl was visualized using cystoscope. The bladder was emptied at the end of the case. The stone fragments were sent for analysis. The patient tolerated the procedure well and taken to PACU in stable condition
[2020-08-30] MEDS ORDERED: ONDANSETRON 4 MG/2 ML VIAL IVP ONE (12:00)
[2020-08-30] MEDS ORDERED: diphenhydrAMINE 50 MG/ML 1 ML VIAL IVP ONE (12:14)
[2020-08-30 12:53] VITALS: RESP 16
[2020-08-30 13:25] VITALS: PULSE 89
--- NOTE | 2020-08-30 13:31 | FL ---
EXAMINATION TYPE: FL urography retrograde DATE OF EXAM: 08/30/2020 FLUOROSCOPY Fluoroscopy time of 31 seconds was used during right renal stone intervention with stent placement. 3 image/s document/s the procedure.
[2020-08-30 13:43] VITALS: BP 149/67
== END 2020-08-30 14:24 | disposition home or self-care (01) ==
LOC: OR 07:28
PROVIDERS: ATTEND Urology
DX: N20.1 Calculus of ureter (principal); J44.9 Chronic obstructive pulmonary disease, unspecified; K21.9 Gastro-esophageal reflux disease without esophagitis; E78.5 Hyperlipidemia, unspecified; I10 Essential (primary) hypertension; I25.2 Old myocardial infarction; F41.9 Anxiety disorder, unspecified; F41.0 Panic disorder [episodic paroxysmal anxiety]; F43.10 Post-traumatic stress disorder, unspecified; K08.409 Partial loss of teeth, unspecified cause, unspecified class; I25.10 Atherosclerotic heart disease of native coronary artery without angina pectoris; Z88.8 Allergy status to other drugs, medicaments and biological substances; Z88.2 Allergy status to sulfonamides; Z86.718 Personal history of other venous thrombosis and embolism; Z86.711 Personal history of pulmonary embolism; Z87.81 Personal history of (healed) traumatic fracture; Z91.81 History of falling; Z87.820 Personal history of traumatic brain injury; Z87.442 Personal history of urinary calculi; Z87.11 Personal history of peptic ulcer disease; Z86.69 Personal history of other diseases of the nervous system and sense organs; Z98.890 Other specified postprocedural states; Z95.5 Presence of coronary angioplasty implant and graft; Z87.891 Personal history of nicotine dependence; Z79.899 Other long term (current) drug therapy; Z79.1 Long term (current) use of non-steroidal anti-inflammatories (NSAID); Z79.82 Long term (current) use of aspirin; Z79.02 Long term (current) use of antithrombotics/antiplatelets; Z82.3 Family history of stroke; Z82.49 Family history of ischemic heart disease and other diseases of the circulatory system; Z81.8 Family history of other mental and behavioral disorders; Z80.3 Family history of malignant neoplasm of breast
CPT/HCPCS: 84132; 82365; 74420; 74018; 52356; C2625; C1769; J2250; J1200; J0690; J2405; J2001; J3010; J1170 ×2; J2704; Q9967

== ENCOUNTER → 2020-09-24 | Outpatient (CLI) | payer MEDICAID, MEDICARE ==
--- NOTE | 2020-09-24 10:10 | US ---
EXAMINATION TYPE: US kidneys/renal and bladder DATE OF EXAM: 09/24/2020 COMPARISON: CT August 05, 2020 and abdominal x-ray August 30, 2020 CLINICAL HISTORY: N20.1 Calculus-ureter. h/o renal stones, patient states he is urinating sand EXAM MEASUREMENTS: Right Kidney: 11.3 x 4.3 x 5.2 cm Left Kidney: 9.8 x 3.3 x 5.6 cm Right Kidney: No hydronephrosis or masses seen Left Kidney: 0.9cm superior pole echogenic foci may be stone versus vessel abernathy Bladder: not fully distended Interval resolution of right-sided hydronephrosis from most recent CT. Bladder poorly distended. Bila teral distal ureter jets not seen. Left kidney shows hyperechoic 5 mm focus correlating with nonobstr ucting calculus upper to mid pole level. No hydronephrosis seen currently. IMPRESSION: Suspect interval successful treatment of distal right ureter obstructing calculus. No hyd ronephrosis seen bilaterally on current study. Suboptimal evaluation of bladder without obvious intra luminal calculi or calculi fragments on images saved.
== END | disposition home or self-care (01) ==
LOC: RADUSWWP 08:15
PROVIDERS: ATTEND Urology
DX: N20.1 Calculus of ureter (principal)
CPT/HCPCS: 76770

== ENCOUNTER → 2020-11-15 | Outpatient (CLI) | payer MEDICAID, MEDICARE ==
--- NOTE | 2020-11-15 15:18 | XR ---
EXAMINATION TYPE: XR foot complete LT DATE OF EXAM: 11/15/2020 CLINICAL HISTORY: Left foot pain TECHNIQUE: Frontal, lateral, and oblique images of the left foot are obtained. COMPARISON: None FINDINGS: There is no acute fracture/dislocation evident in the left foot. There are degenerative ch anges of the left first MTP. Calcaneal spur is noted. Degenerative changes are seen in the mid foot. IMPRESSION: Degenerative changes of the midfoot and first MTP with calcaneal spur.
--- NOTE | 2020-11-15 15:20 | XR ---
EXAMINATION TYPE: XR foot complete RT DATE OF EXAM: 11/15/2020 CLINICAL HISTORY: Right foot pain TECHNIQUE: Frontal, lateral, and oblique images of the right foot are obtained. COMPARISON: None FINDINGS: There is no acute fracture/dislocation evident in the right foot. There are degenerative c hanges noted at the first metatarsal-phalangeal joint with mild hallux valgus. Degenerative changes a re also seen in the mid foot with calcaneal spur. IMPRESSION: Degenerative changes of the midfoot and first MTP with hallux valgus and calcaneal spur.
[2020-11-15 18:30] LABS: Basophils # (A) 0.07 X 10*3/uL (0.00-0.10); Basophils % (A) 0.7 %; Eosinophils # (A) 0.15 X 10*3/uL (0.04-0.35); Eosinophils % (A) 1.4 %; HCT 41.5 % (39.6-50.0); HGB 13.8 g/dL (13.0-17.0); Lymphocytes # (A) 2.92 X 10*3/uL (0.90-5.00); Lymphocytes % (A) 27.7 %; MCH 30.2 pg (27.0-32.0); MCHC 33.3 g/dL (32.0-37.0); MCV 90.8 fL (80.0-97.0); Mean Platelet Volume 8.7 fL (9.5-12.2); Monocytes # (A) 0.86 X 10*3/uL (0.20-1.00); Monocytes % (A) 8.2 %; Neutrophils # (A) 6.52 X 10*3/uL (1.80-7.70); Neutrophils % (A) 61.7 %; Platelet Count 369 X 10*3/uL (140-440); RBC 4.57 X 10*6/uL (4.40-5.60); RDW 12.2 % (11.5-14.5); WBC 10.55 X 10*3/uL (4.50-10.00)
[2020-11-15 20:31] LABS: Hemoglobin A1C 5.4 % (4.0-6.0)
[2020-11-16 00:10] LABS: African American GFR (CKD) 78.4 (60.0-200.0); Albumin 4.3 g/dL (3.80-4.90); Albumin/Globulin Ratio 1.72 (1.60-3.17); Anion Gap 5.5 mmol/L (4.00-12.00); BUN/Creat Ratio 10.91 Ratio (12.00-20.00); Calcium 9.2 mg/dL (8.7-10.3); Carbon Dioxide 25.5 mmol/L (21.6-31.8); Globulin 2.5 g/dL (1.6-3.3); Non-African American GFR(CKD) 67.7 (60.0-200.0); Potassium 4.3 mmol/L (3.5-5.5); Total Bilirubin 0.5 mg/dL (0.3-1.2); Total Protein 6.8 g/dL (6.2-8.2)
== END | disposition home or self-care (01) ==
LOC: LABWHC1 11:52
PROVIDERS: ATTEND Nurse Practitioner Family
DX: R22.1 Localized swelling, mass and lump, neck (principal); I10 Essential (primary) hypertension; E78.5 Hyperlipidemia, unspecified; M77.31 Calcaneal spur, right foot; M77.32 Calcaneal spur, left foot; M19.071 Primary osteoarthritis, right ankle and foot; M19.072 Primary osteoarthritis, left ankle and foot
CPT/HCPCS: 36415; 80053; 83036; 84439; 84443; 85025

== ENCOUNTER → 2020-11-21 | Outpatient (CLI) | payer MEDICAID, MEDICARE ==
--- NOTE | 2020-11-21 07:46 | US ---
EXAMINATION TYPE: US thyroid st tissue head/neck DATE OF EXAM: 11/21/2020 COMPARISON: NONE CLINICAL HISTORY: R22.1 lump on neck. Palpable lump on back of neck x 25 years Back of neck slightly left of midline: 3.5 x 1.0 x 3.6cm hypoechoic area seen IMPRESSION: There is an ovoid hypoechoic area within the neck at the site of palpable abnormality which is indete rminant on this examination. It may represent an enlarged lymph node but it is nonspecific on ultraso und. CT neck with contrast may be performed for further evaluation if clinically warranted.
== END | disposition home or self-care (01) ==
LOC: RADUSWWP 07:12
PROVIDERS: ATTEND Family Medicine
DX: R22.1 Localized swelling, mass and lump, neck (principal)
CPT/HCPCS: 76536

== ENCOUNTER → 2021-06-17 | Outpatient (CLI) | payer MEDICAID, MEDICARE ==
[2021-06-17 08:11] LABS: HCT 41.6 % (39.0-53.0); HGB 13.6 gm/dL (13.0-17.5); MCH 30.6 pg (25.0-35.0); MCHC 32.6 g/dL (31.0-37.0); MCV 93.8 fL (80.0-100.0); Mean Platelet Volume 6.5; Platelet Count 370 k/uL (150-450); RBC 4.43 m/uL (4.30-5.90); RDW 12.9 % (11.5-15.5); WBC 11.6 k/uL (3.8-10.6)
[2021-06-17 08:13] LABS: Potassium 4.8 mmol/L (3.5-5.1)
== END | disposition home or self-care (01) ==
LOC: LABPAT 06:55
PROVIDERS: ATTEND Internal Medicine Interventional Cardiology
DX: Z01.812 Encounter for preprocedural laboratory examination (principal); I70.213 Atherosclerosis of native arteries of extremities with intermittent claudication, bilateral legs
CPT/HCPCS: 36415; 80051; 82565; 84520; 85027

== ENCOUNTER 2021-06-19 08:14 | Day surgery (SDC) | payer MEDICAID, MEDICARE ==
[2021-06-16 16:06] VITALS: BMI 28.4
[~2021-06-19 08:14] MED LIST changes: +ASPIRIN 325 MG TAB PO PRN; -HYDROmorphone 0.5 MG/0.5 ML SYRINGE IVP PRN; -LACTATED RINGERS 1,000 ML IV SCH; -ONDANSETRON 4 MG/2 ML VIAL IVP ONE; +SODIUM CHLORIDE 0.9% 1,000 ML in EMPTY BAG 1 BAG IV ONE; -fentaNYL (PF) 50 MCG/ML 2 ML AMP IV PRN
[2021-06-19 08:55] VITALS: TEMP 98.4
[2021-06-19 09:12] LABS: Basophils # (A) 0.1 k/uL (0-0.2); Basophils % (A) 1 %; Eosinophils # (A) 0.3 k/uL (0-0.7); Eosinophils % (A) 2 %; HCT 41.6 % (39.0-53.0); HGB 13.8 gm/dL (13.0-17.5); Lymphocytes # (A) 2.4 k/uL (1.0-4.8); Lymphocytes % (A) 21 %; MCH 30.7 pg (25.0-35.0); MCHC 33.2 g/dL (31.0-37.0); MCV 92.5 fL (80.0-100.0); Mean Platelet Volume 6.3; Monocytes # (A) 0.6 k/uL (0-1.0); Monocytes % (A) 5 %; Neutrophils # (A) 7.8 k/uL (1.3-7.7); Neutrophils % (A) 68 %; Platelet Count 337 k/uL (150-450); WBC 11.5 k/uL (3.8-10.6)
[2021-06-19] MEDS ORDERED: LIDOCAINE 1% INJ 10MG/ML (20 ML MDV) ONE (09:15)
[2021-06-19] MEDS ORDERED: fentaNYL (PF) 50 MCG/ML 2 ML AMP IV ONE (09:22)
[2021-06-19] MEDS ORDERED: fentaNYL (PF) 50 MCG/ML 2 ML AMP ONE (09:24)
[2021-06-19] MEDS ORDERED: LIDOCAINE 1% INJ 10MG/ML (20 ML MDV) SQ ONE ×2 (09:27)
[2021-06-19] MEDS ORDERED: IOPAMIDOL-250 100ML BTL INTRAARTER ONE (09:36)
[2021-06-19] MEDS ORDERED: NALOXONE 0.4 MG/ML 1 ML VIAL IVP PRN (09:43)
[2021-06-19] MEDS ORDERED: SODIUM CHLORIDE 0.9% 1,000 ML in EMPTY BAG 1 BAG IV SCH (09:45)
--- NOTE | 2021-06-19 09:48 | P.PCN ---
Date of Procedure: 06/19/21 Operative Findings: AN ABDOMINAL AORTOGRAM AND BILATERAL LOWER EXTREMITIES RUNOFF PERFORMING PHYSICIAN: Wicho العراقي MD PROCEDURE PERFORMED: 1. An abdominal aortogram 2. Bilateral lower extremities runoff INDICATION: Left leg intermittent claudication in this 70-year-old gentleman who is known to have multiple risk factors COMPLICATION: None LEVEL OF SEDATION: Moderate was sedation length of moderate with a sedation length of 12 minutes APPROACH: Right common femoral artery PROCEDURE DESCRIPTION: After obtaining informed consent and explaining the procedure benefits, risks, and complications, the patient was brought to the cardiac labor relations analyst. The right groin was prepped and draped in sterile fashion. The right common femoral artery was cannulated using micropuncture technique, under ultrasound guidance. A micropuncture wire was advanced, and the micropuncture sheath was advanced over the wire, then the micropuncture sheath was exchanged over an 0.35 wire into a 5-Surinamese sheath dilator assembly then the wire and dilator were removed and sheath was flushed. We did an abdominal aortogram and bilateral lower extremities runoff using 5- Surinamese pigtail catheter using a power injection. The catheter was initially placed at the level of the renal arteries, and it was pulled into above the bifurcation of the aorta into right and left common iliac arteries. The procedure was completed and there was no complications. SELECTIVE PERIPHERAL ANGIOGRAM: The abdominal aorta: Calcified was mild disease only The common iliac arteries: Are angiographically normal The external iliac arteries: Are angiographically normal The internal iliac arteries: R patent The common femoral arteries: Are angiographically normal Superficial femoral arteries: The right SFA appears to have mild disease only. The left SFA has critical lesion distally Popliteal arteries: Are angiographically normal Below the knees: The arteries below the knee was not well opacified. CONCLUSION: Critical disease involving the left SFA POSTPROCEDURE MANAGEMENT: Atherectomy and balloon angioplasty of the left SFA
--- NOTE | 2021-06-19 12:06 | IR ---
Fluoroscopy HISTORY: Pain in left leg 1.1 minutes fluoroscopy time supplied to the referring clinician. 96 intraoperative C-arm images doc ument the procedure. See dictated report from cardiology.
[2021-06-19 16:57] VITALS: RESP 16
[2021-06-19 17:10] VITALS: BP 133/67; PULSE 62
== END 2021-06-19 15:59 | disposition home or self-care (01) ==
LOC: CATHCVL 08:14
PROVIDERS: ATTEND Internal Medicine Interventional Cardiology
DX: I70.213 Atherosclerosis of native arteries of extremities with intermittent claudication, bilateral legs (principal); Z20.822 Contact with and (suspected) exposure to COVID-19
CPT/HCPCS: 75625; 75716; 36200; 76937; 85025; 87635; C1894; C1769 ×2; J2001; J3010; Q9966

== ENCOUNTER → 2021-07-05 | Outpatient (CLI) | payer MEDICAID, MEDICARE | END | disposition home or self-care (01) | LOC: LABPAT 09:00 | PROVIDERS: ATTEND Nurse Practitioner Adult Health | DX: U07.1 COVID-19 (principal) | CPT/HCPCS: U0003; C9803 ==

== ENCOUNTER 2021-07-09 09:54 | Day surgery (SDC) | payer MEDICAID, MEDICARE ==
[2021-07-07 10:39] VITALS: BMI 28.7
[2021-07-09 11:46] LABS: Basophils # (A) 0.1 k/uL (0-0.2); Basophils % (A) 1 %; Eosinophils # (A) 0.2 k/uL (0-0.7); Eosinophils % (A) 2 %; HGB 13.9 gm/dL (13.0-17.5); Lymphocytes # (A) 2.3 k/uL (1.0-4.8); Lymphocytes % (A) 21 %; MCH 31.5 pg (25.0-35.0); MCV 92.6 fL (80.0-100.0); Mean Platelet Volume 6.8; Monocytes # (A) 0.7 k/uL (0-1.0); Monocytes % (A) 7 %; Neutrophils # (A) 7.3 k/uL (1.3-7.7); Neutrophils % (A) 68 %; Platelet Count 342 k/uL (150-450); RBC 4.42 m/uL (4.30-5.90); RDW 12.8 % (11.5-15.5); WBC 10.7 k/uL (3.8-10.6)
[2021-07-09] MEDS: HYDROmorphone 1 MG/ML 1 ML SYRINGE IVP PRN ×2 (13:11→20:20)
[2021-07-09] MEDS: ALPRAZolam 0.25 MG TAB PO PRN (13:11)
[2021-07-09 13:20] LABS: African American GFR (CKD) >90 (>60 ml/min/1.73 sqM); Anion Gap 4 mmol/L; Blood Urea Nitrogen 17 mg/dL (9-20); Calcium 8.9 mg/dL (8.4-10.2); Carbon Dioxide 26 mmol/L (22-30); Chloride 110 mmol/L (98-107); Glucose 96 mg/dL (74-99); Non-African American GFR(CKD) 79 (>60 ml/min/1.73 sqM); Potassium 4.2 mmol/L (3.5-5.1); Sodium 140 mmol/L (137-145)
[2021-07-09] MEDS ORDERED: HEPARIN SODIUM 1,000 UN/ML (10ML VL) ONE (13:44)
[2021-07-09] MEDS ORDERED: LIDOCAINE 1% INJ 10MG/ML (20 ML MDV) ONE (13:44)
[2021-07-09] MEDS ORDERED: HYDROmorphone 1 MG/ML 1 ML SYRINGE IVP ONE (13:55)
[2021-07-09] MEDS ORDERED: MIDAZOLAM 2 MG/2 ML VIAL IV ONE ×2 (13:55→14:17)
[2021-07-09] MEDS ORDERED: LIDOCAINE 1% INJ 10MG/ML (20 ML MDV) SQ ONE (13:58)
[2021-07-09] MEDS ORDERED: CLOPIDOGREL 75 MG TAB ONE (14:41)
[2021-07-09] MEDS ORDERED: PANTOPRAZOLE 40 MG TABLET PO PRN (14:44)
[2021-07-09] MEDS ORDERED: IBUPROFEN 400 MG TAB PO PRN (14:44)
[2021-07-09] MEDS ORDERED: ALBUTEROL NEBULIZED 2.5 MG/3 ML INHALATION PRN (14:44)
[2021-07-09] MEDS ORDERED: NALOXONE 0.4 MG/ML 1 ML VIAL IVP PRN (14:45)
[2021-07-09] MEDS ORDERED: SODIUM CHLORIDE 0.9% 1,000 ML in EMPTY BAG 1 BAG IV SCH (14:45)
[2021-07-09] MEDS ORDERED: CLOPIDOGREL 75 MG TAB PO ONE (14:45)
[2021-07-09] MEDS ORDERED: IOPAMIDOL-370 100ML BTL INJ ONE (14:45)
--- NOTE | 2021-07-09 14:52 | P.PCN ---
Date of Procedure: 07/09/21 Operative Findings: PERCUTANEOUS PERIPHERAL INTERVENTION Performing physician Wicho العراقي M.D. Procedure performed #1 an atherectomy of the left SFA using the Hawk 1 device #2 intravascular ultrasound of the left SFA #3 successful balloon angioplasty of the left SFA #4 left lower extremity angiogram #5 right common femoral artery angiogram #6 ultrasound guided access of the right common femoral artery Indication Left leg intermittent claudication in this 70-year-old gentleman who underwent an angiogram and that revealed severe distal left SFA disease Approach Right common femoral artery Complications None Level of sedation Moderate with a sedation time of 40 minutes Procedure description After obtaining an informed consent the patient was brought to the cardiac cathode ray tube assembler. The right common femoral artery was cannulated using micropuncture technique, the micropuncture wire passed easily then I placed a 6-Tongan sheath 11 cm at the right common femoral artery. Anticoagulation was initiated using heparin with the patient given at the beginning 6000 of heparin IV with continuous ACT monitoring throughout the case The right SFA was selected using 5-Tongan rim catheter with 035 stiff Glidewire. Subsequently I did exchange my 11 cm sheath into 70 cm 6-Tongan sheath using 035 stiff Glidewire. I did left lower 70 angiogram which revealed 3 vessels run off below the knee on the left side with severe disease involving the distal left SFA SFA was wired using 014 hypo-ST wire. Subsequently I did enter vascular ultrasound which showed a diameter of 6 mm. At that point I did atherectomy using the Hawk 1 device and subsequently balloon angioplasty initiated using chocolate balloon and subsequently drug-coated balloon which was a 6 x 80 mm. After that the following angiogram showed excellent angiographic results. After that I did exchange my long sheath into short sheath using 035 stiff Glidewire before I did selective right common femoral artery angiogram. The procedure was completed without any complication Postprocedure management #1 dual antiplatelet therapy #2 aggressive cholesterol control #3 risk factors modification #4 follow-up with the patient
[2021-07-09] MEDS ORDERED: ONDANSETRON 4 MG/2 ML VIAL ONE (15:26)
[2021-07-09] MEDS: METOPROLOL TARTRATE 25 MG TAB PO SCH (20:19)
[2021-07-09] MEDS ORDERED: lisinopriL 10 MG TAB PO SCH (21:00)
[2021-07-10 07:23] VITALS: BP 161/71; PULSE 101; RESP 18; TEMP 98.3
[2021-07-10] MEDS ORDERED: IPRATROPIUM-ALBUTEROL 3 ML NEB INHALATION SCH (08:00)
[2021-07-10 08:11] LABS: Basophils # (A) 0.1 k/uL (0-0.2); Basophils % (A) 1 %; Eosinophils # (A) 0.1 k/uL (0-0.7); Eosinophils % (A) 1 %; HCT 39.6 % (39.0-53.0); HGB 13.3 gm/dL (13.0-17.5); Lymphocytes # (A) 2.4 k/uL (1.0-4.8); Lymphocytes % (A) 16 %; MCH 31.6 pg (25.0-35.0); MCHC 33.6 g/dL (31.0-37.0); MCV 93.8 fL (80.0-100.0); Mean Platelet Volume 6.7; Monocytes # (A) 1.1 k/uL (0-1.0); Monocytes % (A) 7 %; Neutrophils # (A) 11.1 k/uL (1.3-7.7); Neutrophils % (A) 74 %; Platelet Count 310 k/uL (150-450); RBC 4.22 m/uL (4.30-5.90); RDW 12.3 % (11.5-15.5); WBC 15.1 k/uL (3.8-10.6)
[2021-07-10 08:42] LABS: African American GFR (CKD) >90 (>60 ml/min/1.73 sqM); Anion Gap 5 mmol/L; Blood Urea Nitrogen 18 mg/dL (9-20); Calcium 9.4 mg/dL (8.4-10.2); Carbon Dioxide 25 mmol/L (22-30); Chloride 107 mmol/L (98-107); Glucose 103 mg/dL (74-99); Non-African American GFR(CKD) 80 (>60 ml/min/1.73 sqM); Potassium 4.2 mmol/L (3.5-5.1); Sodium 137 mmol/L (137-145)
[2021-07-10] MEDS: METOPROLOL TARTRATE 25 MG TAB PO SCH (08:48)
[2021-07-10] MEDS: ALPRAZolam 0.25 MG TAB PO PRN (08:48)
[2021-07-10] MEDS ORDERED: CHOLECALCIFEROL 125 MCG (5000 IU) TABLET PO SCH (09:00)
[2021-07-10] MEDS ORDERED: ASPIRIN 81 MG PO SCH (09:00)
[2021-07-10] MEDS ORDERED: CLOPIDOGREL 75 MG TAB PO SCH (09:00)
[2021-07-10] MEDS ORDERED: MULTIVITAMINS, THERA 1 EACH TAB PO SCH (09:00)
--- NOTE | 2021-07-10 10:18 | P.DS ---
Providers Date of admission: July 092021 Attending physician: Wicho العراقي Primary care physician: Stated None Hospital Course: The patient is a pleasant 70-year-old gentleman who was admitted to the hospital yesterday and underwent successful atherectomy and balloon angioplasty of the left SFA. The procedure was performed from the right groin. The right groin is soft and nontender and without any bruises. He is going to be discharged on dual antiplatelet therapy. He is intolerant to statin. I will follow-up with the patient in a week Plan - Discharge Summary Discharge Rx Participant: Yes New Discharge Prescriptions: Continue Ipratropium/Albuterol Sulfate [Combivent Respimat Inhaler] 1 puff INHALATION DAILY Albuterol Nebulized [Ventolin Nebulized] 2.5 mg INHALATION RT-Q8H PRN PRN Reason: Shortness Of Breath lisinopriL [Zestril] 10 mg PO HS Metoprolol Tartrate [Lopressor] 25 mg PO BID Multivitamins, Thera [Multivitamin (formulary)] 1 tab PO DAILY Ibuprofen [Motrin Ib] 400 mg PO Q8H PRN PRN Reason: Pain Cholecalciferol [Vitamin D3 (25 Mcg = 1000 Iu)] 5,000 units PO DAILY Clopidogrel [Plavix] 75 mg PO DAILY Omeprazole [PriLOSEC] 20 mg PO AC-BRKFST PRN PRN Reason: ACID REFLUX Aspirin [Adult Low Dose Aspirin EC] 81 mg PO DAILY Discharge Medication List Ipratropium/Albuterol Sulfate [Combivent Respimat Inhaler] 1 puff INHALATION DAILY 02/26/15 [History] Albuterol Nebulized [Ventolin Nebulized] 2.5 mg INHALATION RT-Q8H PRN 09/07/19 [History] Metoprolol Tartrate [Lopressor] 25 mg PO BID 11/16/19 [History] lisinopriL [Zestril] 10 mg PO HS 11/16/19 [History] Cholecalciferol [Vitamin D3 (25 Mcg = 1000 Iu)] 5,000 units PO DAILY 08/05/20 [History] Ibuprofen [Motrin Ib] 400 mg PO Q8H PRN 08/05/20 [History] Multivitamins, Thera [Multivitamin (formulary)] 1 tab PO DAILY 08/05/20 [History] Aspirin [Adult Low Dose Aspirin EC] 81 mg PO DAILY 08/26/20 [History] Clopidogrel [Plavix] 75 mg PO DAILY 08/26/20 [History] Omeprazole [PriLOSEC] 20 mg PO AC-BRKFST PRN 06/16/21 [History] Follow up Appointment(s)/Referral(s): Wicho العراقي MD [STAFF PHYSICIAN] - 1 Week Patient Instructions/Handouts: Peripheral Artery Disease (ED), Procedural Sedation (ED) Activity/Diet/Wound Care/Special Instructions: *NO LIFTING, PUSHING, OR PULLING ANYTHING OVER 5 POUNDS FOR 5 DAYS *NO DRIVING FOR 3 DAYS *YOU CAN SHOWER TOMORROW BUT BUT DO NOT SUBMERSE YOUR PUNCTURE SITE IN WATER FOR A FEW DAYS TO PREVENT INFECTION - SO NO TUB BATHS, POOLS, HOT TUBS....ETC *ANY SIGNS OF BLEEDING (HARDNESS, SWELLING, OR EXCESSIVE BRUISING) HOLD DIRECT PRESSURE ON YOUR PUNCTURE SITE AND COME TO THE NEAREST EMERGENCY ROOM TO GET YOUR PUNCTURE SITE LOOKED AT - DO NOT DRIVE YOURSELF! EITHER CALL EMS OR HAVE SOMEONE DRIVE YOU!
[2021-07-10] MEDS: HYDROmorphone 1 MG/ML 1 ML SYRINGE IVP PRN (10:24)
--- NOTE | 2021-07-11 10:46 | IR ---
EXAMINATION TYPE: IR ship's captain femoral popliteal DATE OF EXAM: 07/09/2021 COMPARISON: NONE HISTORY: Fluoroscopy time. Fluoroscopy was provided to the referring clinician.
== END 2021-07-10 11:00 | disposition home or self-care (01) ==
LOC: CATHCVL 09:54 → 6NMEDSUR 15:20 → CATHCVL 07-10 11:00
PROVIDERS: ATTEND Internal Medicine Interventional Cardiology
DX: I73.9 Peripheral vascular disease, unspecified (principal)
CPT/HCPCS: 37227; 80048; 85025; J2250; J2405; J2001; J1170; J1644; Q9967; 37225; 37252

== ENCOUNTER → 2021-10-16 | Outpatient (CLI) | payer MEDICAID, MEDICARE ==
[2021-10-16 20:13] LABS: Basophils # (A) 0.08 X 10*3/uL (0.00-0.10); Basophils % (A) 0.7 %; Eosinophils # (A) 0.17 X 10*3/uL (0.04-0.35); Eosinophils % (A) 1.5 %; HCT 42.7 % (39.6-50.0); HGB 13.8 g/dL (13.0-17.0); Immature Grans, Automated 0.3 %; Lymphocytes % (A) 23.7 %; MCH 30.2 pg (27.0-32.0); MCHC 32.3 g/dL (32.0-37.0); MCV 93.4 fL (80.0-97.0); Mean Platelet Volume 8.9 fL (9.5-12.2); Monocytes # (A) 0.95 X 10*3/uL (0.20-1.00); Monocytes % (A) 8.3 %; NRBC Per 100 WBC 0 /100 WBCS (0.0-0.0); Neutrophils # (A) 7.45 X 10*3/uL (1.80-7.70); Neutrophils % (A) 65.5 %; Platelet Count 361 X 10*3/uL (140-440); RBC 4.57 X 10*6/uL (4.40-5.60); RDW 12.3 % (11.5-14.5); WBC 11.38 X 10*3/uL (4.50-10.00)
[2021-10-16 20:25] LABS: ALT 21 U/L (10-49); AST 20 U/L (14-35); African American GFR (CKD) 84.3 (60.0-200.0); Albumin 4.2 g/dL (3.8-4.9); Albumin/Globulin Ratio 1.42 (1.60-3.17); Alkaline Phosphatase 109 U/L (41-126); BUN/Creat Ratio 12.04 Ratio (12.00-20.00); Blood Urea Nitrogen 12.4 mg/dL (9.0-27.0); C Reactive Protein <0.30 mg/dL (0.00-0.80); Calcium 9.8 mg/dL (8.7-10.3); Carbon Dioxide 24.8 mmol/L (20.0-27.5); Chloride 106 mmol/L (96-109); Chol/HDL Ratio 3.38 Ratio; Glucose 109 mg/dL (70-110); LDL Cholesterol,Calculated 58.8 mg/dL (0.0-131.0); Non-African American GFR(CKD) 72.7 (60.0-200.0); Potassium 4.8 mmol/L (3.5-5.5); Sodium 141 mmol/L (135-145); Total Protein 7.2 g/dL (6.2-8.2)
[2021-10-16 21:11] LABS: Erythrocyte Sedimentation Rate 12 mm/Hr (0-20)
== END | disposition home or self-care (01) ==
LOC: LABWHC1 12:29
PROVIDERS: ATTEND Nurse Practitioner Family
DX: R22.9 Localized swelling, mass and lump, unspecified (principal); I10 Essential (primary) hypertension; E78.5 Hyperlipidemia, unspecified; R07.89 Other chest pain
CPT/HCPCS: 36415; 80053; 80061; 83880; 84436; 84439; 84443; 84484; 85025; 85652; 86038; 86140

== ENCOUNTER → 2021-11-06 | Outpatient (CLI) | payer MEDICAID, MEDICARE ==
--- NOTE | 2021-11-06 15:54 | US ---
EXAMINATION TYPE: US extremity nonvasc mass LT DATE OF EXAM: 11/06/2021 COMPARISON: NONE CLINICAL HISTORY: R22.9 LUMP OF SKIN. patient fell on left buttocks August 28 and had a probable hemat effie that has since resolved, no skin changes and patient could not feel lump today Soft tissue scan of left buttocks produces no abnormal findings IMPRESSION: 1. Ultrasound soft tissues appear unremarkable. No discrete solid or cystic area is evident.
== END | disposition home or self-care (01) ==
LOC: RADUSWWP 07:09
PROVIDERS: ATTEND Family Medicine
DX: R22.9 Localized swelling, mass and lump, unspecified (principal)

== ENCOUNTER → 2022-11-11 | Outpatient (CLI) | payer MEDICAID, MEDICARE ==
--- NOTE | 2022-11-11 08:20 | CT ---
EXAMINATION TYPE: CT chest wo con DATE OF EXAM: 11/11/2022 COMPARISON: 09/17/2019 HISTORY: Right upper lobe pulmonary nodules CT DLP: [address] of the chest was performed with lung and mediastinal window settings submitted. The la ck of contrast limits evaluation of the vascular, mediastinal and parenchymal structures including th e upper abdomen. LUNGS: The lungs are clear and free of infiltrate. No atelectasis. There is a stable 4 mm pulmonary n odule right middle lobe image 45 sequence 5. No additional nodules are seen at this time. Biapical em physematous change noted. No CT evidence of interstitial lung disease. MEDIASTINUM/RAMOS: Thoracic aorta is of normal caliber with limited evaluation given lack of contrast . The heart is mildly enlarged. Coronary artery calcifications seen. No evidence for mediastinal ma ss. No lymph nodes greater than 1cm. UPPER ABDOMEN: No significant abnormality is seen. OTHER: No significant other abnormality. IMPRESSION: There is a stable 4 mm pulmonary nodule right middle lobe image 45 sequence 5. No additional nodules are seen at this time. Biapical emphysematous change noted.
== END | disposition home or self-care (01) ==
LOC: RADCTMAIN 07:03
PROVIDERS: ATTEND Family Medicine
DX: J43.9 Emphysema, unspecified (principal); R91.1 Solitary pulmonary nodule; I25.10 Atherosclerotic heart disease of native coronary artery without angina pectoris; I51.7 Cardiomegaly
CPT/HCPCS: 71250

== ENCOUNTER → 2023-08-05 | Outpatient (CLI) | payer MEDICAID, MEDICARE ==
[2023-08-05 15:56] LABS: Blood Urea Nitrogen 16.5 mg/dL (9.0-27.0)
[2023-08-05 15:57] LABS: Chloride 106 mmol/L (96-109); Potassium 4.8 mmol/L (3.5-5.5); Sodium 139 mmol/L (135-145)
[2023-08-05 17:00] LABS: HCT 43.3 % (39.6-50.0); HGB 14.1 g/dL (13.0-17.0); MCH 30.1 pg (27.0-32.0); MCHC 32.6 g/dL (32.0-37.0); MCV 92.5 FL (80.0-97.0); Mean Platelet Volume 9.1 FL (9.5-12.2); NRBC Per 100 WBC 0 X 10*3/uL (0.00-0.01); Platelet Count 351 X 10*3/uL (140-440); RBC 4.68 X 10*6/uL (4.40-5.60); RDW 12.4 % (11.5-14.5); WBC 9.94 X 10*3/uL (4.50-10.00)
== END | disposition home or self-care (01) ==
LOC: LABWHC1 08:50
PROVIDERS: ATTEND Internal Medicine Interventional Cardiology
DX: Z01.812 Encounter for preprocedural laboratory examination (principal); I25.10 Atherosclerotic heart disease of native coronary artery without angina pectoris
CPT/HCPCS: 36415; 80051; 82565; 84520; 85027

== ENCOUNTER 2023-08-10 07:59 | Day surgery (SDC) | payer MEDICAID, MEDICARE ==
[2023-08-04 15:39] VITALS: BMI 30.7
[~2023-08-10 07:59] MED LIST changes: +ALPRAZolam 0.25 MG TAB PO PRN; +ALPRAZolam 0.5 MG TAB PO PRN; -ASPIRIN 325 MG TAB PO PRN; +ASPIRIN 325 MG TAB PO STA; +HEPARIN SODIUM,PORCINE (1 ML) 2,500 UNIT in SODIUM CHLORIDE 0.9% 250 ML IRRIGATION PRN; +HEPARIN SODIUM,PORCINE 10,000 UNIT in SODIUM CHLORIDE 0.9% 1,000 ML IRRIGATION PRN; +NITROGLYCERIN SL TABS 0.4 MG TAB SUBLINGUAL PRN; -SODIUM CHLORIDE 0.9% 1,000 ML in EMPTY BAG 1 BAG IV ONE; +SODIUM CHLORIDE 0.9% 1,000 ML in EMPTY BAG 1 BAG IV SCH
[2023-08-10] MEDS: SODIUM CHLORIDE 0.9% 1,000 ML IV ONE (08:20)
[2023-08-10 08:46] VITALS: RESP 18; TEMP 98.7
[2023-08-10] MEDS ORDERED: HEPARIN SODIUM 1,000 UN/ML (10ML VL) ONE (10:57)
[2023-08-10] MEDS: MIDAZOLAM 2 MG/2 ML VIAL IVP ONE ×2 (11:10→11:15)
[2023-08-10] MEDS: LIDOCAINE 1% INJ 10MG/ML (20 ML MDV) SQ ONE (11:13)
[2023-08-10] MEDS: VERAPAMIL SYRINGE (5 MG/10 ML) INTRAARTER ONE (11:14)
[2023-08-10] MEDS: HEPARIN SODIUM 1,000 UN/ML (10ML VL) IV ONE (11:21)
[2023-08-10] MEDS ORDERED: fentaNYL (PF) 50 MCG/ML 2 ML AMP ONE (11:25)
[2023-08-10] MEDS: fentaNYL (PF) 50 MCG/ML 2 ML AMP IVP ONE (11:26)
[2023-08-10] MEDS: IOPAMIDOL-370 100ML BTL INJ ONE (11:26)
[2023-08-10] MEDS ORDERED: RX INFO: IV CONTRAST WAS GIVEN 1 EACH MISC MISCELLANE PRN (11:32)
--- NOTE | 2023-08-10 11:37 | P.PCN ---
Date of Procedure: 08/10/23 Operative Findings: CARDIAC CATHETERIZATION PERFORMING PHYSICIAN: Wicho العراقي MD, RPVI PROCEDURE PERFORMED: 1. Selective right and left coronary angiogram 2. Left heart catheterization 3. Ultrasound-guided access of the right radial artery INDICATION: Chest discomfort in this 73-year-old gentleman who underwent myocardial perfusion imaging stress test and that showed ischemia/reversibility. The patient is known to have CAD with prior stenting of the LAD COMPLICATION: None APPROACH: Right radial artery LEVEL OF SEDATION: Moderate with a sedation length of 13 minutes PROCEDURE DESCRIPTION: After obtaining an informed consent, the patient was brought to cardiac laborer ammunition assembly. Local anesthesia was performed using lidocaine subcutaneously. The right radial artery was cannulated using Seldinger technique, the guidewire passed easily, following that we advanced a 5-Tuvaluan sheath dilator assembly, the wire and dilator were removed and sheath was flushed. Following that, 2 mg of verapamil along with 5000 unit heparin were given. Selective right and left coronary angiogram using a 6-Tuvaluan JR4 and JL 3.5 catheters. Following that we did left heart catheterization using 6-Tuvaluan pigtail catheter. The procedure was completed there was no complication. SELECTIVE CORONARY ANGIOGRAM: The right coronary artery: Large-caliber vessel and a dominant vessel with intermediate lesion in the midportion appeared to be in the range of 50%. The lesion is a slightly hazy Left main: Is angiographically normal. Bifurcates into an LCx and LAD The left circumflex: Large-caliber vessel nondominant vessel. The LCx appeared to have mild disease only and gives rise into an OM which appears to have mild disease only The left anterior descending artery: Large-caliber vessel. The proximal LAD appeared to be angiographically normal. The mid LAD is stented and the stent is patent. The LAD distally appears to be normal HEMODYNAMICS: LVEDP was 6 mmHg with no significant gradient across the aortic valve CONCLUSION: 1. Patent stent in the left anterior descending artery 2. Intermediate disease involving the mid RCA appears to be in the range of 50% POSTPROCEDURE MANAGEMENT: Consider medical treatment at this point. Consider FFR of the RCA if the patient remains symptomatic on maximized medical treatment
[2023-08-10] MEDS ORDERED: SODIUM CHLORIDE 0.9% 1,000 ML IV SCH (11:45)
[2023-08-10 13:32] VITALS: PULSE 60
[2023-08-10 15:21] VITALS: BP 124/73
== END 2023-08-10 15:09 | disposition home or self-care (01) ==
LOC: CATHCVL 07:59
PROVIDERS: ATTEND Internal Medicine Interventional Cardiology
DX: I25.10 Atherosclerotic heart disease of native coronary artery without angina pectoris (principal); I73.9 Peripheral vascular disease, unspecified; E78.5 Hyperlipidemia, unspecified; I10 Essential (primary) hypertension; Z95.5 Presence of coronary angioplasty implant and graft; Z79.899 Other long term (current) drug therapy; Z79.02 Long term (current) use of antithrombotics/antiplatelets; Z79.82 Long term (current) use of aspirin
CPT/HCPCS: 93458; 76937; 99152; C1769 ×2; C1894; J2250; J2001; J3010; J1644; Q9967

== ENCOUNTER 2023-09-11 09:25 | Emergency (ER) | payer MEDICAID, MEDICARE ==
--- NOTE | 2023-09-11 10:11 | ED ---
Wound/Laceration HPI - General Chief Complaint: Wound/Laceration Stated Complaint: right finger laceration/blood thinners Time Seen by Provider: 09/11/23 09:50 Source: patient, RN notes reviewed Mode of arrival: ambulatory Limitations: no limitations - History of Present Illness Initial Comments: 73-year-old male on blood thinners presenting with right third digit laceration x 1 hour ago. Patient states he was slicing pepperoni with a mandarin slicer when he accidentally sliced the tip of his finger. States he has had active bleeding since the injury. Denies blunt trauma to the area. He is right-hand dominant. He is unsure of last tetanus. - Related Data Home Medications Medication Instructions Recorded Confirmed Ipratropium/Albuterol Sulfate 1 puff INHALATION QID 02/26/15 08/10/23 [Combivent Respimat Inhaler] Albuterol Nebulized [Ventolin 2.5 mg INHALATION RT-Q8H PRN 09/07/19 08/10/23 Nebulized] Metoprolol Tartrate [Lopressor] 25 mg PO DAILY 11/16/19 08/10/23 lisinopriL [Zestril] 10 mg PO HS 11/16/19 08/10/23 Cholecalciferol [Vitamin D3 (25 5,000 units PO QAM 08/05/20 08/10/23 Mcg = 1000 Iu)] Ibuprofen [Motrin Ib] 400 mg PO Q8H PRN 08/05/20 08/10/23 Multivitamins, Thera [Multivitamin 1 tab PO QAM 08/05/20 08/10/23 (formulary)] Aspirin [Adult Low Dose Aspirin EC] 81 mg PO QAM 08/26/20 08/10/23 Clopidogrel [Plavix] 75 mg PO QAM 08/26/20 08/10/23 Omeprazole [PriLOSEC] 20 mg PO AC-BRKFST PRN 06/16/21 08/10/23 Atorvastatin [Lipitor] 40 mg PO DAILY 08/10/23 08/10/23 Allergies Allergy/AdvReac Type Severity Reaction Status Date / Time orphenadrine Allergy Anaphylaxis Verified 09/11/23 09:37 pregabalin [From Lyrica] Allergy Nausea & Verified 09/11/23 09:37 Vomiting simvastatin Allergy Nausea & Verified 09/11/23 09:37 Vomiting cimetidine [From Tagamet] AdvReac Nausea & Verified 09/11/23 09:37 Vomiting & Diarrhea clonazepam [From Klonopin] AdvReac Hallucinati Verified 09/11/23 09:37 ons duloxetine [From Cymbalta] AdvReac Nausea & Verified 09/11/23 09:37 Vomiting Enoaurb-AWS-QyP Reductase AdvReac Nausea & Verified 09/11/23 09:37 Inhibitor Vomiting Sulfa (Sulfonamide AdvReac Nausea & Verified 09/11/23 09:37 Antibiotics) Vomiting Review of Systems ROS Statement: Those systems with pertinent positive or pertinent negative responses have been documented in the HPI. ROS Other: All systems not noted in ROS Statement are negative. 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 closed head injury, kidney stones, vertigo,peptic ulcer,dry eyes, bi lat feet "It;s like my feet are frozen." Last Myocardial Infarction Date:: 2017 History of Any Multi-Drug Resistant Organisms: None Reported Past Surgical History: Back Surgery, Heart Catheterization With Stent, Hernia Repair Additional Past Surgical History / Comment(s): neck surg., double hernia repair, Left and right ESWL. first stent placed 2017 second stent placed 2021, surgery lt leg r/t DVT. Past Anesthesia/Blood Transfusion Reactions: No Reported Reaction, Motion Sickness Additional Past Anesthesia/Blood Transfusion Reaction / Comment(s): Pt has hx of vertigo. Date of Last Stent Placement:: 2019 Past Psychological History: Anxiety, Panic Disorder, PTSD Smoking Status: Former smoker - Past Family History Father Family Medical History: CVA/TIA, Deep Vein Thrombosis (DVT) Additional Family Medical History / Comment(s): DVT wrist Mother Family Medical History: Dementia Additional Family Medical History / Comment(s): dementia when she was 90 Sister(s) Family Medical History: Cancer Additional Family Medical History / Comment(s): 1) Breast CA passed at 58 years old. 2) passed when she was 59 years old with questinable CA Brother(s) Family Medical History: Cancer Additional Family Medical History / Comment(s): passed when he was 60 years old due to heart issues, brain cancer. General Exam Limitations: no limitations Right Hand Wrist exam: Present: normal inspection, full ROM, other (3 cm avulsion on third digit of right hand. There is active bleeding. Full range of motion of PIP and DIP. Sensation intact and cap refill less than 2 seconds.). Absent: tenderness, swelling Hand L/R Front: 1 - laceration Course Vital Signs 09/11/23 09:34 Temperature 97.6 F Pulse Rate 81 Respiratory 20 Rate Blood Pressure 155/84 O2 Sat by Pulse 96 Oximetry Procedures - Laceration Laceration #1 Indication: other (Avulsion) Site: upper extremity Size (cm): 3 Description: linear Pre-repair: wound explored, irrigated extensively, deep structures intact Additional Comments: Wound irrigated and cleaned with Betadine. Hemostasis achieved with Surgifoam. Wound dressed. Neurovascularly intact status post procedure. Medical Decision Making - Medical Decision Making Was pt. sent in by a medical professional or institution (TONI Escoto, CODING ASSISTANT, urgent care, hospital, or longterm...) When possible be specific @ -No Did you speak to anyone other than the patient for history (EMS, parent, family, police, friend...)? What history was obtained from this source @ -No Did you review nursing and triage notes (agree or disagree)? Why? @ -I reviewed and agree with nursing and triage notes Were old charts reviewed (outside hosp., previous admission, EMS record, old EKG, old radiological studies, urgent care reports/EKG's, longterm records)? Report findings @ -No old charts were reviewed Differential Diagnosis (chest pain, altered mental status, abdominal pain women, abdominal pain men, vaginal bleeding, weakness, fever, dyspnea, syncope, headache, dizziness, GI bleed, back pain, seizure, CVA, palpatations, mental health, musculoskeletal)? @ -Differential Musculoskeletal Avulsion, laceration, abrasion, muscular strain, contusion, ligament sprain, fracture, arthritis, septic arthritis, bursitis, cellulitis.... This is not meant to be in all inclusive list EKG interpreted by me (3pts min.). @ -None X-rays interpreted by me (1pt min.). @ -None done CT interpreted by me (1pt min.). @ -None done U/S interpreted by me (1pt. min.). @ -None done What testing was considered but not performed or refused? (CT, X-rays, U/S, labs)? Why? @ -X-ray not performed due to no direct trauma What meds were considered but not given or refused? Why? @ -None Did you discuss the management of the patient with other professionals (professionals i.e. DrJemima, PA, CODING ASSISTANT, lab, RT, psych nurse, protective services social worker, level vial sealer, teacher, aoc airspace control officer, gearcase assembler)? Give summary @ -No Was smoking cessation discussed for >3mins.? @ -No Was critical care preformed (if so, how long)? @ -No Were there social determinants of health that impacted care today? How? (Homelessness, low income, unemployed, alcoholism, drug addiction, transpor tation, low edu. Level, literacy, decrease access to med. care, assisted, rehab)? @ -No Was there de-escalation of care discussed even if they declined (Discuss DNR or withdrawal of care, Hospice)? DNR status @ -No What co-morbidities impacted this encounter? (DM, HTN, Smoking, COPD, CAD, Cancer, CVA, ARF, Chemo, Hep., AIDS, mental health diagnosis, sleep apnea, morbid obesity)? @ -None Was patient admitted / discharged? Hospital course, mention meds given and route, prescriptions, significant lab abnormalities, going to OR and other pertinent info. @ -Patient was discharged. Patient was seen and evaluated for right third digit avulsion. Wound was cleaned and Surgifoam was applied. Tdap was updated. Wound care discussed. Discussed signs of bacterial infection. Return symptoms discussed. Patient discharged in stable condition. Case discussed with Dr. Pugh. Undiagnosed new problem with uncertain prognosis? @ -No Drug Therapy requiring intensive monitoring for toxicity (Heparin, Nitro, Insulin, Cardizem)? @ -No Were any procedures done? @ -Wound was cleaned and Surgifoam was applied. Diagnosis/symptom? @ -Right digit avulsion Acute, or Chronic, or Acute on Chronic? @ -Acute Uncomplicated (without systemic symptoms) or Complicated (systemic symptoms)? @ -Uncomplicated Side effects of treatment? @ -No Exacerbation, Progression, or Severe Exacerbation? @ -No Poses a threat to life or bodily function? How? (Chest pain, [place], [place], pneumonia, PE, COPD, DKA, ARF, appy, cholecystitis, CVA, Diverticulitis, Homicidal, Suicidal, threat to staff... and all critical care pts) @ -No Disposition Clinical Impression: Laceration Disposition: HOME SELF-CARE Condition: Stable Additional Instructions: Please return to the Emergency Department if symptoms worsen or any other concerns. Is patient prescribed a controlled substance at d/c from ED?: No Referrals: None,Stated [Primary Care Provider] - 1-2 days Time of Disposition: 10:54
[2023-09-11] MEDS: DIPH,PERTUS(ACELL)TETVAC-LF 0.5 ML VIAL IM ONE (10:47)
[2023-09-11 11:22] VITALS: BP 136/86; PULSE 78; RESP 18; TEMP 98.4
== END 2023-09-11 11:01 | disposition home or self-care (01) ==
LOC: EC 09:25
DX: S61.212A Laceration without foreign body of right middle finger without damage to nail, initial encounter (principal); Z87.891 Personal history of nicotine dependence; Z23 Encounter for immunization; Z88.2 Allergy status to sulfonamides; Z88.8 Allergy status to other drugs, medicaments and biological substances; W26.8XXA Contact with other sharp object(s), not elsewhere classified, initial encounter
CPT/HCPCS: 12002; 90471; 90715; 99282

== ENCOUNTER → 2023-11-09 | Outpatient (CLI) | payer MEDICAID, MEDICARE ==
--- NOTE | 2023-11-09 10:51 | US ---
EXAMINATION TYPE: US venous doppler duplex LE LT DATE OF EXAM: 11/09/2023 9:56 AM COMPARISON: Left lower extremity venous ultrasound 11/17/2017 CLINICAL INDICATION: Male, 73 years old with history of I82.402 ACUTE EMBOLISM; DVT on blood thinners SIDE PERFORMED: Left TECHNIQUE: The lower extremity deep venous system is examined utilizing real time linear array sonog ismael with graded compression, doppler sonography and color-flow sonography. VESSELS IMAGED: Common Femoral Vein Deep Femoral Vein Greater Saphenous Vein * Femoral Vein Popliteal Vein Small Saphenous Vein * Proximal Calf Veins (* superficial vessels) Grayscale, color doppler, spectral doppler imaging performed of the deep veins of the left lower extr emity. There is normal flow, compressibility, vascular waveforms. Left Leg: Negative for DVT IMPRESSION: No ultrasound evidence for deep venous thrombosis of the left lower extremity.
== END | disposition home or self-care (01) ==
LOC: RADUSWWP 09:29
PROVIDERS: ATTEND Internal Medicine Interventional Cardiology
DX: I82.402 Acute embolism and thrombosis of unspecified deep veins of left lower extremity (principal)

== ENCOUNTER → 2024-02-03 | Outpatient (CLI) | payer MEDICAID, MEDICARE ==
[2024-02-03 14:41] LABS: African American GFR (CKD) 78 (>60 ml/min/1.73 sqM); Blood Urea Nitrogen 12 mg/dL (9-20); Non-African American GFR(CKD) 67 (>60 ml/min/1.73 sqM)
--- NOTE | 2024-02-03 15:51 | CT ---
EXAMINATION TYPE: CT chest w con CT DLP: 367 mGycm, Automated exposure control for dose reduction was used. DATE OF EXAM: 02/03/2024 2:57 PM COMPARISON: 11/11/2022. CLINICAL INDICATION: Male, 73 years old with history of R91.1 CHEST W CONTRAST; PHH, COPD, chronic co ugh. HX of PE TECHNIQUE: Multiple axial images were obtained through the chest. Sagittal and coronal reformats were created for review. Contrast used:100 mL of Isovue 300 with IV Contrast (None if empty) Oral contrast used: (None if empty) FINDINGS: LUNGS/ PLEURA: Mild paraseptal emphysema changes. No focal consolidation, pneumothorax or pleural eff usion. No suspicious pulmonary nodules. 5 mm pulmonary nodule in the medial aspect of the middle lobe . AIRWAY: Patent and unremarkable. HEART: Size within normal limits. Atherosclerosis of the coronary arteries. MEDIASTINUM: No gross evidence of adenopathy. VASCULATURE: No aortic aneurysm. MUSCULOSKELETAL: Mild disc degeneration changes are present throughout the thoracolumbar spine. SOFT TISSUES/LYMPH NODES: Unremarkable. LOWER NECK: No significant findings. UPPER ABDOMEN: No significant findings. IMPRESSION: 1. Stable pulmonary nodule in the medial aspect of the right middle lobe. No new or enlarging pulmon akua nodules. 2. Mild emphysema.
== END | disposition home or self-care (01) ==
LOC: RADCTMAIN 13:39
PROVIDERS: ATTEND Internal Medicine
DX: R91.1 Solitary pulmonary nodule
CPT/HCPCS: 36415; 71260; 82565; 84520

== ENCOUNTER → 2024-09-11 | Outpatient (CLI) | payer MEDICAID, MEDICARE ==
[2024-09-11 18:01] LABS: ALT 26 U/L (10-49); AST 21 U/L (14-35); Chol/HDL Ratio 2.74 Ratio; LDL Cholesterol,Calculated 79.9 mg/dL (0.0-131.0)
== END | disposition home or self-care (01) ==
LOC: LABWHC1 10:28
PROVIDERS: ATTEND Internal Medicine Interventional Cardiology
DX: E78.2 Mixed hyperlipidemia (principal)
CPT/HCPCS: 36415; 80061; 84450; 84460